=== PATIENT | male | born 1965 | race Caucasian/White ===

== ENCOUNTER 2022-04-04 12:21 | Inpatient (IN) | payer MEDICARE, MEDICAID, SELFPAY ==
[2022-04-04] VITALS (32 sets, daily range): BP systolic 78–126; BP diastolic 51–69; PULSE 100–112; RESP 14–26; TEMP 36.8–37; O2SAT 81–100; BMI 24.9
--- NOTE | ~2022-04-04 | XR_ITS ---
EXAMINATION: XR chest 1V portable DATE: 04/19/2022 05:12 INDICATION: Respiratory failure TECHNIQUE: frontal view of the chest was obtained. COMPARISON: Chest radiograph dated 04/18/2022 FINDINGS: Endotracheal tube tip 6.5 cm above the lennox. Nasogastric tube is no longer visualized. Right upper extremity peripherally inserted central venous catheter (PICC) has repositioned, now extending cephal ad into the caudal right internal jugular vein before folding back upon itself with a kink at the ape x and distal tip near the confluence of the right internal jugular and subclavian veins. Persistent mild opacities at the bilateral lower lung zones. Likely small left pleural effusion.. No pneumothorax. The cardiomediastinal silhouette is normal. IMPRESSION: 1. Unchanged mild opacities at the lung bases consistent with pneumonia and likely small left pleural effusion. 2. Distal tip of the right upper extremity peripherally inserted central venous catheter (PICC) is re positioned now folded back upon itself in the caudal aspect of the right internal jugular vein. Consi dering rapid saline flush to reposition the tip. Reviewed, dictated and finalized at location A. IMPRESSION: 1. Unchanged mild opacities at the lung bases consistent with pneumonia and lik katharine small left pleural effusion. 2. Distal tip of the right upper extremity peripherally inserted central venous catheter (PICC) is repositioned now folded back upon itself in the caudal aspe ct of the right internal jugular vein. Considering rapid saline flush to reposi tion the tip.
--- NOTE | ~2022-04-04 | XR_ITS ---
EXAMINATION: XR chest 1V portable DATE: 04/28/2022 05:56 INDICATION: Pneumonia TECHNIQUE: frontal view of the chest was obtained. COMPARISON: Chest radiograph dated 04/27/2022 FINDINGS: Tracheostomy tube at the thoracic inlet. Patient is rotated towards the left. No significant change i n diffuse bilateral interstitial and scattered patchy airspace opacities throughout both lungs. Small left pleural effusion. No pneumothorax. Heart size is normal. Instrumented posterior and anterior sp inal fusion in the thoracic and thoracolumbar spine respectively. IMPRESSION: 1. No significant change in bilateral interstitial and airspace opacities which could represent pneum onia and/or pulmonary edema. 2. Small left pleural effusion. Reviewed, dictated and finalized at location A. IMPRESSION: 1. No significant change in bilateral interstitial and airspace opacities which could represent pneumonia and/or pulmonary edema. 2. Small left pleural effusion.
--- NOTE | ~2022-04-04 | XR_ITS ---
EXAMINATION: XR chest 1V portable DATE: 04/10/2022 06:01 INDICATION: Respiratory failure. TECHNIQUE: A single frontal view of the chest was obtained on 2 radiographs. COMPARISON: Chest single view 04/10/2022, chest CT 04/04/2022 FINDINGS: There are patchy airspace opacities in all lung zones bilaterally. No pleural effusion or p neumothorax. The heart size is normal. The endotracheal tube tip is 6.9 cm above the lennox. The naso gastric tube tip is in the stomach. There are changes of posterior fusion procedure in thoracic spine . There are changes of anterior fusion procedure in thoracolumbar spine. IMPRESSION: 1. Stable diffuse lung disease, consistent with pneumonia. Reviewed, dictated and finalized at location A.
--- NOTE | ~2022-04-04 | US_ITS ---
EXAMINATION: US venous doppler [facility] DATE: 04/15/2022 13:30 INDICATION: Lower limb edema. TECHNIQUE: Grayscale ultrasound images without and with compression and Doppler ultrasound images of the bilateral lower extremity veins were obtained. COMPARISON: Ultrasound 04/05/2022 FINDINGS: The visualized portions of right common femoral vein, profunda (deep) femoral vein, femoral vein, pop liteal vein, peroneal veins, and posterior tibial veins are patent. The visualized portions of left common femoral vein, profunda femoral vein, femoral vein, popliteal v ein, peroneal veins, and posterior tibial veins are patent. IMPRESSION: 1. No deep venous thrombosis. Reviewed, dictated and finalized at location A.
--- NOTE | ~2022-04-04 | XR_ITS ---
XR abdomen NG/feed tube insert INDICATION: Evaluate NG tube position. TECHNIQUE: Limited KUB perform for evaluating NG tube . COMPARISON: No prior studies for comparison. FINDINGS: NG tube tip in the stomach, side port above the GE junction. Recommend advancement. Visuali zed bowel gas pattern is nonspecific with.There are spinal rods transfixing the thoracic and lumbar s pine with fusion of the upper lumbar spine. IMPRESSION: 1: NG tube tip in the stomach, side port above the GE junction. Recommend advancement. Reviewed, dictated and finalized at location B. IMPRESSION: 1: NG tube tip in the stomach, side port above the GE junction. Recommend adva ncement.
--- NOTE | ~2022-04-04 | XR_ITS ---
XR chest 1V portable 04/30/2022 08:21 Indication: Respiratory failure Procedure: AP portable chest Comparison: Comparison to multiple prior studies sequentially, with oldest reviewed study dated 04/02. Findings: Heart size normal. Diffuse bilateral airspace disease. Small left pleural effusion. Tracheo stomy tube present. There are Dominguez rods involving the thoracic and lumbar spine. No pneumothora x. There is a right-sided PIC line, tip not definitely visualized due to overlying hardware. Impression: 1: Diffuse bilateral airspace disease which may represent edema or pneumonia. 2: Small left pleural effusion. Reviewed, dictated and finalized at location A. Impression: 1: Diffuse bilateral airspace disease which may represent edema or pneumonia. 2: Small left pleural effusion.
--- NOTE | ~2022-04-04 | XR_ITS ---
EXAMINATION: XR chest 1V portable DATE: 04/16/2022 06:06 INDICATION: Acute respiratory failure. TECHNIQUE: frontal view of the chest was obtained. COMPARISON: Chest radiograph and CT dated 04/15/2022 FINDINGS: Endotracheal tube tip approximately 5 cm above the lennox. Nasogastric tube extends into the stomach with distal tip collimated beyond the inferior margin of the [id number]. Right upper extremity per ipherally inserted central venous catheter (PICC) tip at the cephalad superior vena cava. Again seen are subtle opacities at the lung bases with some improvement on the left. No pleural effus ion or pneumothorax. The cardiomediastinal silhouette is normal. IMPRESSION: 1. Opacities in the bilateral lower lung zones consistent with pneumonia with slight improvement on t he left Reviewed, dictated and finalized at location A. IMPRESSION: 1. Opacities in the bilateral lower lung zones consistent with pneumonia with s light improvement on the left
--- NOTE | ~2022-04-04 | XR_ITS ---
EXAMINATION: XR chest 1V portable DATE: 04/19/2022 12:58 INDICATION: Central line placement. TECHNIQUE: A single frontal view of the chest was obtained. COMPARISON: Chest single view at 8:28 AM FINDINGS: There are nodules in the lungs with a lower lung predominance. There are airspace opacities at left lung base. No pleural effusion or pneumothorax. The heart size is normal. The endotracheal t ube tip is 5.9 cm above the lennox. There are changes of posterior fusion procedure in thoracic spine . There are changes of anterior fusion procedure in thoracolumbar spine. A right upper extremity jada pherally inserted central venous catheter (PICC) is seen with tip in the right internal jugular vein. IMPRESSION: 1. PICC tip in right internal jugular vein. 2. Stable diffuse lung disease with a lower lung predominance, consistent with pneumonia. Reviewed, dictated and finalized at location B.
--- NOTE | ~2022-04-04 | XR_ITS ---
EXAMINATION: XR chest 1V portable DATE: 04/17/2022 05:45 INDICATION: Pneumonia. Respiratory failure. TECHNIQUE: frontal view of the chest was obtained. COMPARISON: Chest radiograph dated 04/16/[address] dated 04/15/2022 FINDINGS: The lennox and tip of the endotracheal tube are both obscured by instrumentation for a thoracic poste rior spinal fusion. The tip is approximately 5-6.5 cm above the lennox. Nasogastric tube tip in the s tomach. Right upper extremity peripherally inserted central venous catheter (PICC) tip at the mid mera perior vena cava. Persistent fine reticulonodular pattern in the bilateral lower lung zones. No pleural effusion or pne umothorax. The cardiomediastinal silhouette is normal. IMPRESSION: 1. Fine reticulonodular pattern at the lung bases consistent with pneumonia. Reviewed, dictated and finalized at location A.
--- NOTE | ~2022-04-04 | XR_ITS ---
XR abdomen NG/feed tube rechec INDICATION: Evaluate NG tube position. TECHNIQUE: Limited KUB perform for evaluating NG tube . COMPARISON: 04/05/2022 FINDINGS: NG tube tip in the stomach, side-port near the GE junction. Visualized bowel gas pattern i s unremarkable. IMPRESSION: 1: NG tube tip in the stomach, side port near the GE junction. Reviewed, dictated and finalized at location B.
--- NOTE | ~2022-04-04 | XR_ITS ---
EXAMINATION: XR chest 1V portable DATE: 04/11/2022 05:32 INDICATION: Intubated. TECHNIQUE: A single frontal view of the chest was obtained. COMPARISON: Chest single view 04/10/2022 FINDINGS: There are airspace opacities in all lung zones bilaterally. No pleural effusion or pneumoth orax. The heart size is normal. The endotracheal tube tip is 6.0 cm above the lennox. The nasogastric tube tip is beyond the inferior margin of the radiograph, but at least to the stomach. A right upper extremity peripherally inserted central venous catheter (PICC) is seen with tip in the superior vena cava. There are changes of posterior fusion procedure in thoracic spine. There are changes of anteri or fusion procedure in thoracolumbar spine. IMPRESSION: 1. Stable diffuse lung disease, consistent with pneumonia. Reviewed, dictated and finalized at location A.
--- NOTE | ~2022-04-04 | XR_ITS ---
EXAMINATION: XR chest 1V portable DATE: 04/12/2022 05:33 INDICATION: Acute respiratory failure. TECHNIQUE: A single frontal view of the chest was obtained on 2 radiographs. COMPARISON: Chest single view 04/11/2022 FINDINGS: There are airspace opacities in all lung zones bilaterally. No pleural effusion or pneumoth orax. The heart size is normal. The endotracheal tube tip is 4.9 cm above the lennox. A right upper e xtremity peripherally inserted central venous catheter (PICC) is seen with tip in the superior vena c nicole. The nasogastric tube tip is beyond the inferior margin of the radiograph, but at least to the st omach. There are changes of posterior fusion procedure in thoracic spine. There are changes of anteri or fusion procedure in thoracolumbar spine. IMPRESSION: 1. Stable diffuse lung disease, consistent with pneumonia. Reviewed, dictated and finalized at location A.
--- NOTE | ~2022-04-04 | CT_ITS ---
EXAMINATION: CT brain wo con DATE: 04/10/2022 11:11 INDICATION: Encephalopathy TECHNIQUE: Computed tomography (CT) of the head was performed without intravenous contrast. Sagittal and coronal reconstructions were performed. The mA was adjusted according to patient size. Iterative reconstruction technique was employed. The dose-length product was 756.67 mGy-cm. COMPARISON: None FINDINGS: Incompletely visualized endotracheal tube and orogastric tube extending through the oral cavity. No a cute intracranial hemorrhage, acute infarction or abnormal extra axial fluid collection. Ventricles a re normal and symmetric. No mass/mass effect. There are small bilateral mastoid effusions. The orbits and paranasal sinuses are normal. IMPRESSION: 1. No acute intracranial process. Reviewed, dictated and finalized at location B.
--- NOTE | ~2022-04-04 | XR_ITS ---
EXAMINATION: XR chest 1V portable DATE: 04/15/2022 06:35 INDICATION: Acute respiratory failure. TECHNIQUE: A single frontal view of the chest was obtained. COMPARISON: Chest single view 04/14/2022 FINDINGS: There are small nodules in right mid and lower lung zones and left lower lung zone. No pleu ral effusion or pneumothorax. The heart size is normal. The endotracheal tube tip is 6.3 cm above the lennox. The nasogastric tube tip is beyond the inferior margin of the radiograph, but at least to th e stomach. A right upper extremity peripherally inserted central venous catheter (PICC) is seen with tip in the superior vena cava. There are changes of posterior fusion procedure in thoracic spine and anterior fusion procedure in thoracolumbar spine. IMPRESSION: 1. Stable small nodules in right mid and lower lung zones and left lower lung zone, consistent with p neumonia. Reviewed, dictated and finalized at location A. IMPRESSION: 1. Stable small nodules in right mid and lower lung zones and left lower lung z one, consistent with pneumonia.
--- NOTE | ~2022-04-04 | XR_ITS ---
EXAMINATION: XR chest ET placement, XR chest ET placement, XR abdomen NG/feed tube insert DATE: 04/06/2022 06:03 INDICATION: Endotracheal tube positioning and subsequent repositioning. Orogastric tube placement. TECHNIQUE: 1. Frontal view of the chest was obtained. 2. Repeat frontal view of the chest was obtained after endotracheal tube repositioning. 3. AP view of the abdomen was obtained. COMPARISON: Chest radiograph dated 04/05/2022 FINDINGS: Chest: Endotracheal tube tip 5.5 cm above the lennox on the initial radiograph. Subsequently the endotrachea l tube is advanced with distal tip 4.9 cm above the lennox on the later image. Right upper extremity peripherally inserted central venous catheter (PICC) tip at the caudal superior vena cava. Patchy airspace opacities throughout both lungs. This is superimposed over a gradient of basilar pred ominant hazy opacities with obscuration of the costophrenic angles consistent with small bilateral pl eural effusions. No pneumothorax. The cardiomediastinal silhouette is normal. Instrumented thoracic p osterior spinal fusion with bilateral vertical bree and pedicle screw fixation extending from T4 throu gh T12. Abdomen: Orogastric tube with distal tip in proximal side port in the body of the stomach. No dilated loops of gas-filled bowel to suggest obstruction. Cholecystectomy clips in right upper quadrant. Additional . Versus catheter projects across the right abdomen with distal tip projecting near the right side of the lumbar spine. There is no overlapping anterior spinal fusion with left-sided vertical rods and ve rtebral body screws extending from T11 to L4 with L1 and L2 corpectomies with interbody bone strut gr aft and with additional interbody bone graft cage at L3-L4. IMPRESSION: 1. Endotracheal tube tip 4.9 cm above the lennox and orogastric tube in the stomach. 2. Small bilateral pleural effusions unchanged diffuse patchy bilateral lung disease which could repr esent pulmonary edema or pneumonia. Reviewed, dictated and finalized at location A. IMPRESSION: 1. Endotracheal tube tip 4.9 cm above the lennox and orogastric tube in the sto mach. 2. Small bilateral pleural effusions unchanged diffuse patchy bilateral lung di sease which could represent pulmonary edema or pneumonia. IMPRESSION: 1. Endotracheal tube tip 4.9 cm above the lennox and orogastric tube in the sto mach. 2. Small bilateral pleural effusions unchanged diffuse patchy bilateral lung di sease which could represent pulmonary edema or pneumonia.
--- NOTE | ~2022-04-04 | XR_ITS ---
XR chest ET placement 04/05/2022 09:48 Indication: Intubation. Respiratory distress. Procedure: AP portable chest Comparison: 04/04/2022 Findings: Endotracheal tube 6.3 cm above the lennox. NG tube in the stomach, side port likely above t he GE junction. Heart size normal. There is patchy bilateral airspace disease, compatible with pneumo omari versus edema. Probable small left pleural effusion. No pneumothorax. No acute osseous abnormality . Impression: 1: Patchy bilateral airspace disease which may represent pneumonia versus edema. Reviewed, dictated and finalized at location B. Impression: 1: Patchy bilateral airspace disease which may represent pneumonia versus edema .
--- NOTE | ~2022-04-04 | XR_ITS ---
EXAMINATION: XR chest 1V portable DATE: 04/24/2022 05:50 INDICATION: Pneumonia. Shortness of breath. TECHNIQUE: frontal view of the chest was obtained. COMPARISON: Chest radiograph dated 04/23/2022 FINDINGS: Tracheostomy tube in expected position at the thoracic inlet. Slight worsening of interstitial and mera btle airspace opacities in the bilateral mid and lower lung zones. No pneumothorax or evident pleural effusion. The cardiomediastinal silhouette is normal. Right upper extremity peripherally inserted ce ntral venous catheter (PICC) tip at the right brachiocephalic vein. Interiano thoracic posterior spina l fusion and partially visualized instrumented thoracolumbar anterior spinal fusion. IMPRESSION: 1. Slight worsening in bilateral interstitial and airspace opacities which could represent pulmonary edema or pneumonia. Reviewed, dictated and finalized at location A. IMPRESSION: 1. Slight worsening in bilateral interstitial and airspace opacities which coul d represent pulmonary edema or pneumonia.
--- NOTE | ~2022-04-04 | CT_ITS ---
EXAMINATION: CT chest abdomen pelvis w con DATE: 04/15/2022 13:18 INDICATION: Fever. TECHNIQUE: Computed tomography (CT) of the chest, abdomen, and pelvis was performed with 100 mL Omnip aque 350 intravenous contrast. Automated exposure control and iterative reconstruction technique were employed. The dose-length product was 1496.92 mGy-cm. COMPARISON: Chest CT 04/04/2022 FINDINGS: CHEST CT: There are widespread tree-in-bud opacities and centrilobular nodules involving all lobes with a poste rior and lower lung predominance. There is mucous plugging in bronchi in the lower lobes. The endotra cheal tube tip is 8.3 cm above the lennox. The nasogastric tube tip is in the stomach. There is depen dent atelectasis in the lower lobes. The heart size is normal. There are coronary artery calcificatio ns. No pericardial effusion. A right upper extremity peripherally inserted central venous catheter (P ICC) is seen with tip in the superior vena cava. ABDOMEN/PELVIS CT: The liver demonstrates hypertrophy of left lateral segment and surface nodularity, consistent with ci rrhosis. There is splenomegaly measuring 18.6 cm. There are changes of cholecystectomy. The pancreas and right adrenal gland are normal. There is a 2.2 cm mass in left adrenal gland measuring soft tissu e attenuation. There is a 5 mm cyst in right kidney. Left kidney is normal. There is a Bartholomew catheter in expected position. There is a diverting colostomy in left abdomen. There is a 7.8 x 2.4 x 7.1 cm cystic mass with wall calcifications in the right abdominal subcutaneous fat. The appendix is normal. There is liquid stool in the colon suggestive of diarrhea. There are no pathologically enlarged lymp h nodes. There is a sacral decubitus ulcer with erosions of bone, consistent with osteomyelitis. Ther e are changes of posterior fusion procedure from T4 to T12 with pedicle screws. At T7-T8, there are e ndplate erosions with greater than 4/5 loss of height of T7 and 3/5 loss of height of T8, consistent with a pseudoarthrosis. There are T7 and T8 laminectomies. There are changes of anterior fusion proce dure from T11 to L4 with strut graft from T12 to L3. There is severe lower lumbar spondylosis. There is a retained subcutaneous catheter in the right flank. IMPRESSION: 1. Diffuse lung disease, consistent with pneumonia. 2. Mucous plugging in the lower lobes. 3. Cirrhosis of the liver with portal venous hypertension. 4. 2.2 cm left adrenal mass. In the absence of known malignancy, this finding is likely an adenoma. 5. 7.9 x 2.4 x 7.1 cm cystic mass with wall calcifications in the subcutaneous fat in right anterior abdominal wall. This finding may be a seroma or chronic hematoma. 6. Sacral decubitus ulcer with sacrococcygeal osteomyelitis. Reviewed, dictated and finalized at location A. IMPRESSION: 1. Diffuse lung disease, consistent with pneumonia. 2. Mucous plugging in the lower lobes. 3. Cirrhosis of the liver with portal venous hypertension. 4. 2.2 cm left adrenal mass. In the absence of known malignancy, this finding i s likely an adenoma. 5. 7.9 x 2.4 x 7.1 cm cystic mass with wall calcifications in the subcutaneous fat in right anterior abdominal wall. This finding may be a seroma or chronic h ematoma. 6. Sacral decubitus ulcer with sacrococcygeal osteomyelitis.
--- NOTE | ~2022-04-04 | CT_ITS ---
EXAMINATION: CT diagnostic chest wo con DATE: 04/04/2022 13:53 INDICATION: lung nodule TECHNIQUE: Computed tomography (CT) of the chest was performed without intravenous contrast. Addition al 3D reconstructions utilizing coronal maximum intensity projection (MIP) were performed. Automated exposure control and iterative reconstruction technique were employed. The dose-length product was 50 2.34 mGy-cm. COMPARISON: Chest radiograph dated 04/04/2022 FINDINGS: There is elevation of the posterior left hemidiaphragm. There are multiple small primarily groundglas s nodular opacities, many with tree-in-bud appearance scattered throughout both lungs most prominent in the right upper and bilateral lower lobes and to lesser extent in the lingula and left upper and r ight middle lobes. Additional more dense consolidation in the dependent aspect of the bilateral lower lobes. No pneumothorax or definitive pleural effusion. Heart size is normal. Atherosclerotic coronar y artery calcification. Thoracic aorta is normal in caliber. T4-T12 posterior spinal fusion with bila teral vertical bree and pedicle screw fixation. There are no screws at T7 and T8 where there is verteb ral body height loss at both levels with irregular sclerotic endplate margins abutting a widened disc space, appearance suggesting sequela of chronic discitis and osteomyelitis. Correlate with clinical/ surgical history. There is anterior spinal fusion beginning at T11 and extending from at least L3 wit h corpectomy and interbody bone graft extending between T12 and L3. Additional vertical bree and verte bral body screw fixation extending along the anterolateral margin from T11 through at least L3. Parti ally visualized leads in the subcutaneous tissues at the right posterior upper lumbar region. Cholecy stectomy clips at the gallbladder fossa. IMPRESSION: 1. Bilateral lung disease with numerous predominantly groundglass nodules and tree-in-bud pattern in the bladder suggesting endobronchial spread of disease either atypical infection or aspiration with d ifferential including less likely pulmonary hemorrhage, hypersensitivity pneumonitis and respiratory bronchiolitis interstitial lung disease. Consider follow-up chest radiograph or CT in a couple months to document resolution. Reviewed, dictated and finalized at location A. IMPRESSION: 1. Bilateral lung disease with numerous predominantly groundglass nodules and t ree-in-bud pattern in the bladder suggesting endobronchial spread of disease ei ther atypical infection or aspiration with differential including less likely p ulmonary hemorrhage, hypersensitivity pneumonitis and respiratory bronchiolitis interstitial lung disease. Consider follow-up chest radiograph or CT in a coup le months to document resolution.
--- NOTE | ~2022-04-04 | XR_ITS ---
EXAMINATION: XR chest 1V portable DATE: 04/20/2022 06:09 INDICATION: Respiratory failure TECHNIQUE: frontal view of the chest was obtained. COMPARISON: Chest radiograph dated 04/19/2022 FINDINGS: Endotracheal tube tip 5.5 cm above the lennox. Right upper extremity peripherally inserted central ve nous catheter (PICC) which again seen extending cephalad into the right internal jugular vein where i t is kinked back upon itself with the tip directed caudally. There is also a now sharper angulation o f the catheter where it transitions between the right subclavian vein and the right internal jugular vein. Persistent mild reticulonodular pattern at the bilateral lung bases. No pleural effusion or pneumotho rax. The cardiomediastinal silhouette is normal. Instrumented posterior spinal fusion throughout much of the thoracic spine. Partially visualized instrumented thoracolumbar anterior spinal fusion. IMPRESSION: 1. Unchanged mild bibasilar lung disease consistent with pneumonia. 2. Persistent right PICC line tip in the right internal jugular vein. Reviewed, dictated and finalized at location A.
--- NOTE | ~2022-04-04 | XR_ITS ---
EXAMINATION: XR chest 1V portable DATE: 04/21/2022 05:34 INDICATION: Respiratory failure TECHNIQUE: frontal view of the chest was obtained. COMPARISON: Chest radiograph dated 04/20/2022 FINDINGS: Endotracheal tube tip 5.6 cm above the lennox. Right upper extremity peripherally inserted central ve nous catheter (PICC) tip at the right brachiocephalic vein. Persistent subtle opacities with some bronchial wall thickening in the right lower lung zone. No pleu ral effusion or pneumothorax. The cardiomediastinal silhouette is normal. Instrumented thoracic poste rior spinal fusion and partially visualized instrumented thoracolumbar anterior spinal fusion. IMPRESSION: 1. No significant change in subtle opacities with bronchial wall thickening at the right lung base co nsistent with pneumonia. Reviewed, dictated and finalized at location A. IMPRESSION: 1. No significant change in subtle opacities with bronchial wall thickening at the right lung base consistent with pneumonia.
--- NOTE | ~2022-04-04 | US_ITS ---
EXAMINATION: US arterial ankle brachial ind DATE: 04/05/2022 12:35 INDICATION: Peripheral arterial disease. TECHNIQUE: Segmental pressures and plethysmographic and Doppler waveforms of the brachial and lower e xtremity arteries were obtained. COMPARISON: None. FINDINGS: Right and left brachial artery pressures of 82 mm Hg and 56 mm Hg, respectively, are concordant (norm al difference <= 30 mmHg). The right ankle-brachial index (JAYLEN) is 1.04 (normal >= 0.9-1.0). The right great toe-brachial index (TBI) is 0.60 (normal >= 0.65). Arterial Doppler waveforms are biphasic at the ankle. The left JAYLEN is 1.20. The left TBI is 0.63. Arterial Doppler waveforms are biphasic at the ankle. IMPRESSION: 1. Decreased TBIs and normal ABIs, consistent with arterial occlusive disease. Note that ABIs may be overestimated if arteries are calcified. Reviewed, dictated and finalized at location A.
--- NOTE | ~2022-04-04 | XR_ITS ---
EXAMINATION: XR chest 1V portable DATE: 04/14/2022 05:57 INDICATION: Acute respiratory failure. TECHNIQUE: A single frontal view of the chest was obtained. COMPARISON: Chest single view 04/13/2022 FINDINGS: There is a diffuse interstitial pattern in the lungs. There are airspace opacities at left lung base. There is a small left pleural effusion. No pneumothorax. The heart size is normal. The end otracheal tube tip is 8.0 cm above the lennox. The nasogastric tube tip is beyond the inferior margin of the radiograph, but at least to the stomach. A right upper extremity peripherally inserted centra l venous catheter (PICC) is seen with tip in the superior vena cava. There are changes of posterior f usion procedure in thoracic spine and anterior fusion procedure in thoracolumbar spine. IMPRESSION: 1. Stable diffuse lung disease, consistent with pneumonia. 2. Stable small left pleural effusion. Reviewed, dictated and finalized at location A.
--- NOTE | ~2022-04-04 | XR_ITS ---
EXAMINATION: XR chest PICC line Exam Date/Time: 04/05/2022 14:20 CDT HISTORY: PICC placement Comparison: Same date at 10:55 AM. RESULT: Lines, tubes, and devices: Endotracheal tube terminating 3.8 cm above the lennox. NG tube, side port at the GE junction. Right upper extremity PICC terminating at the distal SVC. Extensive thoracic fus ion hardware. Lungs and pleura: Diffuse reticular opacity with ill-defined patchy airspace disease bilaterally, sl ightly worsening. Cardiomediastinal silhouette: Stable. Other: No acute osseous or upper abdominal finding. IMPRESSION: New right upper extremity PICC, in good position. Possible shallow position of the NG tube, correlate with tube function. Worsening pulmonary opacities. Reviewed, dictated and finalized at location K.
--- NOTE | ~2022-04-04 | XR_ITS ---
EXAMINATION: XR chest 1V portable DATE: 04/04/2022 13:19 INDICATION: Shortness of breath and weakness TECHNIQUE: frontal view of the chest was obtained. COMPARISON: None FINDINGS: Indistinct interstitial and patchy airspace opacities in the right mid to lower and left lower lung z ones. There are a couple approximately 1.5 cm more nodular opacities in the left and right midlung zo renetta. No pneumothorax or evident pleural effusion. The mediastinal silhouette is normal. Instrumented posterior spinal fusion with bilateral vertical bree and pedicle screw fixation extending from T4 thro ugh T12. Incompletely visualized thoracolumbar anterior spinal fusion with left-sided lateral vertica l bree and vertebral body screws at T11 and T12 and extending beyond the caudal margin of the field-of -view which is at L1-L2. IMPRESSION: 1. Bilateral lung disease, right greater than left which could represent pulmonary edema or pneumonia . This includes a couple more nodular opacities in the bilateral mid lung zones and malignancy or met astatic disease cannot be excluded. Recommend evaluation with CT which could be performed either with or without contrast. Reviewed, dictated and finalized at location A. IMPRESSION: 1. Bilateral lung disease, right greater than left which could represent pulmon harinder edema or pneumonia. This includes a couple more nodular opacities in the bi lateral mid lung zones and malignancy or metastatic disease cannot be excluded. Recommend evaluation with CT which could be performed either with or without c ontrast.
--- NOTE | ~2022-04-04 | XR_ITS ---
XR chest ET placement 04/05/2022 11:00 Indication: Endotracheal tube adjusted Procedure: AP portable chest Comparison: 04/05/2022 Findings: Endotracheal tube tip 4.5 cm above the lennox. Patchy bilateral airspace disease unchanged. Probable layering left pleural effusion. Spinal hardware reidentified without interval change. Impression: 1: Patchy bilateral airspace disease, most likely pneumonia. Edema less favored. Reviewed, dictated and finalized at location B. Impression: 1: Patchy bilateral airspace disease, most likely pneumonia. Edema less favored .
--- NOTE | ~2022-04-04 | US_ITS ---
EXAMINATION: US venous doppler UE DATE: 04/15/2022 13:30 INDICATION: Upper limb swelling. TECHNIQUE: Grayscale ultrasound images without and with compression and Doppler ultrasound images of the bilateral upper extremity veins were obtained. COMPARISON: None. FINDINGS: The visualized portions of the right internal jugular vein, subclavian vein, axillary vein, brachial veins, basilic vein, cephalic vein, radial vein, and ulnar vein are patent. The visualized portions of the left internal jugular vein, subclavian vein, axillary vein, brachial v eins, basilic vein, cephalic vein, radial vein, and ulnar vein are patent. IMPRESSION: 1. No deep venous thrombosis. Reviewed, dictated and finalized at location A.
--- NOTE | ~2022-04-04 | US_ITS ---
EXAMINATION: US venous doppler [facility] DATE: 04/05/2022 12:35 INDICATION: Immobility with lower limb swelling and decreased pedal pulses TECHNIQUE: Grayscale ultrasound images without and with compression and Doppler ultrasound images of the bilateral lower extremity veins were obtained. COMPARISON: None. FINDINGS: The visualized portions of right common femoral vein, profunda (deep) femoral vein, femoral vein, pop liteal vein, posterior tibial veins, peroneal veins and greater saphenous vein outflow are patent. The visualized portions of left common femoral vein, profunda femoral vein, femoral vein, popliteal v ein, posterior tibial veins, peroneal veins and greater saphenous vein outflow are patent. IMPRESSION: 1. No deep venous thrombosis in either lower limb. Reviewed, dictated and finalized at location A.
--- NOTE | ~2022-04-04 | XR_ITS ---
EXAMINATION: XR chest 1V portable DATE: 04/07/2022 06:02 INDICATION: Respiratory failure TECHNIQUE: frontal view of the chest was obtained. COMPARISON: Chest radiograph dated 04/06/2022 FINDINGS: Endotracheal tube tip 4.0 cm above the lennox. Nasogastric tube extends below the left hemidiaphragm with distal tip collimated off the study. Right upper extremity peripherally inserted central venous catheter (PICC) tip at the mid superior vena cava. Diffuse bilateral patchy airspace opacities throughout both lungs. Small left pleural effusion. No pn eumothorax or right-sided pleural effusion. The cardiomediastinal silhouette is normal. Instrumented posterior thoracic and anterior thoracolumbar spinal fusions. IMPRESSION: 1. Small left pleural effusion with resolution of the prior small right pleural effusion. 2. Unchanged patchy bilateral lung disease which could represent pulmonary edema and/or pneumonia. Reviewed, dictated and finalized at location A. IMPRESSION: 1. Small left pleural effusion with resolution of the prior small right pleural effusion. 2. Unchanged patchy bilateral lung disease which could represent pulmonary young a and/or pneumonia.
--- NOTE | ~2022-04-04 | XR_ITS ---
EXAMINATION: XR chest 1V portable DATE: 04/18/2022 05:39 INDICATION: Respiratory failure TECHNIQUE: frontal view of the chest was obtained. COMPARISON: 04/17/2022 FINDINGS: Endotracheal tube tip 6.3 cm above the lennox. Nasogastric tube extends below the left hemidiaphragm with distal tip collimated off the study. Right upper extremity peripherally inserted central venous catheter (PICC) tip at the mid superior vena cava. Persistent fine reticulonodular pattern at the bilateral lower lung zones. No pneumothorax or definit shari pleural effusion. Instrumented posterior spinal fusion throughout much of the thoracic spine. Add itional incompletely visualized instrumented anterior spinal fusion beginning in the lower thoracic s pine and extending caudally beyond the inferior margin of the field of view at the thoracolumbar junc tion. IMPRESSION: 1. Unchanged mild reticulonodular pattern at the bilateral lower lung zones consistent with pneumonia . Reviewed, dictated and finalized at location A. IMPRESSION: 1. Unchanged mild reticulonodular pattern at the bilateral lower lung zones con sistent with pneumonia.
--- NOTE | ~2022-04-04 | XR_ITS ---
EXAMINATION: XR chest 1V portable INDICATION: Pneumonia and shortness of breath TECHNIQUE: Portable AP chest at 1112 hours COMPARISON: 04/22/2022 FINDINGS: Patchy bilateral airspace opacities persist without significant change. No pleural effusion or pneumothorax. A tracheostomy is noted. A right upper extremity catheter ends in the subclavian ve in. Surgical changes of the thoracic and lumbar spine are noted. IMPRESSION: 1. Patchy bilateral airspace opacities without significant change, consistent with pneumonia. 2. Right upper extremity catheter ending in the subclavian vein. Reviewed, dictated and finalized at location F. IMPRESSION: 1. Patchy bilateral airspace opacities without significant change, consistent w ith pneumonia. 2. Right upper extremity catheter ending in the subclavian vein.
--- NOTE | ~2022-04-04 | XR_ITS ---
EXAMINATION: XR chest 1V portable DATE: 04/19/2022 08:39 INDICATION: Central line placement. TECHNIQUE: A single frontal view of the chest was obtained. COMPARISON: Chest single view at 5:01 AM, chest CT 04/15/2022 FINDINGS: There are scattered nodules in the lungs with a lower lung predominance. There are airspace opacities at the lung bases. No pleural effusion or pneumothorax. The heart size is normal. The endo tracheal tube tip is 6.7 cm above the lennox. There are changes of posterior fusion procedure in thor acic spine. There are changes of anterior fusion procedure in thoracolumbar spine. A right upper extr emity peripherally inserted central venous catheter (PICC) is seen with tip in the right internal jug ular vein. IMPRESSION: 1. PICC tip in the right internal jugular vein. 2. Stable diffuse lung disease with a lower lung predominance, consistent with pneumonia. Reviewed, dictated and finalized at location B.
--- NOTE | ~2022-04-04 | XR_ITS ---
EXAMINATION: XR chest 1V portable DATE: 04/26/2022 05:08 INDICATION: Pneumonia TECHNIQUE: frontal view of the chest was obtained. COMPARISON: Chest radiograph dated 04/25/2022 FINDINGS: Tracheostomy tube at the thoracic inlet. Persistent interstitial and large scattered patchy airspace opacities throughout both lungs. Likely small left pleural effusion. No pneumothorax or right-sided p leural effusion. The cardiomediastinal silhouette is normal. Instrumented posterior and anterior spin al fusion in the thoracic and thoracolumbar spine respectively. IMPRESSION: 1. No significant change in bilateral interstitial and airspace opacities which could represent pulmo nary edema or pneumonia. Reviewed, dictated and finalized at location A. IMPRESSION: 1. No significant change in bilateral interstitial and airspace opacities which could represent pulmonary edema or pneumonia.
--- NOTE | ~2022-04-04 | XR_ITS ---
EXAMINATION: XR chest 1V portable INDICATION: Respiratory failure TECHNIQUE: Portable AP chest at 0502 hours COMPARISON: 04/21/2022 FINDINGS: Tracheostomy is noted. There are minimal airspace opacities throughout the lungs without si gnificant change. No pleural effusion or pneumothorax. The cardiomediastinal silhouette is normal. [place] rgical changes are noted in the thoracic and lumbar spine. IMPRESSION: 1. Stable bilateral airspace opacities without significant change, consistent with pneumonia. Reviewed, dictated and finalized at location A. IMPRESSION: 1. Stable bilateral airspace opacities without significant change, consistent w ith pneumonia.
--- NOTE | ~2022-04-04 | XR_ITS ---
XR chest 1V portable 04/08/2022 05:54 Indication: Respiratory failure Procedure: AP portable chest Comparison: Comparison to multiple prior studies sequentially, with oldest reviewed study dated 10/2021. Findings: Endotracheal tube tip 7.8 cm above the lennox. NG tube in the stomach. Persistent unchanged bilateral airspace disease. Small pleural effusions. No pneumothorax. Stable appearance to spinal ro ds. Impression: 1: Stable unchanged diffuse bilateral airspace disease which may represent edema and/or pneumonia. 2: Small pleural effusions. Reviewed, dictated and finalized at location A. Impression: 1: Stable unchanged diffuse bilateral airspace disease which may represent young a and/or pneumonia. 2: Small pleural effusions.
--- NOTE | ~2022-04-04 | XR_ITS ---
EXAMINATION: XR chest 1V portable DATE: 04/25/2022 05:42 INDICATION: Pneumonia TECHNIQUE: frontal view of the chest was obtained. COMPARISON: Chest radiograph dated 04/24/2022 FINDINGS: Tracheostomy tube in expected position at the thoracic inlet.. No significant change attending for di fferences in technique in interstitial and airspace opacities in the bilateral mid and lower lung zon es. The cardiomediastinal silhouette is normal. Instrumented posterior and anterior spinal fusion in the thoracic and thoracolumbar spine respectively. IMPRESSION: 1. No significant change in bilateral interstitial and airspace opacities which could represent pulmo nary edema or pneumonia. Reviewed, dictated and finalized at location A. IMPRESSION: 1. No significant change in bilateral interstitial and airspace opacities which could represent pulmonary edema or pneumonia.
--- NOTE | ~2022-04-04 | XR_ITS ---
EXAMINATION: XR chest 1V portable DATE: 04/13/2022 06:05 INDICATION: Acute respiratory failure. TECHNIQUE: A single frontal view of the chest was obtained. COMPARISON: Chest single view 04/12/2022 FINDINGS: There are airspace opacities in all lung zones bilaterally. No pleural effusion or pneumoth orax. The heart size is normal. The endotracheal tube tip is 6.5 cm above the lennox. The nasogastric tube tip is beyond the inferior margin of the radiograph, but at least to the stomach. A right upper extremity peripherally inserted central venous catheter (PICC) is seen with tip in the superior vena cava. There are changes of posterior fusion procedure in thoracic spine and anterior fusion procedur e in thoracolumbar spine. IMPRESSION: 1. Stable diffuse lung disease, consistent with pneumonia. Reviewed, dictated and finalized at location A.
--- NOTE | ~2022-04-04 | XR_ITS ---
EXAMINATION: XR chest 1V portable DATE: 04/21/2022 18:34 INDICATION: New tracheostomy. TECHNIQUE: A single frontal view of the chest was obtained. COMPARISON: Chest single view at 5:03 AM FINDINGS: There are nodules in the lungs with a lower lung predominance, right worse than left. No pl eural effusion or pneumothorax. The heart size is normal. A tracheostomy tube is noted. There are christine nges of posterior fusion procedure in thoracic spine and anterior fusion procedure in thoracolumbar s pine. IMPRESSION: 1. Stable diffuse lung disease, consistent with pneumonia. Reviewed, dictated and finalized at location A.
--- NOTE | ~2022-04-04 | US_ITS ---
EXAMINATION: US venous doppler UE DATE: 04/23/2022 14:22 INDICATION: Bilateral upper limb swelling TECHNIQUE: Grayscale ultrasound images without and with compression and Doppler ultrasound images of the bilateral upper extremity veins were obtained. COMPARISON: 04/15/2022. FINDINGS: The right internal jugular vein, subclavian vein, axillary vein, brachial veins, basilic vein, cephal ic vein, radial vein, and ulnar vein are patent. A right upper extremity PICC is noted. The left internal jugular vein, subclavian vein, axillary vein, brachial veins, basilic vein, cephali c vein, radial vein, and ulnar vein are patent. IMPRESSION: 1. No evidence of deep venous thrombosis. Reviewed, dictated and finalized at location F.
--- NOTE | ~2022-04-04 | XR_ITS ---
EXAMINATION: XR chest 1V portable DATE: 04/27/2022 05:35 INDICATION: Pneumonia TECHNIQUE: frontal view of the chest was obtained. COMPARISON: Chest radiograph dated FINDINGS: Tracheostomy tube at the thoracic inlet. Persistent interstitial and large scattered patchy airspace opacities throughout both lungs. Likely small left pleural effusion. No pneumothorax or right-sided p leural effusion. The cardiomediastinal silhouette is normal. Instrumented posterior and anterior spin al fusion in the thoracic and thoracolumbar spine respectively. IMPRESSION: 1. No significant change in bilateral interstitial and airspace opacities which could represent pneum onia and/or pulmonary edema. 2. Likely small left pleural effusion. Reviewed, dictated and finalized at location A. IMPRESSION: 1. No significant change in bilateral interstitial and airspace opacities which could represent pneumonia and/or pulmonary edema. 2. Likely small left pleural effusion.
--- NOTE | ~2022-04-04 | XR_ITS ---
EXAMINATION: XR chest 1V portable DATE: 04/20/2022 12:12 INDICATION: PICC line adjustment TECHNIQUE: 2 frontal views of the chest were obtained, each following slight withdrawal of the right PICC line. COMPARISON: Chest radiograph dated 04/20/2022 at 5:17 AM FINDINGS: The right upper extremity peripherally inserted central venous catheter has withdrawn slightly on the initial image but remains within the right internal jugular vein. On the subsequent image the cathet er is repositioned with the distal tip now at the right brachiocephalic vein. Endotracheal tube tip 5 .6 cm above the lennox. Subtle reticulonodular opacities at the left lung base with improvement of th e prior opacities at the left lung base. No pleural effusion or pneumothorax. The cardiomediastinal s ilhouette is normal. Instrumented thoracic posterior spinal fusion and partially visualized instrumen david thoracolumbar anterior spinal fusion. IMPRESSION: 1. Successful repositioning of a right peripherally inserted central venous catheter with distal tip now in the right brachiocephalic vein. 2. Subtle reticulonodular pattern at the right lung base consistent with pneumonia. The previously se en similar opacities at the left lung base have resolved. Reviewed, dictated and finalized at location A. IMPRESSION: 1. Successful repositioning of a right peripherally inserted central venous cat heter with distal tip now in the right brachiocephalic vein. 2. Subtle reticulonodular pattern at the right lung base consistent with pneumo omari. The previously seen similar opacities at the left lung base have resolved.
--- NOTE | ~2022-04-04 | XR_ITS ---
XR chest 1V portable 04/09/2022 06:23 Indication: Respiratory failure Procedure: AP portable chest Comparison: Comparison to multiple prior studies sequentially, with oldest reviewed study dated 11/2021. Findings: Endotracheal tube tip 6.5 cm above the lennox. NG tube in the stomach. There is patchy bila teral airspace disease, compatible with pneumonia. Small pleural effusions. PICC line tip in the SVC. Impression: 1: Unchanged patchy bilateral airspace disease, compatible with pneumonia. 2: Small pleural effusions. Reviewed, dictated and finalized at location A. Impression: 1: Unchanged patchy bilateral airspace disease, compatible with pneumonia. 2: Small pleural effusions.
--- NOTE | 2022-04-04 12:30 | ECG_ITS ---
Measurements Intervals [place] Rate: 104 P: 54 MO: 156 QRS: 19 QRSD: 110 T: 77 QT: 353 QTc: 465 Interpretive Statements SINUS TACHYCARDIA BASELINE ARTIFACT BORDERLINE ECG NO PREVIOUS ECG AVAILABLE FOR COMPARISON Electronically Signed On 04-04-2022 17:16:25 CDT by Harsha Stinson M.D.
[2022-04-04] MEDS: ALBUTEROL SULFATE NEB 2.5 MG/3 ML INH 15 MG INHALATION (12:48)
[2022-04-04] MEDS: IPRATROPIUM BR 0.02% INH SOLN 0.5 MG/2.5 ML VIAL 1.5 MG INHALATION (12:48)
[2022-04-04 13:01] LABS: Alanine Aminotransferase 11 U/L (6-50); Albumin Level 3.3 g/dL (3.5-5.1); Alkaline Phosphatase 187 U/L (38-126); Anion Gap 13 mmol/L (8-16); Aspartate Amino Transferase 22 U/L (17-59); Blood Urea Nitrogen 21 mg/dL (9-20); Calcium 8.1 mg/dL (8.4-10.2); Carbon Dioxide 27 mmol/L (22-30); Chloride 95 mmol/L (98-107); Estimated CRCL calculation 88 ml/min; Estimated Glomerular Filt Rate > 60; Glucose 143 mg/dL (65-110); Potassium 3.6 mmol/L (3.4-5.0); Sodium 135 mmol/L (137-145)
[2022-04-04 13:03] LABS: Basophils Absolute Auto 0.1 K/mm3 (0.0-0.1); Basophils Percent Auto 0.4 % (0.2-1.2); Eosinophils Percent Auto 0.2 % (0-4.4); Hematocrit 26.7 % (42.0-52.0); Hemoglobin 8.7 g/dL (14.0-18.0); Immature Granulocyte Absolute 0.06 K/mm3 (0.00-0.031); Immature Granulocyte Percent A 0.5 % (0-0.5); Lymphocytes Absolute Auto 1.27 K/mm3 (0.9-3.2); Lymphocytes Percent Auto 10.5 % (18.3-44.2); Mean Corpuscular HGB Conc 32.6 g/dl (32-36); Mean Corpuscular Hemoglobin 28.2 pg (26-34); Mean Corpuscular Volume 86.7 fl (80-100); Monocytes Absolute Auto 0.7 K/mm3 (0.1-0.6); Monocytes Percent Auto 5.5 % (2.6-8.5); Neutrophils Percent Auto 82.9 % (45.5-73.1); Platelet Count Result 145 k/mm3 (150-375); Red Blood Count 3.08 M/mm3 (4.6-6.20); Red Cell Distribution Width 16.4 % (11.5-14.5); White Blood Count 12.1 K/mm3 (4.5-10.0)
--- NOTE | 2022-04-04 13:11 | PCRCNOTE ---
ABG ordered for this patient, Patient refusing. Doctor notified
[2022-04-04 13:12] LABS: NT Pro B Type Natriuretic Pept 1540 pg/mL (5-100); Troponin I < 0.012 ng/mL (0.000-0.034)
[2022-04-04 13:12] LABS: Lactic Acid Reflex 1.9 mmol/L (0.7-2.0)
[2022-04-04 13:15] LABS: INR 1.7; Prothrombin Time 19.1 Seconds (11.1-14.7)
--- NOTE | 2022-04-04 13:15 | PC.NURSE ---
Receiving neb treatment. Talking in complete sentences without difficulty.
[2022-04-04 13:16] LABS: Partial Thromboplastin Time 41.5 SECONDS (22.3-36.8)
[2022-04-04 13:32] LABS: SARS-CoV-2 RNA PCR Negative
--- NOTE | 2022-04-04 13:33 | ED.SOB ---
HPI - SOB/Dyspnea General Chief Complaint: Shortness of Breath/Dyspnea Stated Complaint: DIFFICULTY BREATHING Time Seen by Provider: 04/04/22 12:37 History of Present Illness HPI Narrative: Patient is a 57-year-old male who presents ER with shortness of breath. Patient found to be hypoxic at his skilled nursing. He has coarse breath sounds bilaterally. Patient is chronically bedbound due to his paraplegia. He has back brace on. Patient oriented x3 but poor historian. He is reporting recent surgery in [facility]. Patient has a large sacral decubitus ulcer. He has no complaints at this time. He is currently wearing 12 L by Venturi mask. He is hypotensive. Related Data Home Medications Medication Instructions Recorded Confirmed carisoprodol 350 mg tablet 350 mg PO BID 05/11/20 cyclobenzaprine 10 mg tablet 10 mg PO TID 05/11/20 diclofenac sodium 1 % topical gel 2 g topical QID 05/11/20 (Voltaren) dicyclomine 10 mg capsule 10 mg PO QID 05/11/20 hydromorphone 2 mg tablet 2 mg PO Q6H 05/11/20 ibuprofen 600 mg tablet 600 mg PO Q6H PRN 05/11/20 ipratropium 20 mcg-albuterol 100 1 puff inhalation QID 05/11/20 mcg/actuation mist for inhalation (Combivent Respimat) lidocaine 5 % topical patch 1 patch topical DAILY 05/11/20 liraglutide 0.6 mg/0.1 mL (18 mg/3 0.6 mg subcut DAILY 05/11/20 mL) subcutaneous pen injector (Victoza 3-Gregg) lubiprostone 24 mcg capsule 24 mcg PO BID 05/11/20 (Amitiza) mirtazapine 45 mg tablet 45 mg PO DAILY 05/11/20 naloxegol 25 mg tablet (Movantik) 25 mg PO QAM 05/11/20 omeprazole 40 mg capsule,delayed 40 mg PO DAILY 05/11/20 release paroxetine HCl 40 mg tablet 40 mg PO DAILY 05/11/20 pregabalin 100 mg capsule 100 mg PO BID 05/11/20 sildenafil 100 mg tablet (Viagra) 100 mg PO DAILY PRN 05/11/20 sucralfate 1 gram tablet PO 05/11/20 zolpidem 12.5 mg tablet,extended 12.5 mg PO ONCE 05/11/20 release,multiphase (Ambien CR) Allergies Allergy/AdvReac Type Severity Reaction Status Date / Time fluoxetine Allergy Unknown Verified 04/04/22 12:51 Review of Systems Review of Systems: ROS unobtainable: Yes unobtainable due to medical condition PMFSH Past Medical History Medical History (Updated 04/04/22 @ 17:36 by Kevin Ford MD) Back pain COPD (chronic obstructive pulmonary disease) Depression Postlaminectomy syndrome Sacral decubitus ulcer, stage IV Type 2 diabetes mellitus with hyperglycemia Surgical History Surgical History History of back surgery Family History Family History Mother Alzheimer disease Social History Social History Smoking status: Current every day smoker Tobacco type: e-cigarettes/vaping Additional smoking assessment comments: pt stated that he tried quiting and only lasted 1 day. Alcohol intake: never Substance use: never Substance use type: does not use Exam Narrative: GENERAL: Chronically ill-appearing, well-nourished, and in mild distress. HEAD: Normocephalic, atraumatic. EYES: PERRL and EOMI. ENT: Mucous membranes moist. CHEST: Coarse Rales throughout with increased respiratory rate. HEART: Tachycardic and regular. Normal peripheral pulses. ABDOMEN: Soft, nontender, nondistended. EXTREMITIES: Paralysis of bilateral lower extremities. Normal range of motion of the upper extremities with atrophy noted. SKIN: Warm, dry. Large sacral decubitus ulcer is felt to be stage IV given its depth. Small stage ulceration T10 region under the brace. NEURO: Alert and oriented x3. Lower extreme paralysis. PSYCH: Normal mood and affect. Course Course Emergency Course: Patient is becoming more alert with IV fluid. He is asking for pain medication which is difficult at this point. He has been acting confused previously more somnolent and he would hate to incr
[2022-04-04] MEDS: SODIUM CHLORIDE 0.9% IV 1,000 ML 999 ML IV CONT (14:49)
[2022-04-04 15:00] LABS: Device VENTURI MASK; Fractional Inspired Oxygen 40 %; HCO3 VBG 22.3 mEq/l (24.0-30.0); PCO2 VBG 37.4 mmHg (42.0-48.0); pH VBG 7.394 (7.300-7.400)
--- NOTE | 2022-04-04 15:47 | PC.NURSE ---
Pt frequently removes oxygen.
--- NOTE | 2022-04-04 16:15 | PM.IMHP ---
H&P: HPI History of Present Illness Date/Time: 04/04/22 16:15 Chief Complaint: Shortness of breath. 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 Yesterday he had an appointment with one of his doctors at [facility] at which time he had wound VAC removed from from a large decubitus ulcer on the sacrum. He felt okay when he went to bed last night and at about 03:00 awoke with chills, shortness of breath, and a cough productive of copious amounts of thick green sputum. His work of breathing got progressively worse as the morning progressed and emergency services were summoned. On EMS arrival his SpO2 was 84% on 2 liters nasal cannula and he was placed on CPAP, transitioned to Venturi mask on arrival to the ER. He refused ABG; a venous blood gas was done 2 hours following arrival while he was on 12 liters high-flow showed a pH of 7.394, pCO2 37.4, PO2 35.0, bicarb 22.3. Chest CT showed bilateral lung disease and he has been started on broad-spectrum antibiotics for pneumonia; SARS-CoV-2 by PCR was negative. He is being admitted to the ICU in this setting for close monitoring as his oxygen requirements remain high and his blood pressures continue to be at the low end of normal. He has not had a fever to his knowledge. He denies sinus congestion and sore throat. He has no known sick contacts and in fact tells me that he has been in quarantine for the last 10 to 12 days since he moved to a new long term. He has not noticed any problems swallowing and he does not believe that he has had any issues with aspiration. His appetite has been okay and he denies nausea and vomiting. He believes his urine and colostomy output have been normal and otherwise unremarkable. At the time my evaluation his main complaint is of severe pain in the buttocks region at the site of a large decubitus ulcer. Review of Systems Review of Systems: Twelve systems were reviewed. He has lost quite a bit of weight since his spinal cord injury, at 1 point time he was nearly 350 pounds. According to the patient he has had issues with chronic back pain and had spinal stimulators in place. Apparently sometime this spring he had a fall which apparently was the cause of his spinal cord injury. He spent months at a specialty hospital and he tried to go home but was unable to care for himself there and he was in a long term and was recently moved to another long term in [place]. He believes his diabetes is pretty well controlled. He has not had chest pain or pleuritic pains. No syncope or near syncope. He has had formed stools coming out of his colostomy. He has not noticed any blood in the stool. No history of venous thromboembolism. Except as documented, all other systems were reviewed and are negative. [facility] Past Medical History Medical History (Updated 04/04/22 @ 22:19 by Ivana Cisneros PA-C) Anxiety Chronic anemia Chronic back pain Chronic obstructive pulmonary disease Depression Insulin dependent type 2 diabetes mellitus MRSA infection Paraplegia, unspecified Postlaminectomy syndrome Sacral decubitus ulcer, stage IV Surgical History Surgical History (Updated 04/04/22 @ 22:10 by Ivana Cisneros PA-C) History of arthroscopy of shoulder History of back surgery Multiple surgeries including thoracic and lumbar fusions and laminectomies. History of cardiac catheterization History of cholecystectomy History of colostomy Family History Family History Mother Alzheimer disease Social History Social History (Updated 04/04/22 @ 22:11 by Ivana Cisneros PA-C) Social History: Surrogate medical decision maker: Ed Spence, son. Code
--- NOTE | 2022-04-04 17:40 | ADMGEN ---
This patient, Patel Spence, was admitted to Intensive Care Unit-5. Patient/family oriented to hospital policies and general routines including ID bracelet, bed and alarms, visiting hours, pain management, procedures, bathroom and other care routines, personal items, smoking policy, room service/diet, and visiting hours. Information on how to activate the Rapid Response Team has been discussed. Patient/Family are encouraged to report perceived risks to care and to ask questions if they do not understand what they are told or what they should do.
[2022-04-04] MEDS: MORPHINE SULFATE (*CRX) 2 MG/ML INJ IV PUSH (18:21)
[2022-04-04] MEDS: MORPHINE SULFATE (*CRX) 4 MG/ML INJ IV PUSH (21:07)
[2022-04-04] MEDS: SODIUM CHLORIDE 0.9% IV 1,000 ML 100 ML IV CONT (23:30)
[2022-04-04] MEDS: MORPHINE SULFATE (*CRX) 15 MG TABCR PO (23:30)
[2022-04-04] MEDS: MELATONIN 5 MG TABLET 15 MG PO (23:31)
[2022-04-04] MEDS: clonazePAM (*CRX) 0.5 MG TABLET PO (23:31)
[2022-04-04] MEDS: PREGABALIN (*CRX) 75 MG CAPSULE 300 MG PO (23:31)
[2022-04-04] MEDS: PARoxetine 20 MG TABLET 40 MG PO (23:32)
[2022-04-04 23:35] LABS: Iron 11 ug/dL (49-181)
[2022-04-04 23:37] LABS: Magnesium 1.4 mg/dL (1.6-2.3)
[2022-04-04 23:45] LABS: Percent Iron Saturation 6 % (20-50)
[2022-04-04 23:51] LABS: Procalcitonin 2.6 ng/mL
[2022-04-04 23:52] LABS: CRP 28.7 mg/dL (<1.0)
[2022-04-05] VITALS (33 sets, daily range): BP systolic 79–118; BP diastolic 54–82; PULSE 82–110; RESP 17–28; TEMP 36.8–37.2; O2SAT 93–100; BMI 25.1
[2022-04-05 00:14] LABS: Glucose Point of Care 163 mg/dl (65-105)
[2022-04-05 00:16] LABS: Add Urine Microscopic? YES; Appearance Urine Turbid (Clear); Bilirubin Urine 1+ (Negative); Blood Urine 1+ (Negative); Glucose Urine UA Negative (Negative); Ketones Urine Negative (Negative); Leukocyte Esterase Ur Trace LEU/UL (Negative); Nitrate Urine Positive (Negative); Protein Urine 3+ mg/dL (Negative); Specific Grav Ur 1.025 (1.001-1.035); pH Urine 5.5 (5.0-9.0)
[2022-04-05 00:21] LABS: Bacteria Urine Trace /hpf; Color Urine Brown (Yellow); Mucus Urine Rare /lpf; Squamous Epithelial Cell Urine Rare /hpf (Few)
[2022-04-05 00:30] LABS: Folic Acid 5.8 ng/mL (2.76->20)
[2022-04-05] MEDS: MAGNESIUM SULF 2 GM/WATER 50ML 2 GM/50 ML BAG IVPB (01:22)
[2022-04-05] MEDS: IPRATROPIUM BR 0.02% INH SOLN 0.5 MG/2.5 ML VIAL INHALATION ×2 (02:20→20:32)
[2022-04-05] MEDS: ALBUTEROL SULFATE NEB 2.5 MG/3 ML INH INHALATION ×4 (02:20→20:32)
[2022-04-05] MEDS: ACETAMINOPHEN 500 MG TABLET 1000 MG PO (04:31)
[2022-04-05 04:35] LABS: Anion Gap 11 mmol/L (8-16); Blood Urea Nitrogen 22 mg/dL (9-20); Calcium 7.8 mg/dL (8.4-10.2); Carbon Dioxide 23 mmol/L (22-30); Chloride 98 mmol/L (98-107); Estimated CRCL calculation 127 ml/min; Estimated Glomerular Filt Rate > 60; Glucose 131 mg/dL (65-110); Magnesium 1.8 mg/dL (1.6-2.3); Potassium 3.8 mmol/L (3.4-5.0); Sodium 132 mmol/L (137-145)
[2022-04-05 04:37] LABS: INR 1.7; Prothrombin Time 19.5 Seconds (11.1-14.7)
[2022-04-05 04:39] LABS: Partial Thromboplastin Time 42.2 SECONDS (22.3-36.8)
[2022-04-05 04:56] LABS: Basophils Percent Auto 0.4 % (0.2-1.2); Hematocrit 24.3 % (42.0-52.0); Hemoglobin 7.6 g/dL (14.0-18.0); Immature Granulocyte Absolute 0.04 K/mm3 (0.00-0.031); Immature Granulocyte Percent A 0.5 % (0-0.5); Lymphocytes Absolute Auto 0.68 K/mm3 (0.9-3.2); Lymphocytes Percent Auto 8.9 % (18.3-44.2); Mean Corpuscular HGB Conc 31.3 g/dl (32-36); Mean Corpuscular Hemoglobin 26.5 pg (26-34); Mean Corpuscular Volume 84.7 fl (80-100); Mean Platelet Volume 9.5 fl (7.4-10.4); Monocytes Absolute Auto 0.4 K/mm3 (0.1-0.6); Monocytes Percent Auto 5.5 % (2.6-8.5); Neutrophils Absolute Auto 6.5 K/mm3 (1.3-6.7); Neutrophils Percent Auto 84.7 % (45.5-73.1); Platelet Count Result 124 k/mm3 (150-375); Red Blood Count 2.87 M/mm3 (4.6-6.20); Red Cell Distribution Width 15.8 % (11.5-14.5); White Blood Count 7.7 K/mm3 (4.5-10.0)
[2022-04-05] MEDS: PREGABALIN (*CRX) 75 MG CAPSULE 300 MG PO (08:15)
[2022-04-05] MEDS: LIDOCAINE 5% PATCH 1 PATCH TOPICAL (08:15)
[2022-04-05] MEDS: MORPHINE SULFATE (*CRX) 15 MG TABCR PO (08:15)
[2022-04-05] MEDS: SUCRALFATE 1 GM TABLET PO ×4 (08:16→20:05)
[2022-04-05] MEDS: SENNA/DOCUSATE SODIUM TABLET 1 TAB PO ×2 (08:16→16:23)
[2022-04-05] MEDS: guaiFENesin 12 HR 600 MG TABCR PO (08:17)
[2022-04-05] MEDS: PARoxetine 20 MG TABLET 40 MG PO (08:17)
[2022-04-05] MEDS: FERROUS SULFATE 324 MG TABLET PO ×2 (08:17→16:21)
[2022-04-05] MEDS: PANTOPRAZOLE SODIUM IV 40 MG VIAL IV PUSH ×2 (08:17→20:05)
[2022-04-05] MEDS: DOCUSATE SODIUM 100 MG CAPSULE PO (08:17)
[2022-04-05] MEDS: DULoxetine HCL 60 MG CAPSULE.DR PO (08:17)
[2022-04-05] MEDS: ENOXAPARIN 40 MG/0.4 ML SYRINGE SUB-Q (08:17)
[2022-04-05] MEDS: ETOMIDATE 20 MG/10 ML AMPUL IV PUSH (09:13)
[2022-04-05] MEDS: MIDAZOLAM HCL (*CRX) 2 MG/2 ML VIAL 4 MG IV PUSH (09:13)
[2022-04-05] MEDS: SUCCINYLCHOLINE CHLORIDE 20 MG/ML 10 ML VIAL 100 MG IV PUSH (09:14)
[2022-04-05] MEDS: LACTATED RINGERS 1,000 ML 999 ML IV CONT (09:17)
[2022-04-05] MEDS: MIDAZOLAM 100MG/NS 100ML(*CRX) 100 MG/100 ML BAG IV CONT (09:18)
[2022-04-05] MEDS: FENTANYL 2,500MCG/NS250ML(*CRX 2,500 MCG/250 ML BAG IV CONT (09:18)
--- NOTE | 2022-04-05 09:40 | WPDPROCEDUR ---
Procedures Intubation Intubation Date: 04/05/22 Intubation Time: 08:45 Consent: Verbal consent was obtained from patient A pre-procedural Time-Out was completed immediately before starting the procedure and confirmed: Patient Identification, Site, Procedure, Patient Position and the Availability of Requisite Equipment: Yes Sedative: etomidate Mg given: 20 Paralytic: succinylcholine Mg given: 100 Laryngoscope: fiber optic video scope Assist device used: fiber optic device ET tube size: cuffed Tube secured depth (cm): 25 Tube secured location: lips Tube placement confirmation: visualized tube passing through cords, equal breath sounds bilaterally, no breath sounds over epigastrium and confirmation by capnometry Patient tolerated procedure: well Intubation complications: none
--- NOTE | 2022-04-05 09:41 | WPDCNINT ---
Assessment and Plan Assessment and plan (1) Acute respiratory failure with hypoxia: Code(s): J96.01 - Acute respiratory failure with hypoxia Status: Acute Assessment and Plan: Acute Respiratory failure secondary to pneumonia which to most likely aspiration could be community-acquired. Also there could be component of CHF since he had elevated BNP Patient was urgently intubated this morning respiratory distress hypoxia and inability to tolerate NIPPV Ventilator settings reviewed Chest [id number] ET tube by 3 cm ABGs pending Bronchodilators Check echocardiogram COVID PCR was negative (2) Sepsis: Code(s): A41.9 - Sepsis, unspecified organism Status: Acute Assessment and Plan: On presentation patient met criteria for sepsis likely secondary to pneumonia and UTI He was given IV fluid bolus and Conservative IV fluids due to elevated BNP His lactic acid level was normal but His procalcitonin level is elevated suggestive of infection Blood and culture have been sent and are pending Check sputum culture Continue vancomycin, Zosyn and Zithromax Urine Legionella pneumococcal antigen are pending Mycoplasma IgM is pain (3) Aspiration pneumonia: Code(s): J69.0 - Pneumonitis due to inhalation of food and vomit Status: Acute Assessment and Plan: See above (4) Multifocal pneumonia: Code(s): J18.9 - Pneumonia, unspecified organism Status: Acute Assessment and Plan: See above (5) Chronic anemia: Code(s): D64.9 - Anemia, unspecified Status: Acute Assessment and Plan: Monitor and transfuse as if needed (6) Paraplegia, unspecified: Code(s): G82.20 - Paraplegia, unspecified Status: Acute Assessment and Plan: Chronic paraplegia from past injury (7) Insulin dependent type 2 diabetes mellitus: Code(s): E11.9 - Type 2 diabetes mellitus without complications; Z79.4 - manager long term care (current) use of insulin Status: Acute Assessment and Plan: Sliding scale insulin (8) Decubitus ulcer of sacral area: Code(s): L89.159 - Pressure ulcer of sacral region, unspecified stage Status: Acute Assessment and Plan: Patient's wounds were evaluated by wound care nurse and they do not appear infected Continue local wound care (9) UTI (urinary tract infection): Code(s): N39.0 - Urinary tract infection, site not specified Status: Acute Assessment and Plan: Patient has indwelling Bartholomew UA suggests UTI Culture sent Bartholomew exchange Continue Zosyn (10) Complaint associated with gastric tube: Code(s): R68.89 - Other general symptoms and signs; Z93.1 - Gastrostomy status Status: Acute Assessment and Plan: Nurse were unable to place OG or NG tube was not. I placed OG tube with help of glide scope. I was unable to advance after 50 cm. Chest x-ray confirms that OG tube is in stomach but not far enough. Will advance 5 cm possible, use it for option and pills for now. Hold tube feeds. Repeat KUB later today. May need weighted Dobbhoff tube placement Plan DVT prophylaxis -Lovenox Stress ulcer prophylaxis -IV PPI Nutrition -NPO Code Status -patient prior to intubation requested to be Full Code Total Critical Care Time - 45 minutes Due to a high probability of clinically significant, life threatening deterioration, the patient required my highest level of preparedness to intervene emergently and I personally spent this critical care time directly and personally managing the patient. This critical care time included obtaining a history; examining the patient; pulse oximetry; ordering and review of studies; arranging urgent treatment with development of a management plan; evaluation of patient's response to treatment; frequent reassessment; and discussions with other providers. It was exclusive of separately billable procedures and treating other patients and teaching time. Please
--- NOTE | 2022-04-05 10:02 | PCSTNOTE ---
Order received for bedside swallowing evaluation. Patient was intubated this morning and this evaluation will not be done at this time. Thank you for the referral of this patient.
[2022-04-05] MEDS: COLLAGENASE OINT 30 GM TUBE 1 APPLIC TOPICAL (10:33)
[2022-04-05] MEDS: LACTATED RINGERS 1,000 ML 100 ML IV CONT ×2 (10:33→21:27)
[2022-04-05] MEDS: SILVERGEL (ELTA) 45 ML 1 APPLIC TOPICAL (10:33)
[2022-04-05 10:42] LABS: Alveolar/Arterial O2 Gradient 415.5 mmHg; Base Excess ABG -1.1 mEq/l (+/-2.0); Carboxyhemoglobin 0.3 % THb (0-2.0); Fractional Inspired Oxygen 80 %; HCO3 ABG 24.9 mEq/l (22.0-26.0); Methemoglobin ABG 0.5 %THb (0-1.5); Oxygen Content ABG 11.2 %vol (16.0-22.0); Oxygen Saturation ABG 97.4 % (95.0-100.0); Oxyhemoglobin 95.6 % THb (90.0-100.0); PCO2 ABG 48.3 mmHg (35.0-45.0); PO2 ABG 104.2 mmHg (80.0-100.0); Reduced Hemoglobin 3.6 %THb (0-5.0); Total Hemoglobin 8.2 g/dL (12.0-18.0)
[2022-04-05 10:44] LABS: Arterial Blood Gas Vent Mode CMV; Arterial Blood Gas Ventilator rate 20 /MIN; Device VENTILATOR; Site Drawn LEFT BRACHIAL
[2022-04-05 10:45] LABS: Arterial Blood Gas PEEP 8 cmH2O; Arterial Blood Gas Pressure Support 0 cmH2O; Arterial Blood Gas Tidal Volume 450 ml
[2022-04-05] MEDS: LORATADINE 10 MG TABLET PO (12:13)
[2022-04-05] MEDS: MINERAL OIL/WHITE PETROLATUM OINTMENT 1 APPLIC EACH EYE ×2 (12:15→20:05)
[2022-04-05] MEDS: LIDOCAINE HCL 1% PF INJ 5 ML VIAL INFILTRATE (13:55)
[2022-04-05 18:39] LABS: Glucose Point of Care 125 mg/dl (65-105)
--- NOTE | 2022-04-05 19:05 | PM.IMPN ---
Progress Note: A&P Assessment and Plan (1) Acute respiratory failure with hypoxia: Code(s): J96.01 - Acute respiratory failure with hypoxia Status: Acute Assessment and Plan: Acute Respiratory failure secondary to pneumonia which to most likely aspiration could be community-acquired. 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 Bronchodilators Check echocardiogram COVID PCR was negative (2) Sepsis: Code(s): A41.9 - Sepsis, unspecified organism Status: Acute Assessment and Plan: On presentation patient met criteria for sepsis likely secondary to pneumonia and UTI He was given IV fluid bolus and Conservative IV fluids due to elevated BNP His lactic acid level was normal but His procalcitonin level is elevated suggestive of infection Blood and culture have been sent and are pending Check sputum culture Continue vancomycin, Zosyn and Zithromax Urine Legionella pneumococcal antigen are pending Mycoplasma IgM is pain (3) Aspiration pneumonia: Code(s): J69.0 - Pneumonitis due to inhalation of food and vomit Status: Acute Assessment and Plan: See above (4) Multifocal pneumonia: Code(s): J18.9 - Pneumonia, unspecified organism Status: Acute Assessment and Plan: See above (5) Chronic anemia: Code(s): D64.9 - Anemia, unspecified Status: Acute Assessment and Plan: Monitor and transfuse as if needed (6) Paraplegia, unspecified: Code(s): G82.20 - Paraplegia, unspecified Status: Acute Assessment and Plan: Chronic paraplegia from past injury (7) Insulin dependent type 2 diabetes mellitus: Code(s): E11.9 - Type 2 diabetes mellitus without complications; Z79.4 - watermaster (current) use of insulin Status: Acute Assessment and Plan: Sliding scale insulin (8) Decubitus ulcer of sacral area: Code(s): L89.159 - Pressure ulcer of sacral region, unspecified stage Status: Acute Assessment and Plan: Patient's wounds were evaluated by wound care nurse and they do not appear infected Continue local wound care (9) UTI (urinary tract infection): Code(s): N39.0 - Urinary tract infection, site not specified Status: Acute Assessment and Plan: Patient has indwelling Bartholomew UA suggests UTI Culture sent Bartholomew exchange Continue Zosyn (10) Complaint associated with gastric tube: Code(s): R68.89 - Other general symptoms and signs; Z93.1 - Gastrostomy status Status: Acute Plan DVT prophylaxis -Lovenox Stress ulcer prophylaxis -IV PPI Nutrition -NPO, tube feed Code Status -full code Subjective Date/time seen: 04/05/22 19:05 Interval history: This is a pleasant yet unfortunate 57-year-old male with 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 Yesterday he had an appointment with one of his doctors at [facility] at which time he had wound VAC removed from from a large decubitus ulcer on the sacrum. He felt okay when he went to bed last night and at about 03:00 awoke with chills, shortness of breath, and a cough productive of copious amounts of thick green sputum. His work of breathing got progressively worse as the morning progressed and emergency services were summoned. On EMS arrival his SpO2 was 84% on 2 liters nasal cannula and he was placed on CPAP, transitioned to Venturi mask on arrival to the ER. He refused ABG; a venous blood gas was done 2 hours following arrival? while he was on 12 liters high-flow showed a pH of 7.394, pCO2 37.4, PO2 35.0, bicarb 22.3. Chest CT showed bilateral lung disease a
[2022-04-05] MEDS: DOCUSATE SODIUM LIQ 100 MG/10 ML UDC PO (20:05)
[2022-04-05] MEDS: CENTRAL LINE FLUSH 10 ML IV PUSH (20:05)
[2022-04-05 23:44] LABS: Glucose Point of Care 164 mg/dl (65-105)
[2022-04-06] VITALS (59 sets, daily range): BP systolic 72–127; BP diastolic 49–76; PULSE 82–112; RESP 12–33; TEMP 36.9–38.4; O2SAT 94–100
--- NOTE | 2022-04-06 | ECHO_ITS ---
Patient Info Name: Patel Spence Age: 57 years : 1965 Gender: Male Ht: 73 in Wt: 190 lbs BSA: 2.11 m2 HR: 76 bpm BP: 106 / 62 mmHg Heart Rhythm: Sinus Rhythm Technical Quality: Fair Exam Date: 04/06/2022 7:51 AM Exam Location: [facility] Card Pulmonary Patient Status: Inpatient Admit Date: 04/04/2022 Staff Ordering Physician: Itz Craig MD Weigher Alloy: Mandie Douglas RDCS Attending Provider: Kip Hopper MD Exam Type: CA echo doppler color flow Study Info Indications - chf Complete two-dimensional, color flow and Doppler transthoracic echocardiogram is performed. Summary 1. Complete two-dimensional, color flow and Doppler transthoracic echocardiogram is performed. 2. Left ventricular chamber dimension is moderately enlarged. 3. Left ventricular systolic function is normal, estimated at 55-60%. 4. There is no increased left ventricular wall thickness. 5. The left ventricular diastolic function is grade I diastolic dysfunction. 6. Right ventricular systolic function is reduced. TAPSE 1.4. 7. There is trace tricuspid valve regurgitation. 8. No pulmonary hypertension, estimated pulmonary arterial systolic pressure is 29 mmHg. 9. Normal inferior vena cava with no collapse upon inspiration consistent with elevated right atrial pressure, 10 mmHg. Left Ventricle Left ventricular chamber dimension is moderately enlarged. Left ventricular systolic function is normal, estimated at 55-60%. There is no increased left ventricular wall thickness. The left ventricular diastolic function is grade I diastolic dysfunction. Right Ventricle Right ventricular chamber dimension is normal. Right ventricular systolic function is reduced. TAPSE 1.4. Left Atria Left atrial chamber dimension is mildly enlarged. Right Atria Right atrial chamber dimension is mildly enlarged. Aortic Valve The aortic valve is probable trileaflet. There is no aortic valve stenosis. There is no aortic valve regurgitation. Pulmonic Valve The pulmonic valve is not well visualized. There is trace pulmonic regurgitation. Mitral Valve The mitral valve has normal leaflets. There is trace mitral valve regurgitation. Tricuspid Valve The tricuspid valve leaflets are normal. There is trace tricuspid valve regurgitation. No pulmonary hypertension, estimated pulmonary arterial systolic pressure is 29 mmHg. Pericardium/Pleural The pericardium appears normal. There is trivial pericardial effusion. Inferior Vena Cava Normal inferior vena cava with no collapse upon inspiration consistent with elevated right atrial pressure, 10 mmHg. Aorta The aortic root size at the sinus of Valsalva is normal. There is mild aortic atherosclerosis. Left Ventricular Outflow Tract Name Value Normal LVOT 2D LVOT Diameter 2.1 cm LVOT Doppler LVOT Peak Gradient 5 mmHg LVOT Mean Gradient 2 mmHg LVOT VTI 16 cm LVOT VTI/AV VTI Ratio 0.6 LVOT Stroke Volume 58 ml LVOT CO
[2022-04-06] MEDS: IPRATROPIUM BR 0.02% INH SOLN 0.5 MG/2.5 ML VIAL INHALATION (03:05)
[2022-04-06] MEDS: ALBUTEROL SULFATE NEB 2.5 MG/3 ML INH INHALATION ×4 (03:05→20:07)
[2022-04-06] MEDS: ROCURONIUM BROMIDE 50 MG/5 ML VIAL 80 MG IV PUSH (05:25)
[2022-04-06] MEDS: ETOMIDATE 20 MG/10 ML AMPUL 30 MG IV PUSH (05:25)
[2022-04-06] MEDS: RAPID SEQUENCE INTUBATION KIT 1 EACH (05:26)
[2022-04-06] MEDS: CENTRAL LINE FLUSH 10 ML IV PUSH ×3 (05:45→21:23)
--- NOTE | 2022-04-06 05:45 | WPDPROCEDUR ---
Procedures Intubation Intubation Date: 04/06/22 Intubation Time: 04:50 Sedative: etomidate Mg given: 30 Paralytic: rocuronium Mg given: 80 Laryngoscope: fiber optic video scope Assist device used: fiber optic device ET tube size: 7.5 Tube secured depth (cm): 29 Tube secured location: lips Tube placement confirmation: visualized tube passing through cords, equal breath sounds bilaterally, no breath sounds over epigastrium and confirmation by capnometry Patient tolerated procedure: well Intubation complications: none
[2022-04-06 05:46] LABS: Hematocrit 23.3 % (42.0-52.0); Hemoglobin 7.2 g/dL (14.0-18.0); Mean Corpuscular HGB Conc 30.9 g/dl (32-36); Mean Corpuscular Hemoglobin 26.3 pg (26-34); Mean Platelet Volume 9.8 fl (7.4-10.4); Platelet Count Result 119 k/mm3 (150-375); Red Blood Count 2.74 M/mm3 (4.6-6.20); Red Cell Distribution Width 15.7 % (11.5-14.5)
[2022-04-06 05:55] LABS: Alanine Aminotransferase 8 U/L (6-50); Albumin Level 2.7 g/dL (3.5-5.1); Alkaline Phosphatase 137 U/L (38-126); Anion Gap 6 mmol/L (8-16); Aspartate Amino Transferase 21 U/L (17-59); Bilirubin,Total 0.6 mg/dL (0.2-1.3); Blood Urea Nitrogen 23 mg/dL (9-20); Calcium 7.8 mg/dL (8.4-10.2); Carbon Dioxide 26 mmol/L (22-30); Chloride 98 mmol/L (98-107); Estimated CRCL calculation 150 ml/min; Estimated Glomerular Filt Rate > 60; Glucose 143 mg/dL (65-110); Magnesium 1.8 mg/dL (1.6-2.3); Phosphorus 3.4 mg/dL (2.5-4.5); Potassium 3.2 mmol/L (3.4-5.0); Sodium 130 mmol/L (137-145)
[2022-04-06 05:59] LABS: Alveolar/Arterial O2 Gradient 217.8 mmHg; Base Excess ABG -0.8 mEq/l (+/-2.0); Carboxyhemoglobin 0.3 % THb (0-2.0); Fractional Inspired Oxygen 50 %; HCO3 ABG 26.2 mEq/l (22.0-26.0); Methemoglobin ABG 0.4 %THb (0-1.5); Oxygen Content ABG 11.2 %vol (16.0-22.0); Oxyhemoglobin 92.6 % THb (90.0-100.0); PCO2 ABG 56.8 mmHg (35.0-45.0); PO2 ABG 74.8 mmHg (80.0-100.0); Reduced Hemoglobin 6.7 %THb (0-5.0); Total Hemoglobin 8.5 g/dL (12.0-18.0)
[2022-04-06 06:01] LABS: Device VENTILATOR; Modified Allen's Test Pass; Site Drawn LEFT RADIAL; pH ABG 7.282 (7.350-7.450)
[2022-04-06 06:02] LABS: Arterial Blood Gas PEEP 8 cmH2O; Arterial Blood Gas Tidal Volume 450 ml; Arterial Blood Gas Vent Mode CMV; Arterial Blood Gas Ventilator rate 22 /MIN
--- NOTE | 2022-04-06 06:30 | PC.NURSE ---
Staff members at bedside. Pt lying on left side while staff changed bed linens. While pt was on his side, pt coughed. ETT displaced to 15 cm. Pt placed on his back and staff assisted ventilation via BVM. Dr. Santos notified of self extubation. Re-intubated per Dr. Santos. Dr. Santos remained at bedside to verify ETT placement. ETT was advanced per RT at Dr. Santos's direction, by 1cm. ETT at 29cm. Awaiting official radiology report. KUB was taken but not read by Dr. Santos. Tube feeding on hold while awaiting official radiology report. Notified Dr. Craig of critical ABG and of re-intubation. Increased ventilator rate to [address] Craig's order.
[2022-04-06] MEDS: ENOXAPARIN 40 MG/0.4 ML SYRINGE SUB-Q (08:01)
[2022-04-06] MEDS: LORATADINE 10 MG TABLET PO (08:01)
[2022-04-06] MEDS: PANTOPRAZOLE SODIUM IV 40 MG VIAL IV PUSH ×2 (08:01→21:22)
[2022-04-06] MEDS: MINERAL OIL/WHITE PETROLATUM OINTMENT 1 APPLIC EACH EYE ×2 (08:01→21:22)
[2022-04-06] MEDS: SENNA/DOCUSATE SODIUM TABLET 1 TAB PO (08:02)
[2022-04-06] MEDS: DOCUSATE SODIUM LIQ 100 MG/10 ML UDC PO (08:02)
[2022-04-06] MEDS: SUCRALFATE 1 GM TABLET PO ×4 (08:03→21:23)
[2022-04-06] MEDS: FERROUS SULFATE 324 MG TABLET PO ×2 (08:03→16:05)
[2022-04-06] MEDS: KCL 40 MEQ/WATER 100 ML 100 ML 25 ML IVPB (08:04)
[2022-04-06] MEDS: POTASSIUM CHLORIDE 20 MEQ PACKET (FOR LIQUID) 40 MEQ FEED TUBE (08:10)
[2022-04-06 08:15] LABS: NT Pro B Type Natriuretic Pept 1810 pg/mL (5-100)
[2022-04-06] MEDS: CALCIUM CHLOR 1,000MG/100ML NS 1,000 MG/100 ML BAG 100 MG IVPB (08:30)
[2022-04-06] MEDS: METOCLOPRAMIDE HCL 10 MG/10 ML SOLN UDC PO ×3 (08:30→21:22)
[2022-04-06] MEDS: FENTANYL 2,500MCG/NS250ML(*CRX 2,500 MCG/250 ML BAG 10 MCG IV CONT (08:55)
[2022-04-06] MEDS: SILVERGEL (ELTA) 45 ML 1 APPLIC TOPICAL (09:04)
[2022-04-06] MEDS: COLLAGENASE OINT 30 GM TUBE 1 APPLIC TOPICAL (09:04)
--- NOTE | 2022-04-06 09:12 | WPDINTPN ---
Progress Note: A&P Assessment and Plan (1) Acute respiratory failure with hypoxia: Code(s): J96.01 - Acute respiratory failure with hypoxia Status: Acute Assessment and Plan: Acute Respiratory failure secondary to pneumonia which to most likely aspiration could be community-acquired. Also there could be component of CHF since he had elevated BNP 04/05 Patient was urgently intubated this morning respiratory distress hypoxia and inability to tolerate NIPPV 04/06 patient self-extubated and was reintubated Ventilator settings reviewed. Increased rate to 26 in response to ABG Chest x-ray reviewed Continue Bronchodilators Pending echocardiogram COVID PCR was negative (2) Sepsis: Code(s): A41.9 - Sepsis, unspecified organism Status: Acute Assessment and Plan: On presentation patient met criteria for sepsis likely secondary to pneumonia and UTI He has received adequate amount of IV fluids and will hold further IV fluids at this time His lactic acid level was normal but His procalcitonin level is elevated suggestive of infection Blood, sputum and culture have been sent and are pending Continue vancomycin, Zosyn and Zithromax Urine Legionella pneumococcal antigen are pending Mycoplasma IgM is pending (3) Aspiration pneumonia: Code(s): J69.0 - Pneumonitis due to inhalation of food and vomit Status: Acute Assessment and Plan: See above (4) Multifocal pneumonia: Code(s): J18.9 - Pneumonia, unspecified organism Status: Acute Assessment and Plan: See above (5) Chronic anemia: Code(s): D64.9 - Anemia, unspecified Status: Acute Assessment and Plan: Monitor and transfuse as if needed (6) Paraplegia, unspecified: Code(s): G82.20 - Paraplegia, unspecified Status: Acute Assessment and Plan: Chronic paraplegia from past injury (7) Insulin dependent type 2 diabetes mellitus: Code(s): E11.9 - Type 2 diabetes mellitus without complications; Z79.4 - senior living (current) use of insulin Status: Acute Assessment and Plan: Sliding scale insulin (8) Decubitus ulcer of sacral area: Code(s): L89.159 - Pressure ulcer of sacral region, unspecified stage Status: Acute Assessment and Plan: Patient's wounds were evaluated by wound care nurse and they do not appear infected Continue local wound care (9) UTI (urinary tract infection): Code(s): N39.0 - Urinary tract infection, site not specified Status: Acute Assessment and Plan: Patient has indwelling Bartholomew. UA suggests UTI Culture sent Bartholomew exchanged Continue Zosyn (10) Complaint associated with gastric tube: Code(s): R68.89 - Other general symptoms and signs; Z93.1 - Gastrostomy status Status: Acute Assessment and Plan: 04/05 Nurse were unable to place OG or NG tube was not. I placed OG tube with help of glide scope. I was unable to advance after 50 cm. Chest x-ray now confirms that OG tube is in stomach Resume tube feeds (11) Electrolyte abnormality: Code(s): E87.8 - Other disorders of electrolyte and fluid balance, not elsewhere classified Status: Acute Assessment and Plan: Replace low calcium and potassium Plan DVT prophylaxis -Lovenox Stress ulcer prophylaxis -IV PPI Nutrition -tube feeds Code Status -patient prior to intubation requested to be Full Code Total Critical Care Time - 35 minutes Due to a high probability of clinically significant, life threatening deterioration, the patient required my highest level of preparedness to intervene emergently and I personally spent this critical care time directly and personally managing the patient. This critical care time included obtaining a history; examining the patient; pulse oximetry; ordering and review of studies; arranging urgent treatment with development of a management plan; evaluation of patient's response to treatment; f
--- NOTE | 2022-04-06 10:40 | PCFNICU ---
Addendum entered by Rozina Putnam, RD, LDN 04/06/22 10:45: Goal rate at 70ml/hr not 65 ml/hr. Original Note: ICU Rounding Note: Pt current nutrition is Vital AF 1.2 at 20 ml/hr Nutrition recommendation: Goal rate at 65 ml/hr. Last recorded weight is 93.3 kg, up from 86,3 kg on admit. Bowel Motility:colostomy Labs Reviewed: Glu 143, BUN 23, Cr 0.5,Na 130, Hct 23.3, Hgb 7.2 Meds Noted:Colace, Senokot,Lovenox, Protonix,Versed,Fentanyl, Reglan, Zithromax,Zosyn, Ferrous Sulfate Skin: Stage IV PU-sacrum, Stage II PU-right knee, Stage III PU-bilateral heels, unstageable pu-heels. Additional Notes: Patient on mechanical vent and tube feedings of Vital AF 1.2. High residuals reported overnight. Tube feedings have restarted at 20 ml/hr and tolerating. Patient receiving Nimesh BID and Prosource BID for would healing. Agree with diet orders. Following daily in ICU rounds. Will monitor in ICU rounds and reassess every Sunday and Sunday. .
[2022-04-06 11:39] LABS: Glucose Point of Care 144 mg/dl (65-105)
[2022-04-06 12:27] LABS: Vancomycin Trough 12.7 ug/mL (10.0-20.0)
[2022-04-06] MEDS: ACETAMINOPHEN ELIXIR 325 MG/10.15 ML UDC 650 MG PO (14:03)
[2022-04-06] MEDS: NOREPINEPHRINE 8 MG/D5W 250 ML 8 MG/250 ML BAG 9.38 MG IV CONT (14:51)
[2022-04-06 19:02] LABS: Glucose Point of Care 147 mg/dl (65-105)
[2022-04-07] VITALS (37 sets, daily range): BP systolic 94–119; BP diastolic 57–72; PULSE 81–108; RESP 15–32; TEMP 36.9–37.3; O2SAT 94–98
[2022-04-07] MEDS: MIDAZOLAM 100MG/NS 100ML(*CRX) 100 MG/100 ML BAG IV CONT (00:03)
[2022-04-07 00:22] LABS: Glucose Point of Care 169 mg/dl (65-105)
[2022-04-07] MEDS: METOCLOPRAMIDE HCL 10 MG/10 ML SOLN UDC PO ×2 (02:36→08:19)
[2022-04-07] MEDS: ALBUTEROL SULFATE NEB 2.5 MG/3 ML INH INHALATION ×4 (02:49→20:21)
[2022-04-07 04:45] LABS: Alveolar/Arterial O2 Gradient 89.2 mmHg; Base Excess ABG 1.2 mEq/l (+/-2.0); Fractional Inspired Oxygen 30 %; HCO3 ABG 26.5 mEq/l (22.0-26.0); Methemoglobin ABG 0.3 %THb (0-1.5); Oxygen Content ABG 10.9 %vol (16.0-22.0); Oxyhemoglobin 94.1 % THb (90.0-100.0); PCO2 ABG 45.6 mmHg (35.0-45.0); PO2 ABG 71.1 mmHg (80.0-100.0); PO2 FiO2 Ratio Arterial Blood 2.37 %; Reduced Hemoglobin 5.6 %THb (0-5.0); Total Hemoglobin 8.2 g/dL (12.0-18.0); pH ABG 7.382 (7.350-7.450)
[2022-04-07 04:46] LABS: Site Drawn LEFT RADIAL
[2022-04-07 04:47] LABS: Arterial Blood Gas PEEP 8 cmH2O; Arterial Blood Gas Vent Mode CMV; Arterial Blood Gas Ventilator rate 26 /MIN; Device VENTILATOR; Modified Allen's Test Pass
[2022-04-07 04:48] LABS: Arterial Blood Gas Tidal Volume 450 ml
[2022-04-07] MEDS: CENTRAL LINE FLUSH 10 ML IV PUSH ×3 (05:01→21:00)
[2022-04-07 05:50] LABS: Hematocrit 23.5 % (42.0-52.0); Hemoglobin 7.2 g/dL (14.0-18.0); Mean Corpuscular HGB Conc 30.6 g/dl (32-36); Mean Corpuscular Hemoglobin 25.8 pg (26-34); Mean Corpuscular Volume 84.2 fl (80-100); Mean Platelet Volume 9.6 fl (7.4-10.4); Platelet Count Result 135 k/mm3 (150-375); Red Blood Count 2.79 M/mm3 (4.6-6.20); Red Cell Distribution Width 15.8 % (11.5-14.5); White Blood Count 8.8 K/mm3 (4.5-10.0)
[2022-04-07 06:00] LABS: Alanine Aminotransferase 7 U/L (6-50); Albumin Level 2.7 g/dL (3.5-5.1); Alkaline Phosphatase 145 U/L (38-126); Anion Gap 11 mmol/L (8-16); Aspartate Amino Transferase 12 U/L (17-59); Bilirubin,Total 0.6 mg/dL (0.2-1.3); Blood Urea Nitrogen 22 mg/dL (9-20); Carbon Dioxide 25 mmol/L (22-30); Chloride 97 mmol/L (98-107); Estimated CRCL calculation 150 ml/min; Estimated Glomerular Filt Rate > 60; Glucose 162 mg/dL (65-110); Magnesium 1.9 mg/dL (1.6-2.3); Phosphorus 2.7 mg/dL (2.5-4.5); Potassium 3.6 mmol/L (3.4-5.0); Sodium 133 mmol/L (137-145)
[2022-04-07] MEDS: FENTANYL 2,500MCG/NS250ML(*CRX 2,500 MCG/250 ML BAG 12.5 MCG IV CONT (06:47)
[2022-04-07] MEDS: SUCRALFATE 1 GM TABLET PO ×4 (08:18→21:00)
[2022-04-07] MEDS: FERROUS SULFATE 324 MG TABLET PO ×2 (08:18→16:07)
[2022-04-07] MEDS: MINERAL OIL/WHITE PETROLATUM OINTMENT 1 APPLIC EACH EYE ×2 (08:19→21:00)
[2022-04-07] MEDS: ENOXAPARIN 40 MG/0.4 ML SYRINGE SUB-Q (08:19)
[2022-04-07] MEDS: COLLAGENASE OINT 30 GM TUBE 1 APPLIC TOPICAL (08:19)
[2022-04-07] MEDS: SILVERGEL (ELTA) 45 ML 1 APPLIC TOPICAL (08:19)
[2022-04-07] MEDS: LORATADINE 10 MG TABLET PO (08:19)
[2022-04-07] MEDS: PANTOPRAZOLE SODIUM IV 40 MG VIAL IV PUSH ×2 (08:19→21:00)
[2022-04-07] MEDS: FUROSEMIDE INJ 40 MG/4 ML VIAL 20 MG IV PUSH (08:31)
[2022-04-07] MEDS: POTASSIUM CHLORIDE 20 MEQ PACKET (FOR LIQUID) 40 MEQ FEED TUBE (08:31)
--- NOTE | 2022-04-07 09:08 | WPDINTPN ---
Progress Note: A&P Assessment and Plan (1) Acute respiratory failure with hypoxia: Code(s): J96.01 - Acute respiratory failure with hypoxia Status: Acute Assessment and Plan: Acute Respiratory failure secondary to pneumonia which to most likely aspiration could be community-acquired. Also there could be component of CHF since he had elevated BNP 04/05 Patient was urgently intubated this morning respiratory distress hypoxia and inability to tolerate NIPPV 04/06 patient self-extubated and was reintubated Ventilator settings reviewed. He is on 30% FiO2 and 8 of PEEP. Decrease PEEP to 5 Chest x-ray reviewed Continue Bronchodilators Lasix IV x1 today COVID PCR was negative (2) Sepsis: Code(s): A41.9 - Sepsis, unspecified organism Status: Acute Assessment and Plan: On presentation patient met criteria for sepsis likely secondary to pneumonia and UTI He has received adequate amount of IV fluids and will hold further IV fluids at this time His lactic acid level was normal but His procalcitonin level is elevated suggestive of infection Blood, sputum and culture have been sent and are pending Continue Zosyn and Zithromax. Discontinue vancomycin as all cultures are negative for now Urine Legionella pneumococcal antigen are pending Mycoplasma IgM is pending (3) Aspiration pneumonia: Code(s): J69.0 - Pneumonitis due to inhalation of food and vomit Status: Acute Assessment and Plan: See above (4) Multifocal pneumonia: Code(s): J18.9 - Pneumonia, unspecified organism Status: Acute Assessment and Plan: See above (5) Chronic anemia: Code(s): D64.9 - Anemia, unspecified Status: Acute Assessment and Plan: Monitor and transfuse as if needed (6) Paraplegia, unspecified: Code(s): G82.20 - Paraplegia, unspecified Status: Acute Assessment and Plan: Chronic paraplegia from past injury (7) Insulin dependent type 2 diabetes mellitus: Code(s): E11.9 - Type 2 diabetes mellitus without complications; 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 UA suggests UTI Culture sent Bartholomew exchanged Continue Zosyn (10) Complaint associated with gastric tube: Code(s): R68.89 - Other general symptoms and signs; Z93.1 - Gastrostomy status Status: Acute Assessment and Plan: 04/05 Nurse were unable to place OG or NG tube was not. I placed OG tube with help of glide scope. I was unable to advance after 50 cm. Chest x-ray now confirms that OG tube is in stomach Continue tube feeds (11) Electrolyte abnormality: Code(s): E87.8 - Other disorders of electrolyte and fluid balance, not elsewhere classified Status: Acute Assessment and Plan: Replace low potassium Plan DVT prophylaxis -Lovenox Stress ulcer prophylaxis -IV PPI Nutrition -tube feeds advance to 30 mL/hour Code Status -patient prior to intubation requested to be Full Code Total Critical Care Time - 30 minutes Due to a high probability of clinically significant, life threatening deterioration, the patient required my highest level of preparedness to intervene emergently and I personally spent this critical care time directly and personally managing the patient. This critical care time included obtaining a history; examining the patient; pulse oximetry; ordering and review of studies; arranging urgent treatment with development o
[2022-04-07] MEDS: METOCLOPRAMIDE HCL INJ 10 MG/2 ML VIAL IV PUSH ×2 (11:51→16:07)
[2022-04-07 11:53] LABS: Glucose Point of Care 145 mg/dl (65-105)
--- NOTE | 2022-04-07 11:57 | PCNFU ---
Nutrition Follow-Up Complete: Increased Protein needs as related to mechanical ventilation and wounds as evidenced by Pressue Ulcers reported and mechanical ventilation Goal: Meet estimated nutritional needs - Not meeting goal, tube feeding not advanced to goal yet Pt current nutrition is Vital 1.2 @ 30 ml/h. Nutrition recommendation: Vital AF 1.2 @ 70 ml/h (1848 kcals, 114 g protein, 1249 ml fluid.) Last recorded weight is 97.4 kg. Bowel Motility: + 1 BM 04/05/22 Labs Reviewed: Alb 2.7, Na 133, BUN 22, Creat 0.5, Glu 162 Meds Noted: Vanco, Reglan, zithromycin, versed, fentanyl, lovenox, protonix Skin: Sacrum St IV, R knee St II, BL heels St III. Additional Notes: Tube feeding is being advanced per MD. Will monitor in ICU rounds and reassess every Sunday and Sunday.
[2022-04-07] MEDS: DOCUSATE SODIUM LIQ 100 MG/10 ML UDC PO ×2 (12:09→21:00)
--- NOTE | 2022-04-07 13:00 | PM.IMPN ---
Progress Note: A&P Assessment and Plan (1) Acute respiratory failure with hypoxia: Code(s): J96.01 - Acute respiratory failure with hypoxia Status: Acute Assessment and Plan: Acute Respiratory failure secondary to pneumonia which to most likely aspiration could be community-acquired. 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 vent management per cryptologist Bronchodilators COVID PCR was negative (2) Sepsis: Code(s): A41.9 - Sepsis, unspecified organism Status: Acute Assessment and Plan: On presentation patient met criteria for sepsis likely secondary to pneumonia and UTI He was given IV fluid bolus and Conservative IV fluids due to elevated BNP His lactic acid level was normal but His procalcitonin level is elevated suggestive of infection Blood and culture have been sent and are pending Check sputum culture Continue vancomycin, Zosyn and Zithromax Urine Legionella pneumococcal antigen are pending Mycoplasma IgM is pain (3) Aspiration pneumonia: Code(s): J69.0 - Pneumonitis due to inhalation of food and vomit Status: Acute Assessment and Plan: See above (4) Multifocal pneumonia: Code(s): J18.9 - Pneumonia, unspecified organism Status: Acute Assessment and Plan: See above (5) Chronic anemia: Code(s): D64.9 - Anemia, unspecified Status: Acute Assessment and Plan: Monitor and transfuse as if needed (6) Paraplegia, unspecified: Code(s): G82.20 - Paraplegia, unspecified Status: Acute Assessment and Plan: Chronic paraplegia from past injury (7) Insulin dependent type 2 diabetes mellitus: Code(s): E11.9 - Type 2 diabetes mellitus without complications; 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 Status: Acute Assessment and Plan: Sliding scale insulin (8) Decubitus ulcer of sacral area: Code(s): L89.159 - Pressure ulcer of sacral region, unspecified stage Status: Acute Assessment and Plan: Patient's wounds were evaluated by wound care nurse and they do not appear infected Continue local wound care (9) UTI (urinary tract infection): Code(s): N39.0 - Urinary tract infection, site not specified Status: Acute Assessment and Plan: Patient has indwelling Bartholomew UA suggests UTI Culture sent Bartholomew exchange Continue Zosyn (10) Complaint associated with gastric tube: Code(s): R68.89 - Other general symptoms and signs; Z93.1 - Gastrostomy status Status: Acute Plan DVT prophylaxis -Lovenox Stress ulcer prophylaxis -IV PPI Nutrition -NPO, tube feed Code Status -full code Subjective Date/time seen: 04/07/22 13:00 Interval history: This is a pleasant yet unfortunate 57-year-old male with 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 Yesterday he had an appointment with one of his doctors at [facility] at which time he had wound VAC removed from from a large decubitus ulcer on the sacrum. He felt okay when he went to bed last night and at about 03:00 awoke with chills, shortness of breath, and a cough productive of copious amounts of thick green sputum. His work of breathing got progressively worse as the morning progressed and emergency services were summoned. On EMS arrival his SpO2 was 84% on 2 liters nasal cannula and he was placed on CPAP, transitioned to Venturi mask on arrival to the ER. He refused ABG; a venous blood gas was done 2 hours following arrival? while he was on 12 liters high-flow showed a pH of 7.394, pCO2 37.4, PO2 35.0, bicarb 22.3. Chest CT showed bilateral lung disease and he has been star
[2022-04-07 17:40] LABS: Glucose Point of Care 123 mg/dl (65-105)
[2022-04-08] VITALS (49 sets, daily range): BP systolic 83–110; BP diastolic 52–68; PULSE 73–96; RESP 16–30; TEMP 36.4–37.3; O2SAT 93–98
[2022-04-08 00:21] LABS: Glucose Point of Care 135 mg/dl (65-105)
[2022-04-08] MEDS: METOCLOPRAMIDE HCL INJ 10 MG/2 ML VIAL IV PUSH ×4 (00:31→17:36)
[2022-04-08] MEDS: ALBUTEROL SULFATE NEB 2.5 MG/3 ML INH INHALATION ×4 (02:26→19:56)
[2022-04-08] MEDS: FENTANYL 2,500MCG/NS250ML(*CRX 2,500 MCG/250 ML BAG 12.5 MCG IV CONT (02:48)
[2022-04-08] MEDS: CENTRAL LINE FLUSH 10 ML IV PUSH ×3 (05:02→21:22)
[2022-04-08 05:03] LABS: Alveolar/Arterial O2 Gradient 82.1 mmHg; Base Excess ABG 2.4 mEq/l (+/-2.0); Carboxyhemoglobin 0.1 % THb (0-2.0); Fractional Inspired Oxygen 30 %; HCO3 ABG 28.1 mEq/l (22.0-26.0); Methemoglobin ABG 0.3 %THb (0-1.5); Oxygen Content ABG 10.1 %vol (16.0-22.0); Oxygen Saturation ABG 94.2 % (95.0-100.0); Oxyhemoglobin 93.4 % THb (90.0-100.0); PCO2 ABG 49.7 mmHg (35.0-45.0); PO2 ABG 73.4 mmHg (80.0-100.0); PO2 FiO2 Ratio Arterial Blood 2.45 %; Reduced Hemoglobin 6.2 %THb (0-5.0)
[2022-04-08 05:05] LABS: Site Drawn RIGHT RADIAL; Total Hemoglobin 7.6 g/dL (12.0-18.0)
[2022-04-08 05:06] LABS: Arterial Blood Gas Vent Mode CMV; Arterial Blood Gas Ventilator rate 26 /MIN; Device VENTILATOR; Modified Allen's Test Pass
[2022-04-08 05:07] LABS: Arterial Blood Gas PEEP 5 cmH2O; Arterial Blood Gas Tidal Volume 450 ml
[2022-04-08 06:18] LABS: Hematocrit 22.3 % (42.0-52.0); Mean Corpuscular Volume 86.4 fl (80-100); Mean Platelet Volume 9.8 fl (7.4-10.4); Platelet Count Result 131 k/mm3 (150-375); Red Blood Count 2.58 M/mm3 (4.6-6.20); Red Cell Distribution Width 15.9 % (11.5-14.5); White Blood Count 5.5 K/mm3 (4.5-10.0)
[2022-04-08 06:33] LABS: Hemoglobin 6.7 g/dL (14.0-18.0)
[2022-04-08 06:34] LABS: Alanine Aminotransferase 6 U/L (6-50); Albumin Level 2.6 g/dL (3.5-5.1); Alkaline Phosphatase 144 U/L (38-126); Anion Gap 7 mmol/L (8-16); Aspartate Amino Transferase 12 U/L (17-59); Bilirubin,Total 0.5 mg/dL (0.2-1.3); Blood Urea Nitrogen 20 mg/dL (9-20); Calcium 8.1 mg/dL (8.4-10.2); Carbon Dioxide 26 mmol/L (22-30); Chloride 101 mmol/L (98-107); Estimated CRCL calculation 150 ml/min; Estimated Glomerular Filt Rate > 60; Glucose 132 mg/dL (65-110); Magnesium 1.8 mg/dL (1.6-2.3); Phosphorus 2.6 mg/dL (2.5-4.5); Potassium 3.5 mmol/L (3.4-5.0); Sodium 134 mmol/L (137-145)
--- NOTE | 2022-04-08 08:01 | WPDINTPN ---
Progress Note: A&P Assessment and Plan (1) Acute respiratory failure with hypoxia: Code(s): J96.01 - Acute respiratory failure with hypoxia Status: Acute Assessment and Plan: Acute Respiratory failure secondary to pneumonia which to most likely aspiration could be community-acquired. Also there could be component of CHF since he had elevated BNP 04/05 Patient was urgently intubated this morning respiratory distress hypoxia and inability to tolerate NIPPV 04/06 patient self-extubated and was reintubated Ventilator settings reviewed. He is on 30% FiO2 and 5 of PEEP. Chest x-ray reviewed advance ET tube by 3 cm Continue Bronchodilators Although his oxygen requirement decreases chest x-ray still shows diffuse infiltrate. Prior to intubation patient could not tolerate BiPAP or CPAP either hence I feel patient needs more diuresis to maximize the chances of success when it comes weaning. I will continue with diuresis today COVID PCR was negative (2) Sepsis: Code(s): A41.9 - Sepsis, unspecified organism Status: Acute Assessment and Plan: On presentation patient met criteria for sepsis likely secondary to pneumonia and UTI He has received adequate amount of IV fluids and will hold further IV fluids at this time His lactic acid level was normal but His procalcitonin level is elevated suggestive of infection Blood, sputum and culture have been sent and are pending Continue Zosyn and Zithromax. Discontinued vancomycin as all cultures are negative for now Urine Legionella pneumococcal antigen are pending Mycoplasma IgM is pending (3) Aspiration pneumonia: Code(s): J69.0 - Pneumonitis due to inhalation of food and vomit Status: Acute Assessment and Plan: See above (4) Multifocal pneumonia: Code(s): J18.9 - Pneumonia, unspecified organism Status: Acute Assessment and Plan: See above (5) Chronic anemia: Code(s): D64.9 - Anemia, unspecified Status: Acute Assessment and Plan: Hemoglobin has trended down to 6.7 today Transfuse 1 unit of PRBC No obvious signs of bleeding On PPI q.12 hours Continue Lovenox for now for DVT prophylaxis (6) Paraplegia, unspecified: Code(s): G82.20 - Paraplegia, unspecified Status: Acute Assessment and Plan: Chronic paraplegia from past injury (7) Insulin dependent type 2 diabetes mellitus: Code(s): E11.9 - Type 2 diabetes mellitus without complications; 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 UA suggests UTI Culture sent Bartholomew exchanged Continue Zosyn (10) Complaint associated with gastric tube: Code(s): R68.89 - Other general symptoms and signs; Z93.1 - Gastrostomy status Status: Acute Assessment and Plan: 04/05 Nurse were unable to place OG or NG tube was not. I placed OG tube with help of glide scope. I was unable to advance after 50 cm. Chest x-ray now confirms that OG tube is in stomach Continue tube feeds (11) Electrolyte abnormality: Code(s): E87.8 - Other disorders of electrolyte and fluid balance, not elsewhere classified Status: Acute Assessment and Plan: Replace low potassium Plan DVT prophylaxis -Lovenox Stress ulcer prophylaxis -IV PPI Nutrition -tube feeds advance to 30 mL/hour Code Status -patient prior to intubation requested to be Full Code Total Critical Care Time - 30 minutes Due to a high proba
[2022-04-08] MEDS: POTASSIUM CHLORIDE 20 MEQ PACKET (FOR LIQUID) 40 MEQ FEED TUBE (08:45)
[2022-04-08] MEDS: DOCUSATE SODIUM LIQ 100 MG/10 ML UDC PO ×2 (08:46→21:22)
[2022-04-08] MEDS: FERROUS SULFATE 324 MG TABLET PO ×2 (08:46→17:36)
[2022-04-08] MEDS: SUCRALFATE 1 GM TABLET PO ×4 (08:46→21:22)
[2022-04-08] MEDS: COLLAGENASE OINT 30 GM TUBE 1 APPLIC TOPICAL (08:46)
[2022-04-08] MEDS: ENOXAPARIN 40 MG/0.4 ML SYRINGE SUB-Q (08:46)
[2022-04-08] MEDS: PANTOPRAZOLE SODIUM IV 40 MG VIAL IV PUSH ×2 (08:47→21:22)
[2022-04-08] MEDS: LORATADINE 10 MG TABLET PO (08:47)
[2022-04-08] MEDS: MINERAL OIL/WHITE PETROLATUM OINTMENT 1 APPLIC EACH EYE ×2 (08:47→21:22)
[2022-04-08] MEDS: SILVERGEL (ELTA) 45 ML 1 APPLIC TOPICAL (08:47)
[2022-04-08] MEDS: SODIUM CHLORIDE 0.9% IV 250 ML 30 ML IV CONT (10:28)
[2022-04-08] MEDS: MIDAZOLAM 100MG/NS 100ML(*CRX) 100 MG/100 ML BAG IV CONT (10:44)
[2022-04-08] MEDS: FUROSEMIDE INJ 40 MG/4 ML VIAL IV PUSH (13:16)
[2022-04-08 13:27] LABS: Glucose Point of Care 144 mg/dl (65-105)
--- NOTE | 2022-04-08 15:42 | PM.IMPN ---
Progress Note: A&P Assessment and Plan (1) Acute respiratory failure with hypoxia: Code(s): J96.01 - Acute respiratory failure with hypoxia Status: Acute Assessment and Plan: Acute Respiratory failure secondary to pneumonia which to most likely aspiration could be community-acquired. 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 vent management per flying squad worker Bronchodilators COVID PCR was negative (2) Sepsis: Code(s): A41.9 - Sepsis, unspecified organism Status: Acute Assessment and Plan: On presentation patient met criteria for sepsis likely secondary to pneumonia and UTI He was given IV fluid bolus and Conservative IV fluids due to elevated BNP His lactic acid level was normal but His procalcitonin level is elevated suggestive of infection Blood and culture have been sent and are pending Check sputum culture Continue vancomycin, Zosyn and Zithromax Urine Legionella pneumococcal antigen are pending Mycoplasma IgM is pending (3) Aspiration pneumonia: Code(s): J69.0 - Pneumonitis due to inhalation of food and vomit Status: Acute Assessment and Plan: See above (4) Multifocal pneumonia: Code(s): J18.9 - Pneumonia, unspecified organism Status: Acute Assessment and Plan: See above (5) Chronic anemia: Code(s): D64.9 - Anemia, unspecified Status: Acute Assessment and Plan: Monitor and transfuse as if needed (6) Paraplegia, unspecified: Code(s): G82.20 - Paraplegia, unspecified Status: Acute Assessment and Plan: Chronic paraplegia from past injury (7) Insulin dependent type 2 diabetes mellitus: Code(s): E11.9 - Type 2 diabetes mellitus without complications; 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 Status: Acute Assessment and Plan: Sliding scale insulin (8) Decubitus ulcer of sacral area: Code(s): L89.159 - Pressure ulcer of sacral region, unspecified stage Status: Acute Assessment and Plan: Patient's wounds were evaluated by wound care nurse and they do not appear infected Continue local wound care (9) UTI (urinary tract infection): Code(s): N39.0 - Urinary tract infection, site not specified Status: Acute Assessment and Plan: Patient has indwelling Bartholomew UA suggests UTI Culture sent Bartholomew exchange Continue Zosyn (10) Complaint associated with gastric tube: Code(s): R68.89 - Other general symptoms and signs; Z93.1 - Gastrostomy status Status: Acute Plan DVT prophylaxis -Lovenox Stress ulcer prophylaxis -IV PPI Nutrition -NPO, tube feed on hold due to high residual Code Status -full code Subjective Date/time seen: 04/08/22 15:42 Interval history: This is a pleasant yet unfortunate 57-year-old male with 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 Yesterday he had an appointment with one of his doctors at [facility] at which time he had wound VAC removed from from a large decubitus ulcer on the sacrum. He felt okay when he went to bed last night and at about 03:00 awoke with chills, shortness of breath, and a cough productive of copious amounts of thick green sputum. His work of breathing got progressively worse as the morning progressed and emergency services were summoned. On EMS arrival his SpO2 was 84% on 2 liters nasal cannula and he was placed on CPAP, transitioned to Venturi mask on arrival to the ER. He refused ABG; a venous blood gas was done 2 hours following arrival? while he was on 12 liters high-flow showed a pH of 7.394, pCO2 37.4, PO2 35.0, bicarb 22.3. Chest CT showed bilateral l
[2022-04-08 17:51] LABS: Glucose Point of Care 163 mg/dl (65-105)
[2022-04-08 19:09] LABS: Pneumococcal Antigen Urine Not Detected (Not Detected)
[2022-04-08] MEDS: FENTANYL 2,500MCG/NS250ML(*CRX 2,500 MCG/250 ML BAG 10 MCG IV CONT (21:43)
[2022-04-09] VITALS (34 sets, daily range): BP systolic 96–186; BP diastolic 59–95; PULSE 74–104; RESP 23–32; TEMP 36.5–37.4; O2SAT 93–99
[2022-04-09] MEDS: METOCLOPRAMIDE HCL INJ 10 MG/2 ML VIAL IV PUSH ×4 (01:00→18:05)
[2022-04-09 01:28] LABS: Glucose Point of Care 135 mg/dl (65-105)
[2022-04-09] MEDS: ALBUTEROL SULFATE NEB 2.5 MG/3 ML INH INHALATION ×4 (02:43→20:00)
[2022-04-09 04:37] LABS: Hematocrit 25.5 % (42.0-52.0); Hemoglobin 7.7 g/dL (14.0-18.0); Mean Corpuscular HGB Conc 30.2 g/dl (32-36); Mean Corpuscular Hemoglobin 25.9 pg (26-34); Mean Corpuscular Volume 85.9 fl (80-100); Mean Platelet Volume 9.3 fl (7.4-10.4); Platelet Count Result 139 k/mm3 (150-375); Red Blood Count 2.97 M/mm3 (4.6-6.20); Red Cell Distribution Width 16.3 % (11.5-14.5); White Blood Count 5.1 K/mm3 (4.5-10.0)
[2022-04-09 04:47] LABS: Alanine Aminotransferase 6 U/L (6-50); Albumin Level 2.8 g/dL (3.5-5.1); Alkaline Phosphatase 156 U/L (38-126); Anion Gap 6 mmol/L (8-16); Aspartate Amino Transferase 13 U/L (17-59); Bilirubin,Total 0.5 mg/dL (0.2-1.3); Blood Urea Nitrogen 21 mg/dL (9-20); Calcium 8.2 mg/dL (8.4-10.2); Carbon Dioxide 29 mmol/L (22-30); Chloride 100 mmol/L (98-107); Estimated CRCL calculation 150 ml/min; Estimated Glomerular Filt Rate > 60; Glucose 156 mg/dL (65-110); Magnesium 1.6 mg/dL (1.6-2.3); Phosphorus 2.9 mg/dL (2.5-4.5); Potassium 3.5 mmol/L (3.4-5.0); Sodium 135 mmol/L (137-145)
[2022-04-09 06:27] LABS: Alveolar/Arterial O2 Gradient 69.3 mmHg; Base Excess ABG 5.8 mEq/l (+/-2.0); Carboxyhemoglobin 0.3 % THb (0-2.0); Fractional Inspired Oxygen 30 %; HCO3 ABG 32.3 mEq/l (22.0-26.0); Methemoglobin ABG 0.1 %THb (0-1.5); Oxygen Content ABG 11.5 %vol (16.0-22.0); Oxygen Saturation ABG 94.2 % (95.0-100.0); PCO2 ABG 58.9 mmHg (35.0-45.0); PO2 ABG 75.4 mmHg (80.0-100.0); PO2 FiO2 Ratio Arterial Blood 2.51 %; Reduced Hemoglobin 5.6 %THb (0-5.0); Total Hemoglobin 8.6 g/dL (12.0-18.0); pH ABG 7.357 (7.350-7.450)
[2022-04-09 06:28] LABS: Device VENTILATOR; Modified Allen's Test Pass; Site Drawn LEFT RADIAL
[2022-04-09 06:29] LABS: Arterial Blood Gas Vent Mode CMV; Arterial Blood Gas Ventilator rate 26 /MIN
[2022-04-09 06:30] LABS: Arterial Blood Gas PEEP 5 cmH2O; Arterial Blood Gas Tidal Volume 450 ml
[2022-04-09] MEDS: CENTRAL LINE FLUSH 10 ML IV PUSH ×3 (07:01→22:02)
[2022-04-09] MEDS: MAGNESIUM SULF 2 GM/WATER 50ML 2 GM/50 ML BAG IVPB (08:11)
[2022-04-09] MEDS: ALBUMIN HUMAN 25% 25 GM/100 ML 100 ML IVPB (08:11)
[2022-04-09] MEDS: POTASSIUM CHLORIDE 20 MEQ PACKET (FOR LIQUID) FEED TUBE (08:12)
[2022-04-09] MEDS: DOCUSATE SODIUM LIQ 100 MG/10 ML UDC PO ×2 (08:13→22:02)
[2022-04-09] MEDS: LORATADINE 10 MG TABLET PO (08:13)
[2022-04-09] MEDS: SUCRALFATE 1 GM TABLET PO ×4 (08:13→22:02)
[2022-04-09] MEDS: PANTOPRAZOLE SODIUM IV 40 MG VIAL IV PUSH ×2 (08:13→22:01)
[2022-04-09] MEDS: ENOXAPARIN 40 MG/0.4 ML SYRINGE SUB-Q (08:13)
[2022-04-09] MEDS: FERROUS SULFATE 324 MG TABLET PO ×2 (08:13→17:09)
[2022-04-09] MEDS: SILVERGEL (ELTA) 45 ML 1 APPLIC TOPICAL (08:14)
[2022-04-09] MEDS: COLLAGENASE OINT 30 GM TUBE 1 APPLIC TOPICAL (08:14)
[2022-04-09] MEDS: KCL 40 MEQ/WATER 100 ML 100 ML 25 ML IVPB (08:26)
--- NOTE | 2022-04-09 08:32 | WPDINTPN ---
Progress Note: A&P Assessment and Plan (1) Acute respiratory failure with hypoxia: Code(s): J96.01 - Acute respiratory failure with hypoxia Status: Acute Assessment and Plan: Acute Respiratory failure secondary to pneumonia which to most likely aspiration could be community-acquired. Also there could be component of CHF since he had elevated BNP 04/05 Patient was urgently intubated this morning respiratory distress hypoxia and inability to tolerate NIPPV 04/06 patient self-extubated and was reintubated Ventilator settings reviewed. He is on 30% FiO2 and 5 of PEEP. Chest x-ray reviewed Continue Bronchodilators Although his oxygen requirement decreases chest x-ray still shows diffuse infiltrate. Prior to intubation patient could not tolerate BiPAP or CPAP either hence I feel patient needs more diuresis to maximize the chances of success when it comes weaning. I will continue with diuresis today Will do a sedation holiday and assess for weaning trial today COVID PCR was negative (2) Sepsis: Code(s): A41.9 - Sepsis, unspecified organism Status: Acute Assessment and Plan: On presentation patient met criteria for sepsis likely secondary to pneumonia and UTI He has received adequate amount of IV fluids and will hold further IV fluids at this time His lactic acid level was normal but His procalcitonin level is elevated suggestive of infection Blood, sputum and culture have been sent and are pending Continue Zosyn and Zithromax. Discontinued vancomycin as all cultures are negative for now Urine Legionella is pending pneumococcal antigen is negative Mycoplasma IgM is pending (3) Aspiration pneumonia: Code(s): J69.0 - Pneumonitis due to inhalation of food and vomit Status: Acute Assessment and Plan: See above (4) Multifocal pneumonia: Code(s): J18.9 - Pneumonia, unspecified organism Status: Acute Assessment and Plan: See above (5) Chronic anemia: Code(s): D64.9 - Anemia, unspecified Status: Acute Assessment and Plan: 04/08 Hemoglobin has trended down to 6.7 today. Transfuse 1 unit of PRBC No obvious signs of bleeding On PPI q.12 hours Continue Lovenox for now for DVT prophylaxis (6) Paraplegia, unspecified: Code(s): G82.20 - Paraplegia, unspecified Status: Acute Assessment and Plan: Chronic paraplegia from past injury (7) Insulin dependent type 2 diabetes mellitus: Code(s): E11.9 - Type 2 diabetes mellitus without complications; Z79.4 - jail (current) use of insulin Status: Acute Assessment and Plan: Sliding scale insulin (8) Decubitus ulcer of sacral area: Code(s): L89.159 - Pressure ulcer of sacral region, unspecified stage Status: Acute Assessment and Plan: Patient's wounds were evaluated by wound care nurse and they do not appear infected Continue local wound care (9) UTI (urinary tract infection): Code(s): N39.0 - Urinary tract infection, site not specified Status: Acute Assessment and Plan: Patient has indwelling Bartholomew. UA suggests UTI Culture sent Bartholomew exchanged Continue Zosyn (10) Complaint associated with gastric tube: Code(s): R68.89 - Other general symptoms and signs; Z93.1 - Gastrostomy status Status: Acute Assessment and Plan: 04/05 Nurse were unable to place OG or NG tube was not. I placed OG tube with help of glide scope. I was unable to advance after 50 cm. Chest x-ray now confirms that OG tube is in stomach Continue tube feeds If unable to extubate will try to get post pyloric Dobbhoff under fluoroscopy (11) Electrolyte abnormality: Code(s): E87.8 - Other disorders of electrolyte and fluid balance, not elsewhere classified Status: Acute Assessment and Plan: Replace low potassium and Mag (12) CHF (congestive heart failure): Code(s): I50.9 - Heart failure, unspecified Statu
[2022-04-09] MEDS: MINERAL OIL/WHITE PETROLATUM OINTMENT 1 APPLIC EACH EYE ×2 (09:36→22:02)
[2022-04-09] MEDS: FUROSEMIDE INJ 40 MG/4 ML VIAL IV PUSH (09:36)
[2022-04-09 14:33] LABS: Glucose Point of Care 158 mg/dl (65-105)
[2022-04-09 18:22] LABS: Glucose Point of Care 164 mg/dl (65-105)
[2022-04-09] MEDS: IPRATROPIUM BR 0.02% INH SOLN 0.5 MG/2.5 ML VIAL INHALATION (20:00)
[2022-04-10] VITALS (36 sets, daily range): BP systolic 103–148; BP diastolic 63–88; PULSE 76–102; RESP 18–32; TEMP 36.4–37.3; O2SAT 95–99
[2022-04-10] MEDS: METOCLOPRAMIDE HCL INJ 10 MG/2 ML VIAL IV PUSH ×5 (00:21→23:48)
[2022-04-10] MEDS: FENTANYL 2,500MCG/NS250ML(*CRX 2,500 MCG/250 ML BAG 15 MCG IV CONT ×2 (01:39→17:53)
[2022-04-10 01:55] LABS: Glucose Point of Care 141 mg/dl (65-105)
[2022-04-10] MEDS: ALBUTEROL SULFATE NEB 2.5 MG/3 ML INH INHALATION ×4 (02:12→20:16)
[2022-04-10] MEDS: IPRATROPIUM BR 0.02% INH SOLN 0.5 MG/2.5 ML VIAL INHALATION ×2 (02:12→20:16)
[2022-04-10] MEDS: MIDAZOLAM 100MG/NS 100ML(*CRX) 100 MG/100 ML BAG IV CONT (04:41)
[2022-04-10 05:49] LABS: Alveolar/Arterial O2 Gradient 48.1 mmHg; Base Excess ABG 7.4 mEq/l (+/-2.0); Fractional Inspired Oxygen 30 %; HCO3 ABG 32.2 mEq/l (22.0-26.0); Oxygen Content ABG 12.5 %vol (16.0-22.0); Oxygen Saturation ABG 98.2 % (95.0-100.0); Oxyhemoglobin 97.2 % THb (90.0-100.0); PCO2 ABG 47.1 mmHg (35.0-45.0); PO2 ABG 110.5 mmHg (80.0-100.0); PO2 FiO2 Ratio Arterial Blood 3.68 %; pH ABG 7.453 (7.350-7.450)
[2022-04-10 05:51] LABS: Arterial Blood Gas PEEP 5 cmH2O; Arterial Blood Gas Vent Mode CMV; Arterial Blood Gas Ventilator rate 26 /MIN; Device VENTILATOR; Modified Allen's Test Unable to perform; Site Drawn RIGHT RADIAL
[2022-04-10 05:52] LABS: Arterial Blood Gas Tidal Volume 450 ml
[2022-04-10 05:57] LABS: Hematocrit 27.7 % (42.0-52.0); Hemoglobin 8.3 g/dL (14.0-18.0); Mean Corpuscular Hemoglobin 25.9 pg (26-34); Mean Corpuscular Volume 86.3 fl (80-100); Mean Platelet Volume 9.6 fl (7.4-10.4); Platelet Count Result 176 k/mm3 (150-375); Red Blood Count 3.21 M/mm3 (4.6-6.20)
[2022-04-10 05:58] LABS: Alanine Aminotransferase 6 U/L (6-50); Albumin Level 3.3 g/dL (3.5-5.1); Alkaline Phosphatase 167 U/L (38-126); Anion Gap 9 mmol/L (8-16); Aspartate Amino Transferase 14 U/L (17-59); Bilirubin,Total 0.5 mg/dL (0.2-1.3); Blood Urea Nitrogen 20 mg/dL (9-20); Calcium 8.6 mg/dL (8.4-10.2); Carbon Dioxide 32 mmol/L (22-30); Chloride 98 mmol/L (98-107); Estimated CRCL calculation 182 ml/min; Estimated Glomerular Filt Rate > 60; Glucose 143 mg/dL (65-110); Magnesium 1.7 mg/dL (1.6-2.3); Potassium 3.5 mmol/L (3.4-5.0); Sodium 139 mmol/L (137-145)
[2022-04-10] MEDS: CENTRAL LINE FLUSH 10 ML IV PUSH ×3 (05:59→21:15)
[2022-04-10] MEDS: LORATADINE 10 MG TABLET PO (09:03)
[2022-04-10] MEDS: FERROUS SULFATE 324 MG TABLET PO ×2 (09:03→16:54)
[2022-04-10] MEDS: PANTOPRAZOLE SODIUM IV 40 MG VIAL IV PUSH ×2 (09:03→21:14)
[2022-04-10] MEDS: DOCUSATE SODIUM LIQ 100 MG/10 ML UDC PO ×2 (09:03→21:14)
[2022-04-10] MEDS: SUCRALFATE 1 GM TABLET PO ×4 (09:03→21:15)
[2022-04-10] MEDS: ENOXAPARIN 40 MG/0.4 ML SYRINGE SUB-Q (09:03)
[2022-04-10] MEDS: SILVERGEL (ELTA) 45 ML 1 APPLIC TOPICAL (09:04)
[2022-04-10] MEDS: MINERAL OIL/WHITE PETROLATUM OINTMENT 1 APPLIC EACH EYE ×2 (09:04→21:14)
[2022-04-10] MEDS: COLLAGENASE OINT 30 GM TUBE 1 APPLIC TOPICAL (09:04)
--- NOTE | 2022-04-10 09:25 | WPDINTPN ---
Progress Note: A&P Assessment and Plan (1) Acute respiratory failure with hypoxia: Code(s): J96.01 - Acute respiratory failure with hypoxia Status: Acute Assessment and Plan: Acute Respiratory failure secondary to pneumonia which to most likely aspiration could be community-acquired. Also there could be component of CHF since he had elevated BNP 04/05 Patient was urgently intubated this morning respiratory distress hypoxia and inability to tolerate NIPPV 04/06 patient self-extubated and was reintubated Ventilator settings reviewed. He is on 30% FiO2 and 5 of PEEP. Chest x-ray reviewed Continue Bronchodilators Although his oxygen requirement decreases chest x-ray still shows diffuse infiltrate. Prior to intubation patient could not tolerate BiPAP or CPAP either hence I feel patient needs more diuresis to maximize the chances of success when it comes weaning. -patient diuresing well, will continue gentle diuresis -Will do a sedation holiday and assess for weaning trial today COVID PCR was negative (2) Sepsis: Code(s): A41.9 - Sepsis, unspecified organism Status: Acute Assessment and Plan: On presentation patient met criteria for sepsis likely secondary to pneumonia and UTI He has received adequate amount of IV fluids and will hold further IV fluids at this time His lactic acid level was normal but His procalcitonin level is elevated suggestive of infection Blood, sputum and culture are all negative so far Continue Zosyn and Zithromax. Discontinued vancomycin as all cultures are negative for now Urine Legionella is pending pneumococcal antigen is negative Mycoplasma IgM is pending (3) Aspiration pneumonia: Code(s): J69.0 - Pneumonitis due to inhalation of food and vomit Status: Acute Assessment and Plan: See above (4) Multifocal pneumonia: Code(s): J18.9 - Pneumonia, unspecified organism Status: Acute Assessment and Plan: See above (5) Chronic anemia: Code(s): D64.9 - Anemia, unspecified Status: Acute Assessment and Plan: 04/08 Hemoglobin has trended down to 6.7 today. Transfuse 1 unit of PRBC No obvious signs of bleeding On PPI q.12 hours -hemoglobin stable Continue Lovenox for now for DVT prophylaxis (6) Paraplegia, unspecified: Code(s): G82.20 - Paraplegia, unspecified Status: Acute Assessment and Plan: Chronic paraplegia from past injury (7) Insulin dependent type 2 diabetes mellitus: Code(s): E11.9 - Type 2 diabetes mellitus without complications; Z79.4 - residential (current) use of insulin Status: Acute Assessment and Plan: Continue sliding scale insulin Accu-Cheks (8) Decubitus ulcer of sacral area: Code(s): L89.159 - Pressure ulcer of sacral region, unspecified stage Status: Acute Assessment and Plan: Patient's wounds were evaluated by wound care nurse and they do not appear infected Continue local wound care (9) UTI (urinary tract infection): Code(s): N39.0 - Urinary tract infection, site not specified Status: Acute Assessment and Plan: Patient has indwelling Bartholomew. UA suggests UTI Culture: no growth Bartholomew exchanged Continue Zosyn (10) Complaint associated with gastric tube: Code(s): R68.89 - Other general symptoms and signs; Z93.1 - Gastrostomy status Status: Acute Assessment and Plan: 04/05 Nurse were unable to place OG or NG tube was not. Dr. Craig placed an OG tube with help of glide scope. He was unable to advance after 50 cm. Chest x-ray now confirms that OG tube is in stomach Continue tube feeds If unable to extubate will try to get post pyloric Dobbhoff under fluoroscopy (11) Electrolyte abnormality: Code(s): E87.8 - Other disorders of electrolyte and fluid balance, not elsewhere classified Status: Acute Assessment and Plan: Replace low potassium and Mag (12) CHF (congestive heart fa
--- NOTE | 2022-04-10 11:19 | PCFNICU ---
ICU Rounding Note: Pt current nutrition is Vital AF 1.2 at 30 ml/hr. Nutrition recommendation: goal rate at 70 ml/hr Last recorded weight is 90.5 kg, up from 86.3 kg on admit Bowel Motility:ostomy Labs Reviewed:Glu 143, Cr 0.4,Alb 3.3, Hgb 8.3,Hct 27.7 Meds Noted:Vancomycin,Zosyn, Reglan, Versed, Fentanyl, Lovenox, Protonix, Zithromax. Skin: Stage IV PU-sacrum, Stage II PU-right knee, Stage III PU-bilateral heels, unstageable pu-heels. Additional Notes: Patient remains on mechanical vent and tube feedings of Vital AF 1.2 at 30 ml/hr. Plans are to advance tube feedings as tolerated today. Protein Modulars for wound healing-Nimesh BID and Prosource BID. Agree with diet orders. Following daily in ICU rounds. Will monitor in ICU rounds and reassess every Sunday and Sunday. .
[2022-04-10] MEDS: FUROSEMIDE INJ 40 MG/4 ML VIAL 20 MG IV PUSH (11:26)
[2022-04-10] MEDS: POTASSIUM CHLORIDE 20 MEQ PACKET (FOR LIQUID) 40 MEQ FEED TUBE (11:26)
[2022-04-10 12:07] LABS: Glucose Point of Care 171 mg/dl (65-105)
[2022-04-10] MEDS: MAGNESIUM SULFATE 3GM/D5W100ML 3 GM/100 ML BAG IVPB (12:13)
--- NOTE | 2022-04-10 13:30 | PM.IMPN ---
Progress Note: A&P Assessment and Plan (1) Acute respiratory failure with hypoxia: Code(s): J96.01 - Acute respiratory failure with hypoxia Status: Acute Assessment and Plan: Acute Respiratory failure secondary to pneumonia which to most likely aspiration could be community-acquired. 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 vent management per taper operator Bronchodilators COVID PCR was negative (2) Sepsis: Code(s): A41.9 - Sepsis, unspecified organism Status: Acute Assessment and Plan: On presentation patient met criteria for sepsis likely secondary to pneumonia and UTI He was given IV fluid bolus and Conservative IV fluids due to elevated BNP His lactic acid level was normal but His procalcitonin level is elevated suggestive of infection Blood and culture have been sent and are pending Check sputum culture Continue vancomycin, Zosyn and Zithromax Urine Legionella pneumococcal antigen are pending Mycoplasma IgM is pending (3) Aspiration pneumonia: Code(s): J69.0 - Pneumonitis due to inhalation of food and vomit Status: Acute Assessment and Plan: See above (4) Multifocal pneumonia: Code(s): J18.9 - Pneumonia, unspecified organism Status: Acute Assessment and Plan: See above (5) Chronic anemia: Code(s): D64.9 - Anemia, unspecified Status: Acute Assessment and Plan: Monitor and transfuse as if needed (6) Paraplegia, unspecified: Code(s): G82.20 - Paraplegia, unspecified Status: Acute Assessment and Plan: Chronic paraplegia from past injury (7) Insulin dependent type 2 diabetes mellitus: Code(s): E11.9 - Type 2 diabetes mellitus without complications; Z79.4 - 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) use of insulin Status: Acute Assessment and Plan: Sliding scale insulin (8) Decubitus ulcer of sacral area: Code(s): L89.159 - Pressure ulcer of sacral region, unspecified stage Status: Acute Assessment and Plan: Patient's wounds were evaluated by wound care nurse and they do not appear infected Continue local wound care (9) UTI (urinary tract infection): Code(s): N39.0 - Urinary tract infection, site not specified Status: Acute Assessment and Plan: Patient has indwelling Bartholomew UA suggests UTI Culture sent Bartholomew exchange Continue Zosyn (10) Complaint associated with gastric tube: Code(s): R68.89 - Other general symptoms and signs; Z93.1 - Gastrostomy status Status: Acute Plan DVT prophylaxis -Lovenox Stress ulcer prophylaxis -IV PPI Nutrition -NPO, tube feed on hold due to high residual Code Status -full code Subjective Date/time seen: 04/10/22 13:30 Interval history: This is a pleasant yet unfortunate 57-year-old male with 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 Yesterday he had an appointment with one of his doctors at [facility] at which time he had wound VAC removed from from a large decubitus ulcer on the sacrum. He felt okay when he went to bed last night and at about 03:00 awoke with chills, shortness of breath, and a cough productive of copious amounts of thick green sputum. His work of breathing got progressively worse as the morning progressed and emergency services were summoned. On EMS arrival his SpO2 was 84% on 2 liters nasal cannula and he was placed on CPAP, transitioned to Venturi mask on arrival to the ER. He refused ABG; a venous blood gas was done 2 hours following arrival? while he was on 12 liters high-flow showed a pH of 7.394, pCO2 37.4, PO2 35.0, bicarb 22.3. Chest CT showed bilateral l
[2022-04-10 14:14] LABS: Mycoplasma IgM Antibody Titer 58 U/mL (<770)
[2022-04-10 16:57] LABS: Glucose Point of Care 193 mg/dl (65-105)
[2022-04-11] VITALS (42 sets, daily range): BP systolic 109–158; BP diastolic 70–91; PULSE 80–116; RESP 20–28; TEMP 36.4–37.1; O2SAT 93–100
[2022-04-11 00:08] LABS: Glucose Point of Care 190 mg/dl (65-105)
[2022-04-11] MEDS: IPRATROPIUM BR 0.02% INH SOLN 0.5 MG/2.5 ML VIAL INHALATION (02:20)
[2022-04-11] MEDS: ALBUTEROL SULFATE NEB 2.5 MG/3 ML INH INHALATION ×4 (02:20→19:47)
[2022-04-11] MEDS: MIDAZOLAM 100MG/NS 100ML(*CRX) 100 MG/100 ML BAG IV CONT (04:45)
[2022-04-11 05:01] LABS: Basophils Percent Auto 0.4 % (0.2-1.2); Eosinophils Absolute Auto 0.1 K/mm3 (0-0.3); Eosinophils Percent Auto 2.2 % (0-4.4); Hematocrit 24.6 % (42.0-52.0); Hemoglobin 7.5 g/dL (14.0-18.0); Immature Granulocyte Absolute 0.05 K/mm3 (0.00-0.031); Immature Granulocyte Percent A 1.1 % (0-0.5); Lymphocytes Absolute Auto 0.74 K/mm3 (0.9-3.2); Lymphocytes Percent Auto 16.4 % (18.3-44.2); Mean Corpuscular HGB Conc 30.5 g/dl (32-36); Mean Corpuscular Hemoglobin 25.3 pg (26-34); Mean Corpuscular Volume 83.1 fl (80-100); Mean Platelet Volume 8.7 fl (7.4-10.4); Monocytes Absolute Auto 0.3 K/mm3 (0.1-0.6); Monocytes Percent Auto 6.7 % (2.6-8.5); Neutrophils Absolute Auto 3.3 K/mm3 (1.3-6.7); Neutrophils Percent Auto 73.2 % (45.5-73.1); Platelet Count Result 165 k/mm3 (150-375); Red Blood Count 2.96 M/mm3 (4.6-6.20); Red Cell Distribution Width 15.9 % (11.5-14.5); White Blood Count 4.5 K/mm3 (4.5-10.0)
[2022-04-11] MEDS: METOCLOPRAMIDE HCL INJ 10 MG/2 ML VIAL IV PUSH ×4 (05:18→23:31)
[2022-04-11 05:19] LABS: Anion Gap 6 mmol/L (8-16); Blood Urea Nitrogen 21 mg/dL (9-20); Calcium 7.9 mg/dL (8.4-10.2); Carbon Dioxide 32 mmol/L (22-30); Chloride 100 mmol/L (98-107); Estimated CRCL calculation 182 ml/min; Estimated Glomerular Filt Rate > 60; Glucose 187 mg/dL (65-110); Magnesium 1.8 mg/dL (1.6-2.3); Phosphorus 2.8 mg/dL (2.5-4.5); Potassium 3.4 mmol/L (3.4-5.0); Sodium 138 mmol/L (137-145)
[2022-04-11] MEDS: CENTRAL LINE FLUSH 10 ML IV PUSH ×3 (05:19→20:51)
[2022-04-11 05:42] LABS: Glucose Point of Care 212 mg/dl (65-105)
[2022-04-11] MEDS: INSULIN ASPART (*BKC) 100 UNITS/ML SUB-Q ×2 (06:16→18:02)
[2022-04-11 06:17] LABS: Alveolar/Arterial O2 Gradient 89.5 mmHg; Base Excess ABG 9.5 mEq/l (+/-2.0); Carboxyhemoglobin 0.3 % THb (0-2.0); Fractional Inspired Oxygen 30 %; HCO3 ABG 33.9 mEq/l (22.0-26.0); Methemoglobin ABG 0.2 %THb (0-1.5); Oxygen Content ABG 12.2 %vol (16.0-22.0); Oxyhemoglobin 93.4 % THb (90.0-100.0); PCO2 ABG 46.3 mmHg (35.0-45.0); PO2 FiO2 Ratio Arterial Blood 2.33 %; Reduced Hemoglobin 6.1 %THb (0-5.0); Total Hemoglobin 9.2 g/dL (12.0-18.0); pH ABG 7.483 (7.350-7.450)
[2022-04-11 06:19] LABS: Site Drawn RIGHT RADIAL
[2022-04-11 06:20] LABS: Device VENTILATOR; Modified Allen's Test Unable to perform
[2022-04-11 06:21] LABS: Arterial Blood Gas PEEP 5 cmH2O; Arterial Blood Gas Vent Mode CMV; Arterial Blood Gas Ventilator rate 24 /MIN
[2022-04-11 06:22] LABS: Arterial Blood Gas Tidal Volume 450 ml
[2022-04-11] MEDS: SILVERGEL (ELTA) 45 ML 1 APPLIC TOPICAL (08:31)
[2022-04-11] MEDS: MINERAL OIL/WHITE PETROLATUM OINTMENT 1 APPLIC EACH EYE ×2 (08:31→20:51)
[2022-04-11] MEDS: COLLAGENASE OINT 30 GM TUBE 1 APPLIC TOPICAL (08:31)
[2022-04-11] MEDS: POTASSIUM CHLORIDE 20 MEQ PACKET (FOR LIQUID) 40 MEQ FEED TUBE (09:02)
[2022-04-11] MEDS: MAGNESIUM SULF 2 GM/WATER 50ML 2 GM/50 ML BAG IVPB (09:02)
[2022-04-11] MEDS: DOCUSATE SODIUM LIQ 100 MG/10 ML UDC FEED TUBE ×2 (09:03→20:51)
[2022-04-11] MEDS: SUCRALFATE SUSP 100 MG/ML 10 ML UDC 1000 MG FEED TUBE ×3 (09:03→20:50)
[2022-04-11] MEDS: FERROUS SULFATE LIQUID 325 MG/7.4 ML ELIXIR FEED TUBE ×2 (09:03→18:07)
[2022-04-11] MEDS: LORATADINE 10 MG TABLET FEED TUBE (09:03)
[2022-04-11] MEDS: PANTOPRAZOLE SODIUM IV 40 MG VIAL IV PUSH ×2 (09:03→20:51)
[2022-04-11] MEDS: ENOXAPARIN 40 MG/0.4 ML SYRINGE SUB-Q (09:03)
[2022-04-11] MEDS: FENTANYL 2,500MCG/NS250ML(*CRX 2,500 MCG/250 ML BAG 12.5 MCG IV CONT (10:34)
--- NOTE | 2022-04-11 11:38 | PCNFU ---
Nutrition Follow-Up Complete: Increased Protein needs as related to wounds as evidenced by Pressure Ulcers reported Goal: Meet estimated nutritional needs patient is meeting current goal. We will continue current goal. Pt current nutrition is Vital AF 1.2 at 70 ml/hr. Last recorded weight is 89.8 kg, up from 86.3 kg on admit. Bowel Motility:ostomy Labs Reviewed:Glu 187, BUN 21, Cr 0.4,Hct 24.6,Hgb 7.5 Meds Noted:Vancomycin,Zosyn, Reglan, Versed, Fentanyl, Lovenox, Protonix, Zithromax, Novolog. Skin:Stage IV PU-sacrum, Stage II PU-right knee, Stage III PU-bilateral heels, unstageable pu-heels. Additional Notes: Patient remains on mechanical vent and tube feedings of Vital AF 1.2 at 70 ml/hr. Providing 1848 kcals/115 gms protein/1249 ml water. Protein Modular of Nimesh BID providing an additional 90 kcals and 2.5 gms protein, Prosource BID providing an additional 11 gms protein. Free water flush 30 ml q 4 hours. Agree with diet orders. Will monitor in ICU rounds and reassess every Sunday and Sunday.
--- NOTE | 2022-04-11 11:45 | WPDINTPN ---
Progress Note: A&P Assessment and Plan (1) Acute respiratory failure with hypoxia: Code(s): J96.01 - Acute respiratory failure with hypoxia Status: Acute Assessment and Plan: Acute Respiratory failure secondary to pneumonia which to most likely aspiration could be community-acquired. Also there could be component of CHF since he had elevated BNP 04/05 Patient was urgently intubated this morning respiratory distress hypoxia and inability to tolerate NIPPV 04/06 patient self-extubated and was reintubated ABGs reviewed, ventilator adjusted, he is on 30% FiO2 and 5 of PEEP. Chest x-ray reviewed Continue Bronchodilators Although his oxygen requirement decreases chest x-ray still shows diffuse infiltrate. Prior to intubation patient could not tolerate BiPAP or CPAP either hence I feel patient needs more diuresis to maximize the chances of success when it comes weaning. -patient diuresing well, will continue gentle diuresis -wean sedation COVID PCR was negative (2) Sepsis: Code(s): A41.9 - Sepsis, unspecified organism Status: Acute Assessment and Plan: On presentation patient met criteria for sepsis likely secondary to pneumonia and UTI He has received adequate amount of IV fluids and will hold further IV fluids at this time His lactic acid level was normal but His procalcitonin level is elevated suggestive of infection Blood, sputum and culture are all negative so far Continue Zosyn and Zithromax. Discontinued vancomycin as all cultures are negative for now Urine Legionella is pending pneumococcal antigen is negative Mycoplasma IgM is negative (3) Aspiration pneumonia: Code(s): J69.0 - Pneumonitis due to inhalation of food and vomit Status: Acute Assessment and Plan: See above (4) Multifocal pneumonia: Code(s): J18.9 - Pneumonia, unspecified organism Status: Acute Assessment and Plan: See above (5) Chronic anemia: Code(s): D64.9 - Anemia, unspecified Status: Acute Assessment and Plan: 04/08 Hemoglobin has trended down to 6.7 today. Transfuse 1 unit of PRBC No obvious signs of bleeding On PPI q.12 hours -hemoglobin stable Continue Lovenox for now for DVT prophylaxis (6) Paraplegia, unspecified: Code(s): G82.20 - Paraplegia, unspecified Status: Acute Assessment and Plan: Chronic paraplegia from past injury (7) Insulin dependent type 2 diabetes mellitus: Code(s): E11.9 - Type 2 diabetes mellitus without complications; Z79.4 - lobsterman (current) use of insulin Status: Acute Assessment and Plan: Continue sliding scale insulin Accu-Cheks (8) Decubitus ulcer of sacral area: Code(s): L89.159 - Pressure ulcer of sacral region, unspecified stage Status: Acute Assessment and Plan: Patient's wounds were evaluated by wound care nurse and they do not appear infected Continue local wound care (9) UTI (urinary tract infection): Code(s): N39.0 - Urinary tract infection, site not specified Status: Acute Assessment and Plan: Patient has indwelling Bartholomew. UA suggests UTI Culture: no growth Bartholomew exchanged Continue Zosyn (10) Complaint associated with gastric tube: Code(s): R68.89 - Other general symptoms and signs; Z93.1 - Gastrostomy status Status: Acute Assessment and Plan: 04/05 Nurse were unable to place OG or NG tube was not. Dr. Craig placed an OG tube with help of glide scope. He was unable to advance after 50 cm. Chest x-ray now confirms that OG tube is in stomach Continue tube feeds If unable to extubate will try to get post pyloric Dobbhoff under fluoroscopy (11) Electrolyte abnormality: Code(s): E87.8 - Other disorders of electrolyte and fluid balance, not elsewhere classified Status: Acute Assessment and Plan: Replace low potassium and Mag (12) CHF (congestive heart failure): Code(s): I50.9 - Heart fa
--- NOTE | 2022-04-11 14:54 | PM.IMPN ---
Progress Note: A&P Assessment and Plan (1) Acute respiratory failure with hypoxia: Code(s): J96.01 - Acute respiratory failure with hypoxia Status: Acute Assessment and Plan: Acute Respiratory failure secondary to pneumonia which to most likely aspiration could be community-acquired. 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 vent management per rivet driver Bronchodilators and diuresis per rivet driver COVID PCR was negative (2) Sepsis: Code(s): A41.9 - Sepsis, unspecified organism Status: Acute Assessment and Plan: On presentation patient met criteria for sepsis likely secondary to pneumonia and UTI He was given IV fluid bolus and Conservative IV fluids due to elevated BNP His lactic acid level was normal but His procalcitonin level is elevated suggestive of infection Blood and culture have been sent and are pending Check sputum culture Continue vancomycin, Zosyn and Zithromax. Vancomycin has been discontinued Urine Legionella pending, pneumococcal antigen are negative Mycoplasma IgM is negative (3) Aspiration pneumonia: Code(s): J69.0 - Pneumonitis due to inhalation of food and vomit Status: Acute Assessment and Plan: See above (4) Multifocal pneumonia: Code(s): J18.9 - Pneumonia, unspecified organism Status: Acute Assessment and Plan: See above (5) Chronic anemia: Code(s): D64.9 - Anemia, unspecified Status: Acute Assessment and Plan: Monitor and transfuse as if needed (6) Paraplegia, unspecified: Code(s): G82.20 - Paraplegia, unspecified Status: Acute Assessment and Plan: Chronic paraplegia from past injury (7) Insulin dependent type 2 diabetes mellitus: Code(s): E11.9 - Type 2 diabetes mellitus without complications; Z79.4 - senior living (current) use of insulin Status: Acute Assessment and Plan: Sliding scale insulin (8) Decubitus ulcer of sacral area: Code(s): L89.159 - Pressure ulcer of sacral region, unspecified stage Status: Acute Assessment and Plan: Patient's wounds were evaluated by wound care nurse and they do not appear infected Continue local wound care (9) UTI (urinary tract infection): Code(s): N39.0 - Urinary tract infection, site not specified Status: Acute Assessment and Plan: Patient has indwelling Bartholomew UA suggests UTI Culture sent Bartholomew exchange Continue Zosyn (10) Complaint associated with gastric tube: Code(s): R68.89 - Other general symptoms and signs; Z93.1 - Gastrostomy status Status: Acute Plan DVT prophylaxis -Lovenox Stress ulcer prophylaxis -IV PPI Nutrition -NPO, tube feed on hold due to high residual Code Status -full code Subjective Date/time seen: 04/11/22 14:54 Interval history: This is a pleasant yet unfortunate 57-year-old male with 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 Yesterday he had an appointment with one of his doctors at [facility] at which time he had wound VAC removed from from a large decubitus ulcer on the sacrum. He felt okay when he went to bed last night and at about 03:00 awoke with chills, shortness of breath, and a cough productive of copious amounts of thick green sputum. His work of breathing got progressively worse as the morning progressed and emergency services were summoned. On EMS arrival his SpO2 was 84% on 2 liters nasal cannula and he was placed on CPAP, transitioned to Venturi mask on arrival to the ER. He refused ABG; a venous blood gas was done 2 hours following arrival? while he was on 12 liters high-flow showe
[2022-04-11 15:18] LABS: Glucose Point of Care 204 mg/dl (65-105)
[2022-04-11 18:00] LABS: Glucose Point of Care 230 mg/dl (65-105)
[2022-04-11 19:20] LABS: Legionella pneumophila Ag Ur Not Detected (Not Detected)
[2022-04-11 23:34] LABS: Glucose Point of Care 147 mg/dl (65-105)
[2022-04-12] VITALS (48 sets, daily range): BP systolic 132–165; BP diastolic 82–95; PULSE 89–118; RESP 18–35; TEMP 36.7–37.7; O2SAT 92–97
[2022-04-12] MEDS: ALBUTEROL SULFATE NEB 2.5 MG/3 ML INH INHALATION ×4 (02:17→19:26)
[2022-04-12] MEDS: MIDAZOLAM 100MG/NS 100ML(*CRX) 100 MG/100 ML BAG IV CONT (02:18)
[2022-04-12] MEDS: FENTANYL 2,500MCG/NS250ML(*CRX 2,500 MCG/250 ML BAG 7.5 MCG IV CONT (02:19)
[2022-04-12 04:57] LABS: Alveolar/Arterial O2 Gradient 116.4 mmHg; Carboxyhemoglobin 0.3 % THb (0-2.0); Fractional Inspired Oxygen 35 %; HCO3 ABG 32.6 mEq/l (22.0-26.0); Methemoglobin ABG 0.2 %THb (0-1.5); Oxygen Content ABG 13.7 %vol (16.0-22.0); Oxygen Saturation ABG 96.3 % (95.0-100.0); PO2 ABG 79.7 mmHg (80.0-100.0); PO2 FiO2 Ratio Arterial Blood 2.28 %; Reduced Hemoglobin 4.5 %THb (0-5.0); Total Hemoglobin 10.2 g/dL (12.0-18.0); pH ABG 7.468 (7.350-7.450)
[2022-04-12 04:59] LABS: Arterial Blood Gas PEEP 5 cmH2O; Arterial Blood Gas Tidal Volume 450 ml; Arterial Blood Gas Vent Mode CMV; Arterial Blood Gas Ventilator rate 20 /MIN; Device VENTILATOR; Modified Allen's Test Pass; Site Drawn LEFT RADIAL
[2022-04-12] MEDS: CENTRAL LINE FLUSH 10 ML IV PUSH ×3 (05:16→21:13)
[2022-04-12] MEDS: METOCLOPRAMIDE HCL INJ 10 MG/2 ML VIAL IV PUSH ×4 (05:17→23:41)
[2022-04-12 05:30] LABS: Basophils Percent Auto 0.4 % (0.2-1.2); Eosinophils Absolute Auto 0.1 K/mm3 (0-0.3); Eosinophils Percent Auto 1.6 % (0-4.4); Hematocrit 27.7 % (42.0-52.0); Hemoglobin 8.2 g/dL (14.0-18.0); Immature Granulocyte Absolute 0.07 K/mm3 (0.00-0.031); Immature Granulocyte Percent A 1.3 % (0-0.5); Lymphocytes Absolute Auto 0.84 K/mm3 (0.9-3.2); Lymphocytes Percent Auto 15.2 % (18.3-44.2); Mean Corpuscular HGB Conc 29.6 g/dl (32-36); Mean Corpuscular Hemoglobin 25.5 pg (26-34); Mean Corpuscular Volume 86.3 fl (80-100); Mean Platelet Volume 9.1 fl (7.4-10.4); Monocytes Absolute Auto 0.3 K/mm3 (0.1-0.6); Monocytes Percent Auto 5.1 % (2.6-8.5); Neutrophils Absolute Auto 4.2 K/mm3 (1.3-6.7); Neutrophils Percent Auto 76.4 % (45.5-73.1); Platelet Count Result 197 k/mm3 (150-375); Red Blood Count 3.21 M/mm3 (4.6-6.20); White Blood Count 5.5 K/mm3 (4.5-10.0)
[2022-04-12 05:43] LABS: Alanine Aminotransferase 6 U/L (6-50); Albumin Level 3.1 g/dL (3.5-5.1); Alkaline Phosphatase 144 U/L (38-126); Anion Gap 9 mmol/L (8-16); Aspartate Amino Transferase 15 U/L (17-59); Bilirubin,Total 0.4 mg/dL (0.2-1.3); Blood Urea Nitrogen 16 mg/dL (9-20); Calcium 8.1 mg/dL (8.4-10.2); Carbon Dioxide 33 mmol/L (22-30); Chloride 98 mmol/L (98-107); Estimated CRCL calculation 182 ml/min; Estimated Glomerular Filt Rate > 60; Glucose 222 mg/dL (65-110); Magnesium 1.9 mg/dL (1.6-2.3); Phosphorus 2.9 mg/dL (2.5-4.5); Potassium 3.7 mmol/L (3.4-5.0); Sodium 140 mmol/L (137-145)
[2022-04-12] MEDS: INSULIN ASPART (*BKC) 100 UNITS/ML SUB-Q ×4 (05:50→23:42)
--- NOTE | 2022-04-12 08:13 | PM.IMPN ---
Progress Note: A&P Assessment and Plan (1) Acute respiratory failure with hypoxia: Code(s): J96.01 - Acute respiratory failure with hypoxia Status: Acute Assessment and Plan: Intubated and sedated, planning to wean sedation today and attempt extubation once euvolemic from diuresis (2) Sepsis: Code(s): A41.9 - Sepsis, unspecified organism Status: Acute Assessment and Plan: Likely secondary to pneumonia, continue antibiotics, improving (3) Aspiration pneumonia: Code(s): J69.0 - Pneumonitis due to inhalation of food and vomit Status: Acute Assessment and Plan: Continue Zosyn and azithromycin, vancomycin discontinued secondary to cultures Legionella still pending (4) Chronic anemia: Code(s): D64.9 - Anemia, unspecified Status: Acute Assessment and Plan: Continue PPI, received transfusion yesterday, continue to monitor hemoglobin, hemoglobin 8.2 today (5) Paraplegia, unspecified: Code(s): G82.20 - Paraplegia, unspecified Status: Acute (6) Insulin dependent type 2 diabetes mellitus: Code(s): E11.9 - Type 2 diabetes mellitus without complications; Z79.4 - alf (current) use of insulin Status: Acute Assessment and Plan: Sliding scale plus Accu-Cheks (7) Decubitus ulcer of sacral area: Code(s): L89.159 - Pressure ulcer of sacral region, unspecified stage Status: Acute (8) UTI (urinary tract infection): Code(s): N39.0 - Urinary tract infection, site not specified Status: Acute Assessment and Plan: Continue Zosyn, Bartholomew exchanged, follow-up culture results (9) Indwelling Bartholomew catheter present: Code(s): Z97.8 - Presence of other specified devices Status: Acute (10) Acute on chronic diastolic heart failure: Code(s): I50.33 - Acute on chronic diastolic (congestive) heart failure Status: Acute Assessment and Plan: Continue diuresis, still appears volume overloaded Plan DVT prophylaxis with Lovenox GI prophylaxis with PPI Code status full code Subjective Date/time seen: 04/12/22 08:13 Interval history: Intubated, sedated. No overnight events noted. No fevers. Review of Systems Review of Systems: ROS unobtainable: Yes unobtainable due to endotracheal tube Exam Narrative: General: Intubated, sedated. HEENT: Atraumatic, normocephalic, mucous membranes moist CV: Regular rate and rhythm, S1, S2 Lungs: Coarse breath sounds throughout, no wheeze Abdomen: Soft, nondistended, colostomy in place Extremities: Chronic venous stasis dermatitis noted bilaterally Skin: No rashes noted, no lesions or wounds seen, decubital ulcers reported per nursing staff Psych: Unable to assess Objective Data Vital Signs Vital Signs: Vital Signs - 24 hr 04/11/22 08:30 04/11/22 08:40 04/11/22 08:40 Temperature Pulse Rate 90 96 96 Respiratory Rate 24 H 20 Blood Pressure Pulse Oximetry 98 Oxygen Delivery Mechanical Ventilation Fraction of Inspired Oxygen 30 04/11/22 08:55 04/11/22 10:34 04/11/22 10:34 Temperature Pulse Rate 93 111 H 111 H Respiratory Rate 20 24 H 24 H Blood Pressure Pulse Oximetry Oxygen Delivery Fraction of Inspired Oxygen 04/11/22 10:00 04/11/22 10:00 04/11/22 12:00 Temperature Pulse Rate 110 H 95 Respiratory Rate 24 H Blood Pressure 158/89 H Pulse Oximetry 95 99 Oxygen Delivery Mechanical Ventilation Fraction of Inspired Oxygen 30 04/11/22 12:00 04/11/22 12:00 04/11/22 12:00 Temperature 98.1 F Pulse Rate 109 H 109 H Respiratory Rate 24 H Blood Pressure 155/91 H Pulse Oximetry 100 Oxygen Delivery Fraction of Inspired Oxygen 30 04/11/22 11:35 04/11/22 12:38 04/11/22 11:30 Temperature Pulse Rate 116 H 115 H 112 H Respiratory Rate 24 H 24 H Blood Pressure Pulse Oximetry 97 Oxygen Delivery Mechanical Ventilation Fraction of Inspired
[2022-04-12] MEDS: POTASSIUM CHLORIDE 20 MEQ PACKET (FOR LIQUID) 40 MEQ FEED TUBE (08:32)
[2022-04-12] MEDS: FERROUS SULFATE LIQUID 325 MG/7.4 ML ELIXIR FEED TUBE ×2 (08:33→17:11)
[2022-04-12] MEDS: FUROSEMIDE INJ 40 MG/4 ML VIAL IV PUSH (08:33)
[2022-04-12] MEDS: MAGNESIUM SULF 2 GM/WATER 50ML 2 GM/50 ML BAG IVPB (08:33)
[2022-04-12] MEDS: ENOXAPARIN 40 MG/0.4 ML SYRINGE SUB-Q (08:33)
[2022-04-12] MEDS: COLLAGENASE OINT 30 GM TUBE 1 APPLIC TOPICAL (08:33)
[2022-04-12] MEDS: DOCUSATE SODIUM LIQ 100 MG/10 ML UDC FEED TUBE ×2 (08:33→21:14)
[2022-04-12] MEDS: SUCRALFATE SUSP 100 MG/ML 10 ML UDC 1000 MG FEED TUBE ×4 (08:33→21:14)
[2022-04-12] MEDS: PANTOPRAZOLE SODIUM IV 40 MG VIAL IV PUSH ×2 (08:33→21:14)
[2022-04-12] MEDS: SILVERGEL (ELTA) 45 ML 1 APPLIC TOPICAL (08:34)
[2022-04-12] MEDS: LORATADINE 10 MG TABLET FEED TUBE (08:34)
[2022-04-12] MEDS: MINERAL OIL/WHITE PETROLATUM OINTMENT 1 APPLIC EACH EYE ×2 (08:34→21:14)
--- NOTE | 2022-04-12 09:54 | WPDINTPN ---
Progress Note: A&P Assessment and Plan (1) Acute respiratory failure with hypoxia: Code(s): J96.01 - Acute respiratory failure with hypoxia Status: Acute Assessment and Plan: Acute Respiratory failure secondary to pneumonia which to most likely aspiration could be community-acquired. Also there could be component of CHF since he had elevated BNP 04/05 Patient was urgently intubated this morning respiratory distress hypoxia and inability to tolerate NIPPV 04/06 patient self-extubated and was reintubated ABGs reviewed, ventilator adjusted, he is on 30% FiO2 and 5 of PEEP. Chest x-ray reviewed Continue Bronchodilators Although his oxygen requirement decreases chest x-ray still shows diffuse infiltrate. Prior to intubation patient could not tolerate BiPAP or CPAP either hence I feel patient needs more diuresis to maximize the chances of success when it comes weaning. -patient diuresing well, will continue gentle diuresis -wean sedation, will start patient on Precedex infusion -patient is encephalopathic, which is also hindering in placing patient on any kind of breathing trials COVID PCR was negative (2) Sepsis: Code(s): A41.9 - Sepsis, unspecified organism Status: Acute Assessment and Plan: On presentation patient met criteria for sepsis likely secondary to pneumonia and UTI He has received adequate amount of IV fluids and will hold further IV fluids at this time His lactic acid level was normal but His procalcitonin level is elevated suggestive of infection Blood, sputum and culture are all negative so far Continue Zosyn for total of 10 days, Discontinued Zithromax (04/12). Discontinued vancomycin as all cultures are negative for now Urine Legionella is Negative pneumococcal antigen is negative Mycoplasma IgM is negative (3) Aspiration pneumonia: Code(s): J69.0 - Pneumonitis due to inhalation of food and vomit Status: Acute Assessment and Plan: See above (4) Multifocal pneumonia: Code(s): J18.9 - Pneumonia, unspecified organism Status: Acute Assessment and Plan: See above (5) Chronic anemia: Code(s): D64.9 - Anemia, unspecified Status: Acute Assessment and Plan: 04/08 Hemoglobin has trended down to 6.7 today. Transfuse 1 unit of PRBC No obvious signs of bleeding On PPI q.12 hours -hemoglobin stable Continue Lovenox for now for DVT prophylaxis (6) Paraplegia, unspecified: Code(s): G82.20 - Paraplegia, unspecified Status: Acute Assessment and Plan: Chronic paraplegia from past injury (7) Insulin dependent type 2 diabetes mellitus: Code(s): E11.9 - Type 2 diabetes mellitus without complications; Z79.4 - intermediate (current) use of insulin Status: Acute Assessment and Plan: Continue sliding scale insulin Accu-Cheks (8) Decubitus ulcer of sacral area: Code(s): L89.159 - Pressure ulcer of sacral region, unspecified stage Status: Acute Assessment and Plan: Patient's wounds were evaluated by wound care nurse and they do not appear infected Continue local wound care (9) UTI (urinary tract infection): Code(s): N39.0 - Urinary tract infection, site not specified Status: Acute Assessment and Plan: Patient has indwelling Bartholomew. UA suggests UTI Culture: no growth Bartholomew exchanged Continue Zosyn (10) Complaint associated with gastric tube: Code(s): R68.89 - Other general symptoms and signs; Z93.1 - Gastrostomy status Status: Acute Assessment and Plan: 04/05 Nurse were unable to place OG or NG tube was not. Dr. Craig placed an OG tube with help of glide scope. He was unable to advance after 50 cm. Chest x-ray now confirms that OG tube is in stomach Continue tube feeds If unable to extubate will try to get post pyloric Dobbhoff under fluoroscopy (11) Electrolyte abnormality: Code(s): E87.8 - Other disorders of electrolyte and fluid
[2022-04-12] MEDS: METOPROLOL TARTRATE 12.5 MG TABLET PO ×2 (11:15→21:14)
--- NOTE | 2022-04-12 11:16 | PCFNICU ---
ICU Rounding Note: Pt current nutrition is Vital AF 1.2 at 70 ml/hr. Last recorded weight is 89.1 kg, up from 86.3 kg on admit. Bowel Motility: ostomy Labs Reviewed:Glu 222, Cr 0.4,ALb 3.1,Hgb 8.2,Hct 27.7 Meds Noted:Vancomycin,Zosyn, Reglan, Versed, Fentanyl, Lovenox, Protonix, Zithromax, Novolog. Skin:Stage IV PU-sacrum, Stage II PU-right knee, Stage III PU-bilateral heels, unstageable pu-heels. Additional Notes: Patient remains on mechanical vent and tube feedings of Vital AF 1.2 at 70 ml/hr. Tolerating tube feedings. Protein Modulars for wound healing of Nimesh BID and Prosource BID. Free water flush 30 ml q 4 hours. Agree with diet orders. Following daily in ICU rounds. Will monitor in ICU rounds and reassess every Sunday and Sunday.
[2022-04-12 11:35] LABS: Glucose Point of Care 227 mg/dl (65-105)
[2022-04-12 17:36] LABS: Glucose Point of Care 237 mg/dl (65-105)
[2022-04-12] MEDS: hydrALAZINE HCL 20 MG/ML VIAL 10 MG IV PUSH (21:13)
[2022-04-12 23:57] LABS: Glucose Point of Care 260 mg/dl (65-105)
[2022-04-13] VITALS (44 sets, daily range): BP systolic 112–170; BP diastolic 76–96; PULSE 90–112; RESP 18–30; TEMP 36.4–38.1; O2SAT 91–98
[2022-04-13] MEDS: FENTANYL 2,500MCG/NS250ML(*CRX 2,500 MCG/250 ML BAG 17.5 MCG IV CONT (02:36)
[2022-04-13] MEDS: MIDAZOLAM 100MG/NS 100ML(*CRX) 100 MG/100 ML BAG IV CONT ×2 (02:38→22:00)
[2022-04-13 04:34] LABS: Basophils Percent Auto 0.4 % (0.2-1.2); Eosinophils Absolute Auto 0.1 K/mm3 (0-0.3); Eosinophils Percent Auto 0.6 % (0-4.4); Hematocrit 29.3 % (42.0-52.0); Hemoglobin 8.8 g/dL (14.0-18.0); Immature Granulocyte Absolute 0.08 K/mm3 (0.00-0.031); Immature Granulocyte Percent A 0.8 % (0-0.5); Lymphocytes Absolute Auto 1.11 K/mm3 (0.9-3.2); Lymphocytes Percent Auto 11.7 % (18.3-44.2); Mean Corpuscular Hemoglobin 25.6 pg (26-34); Mean Corpuscular Volume 85.2 fl (80-100); Monocytes Absolute Auto 0.5 K/mm3 (0.1-0.6); Monocytes Percent Auto 5.1 % (2.6-8.5); Neutrophils Absolute Auto 7.7 K/mm3 (1.3-6.7); Neutrophils Percent Auto 81.4 % (45.5-73.1); Platelet Count Result 211 k/mm3 (150-375); Red Blood Count 3.44 M/mm3 (4.6-6.20); Red Cell Distribution Width 16.4 % (11.5-14.5); White Blood Count 9.5 K/mm3 (4.5-10.0)
[2022-04-13 04:55] LABS: Alanine Aminotransferase 7 U/L (6-50); Albumin Level 3.3 g/dL (3.5-5.1); Alkaline Phosphatase 147 U/L (38-126); Anion Gap 10 mmol/L (8-16); Aspartate Amino Transferase 17 U/L (17-59); Bilirubin,Total 0.4 mg/dL (0.2-1.3); Blood Urea Nitrogen 27 mg/dL (9-20); Calcium 8.2 mg/dL (8.4-10.2); Carbon Dioxide 33 mmol/L (22-30); Chloride 99 mmol/L (98-107); Estimated CRCL calculation 182 ml/min; Estimated Glomerular Filt Rate > 60; Glucose 239 mg/dL (65-110); Magnesium 2.1 mg/dL (1.6-2.3); Phosphorus 3.4 mg/dL (2.5-4.5); Potassium 4.1 mmol/L (3.4-5.0); Sodium 142 mmol/L (137-145)
[2022-04-13] MEDS: INSULIN ASPART (*BKC) 100 UNITS/ML SUB-Q ×3 (05:25→17:32)
[2022-04-13] MEDS: METOCLOPRAMIDE HCL INJ 10 MG/2 ML VIAL IV PUSH ×3 (05:27→17:19)
[2022-04-13] MEDS: CENTRAL LINE FLUSH 10 ML IV PUSH ×3 (05:28→22:26)
[2022-04-13 06:04] LABS: Alveolar/Arterial O2 Gradient 135.5 mmHg; Base Excess ABG 8.7 mEq/l (+/-2.0); Carboxyhemoglobin 0.3 % THb (0-2.0); Fractional Inspired Oxygen 35 %; HCO3 ABG 33.1 mEq/l (22.0-26.0); Methemoglobin ABG 0.2 %THb (0-1.5); Oxygen Content ABG 13.2 %vol (16.0-22.0); Oxygen Saturation ABG 93.2 % (95.0-100.0); PCO2 ABG 44.8 mmHg (35.0-45.0); PO2 FiO2 Ratio Arterial Blood 1.77 %; Reduced Hemoglobin 8.5 %THb (0-5.0); Total Hemoglobin 10.3 g/dL (12.0-18.0); pH ABG 7.486 (7.350-7.450)
[2022-04-13 06:07] LABS: Device VENTILATOR; Modified Allen's Test Pass; Site Drawn LEFT RADIAL
[2022-04-13 06:08] LABS: Arterial Blood Gas PEEP 5 cmH2O; Arterial Blood Gas Tidal Volume 450 ml; Arterial Blood Gas Vent Mode CMV; Arterial Blood Gas Ventilator rate 18 /MIN
[2022-04-13] MEDS: ALBUTEROL SULFATE NEB 2.5 MG/3 ML INH INHALATION ×3 (08:03→19:33)
[2022-04-13] MEDS: LORATADINE 10 MG TABLET FEED TUBE (08:10)
[2022-04-13] MEDS: DOCUSATE SODIUM LIQ 100 MG/10 ML UDC FEED TUBE ×2 (08:11→20:31)
[2022-04-13] MEDS: FERROUS SULFATE LIQUID 325 MG/7.4 ML ELIXIR FEED TUBE ×2 (08:11→17:19)
[2022-04-13] MEDS: SUCRALFATE SUSP 100 MG/ML 10 ML UDC 1000 MG FEED TUBE ×4 (08:11→20:34)
[2022-04-13] MEDS: ENOXAPARIN 40 MG/0.4 ML SYRINGE SUB-Q (08:11)
[2022-04-13] MEDS: METOPROLOL TARTRATE 12.5 MG TABLET PO ×2 (08:11→20:32)
[2022-04-13] MEDS: PANTOPRAZOLE SODIUM IV 40 MG VIAL IV PUSH ×2 (08:11→20:32)
[2022-04-13] MEDS: MINERAL OIL/WHITE PETROLATUM OINTMENT 1 APPLIC EACH EYE ×2 (08:12→20:30)
[2022-04-13] MEDS: COLLAGENASE OINT 30 GM TUBE 1 APPLIC TOPICAL (08:12)
[2022-04-13] MEDS: SILVERGEL (ELTA) 45 ML 1 APPLIC TOPICAL (08:12)
[2022-04-13] MEDS: INSULIN GLARGINE (*BKC) 100 UNITS/ML SUB-Q (08:13)
[2022-04-13] MEDS: dexmedeTOMIDine 400 MCG/100 ML 400 MCG/100 ML BAG IV CONT (08:27)
--- NOTE | 2022-04-13 09:28 | PM.IMPN ---
Progress Note: A&P Assessment and Plan (1) Acute respiratory failure with hypoxia: Code(s): J96.01 - Acute respiratory failure with hypoxia Status: Acute Assessment and Plan: Intubated and sedated (2) Sepsis: Code(s): A41.9 - Sepsis, unspecified organism Status: Acute Assessment and Plan: Likely secondary to pneumonia, continue antibiotics, improving (3) Aspiration pneumonia: Code(s): J69.0 - Pneumonitis due to inhalation of food and vomit Status: Acute Assessment and Plan: Continue Zosyn for total of 7 days, azithromycin and vancomycin discontinued, Legionella, mycoplasma, pneumococcal came back negative (4) Chronic anemia: Code(s): D64.9 - Anemia, unspecified Status: Acute Assessment and Plan: Continue PPI, hemoglobin stable at 8.8 today (5) Paraplegia, unspecified: Code(s): G82.20 - Paraplegia, unspecified Status: Acute (6) Insulin dependent type 2 diabetes mellitus: Code(s): E11.9 - Type 2 diabetes mellitus without complications; Z79.4 - truck terminal manager (current) use of insulin Status: Acute Assessment and Plan: Sliding scale plus Accu-Cheks (7) Decubitus ulcer of sacral area: Code(s): L89.159 - Pressure ulcer of sacral region, unspecified stage Status: Acute (8) UTI (urinary tract infection): Code(s): N39.0 - Urinary tract infection, site not specified Status: Acute Assessment and Plan: Urine culture negative for bacterial growth (9) Indwelling Bartholomew catheter present: Code(s): Z97.8 - Presence of other specified devices Status: Acute (10) Acute on chronic diastolic heart failure: Code(s): I50.33 - Acute on chronic diastolic (congestive) heart failure Status: Acute Assessment and Plan: Appears euvolemic, IV diuresis discontinue, monitor Plan DVT prophylaxis with Lovenox GI prophylaxis with PPI Code status full code Subjective Date/time seen: 04/13/22 09:28 Interval history: Intubated, sedated. No overnight events noted. No fevers. Review of Systems Review of Systems: ROS unobtainable: Yes unobtainable due to endotracheal tube Exam Narrative: General: Intubated, sedated. HEENT: Atraumatic, normocephalic, mucous membranes moist CV: Regular rate and rhythm, S1, S2 Lungs: Coarse breath sounds throughout, no wheeze Abdomen: Soft, nondistended, colostomy in place Extremities: Chronic venous stasis dermatitis noted bilaterally Skin: No rashes noted, no lesions or wounds seen, decubital ulcers reported per nursing staff Psych: Unable to assess Objective Data Vital Signs Vital Signs: Vital Signs - 24 hr 04/12/22 09:37 04/12/22 09:40 04/12/22 10:18 Temperature Pulse Rate 103 H 104 H 107 H Respiratory Rate 19 22 H Blood Pressure Pulse Oximetry 92 Oxygen Delivery Mechanical Ventilation Fraction of Inspired Oxygen 30 04/12/22 10:19 04/12/22 11:14 04/12/22 11:15 Temperature Pulse Rate 107 H 117 H 118 H Respiratory Rate 22 H 25 H 26 H Blood Pressure Pulse Oximetry Oxygen Delivery Fraction of Inspired Oxygen 04/12/22 11:15 04/12/22 11:40 04/12/22 12:00 Temperature 99.1 F Pulse Rate 117 H 107 H 97 Respiratory Rate 28 H Blood Pressure 150/87 H Pulse Oximetry 93 95 Oxygen Delivery Mechanical Ventilation Fraction of Inspired Oxygen 30 04/12/22 10:00 04/12/22 12:00 04/12/22 12:00 Temperature Pulse Rate 108 H 96 Respiratory Rate Blood Pressure Pulse Oximetry Oxygen Delivery Fraction of Inspired Oxygen 30 04/12/22 12:00 04/12/22 14:00 04/12/22 14:00 Temperature Pulse Rate 96 96 Respiratory Rate 24 H Blood Pressure 148/88 H Pulse Oximetry 93 97 Oxygen Delivery Mechanical Ventilation Fraction of Inspired Oxygen 30 04/12/22 10:00 04/12/22 15:16 04/12/22 15:23 Temperature Pulse Rate 108 H 99 98 Respiratory Rate 26 H
--- NOTE | 2022-04-13 11:33 | PCFNICU ---
ICU Rounding Note: Pt current nutrition is Vital AF 1.2 at 70 ml/hr, this is goal rate. Last recorded weight is 88.9 kg, up from 86.3 kg on admit. Bowel Motility: ostomy, + output Labs Reviewed: Hgb:8.8, HCT:29.3, Alb:3.3, BUN:27, Cr:0.4, Glu:239 Meds Noted: Vancomycin,Zosyn, Reglan, Versed, Fentanyl, Lovenox, Protonix, Zithromax, Novolog. Skin: Stage IV PU-sacrum, Stage II PU-right knee, Stage III PU-bilateral heels, unstageable pu-heels. Additional Notes: Patient remains on mechanical vent and tube feedings of Vital AF 1.2 at 70 ml/hr. Tolerating tube feedings. Protein Modulars for wound healing of Nimesh BID and Prosource BID. Free water flush 30 ml q 4 hours. Agree with diet orders. Following daily in ICU rounds. Will monitor in ICU rounds and reassess every Sunday and Sunday.
--- NOTE | 2022-04-13 12:01 | P.PNINT_ITS ---
Progress Note: A&P Assessment and Plan (1) Acute respiratory failure with hypoxia: Code(s): J96.01 - Acute respiratory failure with hypoxia Status: Acute Assessment and Plan: Acute Respiratory failure secondary to pneumonia which to most likely aspiration could be community-acquired. Also there could be component of CHF since he had elevated BNP 04/05 Patient was urgently intubated this morning respiratory distress hypoxia and inability to tolerate NIPPV 04/06 patient self-extubated and was reintubated ABGs reviewed, ventilator adjusted, he is on 30% FiO2 and 5 of PEEP. Chest x-ray reviewed Continue Bronchodilators Although his oxygen requirement decreases chest x-ray still shows diffuse infiltrate. Prior to intubation patient could not tolerate BiPAP or CPAP either hence I feel patient needs more diuresis to maximize the chances of success when it comes weaning. -patient diuresing well, will continue gentle diuresis -wean sedation, will start patient on Precedex infusion -patient is encephalopathic, which is also hindering in placing patient on any kind of breathing trials COVID PCR was negative (2) Sepsis: Code(s): A41.9 - Sepsis, unspecified organism Status: Acute Assessment and Plan: On presentation patient met criteria for sepsis likely secondary to pneumonia and UTI He has received adequate amount of IV fluids and will hold further IV fluids at this time His lactic acid level was normal but His procalcitonin level is elevated suggestive of infection Blood, sputum and culture are all negative so far Continue Zosyn for total of 10 days, Discontinued Zithromax (04/12). Discontinued vancomycin as all cultures are negative for now Urine Legionella is Negative pneumococcal antigen is negative Mycoplasma IgM is negative (3) Aspiration pneumonia: Code(s): J69.0 - Pneumonitis due to inhalation of food and vomit Status: Acute Assessment and Plan: See above (4) Multifocal pneumonia: Code(s): J18.9 - Pneumonia, unspecified organism Status: Acute Assessment and Plan: See above (5) Chronic anemia: Code(s): D64.9 - Anemia, unspecified Status: Acute Assessment and Plan: 04/08 Hemoglobin has trended down to 6.7 today. Transfuse 1 unit of PRBC No obvious signs of bleeding On PPI q.12 hours -hemoglobin stable Continue Lovenox for now for DVT prophylaxis (6) Paraplegia, unspecified: Code(s): G82.20 - Paraplegia, unspecified Status: Acute Assessment and Plan: Chronic paraplegia from past injury (7) Insulin dependent type 2 diabetes mellitus: Code(s): E11.9 - Type 2 diabetes mellitus without complications; Z79.4 - FPC (current) use of insulin Status: Acute Assessment and Plan: Continue sliding scale insulin Accu-Cheks (8) Decubitus ulcer of sacral area: Code(s): L89.159 - Pressure ulcer of sacral region, unspecified stage Status: Acute Assessment and Plan: Patient's wounds were evaluated by wound care nurse and they do not appear infected Continue local wound care (9) UTI (urinary tract infection): Code(s): N39.0 - Urinary tract infection, site not specified Status: Acute Assessment and Plan: Patient has indwelling Bartholomew. UA suggests UTI Culture: no growth Bartholomew exchanged Continue Zosyn (10) Complaint associated with gastric tube: Code(s): R68.89 - Other general symptoms and signs; Z93.1 - Gastrostomy status Status: Acute Assessment and Plan:
[2022-04-13 12:24] LABS: Glucose Point of Care 241 mg/dl (65-105)
[2022-04-13 17:39] LABS: Glucose Point of Care 256 mg/dl (65-105)
[2022-04-13] MEDS: dexmedeTOMIDine 400 MCG/100 ML 400 MCG/100 ML BAG 13.34 MCG IV CONT (20:00)
[2022-04-13] MEDS: FENTANYL 2,500MCG/NS250ML(*CRX 2,500 MCG/250 ML BAG 10 MCG IV CONT (22:00)
[2022-04-14] VITALS (42 sets, daily range): BP systolic 104–156; BP diastolic 67–88; PULSE 80–112; RESP 23–36; TEMP 37.9–39.3; O2SAT 91–96
[2022-04-14 00:21] LABS: Glucose Point of Care 252 mg/dl (65-105)
[2022-04-14] MEDS: INSULIN ASPART (*BKC) 100 UNITS/ML SUB-Q ×5 (00:23→23:03)
[2022-04-14] MEDS: ACETAMINOPHEN ELIXIR 325 MG/10.15 ML UDC 650 MG FEED TUBE ×4 (00:23→21:17)
[2022-04-14] MEDS: METOCLOPRAMIDE HCL INJ 10 MG/2 ML VIAL IV PUSH ×4 (00:30→23:04)
--- NOTE | 2022-04-14 00:30 | PC.NURSE ---
Dr. Mitchell notified of fever. Solorio culture ordered.
[2022-04-14 01:47] LABS: Add Urine Microscopic? YES; Appearance Urine Cloudy (Clear); Bacteria Urine Trace /hpf; Bilirubin Urine Negative (Negative); Blood Urine Negative (Negative); Budding Yeast Urine Present /hpf; Calcium Oxalate Crystals Urine Present /hpf; Color Urine Yellow (Yellow); Glucose Urine UA Negative (Negative); Ketones Urine Negative (Negative); Leukocyte Esterase Ur 3+ LEU/UL (Negative); Mucus Urine Rare /lpf; Nitrate Urine Negative (Negative); Protein Urine 3+ mg/dL (Negative); RBC Urine 21-50 /hpf (0-2); Specific Grav Ur 1.019 (1.001-1.035); Squamous Epithelial Cell Urine Rare /hpf (Few); Urobilinogen Urine Negative mg/dL (<2.0); WBC Clumps Urine Present /HPF; WBC Urine >75 /hpf
[2022-04-14] MEDS: ALBUTEROL SULFATE NEB 2.5 MG/3 ML INH INHALATION ×4 (02:19→20:47)
[2022-04-14] MEDS: dexmedeTOMIDine 400 MCG/100 ML 400 MCG/100 ML BAG 15.56 MCG IV CONT ×2 (03:14→15:50)
[2022-04-14 04:26] LABS: Basophils Percent Auto 0.2 % (0.2-1.2); Eosinophils Percent Auto 0.3 % (0-4.4); Hematocrit 28.2 % (42.0-52.0); Hemoglobin 8.7 g/dL (14.0-18.0); Immature Granulocyte Absolute 0.07 K/mm3 (0.00-0.031); Immature Granulocyte Percent A 0.6 % (0-0.5); Lymphocytes Absolute Auto 1.22 K/mm3 (0.9-3.2); Lymphocytes Percent Auto 11.2 % (18.3-44.2); Mean Corpuscular HGB Conc 30.9 g/dl (32-36); Mean Corpuscular Volume 84.4 fl (80-100); Mean Platelet Volume 9.4 fl (7.4-10.4); Monocytes Absolute Auto 0.5 K/mm3 (0.1-0.6); Monocytes Percent Auto 4.4 % (2.6-8.5); Neutrophils Absolute Auto 9.1 K/mm3 (1.3-6.7); Neutrophils Percent Auto 83.3 % (45.5-73.1); Platelet Count Result 217 k/mm3 (150-375); Red Blood Count 3.34 M/mm3 (4.6-6.20); Red Cell Distribution Width 16.5 % (11.5-14.5); White Blood Count 10.9 K/mm3 (4.5-10.0)
[2022-04-14 04:39] LABS: Alanine Aminotransferase 8 U/L (6-50); Albumin Level 3.4 g/dL (3.5-5.1); Alkaline Phosphatase 137 U/L (38-126); Anion Gap 9 mmol/L (8-16); Aspartate Amino Transferase 19 U/L (17-59); Bilirubin,Total 0.4 mg/dL (0.2-1.3); Blood Urea Nitrogen 35 mg/dL (9-20); Calcium 8.3 mg/dL (8.4-10.2); Carbon Dioxide 30 mmol/L (22-30); Chloride 102 mmol/L (98-107); Estimated CRCL calculation 150 ml/min; Estimated Glomerular Filt Rate > 60; Glucose 278 mg/dL (65-110); Magnesium 2.1 mg/dL (1.6-2.3); Phosphorus 4.9 mg/dL (2.5-4.5); Potassium 4.1 mmol/L (3.4-5.0); Sodium 141 mmol/L (137-145)
[2022-04-14 05:01] LABS: Alveolar/Arterial O2 Gradient 111.3 mmHg; Base Excess ABG 2.7 mEq/l (+/-2.0); Carboxyhemoglobin 0.7 % THb (0-2.0); Fractional Inspired Oxygen 30 %; HCO3 ABG 26.1 mEq/l (22.0-26.0); Methemoglobin ABG 0.3 %THb (0-1.5); Oxygen Content ABG 17.3 %vol (16.0-22.0); Oxygen Saturation ABG 92.7 % (95.0-100.0); Oxyhemoglobin 89.9 % THb (90.0-100.0); PCO2 ABG 36.2 mmHg (35.0-45.0); PO2 ABG 60.1 mmHg (80.0-100.0); Reduced Hemoglobin 9.1 %THb (0-5.0); Total Hemoglobin 13.7 g/dL (12.0-18.0); pH ABG 7.475 (7.350-7.450)
[2022-04-14 05:02] LABS: Device VENTILATOR; Modified Allen's Test Pass; Site Drawn LEFT RADIAL
[2022-04-14 05:03] LABS: Arterial Blood Gas PEEP 5 cmH2O; Arterial Blood Gas Tidal Volume 450 ml; Arterial Blood Gas Vent Mode CMV; Arterial Blood Gas Ventilator rate 18 /MIN
[2022-04-14] MEDS: CENTRAL LINE FLUSH 10 ML IV PUSH ×3 (06:22→20:58)
[2022-04-14] MEDS: COLLAGENASE OINT 30 GM TUBE 1 APPLIC TOPICAL (08:44)
[2022-04-14] MEDS: BUMETANIDE INJ 1 MG/4 ML VIAL IV PUSH (08:44)
[2022-04-14] MEDS: SUCRALFATE SUSP 100 MG/ML 10 ML UDC 1000 MG FEED TUBE ×4 (08:44→20:58)
[2022-04-14] MEDS: LORATADINE 10 MG TABLET FEED TUBE (08:45)
[2022-04-14] MEDS: METOPROLOL TARTRATE 25 MG TABLET PO ×2 (08:45→20:57)
[2022-04-14] MEDS: ENOXAPARIN 40 MG/0.4 ML SYRINGE SUB-Q (08:45)
[2022-04-14] MEDS: FERROUS SULFATE LIQUID 325 MG/7.4 ML ELIXIR FEED TUBE ×2 (08:45→17:46)
[2022-04-14] MEDS: DOCUSATE SODIUM LIQ 100 MG/10 ML UDC FEED TUBE ×2 (08:45→20:58)
[2022-04-14] MEDS: SILVERGEL (ELTA) 45 ML 1 APPLIC TOPICAL (08:46)
[2022-04-14] MEDS: PANTOPRAZOLE SODIUM IV 40 MG VIAL IV PUSH ×2 (08:46→20:58)
[2022-04-14] MEDS: MINERAL OIL/WHITE PETROLATUM OINTMENT 1 APPLIC EACH EYE ×2 (08:46→20:57)
[2022-04-14] MEDS: INSULIN GLARGINE (*BKC) 100 UNITS/ML 10 UNITS SUB-Q (09:01)
--- NOTE | 2022-04-14 09:35 | PM.IMPN ---
Progress Note: A&P Assessment and Plan (1) Acute respiratory failure with hypoxia: Code(s): J96.01 - Acute respiratory failure with hypoxia Status: Acute Assessment and Plan: Intubated and sedated (2) Sepsis: Code(s): A41.9 - Sepsis, unspecified organism Status: Acute Assessment and Plan: Likely secondary to pneumonia, continue antibiotics, improving (3) Aspiration pneumonia: Code(s): J69.0 - Pneumonitis due to inhalation of food and vomit Status: Acute Assessment and Plan: Continue Zosyn for total of 7 days, azithromycin and vancomycin discontinued, Legionella, mycoplasma, pneumococcal came back negative (4) Chronic anemia: Code(s): D64.9 - Anemia, unspecified Status: Acute Assessment and Plan: Continue PPI, hemoglobin stable at 8.8 today (5) Paraplegia, unspecified: Code(s): G82.20 - Paraplegia, unspecified Status: Acute (6) Insulin dependent type 2 diabetes mellitus: Code(s): E11.9 - Type 2 diabetes mellitus without complications; Z79.4 - ad terminal makeup 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 insulin Status: Acute Assessment and Plan: Sliding scale plus Accu-Cheks (7) Decubitus ulcer of sacral area: Code(s): L89.159 - Pressure ulcer of sacral region, unspecified stage Status: Acute (8) UTI (urinary tract infection): Code(s): N39.0 - Urinary tract infection, site not specified Status: Acute Assessment and Plan: Urine culture negative for bacterial growth (9) Indwelling Bartholomew catheter present: Code(s): Z97.8 - Presence of other specified devices Status: Acute (10) Acute on chronic diastolic heart failure: Code(s): I50.33 - Acute on chronic diastolic (congestive) heart failure Status: Acute Assessment and Plan: Appears euvolemic, IV diuresis discontinue, monitor Plan DVT prophylaxis with Lovenox GI prophylaxis with PPI Code status full code Subjective Date/time seen: 04/14/22 09:35 Interval history: Intubated, sedated. No overnight events noted. No fevers. Review of Systems Review of Systems: ROS unobtainable: Yes unobtainable due to endotracheal tube Exam Narrative: General: Intubated, sedated. HEENT: Atraumatic, normocephalic, mucous membranes moist CV: Regular rate and rhythm, S1, S2 Lungs: Coarse breath sounds throughout, no wheeze Abdomen: Soft, nondistended, colostomy in place Extremities: Chronic venous stasis dermatitis noted bilaterally Skin: No rashes noted, no lesions or wounds seen, decubital ulcers reported per nursing staff Psych: Unable to assess Objective Data Vital Signs Vital Signs: Vital Signs - 24 hr 04/13/22 10:00 04/13/22 10:30 04/13/22 10:30 Temperature 98.4 F Pulse Rate 90 100 99 Respiratory Rate 20 22 H 22 H Blood Pressure 128/78 Pulse Oximetry 95 Oxygen Delivery Fraction of Inspired Oxygen 04/13/22 10:00 04/13/22 11:37 04/13/22 12:20 Temperature Pulse Rate 97 100 100 Respiratory Rate 30 H Blood Pressure Pulse Oximetry 93 Oxygen Delivery Mechanical Ventilation Fraction of Inspired Oxygen 30 04/13/22 12:00 04/13/22 12:00 04/13/22 12:00 Temperature 98.9 F Pulse Rate 98 101 H Respiratory Rate 22 H Blood Pressure 154/84 H Pulse Oximetry 98 Oxygen Delivery Fraction of Inspired Oxygen 30 04/13/22 12:00 04/13/22 12:00 04/13/22 12:00 Temperature Pulse Rate 101 H 101 H Respiratory Rate 24 H 24 H Blood Pressure Pulse Oximetry 94 Oxygen Delivery Mechanical Ventilation Fraction of Inspired Oxygen 30 04/13/22 13:12 04/13/22 14:00 04/13/22 14:05 Temperature Pulse Rate 101 H 103 H 101 H Respiratory Rate 24 H 24 H Blood Pressure Pulse Oximetry Oxygen Delivery Fraction of Inspired Oxygen 04/13/22 14:10 04/13/22 14:17 04/13/22 14:19 Temperature Pulse Rate 101 H 104 H 102 H Respiratory Rate 22 H 27 H Blood Pr
--- NOTE | 2022-04-14 11:23 | WPDINTPN ---
Progress Note: A&P Assessment and Plan (1) Acute respiratory failure with hypoxia: Code(s): J96.01 - Acute respiratory failure with hypoxia Status: Acute Assessment and Plan: Acute Respiratory failure secondary to pneumonia which to most likely aspiration could be community-acquired. Also there could be component of CHF since he had elevated BNP 04/05 Patient was urgently intubated this morning respiratory distress hypoxia and inability to tolerate NIPPV 04/06 patient self-extubated and was reintubated ABGs reviewed, ventilator adjusted, he is on 30% FiO2 and 5 of PEEP. Chest x-ray reviewed Continue Bronchodilators Although his oxygen requirement decreases chest x-ray still shows diffuse infiltrate. Prior to intubation patient could not tolerate BiPAP or CPAP either hence I feel patient needs more diuresis to maximize the chances of success when it comes weaning. -patient diuresing well, will continue gentle diuresis -wean sedation, will start patient on Precedex infusion -patient is encephalopathic, which is also hindering in placing patient on any kind of breathing trials COVID PCR was negative (2) Sepsis: Code(s): A41.9 - Sepsis, unspecified organism Status: Acute Assessment and Plan: On presentation patient met criteria for sepsis likely secondary to pneumonia and UTI He has received adequate amount of IV fluids and will hold further IV fluids at this time His lactic acid level was normal but His procalcitonin level is elevated suggestive of infection Blood, sputum and culture are all negative so far Continue Zosyn for total of 10 days, Discontinued Zithromax (04/12). Discontinued vancomycin as all cultures are negative for now Urine Legionella is Negative pneumococcal antigen is negative Mycoplasma IgM is negative 04/14: Patient was febrile overnight with a T-max of 102.3?, blood cultures have been obtained, UA was positive for leukocyte esterase, trace bacteria, positive for budding yeast. Patient is on his last day of Zosyn -could be related to pneumonia, central line infection, -patient continues to spike, will obtain a LP (3) Aspiration pneumonia: Code(s): J69.0 - Pneumonitis due to inhalation of food and vomit Status: Acute Assessment and Plan: See above (4) Multifocal pneumonia: Code(s): J18.9 - Pneumonia, unspecified organism Status: Acute Assessment and Plan: See above (5) Chronic anemia: Code(s): D64.9 - Anemia, unspecified Status: Acute Assessment and Plan: 04/08 Hemoglobin has trended down to 6.7 today. Transfuse 1 unit of PRBC No obvious signs of bleeding On PPI q.12 hours -hemoglobin stable Continue Lovenox for now for DVT prophylaxis (6) Paraplegia, unspecified: Code(s): G82.20 - Paraplegia, unspecified Status: Acute Assessment and Plan: Chronic paraplegia from past injury (7) Insulin dependent type 2 diabetes mellitus: Code(s): E11.9 - Type 2 diabetes mellitus without complications; Z79.4 - intermission coordinator (current) use of insulin Status: Acute Assessment and Plan: Continue sliding scale insulin Accu-Cheks -increase Lantus (8) Decubitus ulcer of sacral area: Code(s): L89.159 - Pressure ulcer of sacral region, unspecified stage Status: Acute Assessment and Plan: Patient's wounds were evaluated by wound care nurse and they do not appear infected Continue local wound care (9) UTI (urinary tract infection): Code(s): N39.0 - Urinary tract infection, site not specified Status: Acute Assessment and Plan: Patient has indwelling Bartholomew. UA suggests UTI Culture: no growth Bartholomew exchanged Continue Zosyn (10) Complaint associated with gastric tube: Code(s): R68.89 - Other general symptoms and signs; Z93.1 - Gastrostomy status Status: Acute Assessment and Plan: 04/05 Nurse were unable to place OG or NG tube was not. Dr. Sanchez
[2022-04-14 11:45] LABS: Glucose Point of Care 296 mg/dl (65-105)
--- NOTE | 2022-04-14 11:47 | PCNFU ---
Nutrition Follow-Up Complete: Increased Protein needs as related to wounds as evidenced by Pressue Ulcers reported Goal: Meet estimated nutritional needs Pt current nutrition is Vital 1.2 @ 70 ml.h. 1848 kcals, 115 grams protein, 1249 ml free water. Flushes 30 ml q 4 h. Prostat and Nimesh BID. Nutrition recommendation:Continue current tube feeding order and supplements. Last recorded weight is 85.6 kg. Bowel Motility: +BM yesterday 05/14/22. Colostomy output soft and brown Labs Reviewed: Hgb 8.7, Hct 28.2, Alb 3.4, BUN 35, Creat 0.5, Glu 278 Meds Noted:Fentanyl, versed, Lovenox, protonix, reglan Skin: Stage III BL heels, Sacrum St IV, Knee St II Additional Notes: Tolerating tube feedings. No changes to tube feedings. Will monitor in ICU rounds and reasses every Sunday and Sunday.
[2022-04-14 17:53] LABS: Glucose Point of Care 301 mg/dl (65-105)
[2022-04-14] MEDS: FENTANYL 2,500MCG/NS250ML(*CRX 2,500 MCG/250 ML BAG 7.5 MCG IV CONT (21:48)
[2022-04-14] MEDS: dexmedeTOMIDine 400 MCG/100 ML 400 MCG/100 ML BAG 20 MCG IV CONT (21:50)
[2022-04-14 23:19] LABS: Glucose Point of Care 318 mg/dl (65-105)
[2022-04-15] VITALS (70 sets, daily range): BP systolic 114–148; BP diastolic 69–85; PULSE 71–108; RESP 25–96; TEMP 37.5–38.9; O2SAT 92–98
[2022-04-15] MEDS: ACETAMINOPHEN ELIXIR 325 MG/10.15 ML UDC 650 MG FEED TUBE ×3 (01:12→10:23)
[2022-04-15] MEDS: dexmedeTOMIDine 400 MCG/100 ML 400 MCG/100 ML BAG 22.23 MCG IV CONT (02:29)
[2022-04-15] MEDS: ALBUTEROL SULFATE NEB 2.5 MG/3 ML INH INHALATION ×4 (02:58→20:00)
[2022-04-15 05:13] LABS: Basophils Percent Auto 0.3 % (0.2-1.2); Eosinophils Absolute Auto 0.1 K/mm3 (0-0.3); Eosinophils Percent Auto 0.4 % (0-4.4); Hematocrit 29.2 % (42.0-52.0); Hemoglobin 8.5 g/dL (14.0-18.0); Immature Granulocyte Absolute 0.06 K/mm3 (0.00-0.031); Immature Granulocyte Percent A 0.5 % (0-0.5); Lymphocytes Absolute Auto 1.25 K/mm3 (0.9-3.2); Lymphocytes Percent Auto 10.7 % (18.3-44.2); Mean Corpuscular HGB Conc 29.1 g/dl (32-36); Mean Corpuscular Hemoglobin 25.3 pg (26-34); Mean Corpuscular Volume 86.9 fl (80-100); Mean Platelet Volume 9.7 fl (7.4-10.4); Monocytes Absolute Auto 0.5 K/mm3 (0.1-0.6); Monocytes Percent Auto 4.5 % (2.6-8.5); Neutrophils Absolute Auto 9.7 K/mm3 (1.3-6.7); Neutrophils Percent Auto 83.6 % (45.5-73.1); Platelet Count Result 195 k/mm3 (150-375); Red Blood Count 3.36 M/mm3 (4.6-6.20); Red Cell Distribution Width 16.8 % (11.5-14.5); White Blood Count 11.6 K/mm3 (4.5-10.0)
[2022-04-15 05:33] LABS: Alanine Aminotransferase 8 U/L (6-50); Albumin Level 3.5 g/dL (3.5-5.1); Alkaline Phosphatase 114 U/L (38-126); Anion Gap 14 mmol/L (8-16); Aspartate Amino Transferase 17 U/L (17-59); Bilirubin,Total 0.3 mg/dL (0.2-1.3); Blood Urea Nitrogen 46 mg/dL (9-20); Calcium 8.3 mg/dL (8.4-10.2); Carbon Dioxide 26 mmol/L (22-30); Chloride 104 mmol/L (98-107); Estimated CRCL calculation 150 ml/min; Estimated Glomerular Filt Rate > 60; Glucose 370 mg/dL (65-110); Magnesium 2.3 mg/dL (1.6-2.3); Phosphorus 4.3 mg/dL (2.5-4.5); Potassium 3.5 mmol/L (3.4-5.0); Sodium 144 mmol/L (137-145)
[2022-04-15 05:34] LABS: Alveolar/Arterial O2 Gradient 88.5 mmHg; Base Excess ABG 2.3 mEq/l (+/-2.0); Carboxyhemoglobin 0.3 % THb (0-2.0); Fractional Inspired Oxygen 30 %; Methemoglobin ABG 0.2 %THb (0-1.5); Oxygen Content ABG 13.1 %vol (16.0-22.0); Oxygen Saturation ABG 94.5 % (95.0-100.0); Oxyhemoglobin 91.5 % THb (90.0-100.0); PCO2 ABG 36.5 mmHg (35.0-45.0); PO2 ABG 67.1 mmHg (80.0-100.0); PO2 FiO2 Ratio Arterial Blood 2.24 %; Total Hemoglobin 10.1 g/dL (12.0-18.0)
[2022-04-15 05:35] LABS: Device VENTILATOR; Modified Allen's Test Pass; Site Drawn RIGHT RADIAL
[2022-04-15 05:36] LABS: Arterial Blood Gas PEEP 5 cmH2O; Arterial Blood Gas Tidal Volume 450 ml; Arterial Blood Gas Vent Mode CMV; Arterial Blood Gas Ventilator rate 18 /MIN
[2022-04-15] MEDS: METOCLOPRAMIDE HCL INJ 10 MG/2 ML VIAL IV PUSH ×3 (05:51→16:36)
[2022-04-15] MEDS: CENTRAL LINE FLUSH 10 ML IV PUSH ×3 (06:04→21:36)
[2022-04-15] MEDS: INSULIN ASPART (*BKC) 100 UNITS/ML SUB-Q ×3 (06:04→18:46)
[2022-04-15] MEDS: dexmedeTOMIDine 400 MCG/100 ML 400 MCG/100 ML BAG 26.67 MCG IV CONT ×4 (06:33→21:15)
[2022-04-15 07:43] LABS: Platelet Estimate Adequate (Adequate)
[2022-04-15 07:44] LABS: Anisocytosis 1+ (NORMAL); Hypochromasia 1+ (NORMAL); Poikilocytosis 1+ (NORMAL); Schistocytes None Seen (NORMAL)
--- NOTE | 2022-04-15 08:59 | PM.IMPN ---
Progress Note: A&P Assessment and Plan (1) Acute respiratory failure with hypoxia: Code(s): J96.01 - Acute respiratory failure with hypoxia Status: Acute Assessment and Plan: Intubated and sedated (2) Sepsis: Code(s): A41.9 - Sepsis, unspecified organism Status: Acute Assessment and Plan: Likely secondary to pneumonia, continue antibiotics, micafungin added as patient remains febrile (3) Aspiration pneumonia: Code(s): J69.0 - Pneumonitis due to inhalation of food and vomit Status: Acute Assessment and Plan: now on vancomycin, imipenem and micafungin (4) Chronic anemia: Code(s): D64.9 - Anemia, unspecified Status: Acute Assessment and Plan: Continue PPI, hemoglobin stable (5) Paraplegia, unspecified: Code(s): G82.20 - Paraplegia, unspecified Status: Acute (6) Insulin dependent type 2 diabetes mellitus: Code(s): E11.9 - Type 2 diabetes mellitus without complications; Z79.4 - skilled nursing (current) use of insulin Status: Acute Assessment and Plan: Sliding scale plus Accu-Cheks (7) Decubitus ulcer of sacral area: Code(s): L89.159 - Pressure ulcer of sacral region, unspecified stage Status: Acute (8) UTI (urinary tract infection): Code(s): N39.0 - Urinary tract infection, site not specified Status: Acute Assessment and Plan: Urine culture negative for bacterial growth (9) Indwelling Bartholomew catheter present: Code(s): Z97.8 - Presence of other specified devices Status: Acute (10) Acute on chronic diastolic heart failure: Code(s): I50.33 - Acute on chronic diastolic (congestive) heart failure Status: Acute Assessment and Plan: Appears euvolemic, monitor Plan DVT prophylaxis with Lovenox GI prophylaxis with PPI Code status full code Subjective Date/time seen: 04/15/22 08:59 Interval history: Intubated and sedated. No overnight events noted. Febrile overnight. Review of Systems Review of Systems: ROS unobtainable: Yes unobtainable due to endotracheal tube Exam Narrative: General: Intubated, sedated. HEENT: Atraumatic, normocephalic, mucous membranes moist CV: Regular rate and rhythm, S1, S2 Lungs: Coarse breath sounds throughout, no wheeze Abdomen: Soft, nondistended, colostomy in place Extremities: Chronic venous stasis dermatitis noted bilaterally Skin: No rashes noted, no lesions or wounds seen, decubital ulcers reported per nursing staff Psych: Unable to assess Objective Data Vital Signs Vital Signs: Vital Signs - 24 hr 04/14/22 10:00 04/14/22 10:00 04/14/22 09:46 Temperature 101.2 F H 101.2 F H Pulse Rate 82 82 Respiratory Rate 24 H Blood Pressure 104/67 Pulse Oximetry 93 Oxygen Delivery Fraction of Inspired Oxygen 04/14/22 11:26 04/14/22 13:15 04/14/22 12:00 Temperature 102.1 F H Pulse Rate 87 101 H Respiratory Rate Blood Pressure Pulse Oximetry 95 Oxygen Delivery Mechanical Ventilation Fraction of Inspired Oxygen 30 04/14/22 12:00 04/14/22 12:00 04/14/22 12:00 Temperature 102.1 F H Pulse Rate 101 H 101 H Respiratory Rate 36 H 36 H Blood Pressure 136/80 Pulse Oximetry 94 94 Oxygen Delivery Mechanical Ventilation Fraction of Inspired Oxygen 30 30 04/14/22 10:00 04/14/22 10:00 04/14/22 10:00 Temperature Pulse Rate 94 94 94 Respiratory Rate 24 H 24 H 24 H Blood Pressure Pulse Oximetry Oxygen Delivery Fraction of Inspired Oxygen 04/14/22 12:00 04/14/22 12:00 04/14/22 12:00 Temperature Pulse Rate 101 H 101 H 101 H Respiratory Rate 36 H 36 H 36 H Blood Pressure Pulse Oximetry Oxygen Delivery Fraction of Inspired Oxygen 04/14/22 14:03 04/14/22 14:09 04/14/22 14:15 Temperature Pulse Rate 107 H 105 H 106 H Respiratory Rate 30 H 33 H Blood Pressure Pulse Oximetry 93 Oxygen Delivery Mechanical Ve
[2022-04-15] MEDS: LORATADINE 10 MG TABLET FEED TUBE (09:17)
[2022-04-15] MEDS: INSULIN GLARGINE (*BKC) 100 UNITS/ML 20 UNITS SUB-Q (09:17)
[2022-04-15] MEDS: MINERAL OIL/WHITE PETROLATUM OINTMENT 1 APPLIC EACH EYE ×2 (09:17→21:29)
[2022-04-15] MEDS: METOPROLOL TARTRATE 25 MG TABLET PO ×2 (09:17→21:30)
[2022-04-15] MEDS: SUCRALFATE SUSP 100 MG/ML 10 ML UDC 1000 MG FEED TUBE ×4 (09:18→21:25)
[2022-04-15] MEDS: FERROUS SULFATE LIQUID 325 MG/7.4 ML ELIXIR FEED TUBE ×2 (09:18→16:36)
[2022-04-15] MEDS: ENOXAPARIN 40 MG/0.4 ML SYRINGE SUB-Q (09:18)
[2022-04-15] MEDS: SILVERGEL (ELTA) 45 ML 1 APPLIC TOPICAL (09:19)
[2022-04-15] MEDS: COLLAGENASE OINT 30 GM TUBE 1 APPLIC TOPICAL (09:19)
[2022-04-15] MEDS: DOCUSATE SODIUM LIQ 100 MG/10 ML UDC FEED TUBE ×2 (09:19→21:25)
[2022-04-15] MEDS: PANTOPRAZOLE SODIUM IV 40 MG VIAL IV PUSH ×2 (09:19→21:29)
[2022-04-15] MEDS: PROPOFOL IV EMULSION 100 ML 2.56 MG IV CONT (09:35)
--- NOTE | 2022-04-15 13:34 | WPDINTPN ---
Progress Note: A&P Assessment and Plan (1) Fever: Code(s): R50.9 - Fever, unspecified Status: Acute Assessment and Plan: 04/14: Patient was febrile overnight with a T-max of 102.3?, blood cultures have been obtained, UA was positive for leukocyte esterase, trace bacteria, positive for budding yeast. Patient status post 10 days of Zosyn, 8 days of azithromycin -could be related to pneumonia, central line infection, -patient continues spiking fevers -04/15/2022: CT scan of the chest abdomen and pelvis Diffuse lung disease will mucus plugging in the lower lobes, cirrhosis of the liver with portal venous hypertension. 2 x 2 left adrenal mass, 7.9 x 2.4 x 7.1 cystic mass in the subcutaneous fat in the right anterior abdominal wall. Sacral decubitus ulcer with sacrococcygeal osteomyelitis -started patient on imipenem, vancomycin and micafungin (04/15) -venous Dopplers have been ordered and pending -urine was negative, 04/14 blood cultures: Preliminary report-08/03 bottles 04/14 decubitus ulcer culture: No organism seen, culture program Tylenol for fever, cooling blanket as needed (2) Acute respiratory failure with hypoxia: Code(s): J96.01 - Acute respiratory failure with hypoxia Status: Acute Assessment and Plan: Acute Respiratory failure secondary to pneumonia which to most likely aspiration could be community-acquired. Also there could be component of CHF since he had elevated BNP 04/05 Patient was urgently intubated this morning respiratory distress hypoxia and inability to tolerate NIPPV 04/06 patient self-extubated and was reintubated ABGs reviewed, ventilator adjusted, he is on 30% FiO2 and 5 of PEEP. Chest x-ray reviewed Continue Bronchodilators Although his oxygen requirement decreases chest x-ray still shows diffuse infiltrate. Prior to intubation patient could not tolerate BiPAP or CPAP either hence I feel patient needs more diuresis to maximize the chances of success when it comes weaning. -patient diuresing well, will continue gentle diuresis -patient is currently on Precedex in low-dose propofol as he was getting tachycardic tachypneic. Off Versed and fentanyl infusion -patient is encephalopathic, which is also hindering in placing patient on any kind of breathing trials COVID PCR was negative (3) Sepsis: Code(s): A41.9 - Sepsis, unspecified organism Status: Acute Assessment and Plan: On presentation patient met criteria for sepsis likely secondary to pneumonia and UTI He has received adequate amount of IV fluids and will hold further IV fluids at this time His lactic acid level was normal but His procalcitonin level is elevated suggestive of infection Blood, sputum and culture are all negative so far Continue Zosyn for total of 10 days, Discontinued Zithromax (04/12). Discontinued vancomycin as all cultures are negative for now Urine Legionella is Negative pneumococcal antigen is negative Mycoplasma IgM is negative (4) Aspiration pneumonia: Code(s): J69.0 - Pneumonitis due to inhalation of food and vomit Status: Acute Assessment and Plan: See above (5) Multifocal pneumonia: Code(s): J18.9 - Pneumonia, unspecified organism Status: Acute Assessment and Plan: See above (6) Chronic anemia: Code(s): D64.9 - Anemia, unspecified Status: Acute Assessment and Plan: 04/08 Hemoglobin has trended down to 6.7 today. Transfuse 1 unit of PRBC No obvious signs of bleeding On PPI q.12 hours -hemoglobin stable Continue Lovenox for now for DVT prophylaxis (7) Paraplegia, unspecified: Code(s): G82.20 - Paraplegia, unspecified Status: Acute Assessment and Plan: Chronic paraplegia from past injury (8) Insulin dependent type 2 diabetes mellitus: Code(s): E11.9 - Type 2 diabetes mellitus without complications; Z79.4 - [facility] (current) use of insulin Status: Acute Assessment and Pl
[2022-04-15] MEDS: dexmedeTOMIDine 400 MCG/100 ML 400 MCG/100 ML BAG 24.45 MCG IV CONT (13:55)
[2022-04-15] MEDS: MICAFUNGIN SODIUM 100 MG in SODIUM CHLORIDE 0.9% IV 100 ML IVPB (14:00)
[2022-04-15 15:36] LABS: Glucose Point of Care 327 mg/dl (65-105)
[2022-04-15] MEDS: POTASSIUM CHLORIDE 20 MEQ PACKET (FOR LIQUID) 40 MEQ FEED TUBE (16:34)
[2022-04-15 18:30] LABS: Glucose Point of Care 347 mg/dl (65-105)
[2022-04-15] MEDS: PROPOFOL IV EMULSION 100 ML 12.78 MG IV CONT (21:14)
[2022-04-16] VITALS (45 sets, daily range): BP systolic 111–136; BP diastolic 66–77; PULSE 65–85; RESP 26–36; TEMP 36.8–38.2; O2SAT 92–99
[2022-04-16] MEDS: dexmedeTOMIDine 400 MCG/100 ML 400 MCG/100 ML BAG 26.67 MCG IV CONT ×3 (01:14→08:49)
[2022-04-16] MEDS: INSULIN ASPART (*BKC) 100 UNITS/ML SUB-Q ×4 (01:14→17:57)
[2022-04-16] MEDS: METOCLOPRAMIDE HCL INJ 10 MG/2 ML VIAL IV PUSH ×5 (01:14→23:35)
[2022-04-16 01:26] LABS: Glucose Point of Care 291 mg/dl (65-105)
[2022-04-16] MEDS: ALBUTEROL SULFATE NEB 2.5 MG/3 ML INH INHALATION ×4 (02:15→20:40)
[2022-04-16] MEDS: PROPOFOL IV EMULSION 100 ML 12.78 MG IV CONT (04:15)
[2022-04-16 05:11] LABS: Alveolar/Arterial O2 Gradient 111.5 mmHg; Base Excess ABG -2.2 mEq/l (+/-2.0); Carboxyhemoglobin 0.3 % THb (0-2.0); Fractional Inspired Oxygen 30 %; HCO3 ABG 21.4 mEq/l (22.0-26.0); Methemoglobin ABG 0.3 %THb (0-1.5); Oxygen Content ABG 9.5 %vol (16.0-22.0); Oxygen Saturation ABG 94.2 % (95.0-100.0); Oxyhemoglobin 91.2 % THb (90.0-100.0); Reduced Hemoglobin 8.2 %THb (0-5.0); pH ABG 7.456 (7.350-7.450)
[2022-04-16 05:14] LABS: Arterial Blood Gas Ventilator rate 18 /MIN; Device VENTILATOR; Modified Allen's Test Pass; Site Drawn LEFT RADIAL; Total Hemoglobin 7.3 g/dL (12.0-18.0)
[2022-04-16 05:15] LABS: Arterial Blood Gas PEEP 5 cmH2O; Arterial Blood Gas Tidal Volume 450 ml; Arterial Blood Gas Vent Mode CMV
[2022-04-16] MEDS: CENTRAL LINE FLUSH 10 ML IV PUSH ×3 (06:04→19:39)
[2022-04-16 06:18] LABS: Glucose Point of Care 318 mg/dl (65-105)
[2022-04-16 06:22] LABS: Basophils Absolute Auto 0.1 K/mm3 (0.0-0.1); Basophils Percent Auto 0.5 % (0.2-1.2); Eosinophils Absolute Auto 0.1 K/mm3 (0-0.3); Eosinophils Percent Auto 0.8 % (0-4.4); Hematocrit 27.2 % (42.0-52.0); Hemoglobin 8.1 g/dL (14.0-18.0); Immature Granulocyte Absolute 0.05 K/mm3 (0.00-0.031); Immature Granulocyte Percent A 0.5 % (0-0.5); Lymphocytes Absolute Auto 1.42 K/mm3 (0.9-3.2); Lymphocytes Percent Auto 13.3 % (18.3-44.2); Mean Corpuscular HGB Conc 29.8 g/dl (32-36); Mean Corpuscular Hemoglobin 25.3 pg (26-34); Mean Platelet Volume 10.2 fl (7.4-10.4); Monocytes Absolute Auto 0.5 K/mm3 (0.1-0.6); Monocytes Percent Auto 4.3 % (2.6-8.5); Neutrophils Absolute Auto 8.6 K/mm3 (1.3-6.7); Neutrophils Percent Auto 80.6 % (45.5-73.1); Platelet Count Result 194 k/mm3 (150-375); Red Cell Distribution Width 16.5 % (11.5-14.5); White Blood Count 10.7 K/mm3 (4.5-10.0)
[2022-04-16 06:38] LABS: Alanine Aminotransferase 10 U/L (6-50); Albumin Level 3.3 g/dL (3.5-5.1); Alkaline Phosphatase 105 U/L (38-126); Anion Gap 11 mmol/L (8-16); Aspartate Amino Transferase 18 U/L (17-59); Bilirubin,Total 0.2 mg/dL (0.2-1.3); Blood Urea Nitrogen 49 mg/dL (9-20); Calcium 8.2 mg/dL (8.4-10.2); Carbon Dioxide 23 mmol/L (22-30); Chloride 106 mmol/L (98-107); Estimated CRCL calculation 150 ml/min; Estimated Glomerular Filt Rate > 60; Glucose 358 mg/dL (65-110); Magnesium 2.3 mg/dL (1.6-2.3); Phosphorus 3.8 mg/dL (2.5-4.5); Potassium 3.6 mmol/L (3.4-5.0); Sodium 140 mmol/L (137-145)
[2022-04-16 07:00] LABS: Platelet Estimate Adequate (Adequate); Poikilocytosis 1+ (NORMAL)
[2022-04-16 07:01] LABS: Anisocytosis 1+ (NORMAL); Schistocytes None Seen (NORMAL)
[2022-04-16] MEDS: POTASSIUM CHLORIDE 20 MEQ PACKET (FOR LIQUID) 40 MEQ FEED TUBE (08:42)
[2022-04-16] MEDS: PANTOPRAZOLE SODIUM IV 40 MG VIAL IV PUSH ×2 (08:43→19:44)
[2022-04-16] MEDS: FERROUS SULFATE LIQUID 325 MG/7.4 ML ELIXIR FEED TUBE ×2 (08:43→17:56)
[2022-04-16] MEDS: SUCRALFATE SUSP 100 MG/ML 10 ML UDC 1000 MG FEED TUBE ×4 (08:43→19:45)
[2022-04-16] MEDS: COLLAGENASE OINT 30 GM TUBE 1 APPLIC TOPICAL (08:43)
[2022-04-16] MEDS: SILVERGEL (ELTA) 45 ML 1 APPLIC TOPICAL (08:43)
[2022-04-16] MEDS: ENOXAPARIN 40 MG/0.4 ML SYRINGE SUB-Q (08:44)
[2022-04-16] MEDS: DOCUSATE SODIUM LIQ 100 MG/10 ML UDC FEED TUBE ×2 (08:44→19:45)
[2022-04-16] MEDS: MINERAL OIL/WHITE PETROLATUM OINTMENT 1 APPLIC EACH EYE ×2 (08:44→19:46)
[2022-04-16] MEDS: INSULIN GLARGINE (*BKC) 100 UNITS/ML 35 UNITS SUB-Q (08:44)
[2022-04-16] MEDS: METOPROLOL TARTRATE 25 MG TABLET PO ×2 (08:45→19:45)
[2022-04-16] MEDS: LORATADINE 10 MG TABLET FEED TUBE (08:46)
--- NOTE | 2022-04-16 09:27 | PM.IMPN ---
Progress Note: A&P Assessment and Plan (1) Acute respiratory failure with hypoxia: Code(s): J96.01 - Acute respiratory failure with hypoxia Status: Acute Assessment and Plan: Intubated and sedated (2) Sepsis: Code(s): A41.9 - Sepsis, unspecified organism Status: Acute Assessment and Plan: Likely secondary to pneumonia, continue antibiotics, micafungin added as patient remains febrile (3) Aspiration pneumonia: Code(s): J69.0 - Pneumonitis due to inhalation of food and vomit Status: Acute Assessment and Plan: Cont vancomycin, imipenem and micafungin, started on 04/15 (4) Chronic anemia: Code(s): D64.9 - Anemia, unspecified Status: Acute Assessment and Plan: Continue PPI, hemoglobin stable (5) Paraplegia, unspecified: Code(s): G82.20 - Paraplegia, unspecified Status: Acute (6) Insulin dependent type 2 diabetes mellitus: Code(s): E11.9 - Type 2 diabetes mellitus without complications; Z79.4 - [facility] (current) use of insulin Status: Acute Assessment and Plan: Sliding scale plus Accu-Cheks (7) Decubitus ulcer of sacral area: Code(s): L89.159 - Pressure ulcer of sacral region, unspecified stage Status: Acute (8) UTI (urinary tract infection): Code(s): N39.0 - Urinary tract infection, site not specified Status: Acute Assessment and Plan: Urine culture negative for bacterial growth (9) Indwelling Bartholomew catheter present: Code(s): Z97.8 - Presence of other specified devices Status: Acute (10) Acute on chronic diastolic heart failure: Code(s): I50.33 - Acute on chronic diastolic (congestive) heart failure Status: Acute Assessment and Plan: Appears euvolemic, monitor Plan DVT prophylaxis with Lovenox GI prophylaxis with PPI Code status full code Subjective Date/time seen: 04/16/22 09:27 Interval history: No overnight events noted. Intubated, sedated. Still spiking fevers, but lower than yesterday. Tmax 100.8 overnight, was up to 102 yesterday, so somewhat improving. Review of Systems Review of Systems: ROS unobtainable: Yes unobtainable due to endotracheal tube Exam Narrative: General: Intubated, sedated. HEENT: Atraumatic, normocephalic, mucous membranes moist CV: Regular rate and rhythm, S1, S2 Lungs: Unlabored breathing noted Abdomen: Soft, nondistended, colostomy in place Extremities: Chronic venous stasis dermatitis noted bilaterally Skin: No rashes noted, no lesions or wounds seen, decubital ulcers reported per nursing staff Psych: Unable to assess Objective Data Vital Signs Vital Signs: Vital Signs - 24 hr 04/15/22 09:35 04/15/22 10:23 04/15/22 10:18 Temperature 102.0 F H Pulse Rate 102 H 102 H Respiratory Rate 31 H 31 H Blood Pressure Pulse Oximetry Oxygen Delivery Fraction of Inspired Oxygen 04/15/22 10:24 04/15/22 10:25 04/15/22 10:00 Temperature Pulse Rate 102 H 102 H 82 Respiratory Rate 31 H 31 H Blood Pressure Pulse Oximetry Oxygen Delivery Fraction of Inspired Oxygen 04/15/22 09:31 04/15/22 09:45 04/15/22 10:00 Temperature 101.9 F H 101.9 F H 101.9 F H Pulse Rate 107 H 101 H 96 Respiratory Rate 33 H 35 H 36 H Blood Pressure 148/82 H Pulse Oximetry 93 93 96 Oxygen Delivery Fraction of Inspired Oxygen 04/15/22 10:02 04/15/22 10:16 04/15/22 10:31 Temperature 101.9 F H 102.0 F H 102.0 F H Pulse Rate 95 88 87 Respiratory Rate 39 H 37 H 35 H Blood Pressure Pulse Oximetry 96 96 95 Oxygen Delivery Fraction of Inspired Oxygen 04/15/22 10:45 04/15/22 11:00 04/15/22 11:02 Temperature 102.1 F H 102.1 F H 102.1 F H Pulse Rate 85 84 85 Respiratory Rate 36 H 32 H 35 H Blood Pressure 132/77 Pulse Oximetry 94 95 95 Oxygen Delivery Fraction of Inspired Oxygen 04/15/22 11:16 04/15/22 11:53 04/15/22 13:55 Temperature 10
[2022-04-16] MEDS: PROPOFOL IV EMULSION 100 ML 17.89 MG IV CONT ×2 (10:26→14:16)
[2022-04-16] MEDS: MICAFUNGIN SODIUM 100 MG in SODIUM CHLORIDE 0.9% IV 100 ML IVPB (12:52)
[2022-04-16 13:11] LABS: Glucose Point of Care 262 mg/dl (65-105)
--- NOTE | 2022-04-16 13:28 | WPDINTPN ---
Progress Note: A&P Assessment and Plan (1) Fever: Code(s): R50.9 - Fever, unspecified Status: Acute Assessment and Plan: 04/14: Patient was febrile overnight with a T-max of 102.3?, blood cultures have been obtained, UA was positive for leukocyte esterase, trace bacteria, positive for budding yeast. Patient status post 10 days of Zosyn, 8 days of azithromycin -could be related to pneumonia, central line infection, -patient continues spiking fevers -04/15/2022: CT scan of the chest abdomen and pelvis Diffuse lung disease will mucus plugging in the lower lobes, cirrhosis of the liver with portal venous hypertension. 2 x 2 left adrenal mass, 7.9 x 2.4 x 7.1 cystic mass in the subcutaneous fat in the right anterior abdominal wall. Sacral decubitus ulcer with sacrococcygeal osteomyelitis -started patient on imipenem, vancomycin and micafungin (04/15) -04/15/2022: Bilateral upper extremity venous Dopplers were negative for DVT -04/15/2022: Bilateral lower extremity venous Dopplers were negative for DVT -04/14/2022 : Urine culture growing yeast 04/14 blood cultures: Preliminary report, no growth / bottles 04/14 decubitus ulcer culture: No organism seen, culture in progress 04/14/2022 sputum culture growing Gram-negative bacilli Fever curve trending down, (2) Acute respiratory failure with hypoxia: Code(s): J96.01 - Acute respiratory failure with hypoxia Status: Acute Assessment and Plan: Acute Respiratory failure secondary to pneumonia which to most likely aspiration could be community-acquired. Also there could be component of CHF since he had elevated BNP 04/05 Patient was urgently intubated this morning respiratory distress hypoxia and inability to tolerate NIPPV 04/06 patient self-extubated and was reintubated ABGs reviewed, ventilator adjusted, he is on 30% FiO2 and 5 of PEEP. Chest x-ray reviewed Continue Bronchodilators -patient has been self diuresing, will continue to monitor -patient was placed on Precedex infusion only, did open his eyes, follows commands with his right hand. But was getting tachypneic, tachycardic. So I started him on propofol infusion. Will wean Precedex to off. -04/14 sputum cultures growing Gram-negative bacilli, COVID PCR was negative 10/15: CT chest continues to show bilateral diffuse infiltrates (3) Sepsis: Code(s): A41.9 - Sepsis, unspecified organism Status: Acute Assessment and Plan: On presentation patient met criteria for sepsis likely secondary to pneumonia and UTI He has received adequate amount of IV fluids and will hold further IV fluids at this time His lactic acid level was normal but His procalcitonin level is elevated suggestive of infection Blood, sputum and culture are all negative so far Continue Zosyn for total of 10 days, Discontinued Zithromax (04/12). Discontinued vancomycin as all cultures are negative for now Urine Legionella is Negative pneumococcal antigen is negative Mycoplasma IgM is negative (4) Aspiration pneumonia: Code(s): J69.0 - Pneumonitis due to inhalation of food and vomit Status: Acute Assessment and Plan: See above (5) Multifocal pneumonia: Code(s): J18.9 - Pneumonia, unspecified organism Status: Acute Assessment and Plan: See above (6) Chronic anemia: Code(s): D64.9 - Anemia, unspecified Status: Acute Assessment and Plan: 04/08 Hemoglobin has trended down to 6.7 today. Transfuse 1 unit of PRBC No obvious signs of bleeding On PPI q.12 hours -hemoglobin stable Continue Lovenox for now for DVT prophylaxis (7) Paraplegia, unspecified: Code(s): G82.20 - Paraplegia, unspecified Status: Acute Assessment and Plan: Chronic paraplegia from past injury (8) Insulin dependent type 2 diabetes mellitus: Code(s): E11.9 - Type 2 diabetes mellitus without complications; Z79.4 - [facility] use [facility]
[2022-04-16 17:57] LABS: Glucose Point of Care 220 mg/dl (65-105)
[2022-04-16] MEDS: PROPOFOL IV EMULSION 100 ML 20.45 MG IV CONT ×2 (19:38→23:32)
[2022-04-16 23:42] LABS: Glucose Point of Care 183 mg/dl (65-105)
[2022-04-17] VITALS (42 sets, daily range): BP systolic 118–151; BP diastolic 69–99; PULSE 68–98; RESP 23–35; TEMP 36.6–37.4; O2SAT 95–100
[2022-04-17 01:36] LABS: Vancomycin Trough 15.8 ug/mL (10.0-20.0)
[2022-04-17] MEDS: ALBUTEROL SULFATE NEB 2.5 MG/3 ML INH INHALATION ×4 (02:28→20:13)
--- NOTE | 2022-04-17 02:55 | PCRCNOTE ---
RT changed pt ET santos out for a new one. pt has 7.5 tube 27@lip, breath sound diminished bilaterally, COLLAR BASTER JUMPBASTING done with cuff. Sp02 99%, 518-VT, 25-RR. RN informed.
[2022-04-17] MEDS: PROPOFOL IV EMULSION 100 ML 20.45 MG IV CONT (03:47)
[2022-04-17 04:48] LABS: Basophils Percent Auto 0.5 % (0.2-1.2); Eosinophils Absolute Auto 0.1 K/mm3 (0-0.3); Eosinophils Percent Auto 1.3 % (0-4.4); Hematocrit 27.6 % (42.0-52.0); Hemoglobin 8.4 g/dL (14.0-18.0); Immature Granulocyte Absolute 0.03 K/mm3 (0.00-0.031); Immature Granulocyte Percent A 0.4 % (0-0.5); Lymphocytes Absolute Auto 1.27 K/mm3 (0.9-3.2); Lymphocytes Percent Auto 15.2 % (18.3-44.2); Mean Corpuscular HGB Conc 30.4 g/dl (32-36); Mean Corpuscular Hemoglobin 25.5 pg (26-34); Mean Corpuscular Volume 83.9 fl (80-100); Mean Platelet Volume 10.6 fl (7.4-10.4); Monocytes Absolute Auto 0.4 K/mm3 (0.1-0.6); Monocytes Percent Auto 4.7 % (2.6-8.5); Neutrophils Absolute Auto 6.5 K/mm3 (1.3-6.7); Neutrophils Percent Auto 77.9 % (45.5-73.1); Platelet Count Result 225 k/mm3 (150-375); Red Blood Count 3.29 M/mm3 (4.6-6.20); Red Cell Distribution Width 16.3 % (11.5-14.5); White Blood Count 8.4 K/mm3 (4.5-10.0)
[2022-04-17 04:57] LABS: Triglycerides 233 mg/dL (<150)
[2022-04-17 05:01] LABS: Alanine Aminotransferase 11 U/L (6-50); Albumin Level 3.3 g/dL (3.5-5.1); Alkaline Phosphatase 110 U/L (38-126); Anion Gap 8 mmol/L (8-16); Aspartate Amino Transferase 24 U/L (17-59); Bilirubin,Total 0.3 mg/dL (0.2-1.3); Blood Urea Nitrogen 36 mg/dL (9-20); Calcium 8.4 mg/dL (8.4-10.2); Carbon Dioxide 24 mmol/L (22-30); Chloride 106 mmol/L (98-107); Estimated CRCL calculation 233 ml/min; Estimated Glomerular Filt Rate > 60; Glucose 266 mg/dL (65-110); Magnesium 2.1 mg/dL (1.6-2.3); Phosphorus 3.5 mg/dL (2.5-4.5); Potassium 3.7 mmol/L (3.4-5.0); Sodium 138 mmol/L (137-145)
[2022-04-17] MEDS: CENTRAL LINE FLUSH 10 ML IV PUSH ×3 (05:21→19:49)
[2022-04-17] MEDS: METOCLOPRAMIDE HCL INJ 10 MG/2 ML VIAL IV PUSH ×3 (05:21→18:01)
[2022-04-17] MEDS: INSULIN ASPART (*BKC) 100 UNITS/ML SUB-Q (05:25)
[2022-04-17 05:41] LABS: Alveolar/Arterial O2 Gradient 106.2 mmHg; Base Excess ABG 1.1 mEq/l (+/-2.0); Carboxyhemoglobin 0.3 % THb (0-2.0); Fractional Inspired Oxygen 30 %; HCO3 ABG 25.1 mEq/l (22.0-26.0); Methemoglobin ABG 0.3 %THb (0-1.5); Oxygen Content ABG 3.8 %vol (16.0-22.0); Oxygen Saturation ABG 94.4 % (95.0-100.0); Oxyhemoglobin 92.4 % THb (90.0-100.0); PCO2 ABG 35.2 mmHg (35.0-45.0); PO2 ABG 66.3 mmHg (80.0-100.0); PO2 FiO2 Ratio Arterial Blood 2.21 %; pH ABG 7.471 (7.350-7.450)
[2022-04-17 05:43] LABS: Total Hemoglobin 2.8 g/dL (12.0-18.0)
[2022-04-17 05:44] LABS: Device VENTILATOR; Modified Allen's Test Pass; Site Drawn RIGHT RADIAL
[2022-04-17 05:45] LABS: Arterial Blood Gas PEEP 5 cmH2O; Arterial Blood Gas Tidal Volume 450 ml; Arterial Blood Gas Vent Mode CMV; Arterial Blood Gas Ventilator rate 18 /MIN
[2022-04-17] MEDS: FERROUS SULFATE LIQUID 325 MG/7.4 ML ELIXIR FEED TUBE ×2 (08:09→18:01)
[2022-04-17] MEDS: COLLAGENASE OINT 30 GM TUBE 1 APPLIC TOPICAL (08:09)
[2022-04-17] MEDS: PANTOPRAZOLE SODIUM IV 40 MG VIAL IV PUSH ×2 (08:09→19:44)
[2022-04-17] MEDS: MINERAL OIL/WHITE PETROLATUM OINTMENT 1 APPLIC EACH EYE ×2 (08:09→19:44)
[2022-04-17] MEDS: ENOXAPARIN 40 MG/0.4 ML SYRINGE SUB-Q (08:09)
[2022-04-17] MEDS: SILVERGEL (ELTA) 45 ML 1 APPLIC TOPICAL (08:09)
[2022-04-17] MEDS: DOCUSATE SODIUM LIQ 100 MG/10 ML UDC FEED TUBE ×2 (08:10→19:44)
[2022-04-17] MEDS: SUCRALFATE SUSP 100 MG/ML 10 ML UDC 1000 MG FEED TUBE ×4 (08:10→19:48)
[2022-04-17] MEDS: METOPROLOL TARTRATE 25 MG TABLET PO ×2 (08:10→19:44)
[2022-04-17] MEDS: LORATADINE 10 MG TABLET FEED TUBE (08:10)
[2022-04-17] MEDS: PROPOFOL IV EMULSION 100 ML 23 MG IV CONT (08:14)
[2022-04-17 08:15] LABS: Glucose Point of Care 183 mg/dl (65-105)
[2022-04-17] MEDS: INSULIN GLARGINE (*BKC) 100 UNITS/ML 35 UNITS SUB-Q (08:20)
[2022-04-17] MEDS: POTASSIUM CHLORIDE 20 MEQ PACKET (FOR LIQUID) FEED TUBE (08:36)
--- NOTE | 2022-04-17 09:15 | WPDINTPN ---
Progress Note: A&P Assessment and Plan (1) Fever: Code(s): R50.9 - Fever, unspecified Status: Acute Assessment and Plan: 04/14: Patient was febrile overnight with a T-max of 102.3?, blood cultures have been next, UA was positive for leukocyte esterase, trace bacteria, positive for budding yeast. Patient status post 10 days of Zosyn, 8 days of azithromycin -sputum grew out Gram-negative rods - wound cultures positive for Staph aureus -chest CT showed diffuse lung disease consistent with pneumonia mucus plugging in the lower lobes Likely secondary to pneumonia. -04/15/2022: CT scan of the chest abdomen and pelvis Diffuse lung disease will mucus plugging in the lower lobes, cirrhosis of the liver with portal venous hypertension. 2 x 2 left adrenal mass, 7.9 x 2.4 x 7.1 cystic mass in the subcutaneous fat in the right anterior abdominal wall. Sacral decubitus ulcer with sacrococcygeal osteomyelitis -patient was started on imipenem, vancomycin and micafungin (04/15) -04/15/2022: Bilateral upper extremity venous Dopplers were negative for DVT -04/15/2022: Bilateral lower extremity venous Dopplers were negative for DVT -04/14/2022 : Urine culture growing yeast 04/14 blood cultures: Preliminary report, no growth / bottles 04/14 decubitus ulcer culture: Staph aureus 04/14/2022 sputum culture growing Gram-negative bacilli (2) Acute respiratory failure with hypoxia: Code(s): J96.01 - Acute respiratory failure with hypoxia Status: Acute Assessment and Plan: Acute Respiratory failure secondary to pneumonia which to most likely aspiration could be community-acquired. Also there could be component of CHF since he had elevated BNP 04/05 Patient was urgently intubated this morning respiratory distress hypoxia and inability to tolerate NIPPV 04/06 patient self-extubated and was reintubated ABGs reviewed, decrease tidal volume to 400, he is on 30% FiO2 and 5 of PEEP. Chest x-ray reviewed Continue Bronchodilators -patient has been self diuresing, will continue to monitor -04/14 sputum cultures growing Gram-negative bacilli, COVID PCR was negative 04/15: CT chest continues to show bilateral diffuse infiltrates, mucus plugging of bilateral lower lobes -will perform sedation holiday Patient is at day 13 of his intubation and if unable to be extubated will need tracheostomy. I will discuss with patient's family (3) Sepsis: Code(s): A41.9 - Sepsis, unspecified organism Status: Acute Assessment and Plan: On presentation patient met criteria for sepsis likely secondary to pneumonia and UTI He has received adequate amount of IV fluids and will hold further IV fluids at this time His lactic acid level was normal but His procalcitonin level is elevated suggestive of infection Initial Blood, sputum and culture are all negative so far Continue Zosyn for total of 10 days, Discontinued Zithromax (04/12). Discontinued vancomycin as all cultures are negative for now Urine Legionella is Negative pneumococcal antigen is negative Mycoplasma IgM is negative See above (4) Aspiration pneumonia: Code(s): J69.0 - Pneumonitis due to inhalation of food and vomit Status: Acute Assessment and Plan: See above (5) Multifocal pneumonia: Code(s): J18.9 - Pneumonia, unspecified organism Status: Acute Assessment and Plan: See above (6) Chronic anemia: Code(s): D64.9 - Anemia, unspecified Status: Acute Assessment and Plan: 04/08 Hemoglobin has trended down to 6.7 today. Transfuse 1 unit of PRBC No obvious signs of bleeding On PPI q.12 hours -hemoglobin stable Continue Lovenox for now for DVT prophylaxis (7) Paraplegia, unspecified: Code(s): G82.20 - Paraplegia, unspecified Status: Acute Assessment and Plan: Chronic paraplegia from past injury (8) Insulin dependent type 2 diabetes mellitus: Code(s): E11.9 - Type 2 d
--- NOTE | 2022-04-17 10:53 | PCFNICU ---
ICU Rounding Note: Pt current nutrition is Vital 1.2 @ 70 ML/H with 30 ml flushes q 4 hours. Nimesh via feeding tube BID. Nutrition recommendation: Continue current tube feeding, flushes and supplements with no changes. Last recorded weight is 87.2 kg. Bowel Motility: Good ostomy output Labs Reviewed: hgb 8.4, Hct 27.6, Alb 3.3, BUN 36, Crea 0.3, Gluc 183, TRIG 233 Meds Noted: Vacno, Reglan, Lovenox, protonix. No sedation. Propofol discontinued Skin: Stage IV sacrum; Unstageable BL heels. R knee St II Additional Notes: Ongoing discussions with family Following daily in ICU rounds. Will monitor in ICU rounds and reassess every Sunday and Sunday. .
[2022-04-17] MEDS: MICAFUNGIN SODIUM 100 MG in SODIUM CHLORIDE 0.9% IV 100 ML IVPB (11:58)
[2022-04-17 12:13] LABS: Glucose Point of Care 196 mg/dl (65-105)
--- NOTE | 2022-04-17 15:50 | WPDGICN ---
Assessment and Plan Assessment and plan (1) Acute respiratory failure with hypoxia: Code(s): J96.01 - Acute respiratory failure with hypoxia Status: Acute Assessment and Plan: I have been asked see the patient because of respiratory failure ventilator dependence and possible need for PEG tube placement. Tracheostomy is anticipated. There may be several difficulties with placing PEG tube predominantly associated with previous abdominal surgery. Patient has multiple scars primarily in the low abdomen. Left lower quadrant colostomy and evidence for previous pain pump. CT scan reporting does show a cystic lesion in the right lower quadrant presumably were previous pain pump was located. This may hinder placement of PEG tube placement. Will plan to proceed with attempted PEG tube placement on tomorrow on Sunday. Should patient develop a fever this will need to be deferred however has been 2 days since fever and hopefully this can be accomplished. If endoscopic PEG placement not successful then surgical placement may need to be considered. (2) Multifocal pneumonia: Code(s): J18.9 - Pneumonia, unspecified organism Status: Acute (3) Paraplegia, unspecified: Code(s): G82.20 - Paraplegia, unspecified Status: Acute (4) Respiratory failure: Code(s): J96.90 - Respiratory failure, unspecified, unspecified whether with hypoxia or hypercapnia Status: Acute (5) Insulin dependent type 2 diabetes mellitus: Code(s): E11.9 - Type 2 diabetes mellitus without complications; Z79.4 - [facility] (current) use of insulin Status: Acute GI Consult Note Consult date/time: 04/17/22 15:50 Reason for consult: Peg tube consideration HPI: Patel Spence is a 57 year old male I am asked to see at the request of manager shipping for possible PEG tube. Patient has a history of paraplegia. He has a history of back injury. Has history of chronic pain admitted the hospital on 04/05/2022 with respiratory difficulties required intubation and now appears to be ventilator dependent. PEG tube is requested in anticipation tracheostomy. Patient unable to give additional history. He has felt to have had aspiration pneumonia. Workup includes a CT scan which shows cirrhosis of the liver in his 7.9x7.1 cystic mass in the right anterior abdomen. Patient has a history of colostomy placement in the left lower quadrant for uncertain reasons. He has a scar in the right lower quadrant from previous pain pump which has been dislodged and removed. As several additional scars in the suprapubic area in the left upper quadrant of uncertain nature. patient has a sacral decubitus ulcer with resultant osteomyelitis. Review of Systems Review of Systems: ROS unobtainable: Yes unobtainable due to endotracheal tube PMFSH Past Medical History Medical History (Updated 04/15/22 @ 13:51 by Lamont Hill MD) Anxiety Chronic anemia Chronic back pain Chronic obstructive pulmonary disease Depression Insulin dependent type 2 diabetes mellitus MRSA infection Paraplegia, unspecified Postlaminectomy syndrome Sacral decubitus ulcer, stage IV Surgical History Surgical History (Updated 04/17/22 @ 15:54 by Cesar Chen MD) History of arthroscopy of shoulder History of back surgery Multiple surgeries including thoracic and lumbar fusions and laminectomies. History of cardiac catheterization History of cholecystectomy History of colostomy Family History Family History Mother Alzheimer disease Social History Social History Social History: Surrogate medical decision maker: Ed Spence, son. Code status: Full code. Smoking packs per day: 1 Smoking cigarettes per day: 20.0 Years smoked: 30 Smoking pack-years: 30.00 Smoking status: Former smoker Tobacco type: cigarettes Alcohol intake: for
[2022-04-17 17:00] LABS: Basophils Percent Auto 0.5 % (0.2-1.2); Eosinophils Absolute Auto 0.1 K/mm3 (0-0.3); Hematocrit 26.3 % (42.0-52.0); Immature Granulocyte Absolute 0.03 K/mm3 (0.00-0.031); Immature Granulocyte Percent A 0.4 % (0-0.5); Lymphocytes Absolute Auto 1.24 K/mm3 (0.9-3.2); Lymphocytes Percent Auto 14.8 % (18.3-44.2); Mean Corpuscular HGB Conc 30.4 g/dl (32-36); Mean Corpuscular Hemoglobin 25.1 pg (26-34); Mean Corpuscular Volume 82.4 fl (80-100); Mean Platelet Volume 10.2 fl (7.4-10.4); Monocytes Absolute Auto 0.3 K/mm3 (0.1-0.6); Monocytes Percent Auto 3.6 % (2.6-8.5); Neutrophils Absolute Auto 6.7 K/mm3 (1.3-6.7); Neutrophils Percent Auto 79.7 % (45.5-73.1); Platelet Count Result 218 k/mm3 (150-375); Red Blood Count 3.19 M/mm3 (4.6-6.20); Red Cell Distribution Width 16.3 % (11.5-14.5); White Blood Count 8.4 K/mm3 (4.5-10.0)
[2022-04-17 17:10] LABS: INR 1.3; Prothrombin Time 15.8 Seconds (11.1-14.7)
[2022-04-17 17:11] LABS: Partial Thromboplastin Time 28.3 SECONDS (22.3-36.8)
[2022-04-17 17:16] LABS: Anion Gap 11 mmol/L (8-16); Blood Urea Nitrogen 29 mg/dL (9-20); Calcium 8.2 mg/dL (8.4-10.2); Carbon Dioxide 23 mmol/L (22-30); Chloride 105 mmol/L (98-107); Estimated CRCL calculation 233 ml/min; Estimated Glomerular Filt Rate > 60; Glucose 223 mg/dL (65-110); Potassium 3.6 mmol/L (3.4-5.0); Sodium 139 mmol/L (137-145)
[2022-04-17 18:13] LABS: Glucose Point of Care 185 mg/dl (65-105)
[2022-04-17] MEDS: PROPOFOL IV EMULSION 100 ML 12.78 MG IV CONT (19:11)
[2022-04-17 19:51] LABS: Glucose Point of Care 191 mg/dl (65-105)
[2022-04-18] VITALS (35 sets, daily range): BP systolic 102–135; BP diastolic 63–84; PULSE 67–86; RESP 21–31; TEMP 36.8–37.1; O2SAT 96–100
[2022-04-18] MEDS: PROPOFOL IV EMULSION 100 ML 20.45 MG IV CONT ×4 (00:17→14:50)
[2022-04-18] MEDS: METOCLOPRAMIDE HCL INJ 10 MG/2 ML VIAL IV PUSH ×3 (00:19→17:31)
[2022-04-18 00:51] LABS: Glucose Point of Care 179 mg/dl (65-105)
[2022-04-18 04:12] LABS: Hematocrit 27.7 % (42.0-52.0); Hemoglobin 8.3 g/dL (14.0-18.0); Mean Corpuscular Hemoglobin 25.5 pg (26-34); Mean Corpuscular Volume 85.2 fl (80-100); Mean Platelet Volume 10.6 fl (7.4-10.4); Platelet Count Result 219 k/mm3 (150-375); Red Blood Count 3.25 M/mm3 (4.6-6.20); Red Cell Distribution Width 16.2 % (11.5-14.5); White Blood Count 6.8 K/mm3 (4.5-10.0)
[2022-04-18 04:23] LABS: Alanine Aminotransferase 10 U/L (6-50); Albumin Level 3.2 g/dL (3.5-5.1); Alkaline Phosphatase 99 U/L (38-126); Anion Gap 11 mmol/L (8-16); Aspartate Amino Transferase 21 U/L (17-59); Bilirubin,Total 0.2 mg/dL (0.2-1.3); Blood Urea Nitrogen 24 mg/dL (9-20); Calcium 8.4 mg/dL (8.4-10.2); Carbon Dioxide 22 mmol/L (22-30); Chloride 106 mmol/L (98-107); Estimated CRCL calculation 233 ml/min; Estimated Glomerular Filt Rate > 60; Glucose 181 mg/dL (65-110); Phosphorus 3.6 mg/dL (2.5-4.5); Potassium 3.7 mmol/L (3.4-5.0); Sodium 139 mmol/L (137-145)
[2022-04-18] MEDS: CENTRAL LINE FLUSH 10 ML IV PUSH ×3 (04:28→20:26)
[2022-04-18 05:05] LABS: Alveolar/Arterial O2 Gradient 98.6 mmHg; Base Excess ABG -0.9 mEq/l (+/-2.0); Carboxyhemoglobin 0.3 % THb (0-2.0); Fractional Inspired Oxygen 30 %; HCO3 ABG 22.6 mEq/l (22.0-26.0); Methemoglobin ABG 0.1 %THb (0-1.5); Oxygen Content ABG 12.4 %vol (16.0-22.0); Oxyhemoglobin 94.7 % THb (90.0-100.0); PCO2 ABG 33.1 mmHg (35.0-45.0); PO2 ABG 76.4 mmHg (80.0-100.0); PO2 FiO2 Ratio Arterial Blood 2.55 %; Reduced Hemoglobin 4.9 %THb (0-5.0); Total Hemoglobin 9.2 g/dL (12.0-18.0); pH ABG 7.453 (7.350-7.450)
[2022-04-18 05:10] LABS: Arterial Blood Gas Vent Mode CMV; Arterial Blood Gas Ventilator rate 18 /MIN; Device VENTILATOR; Modified Allen's Test Pass; Site Drawn RIGHT RADIAL
[2022-04-18 05:11] LABS: Arterial Blood Gas PEEP 5 cmH2O; Arterial Blood Gas Tidal Volume 400 ml
[2022-04-18 07:40] LABS: Glucose Point of Care 133 mg/dl (65-105)
[2022-04-18] MEDS: ALBUTEROL SULFATE NEB 2.5 MG/3 ML INH INHALATION ×3 (08:06→20:05)
[2022-04-18] MEDS: MINERAL OIL/WHITE PETROLATUM OINTMENT 1 APPLIC EACH EYE ×2 (08:21→20:26)
[2022-04-18] MEDS: PANTOPRAZOLE SODIUM IV 40 MG VIAL IV PUSH ×2 (08:21→20:26)
[2022-04-18] MEDS: METOPROLOL TARTRATE 25 MG TABLET PO ×2 (08:21→20:32)
[2022-04-18] MEDS: POTASSIUM CHLORIDE 20 MEQ PACKET (FOR LIQUID) FEED TUBE (08:30)
--- NOTE | 2022-04-18 08:48 | WPDINTPN ---
Progress Note: A&P Assessment and Plan (1) Fever: Code(s): R50.9 - Fever, unspecified Status: Acute Assessment and Plan: 04/14: Patient was febrile overnight with a T-max of 102.3?, blood cultures have been next, UA was positive for leukocyte esterase, trace bacteria, positive for budding yeast. Patient status post 10 days of Zosyn, 8 days of azithromycin -sputum grew out Gram-negative rods - wound cultures positive for Staph aureus -chest CT showed diffuse lung disease consistent with pneumonia mucus plugging in the lower lobes Likely secondary to pneumonia. -04/15/2022: CT scan of the chest abdomen and pelvis Diffuse lung disease will mucus plugging in the lower lobes, cirrhosis of the liver with portal venous hypertension. 2 x 2 left adrenal mass, 7.9 x 2.4 x 7.1 cystic mass in the subcutaneous fat in the right anterior abdominal wall. Sacral decubitus ulcer with sacrococcygeal osteomyelitis -04/15/2022: Bilateral upper extremity venous Dopplers were negative for DVT -04/15/2022: Bilateral lower extremity venous Dopplers were negative for DVT -04/14/2022 : Urine culture growing yeast 04/14 blood cultures: Preliminary report, no growth 2/2 bottles 04/14 decubitus ulcer culture: MRSA which is sensitive to vancomycin 04/14/2022 sputum culture growing Alcaligenes xylosoxidans which is sensitive to imipenem -patient was started on imipenem, vancomycin and micafungin (04/15). I will discontinue micafungin if cultures remained negative for fungus after 5 days (2) Acute respiratory failure with hypoxia: Code(s): J96.01 - Acute respiratory failure with hypoxia Status: Acute Assessment and Plan: Acute Respiratory failure secondary to pneumonia which to most likely aspiration could be community-acquired. Also there could be component of CHF since he had elevated BNP 04/05 Patient was urgently intubated this morning respiratory distress hypoxia and inability to tolerate NIPPV 04/06 patient self-extubated and was reintubated ABGs reviewed he is on 30% FiO2 and 5 of PEEP. Patient continues to be tachypneic. Tidal volume increased to 500 which led to an respiratory rate in 20s. Monitor closely Chest x-ray reviewed Continue Bronchodilators -patient has been self diuresing, will continue to monitor -04/14 sputum cultures growing Gram-negative bacilli, COVID PCR was negative 04/15: CT chest continues to show bilateral diffuse infiltrates, mucus plugging of bilateral lower lobes -will perform sedation holiday Patient is at day 14 of his intubation and not been able. He is agreeable for trach and PEG. Patient's son also agreeable Patient is scheduled for PEG tube today 04/18 sales enablement consultant and Trach is scheduled for 04/21 (3) Sepsis: Code(s): A41.9 - Sepsis, unspecified organism Status: Acute Assessment and Plan: On presentation patient met criteria for sepsis likely secondary to pneumonia and UTI He has received adequate amount of IV fluids and will hold further IV fluids at this time His lactic acid level was normal but His procalcitonin level is elevated suggestive of infection Initial Blood, sputum and culture are all negative so far Continue Zosyn for total of 10 days, Discontinued Zithromax (04/12). Discontinued vancomycin as all cultures are negative for now Urine Legionella is Negative pneumococcal antigen is negative Mycoplasma IgM is negative See above (4) Aspiration pneumonia: Code(s): J69.0 - Pneumonitis due to inhalation of food and vomit Status: Acute Assessment and Plan: See above (5) Multifocal pneumonia: Code(s): J18.9 - Pneumonia, unspecified organism Status: Acute Assessment and Plan: See above (6) Chronic anemia: Code(s): D64.9 - Anemia, unspecified Status: Acute Assessment and Plan: 04/08 Hemoglobin has trended down to 6.7 today. Transfuse 1 unit of PRBC No obvious signs of bleeding On PPI q.1
[2022-04-18] MEDS: SILVERGEL (ELTA) 45 ML 1 APPLIC TOPICAL (08:57)
[2022-04-18] MEDS: COLLAGENASE OINT 30 GM TUBE 1 APPLIC TOPICAL (08:57)
--- NOTE | 2022-04-18 11:12 | PCNFU ---
Nutrition Follow-Up Complete: Increased Protein needs as related to wounds as evidenced by Pressure Ulcers reported Goal: Meet estimated nutritional needs Patient is progressing towards goal. We will continue current goal. Pt current nutrition is NPO. Nutrition recommendation: Vital AF 1.2 at 60 ml/hr Last recorded weight is 89.2 kg, up from 86.3 kg on admit. Bowel Motility:ostomy Labs Reviewed:Glu 181, BUN 24, Cr 0.3, Alb 3.2, Hgb 8.3,Hct 27.7 Meds Noted:Propofol Infusion at 20.45 ml/hr =540 kcals, Vancomycin, Protonix, Lopressor, Imipenem. Skin: Stage IV PU-sacrum, Stage II PU-right knee, Stage III PU-bilateral heels, unstageable pu-heels. Additional Notes: Patient remains on mechanical vent. NPO for PEG today with plans for Trach 04/21. When tube feedings restart recommend Vital AF 1.2 at 60 ml/hr. Tube feedings providing 2124 kcals/99 gms protein/1071 ml water. Protein Modular of Nimesh BID for wound healing. Agree with diet orders. Will monitor in ICU rounds and reassess every Sunday and Sunday.
[2022-04-18 12:16] LABS: Glucose Point of Care 104 mg/dl (65-105)
--- NOTE | 2022-04-18 12:47 | SUR.OPER ---
See ICU flowsheet for vital signs.
[2022-04-18] MEDS: MICAFUNGIN SODIUM 100 MG in SODIUM CHLORIDE 0.9% IV 100 ML IVPB (12:48)
[2022-04-18] MEDS: DOCUSATE SODIUM LIQ 100 MG/10 ML UDC FEED TUBE ×2 (13:49→20:26)
[2022-04-18] MEDS: LORATADINE 10 MG TABLET FEED TUBE (13:56)
[2022-04-18] MEDS: ALTEPLASE 2 MG VIAL (CATHFLO) IV PUSH ×2 (15:57→17:59)
--- NOTE | 2022-04-18 16:44 | WPDCN ---
Assessment and Plan Assessment and plan (1) Acute respiratory failure with hypoxia: Code(s): J96.01 - Acute respiratory failure with hypoxia Status: Acute Assessment and Plan: Plan OR this Sunday for tracheostomy. Per nursing risks benefits discussed with patient's family. Please hold VT prophylaxis morning of, NPO midnight before (2) Respiratory failure: Code(s): J96.90 - Respiratory failure, unspecified, unspecified whether with hypoxia or hypercapnia Status: Acute HPI Data of Consult Date/Time: 04/18/22 16:44 Requesting Physician: Kip Hopper MD Primary Care Provider: Ifeanyi PepeMD Consult Narrative Reason for consult: Tracheostomy placement Narrative: Patel Spence is a 57 year old male with recurrent history of respiratory failure/insufficiency. Peep 5 FiO2 30% PMFSH Past Medical History Medical History (Updated 04/18/22 @ 16:45 by Charles Feldman MD) Anxiety Chronic anemia Chronic back pain Chronic obstructive pulmonary disease Depression Insulin dependent type 2 diabetes mellitus MRSA infection Paraplegia, unspecified Postlaminectomy syndrome Sacral decubitus ulcer, stage IV Surgical History Surgical History (Updated 04/17/22 @ 15:54 by Cesar Chen MD) History of arthroscopy of shoulder History of back surgery Multiple surgeries including thoracic and lumbar fusions and laminectomies. History of cardiac catheterization History of cholecystectomy History of colostomy Family History Family History Mother Alzheimer disease Social History Social History Social History: Surrogate medical decision maker: Ed Spence, son. Code status: Full code. Smoking packs per day: 1 Smoking cigarettes per day: 20.0 Years smoked: 30 Smoking pack-years: 30.00 Smoking status: Former smoker Tobacco type: cigarettes Alcohol intake: former Substance use: never Substance use type: does not use Additional living arrangements comments: Resident at a senior living in [place]. 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 Spiritual care concerns: No Meds Home Medications and Allergies Home Medications Medication Instructions Recorded Confirmed Type hydromorphone 2 mg tablet 4 mg PO Q4H PRN Pain, Severe 05/11/20 04/04/22 History ipratropium 20 mcg-albuterol 100 1 puff inhalation Q4H PRN Wheezing 05/11/20 04/04/22 History mcg/actuation mist for inhalation (Combivent Respimat) lidocaine 5 % topical patch 1 patch topical DAILY 05/11/20 04/04/22 History paroxetine HCl 40 mg tablet 40 mg PO Q12H 05/11/20 04/04/22 History sucralfate 1 gram tablet 1 g PO QID 05/11/20 04/04/22 History acetaminophen 500 mg tablet 1,000 mg PO Q6H PRN Pain 04/04/22 04/04/22 History aluminum-mag hydroxide-simethicone 10 ml PO Q4H PRN Indigestion 04/04/22 04/04/22 History 400 mg-400 mg-40 mg/5 mL oral susp (Mylanta Maximum Strength) clonazepam 0.5 mg tablet 0.5 mg PO HS 04/04/22 04/04/22 History diphenhydramine HCl 25 mg tablet 50 mg PO HS PRN Allergy Symptoms 04/04/22 04/04/22 History (Allergy (diphenhydramine)) docusate sodium 100 mg capsule 100 mg PO BID 04/04/22 04/04/22 History duloxetine 60 mg capsule,delayed 60 mg PO BID 04/04/22 04/04/22 History release ferrous sulfate 324 mg (65 mg 324 mg PO BID 04/04/22 04/04/22 History iron) tablet,delayed release guaifenesin 600 mg tablet, 600 mg PO Q12H PRN Congestion 04/04/22 04/04/22 History extended release 12 hr insulin lispro 100 unit/mL See Rx Instructions .Route .COMPLEX 04/04/22 04/04/22 History subcutaneous pen insulin lispro 100 unit/mL See Rx Instructions .Route .COMPLEX 04/04/22 04/04/22 History subcutaneous pen magnesium hydroxide 400 mg/5 mL 400 mg PO DAILY PRN Constipation 04/04/22 04/04/22 History oral suspension melatonin 5 m
[2022-04-18 16:50] LABS: Glucose Point of Care 115 mg/dl (65-105)
[2022-04-18] MEDS: SUCRALFATE SUSP 100 MG/ML 10 ML UDC 1000 MG FEED TUBE ×2 (17:30→20:26)
[2022-04-18] MEDS: FERROUS SULFATE LIQUID 325 MG/7.4 ML ELIXIR FEED TUBE (17:30)
[2022-04-18] MEDS: PROPOFOL IV EMULSION 100 ML 17.89 MG IV CONT (20:21)
[2022-04-18 20:52] LABS: Glucose Point of Care 123 mg/dl (65-105)
[2022-04-18] MEDS: INSULIN GLARGINE (*BKC) 100 UNITS/ML 35 UNITS SUB-Q (20:53)
[2022-04-19] VITALS (34 sets, daily range): BP systolic 102–154; BP diastolic 62–80; PULSE 67–94; RESP 20–35; TEMP 36.6–37.4; O2SAT 93–99
[2022-04-19] MEDS: METOCLOPRAMIDE HCL INJ 10 MG/2 ML VIAL IV PUSH ×5 (00:14→23:24)
[2022-04-19 00:20] LABS: Glucose Point of Care 120 mg/dl (65-105)
[2022-04-19] MEDS: PROPOFOL IV EMULSION 100 ML 17.89 MG IV CONT ×3 (00:41→15:08)
[2022-04-19] MEDS: ALBUTEROL SULFATE NEB 2.5 MG/3 ML INH INHALATION ×4 (02:30→20:20)
[2022-04-19 04:31] LABS: Hematocrit 25.9 % (42.0-52.0); Hemoglobin 8.1 g/dL (14.0-18.0); Mean Corpuscular HGB Conc 31.3 g/dl (32-36); Mean Corpuscular Volume 83.3 fl (80-100); Mean Platelet Volume 9.9 fl (7.4-10.4); Platelet Count Result 239 k/mm3 (150-375); Red Blood Count 3.11 M/mm3 (4.6-6.20); Red Cell Distribution Width 16.2 % (11.5-14.5); White Blood Count 8.6 K/mm3 (4.5-10.0)
[2022-04-19 04:48] LABS: Alanine Aminotransferase 9 U/L (6-50); Albumin Level 3.1 g/dL (3.5-5.1); Alkaline Phosphatase 107 U/L (38-126); Anion Gap 8 mmol/L (8-16); Aspartate Amino Transferase 32 U/L (17-59); Bilirubin,Total 0.2 mg/dL (0.2-1.3); Blood Urea Nitrogen 17 mg/dL (9-20); Calcium 8.3 mg/dL (8.4-10.2); Carbon Dioxide 20 mmol/L (22-30); Chloride 107 mmol/L (98-107); Estimated CRCL calculation 182 ml/min; Estimated Glomerular Filt Rate > 60; Glucose 153 mg/dL (65-110); Magnesium 1.9 mg/dL (1.6-2.3); Phosphorus 4.2 mg/dL (2.5-4.5); Potassium 3.4 mmol/L (3.4-5.0); Sodium 135 mmol/L (137-145)
[2022-04-19 05:08] LABS: Alveolar/Arterial O2 Gradient 110.6 mmHg; Base Excess ABG -3.8 mEq/l (+/-2.0); Carboxyhemoglobin 0.3 % THb (0-2.0); Fractional Inspired Oxygen 30 %; HCO3 ABG 19.5 mEq/l (22.0-26.0); Methemoglobin ABG 0.5 %THb (0-1.5); Oxygen Content ABG 10.2 %vol (16.0-22.0); Oxygen Saturation ABG 95.1 % (95.0-100.0); Oxyhemoglobin 92.2 % THb (90.0-100.0); PCO2 ABG 28.4 mmHg (35.0-45.0); PO2 ABG 69.9 mmHg (80.0-100.0); PO2 FiO2 Ratio Arterial Blood 2.33 %; pH ABG 7.455 (7.350-7.450)
[2022-04-19 05:10] LABS: Device VENTILATOR; Modified Allen's Test Pass; Site Drawn RIGHT RADIAL; Total Hemoglobin 7.8 g/dL (12.0-18.0)
[2022-04-19 05:11] LABS: Arterial Blood Gas PEEP 5 cmH2O; Arterial Blood Gas Tidal Volume 500 ml; Arterial Blood Gas Vent Mode CMV; Arterial Blood Gas Ventilator rate 18 /MIN
[2022-04-19] MEDS: CENTRAL LINE FLUSH 10 ML IV PUSH ×3 (05:30→19:54)
[2022-04-19 07:57] LABS: Glucose Point of Care 131 mg/dl (65-105)
--- NOTE | 2022-04-19 08:07 | WPDGIPROGNO ---
Progress Note: A&P Assessment and Plan (1) PEG (percutaneous endoscopic gastrostomy) status: Code(s): Z93.1 - Gastrostomy status Status: Acute Assessment and Plan: Peg tube placed yesterday. Appears to be functioning well. Plan to increase tube feeding rate to60cc/hour. Further adjustments per primary care service. Continued local care to PEG tube site strongly advised. Cleanse every 8 hours with Betadine. Peg tube placement on the same side of the abdomen as colostomy tube . keeping this clean will be very important to avoid infection. (2) Respiratory failure: Code(s): J96.90 - Respiratory failure, unspecified, unspecified whether with hypoxia or hypercapnia Status: Acute (3) History of colostomy: Status: Acute Subjective Date/time seen: 04/19/22 08:07 Patient remains on the ventilator. Doing well after PEG placement yesterday. Tube feedings tolerated a low rate. Nursing staff reports no difficulties. Review of Systems Review of Systems: ROS unobtainable: Yes unobtainable due to medical condition Exam Narrative: Physical exam reveals patient remains on the ventilator non communicative. Lungs reveal few rhonchi bilaterally. Heart without murmur. Abdomen bowel sounds present soft nontender PEG tube in the left upper abdomen appears to be healing well. Patient does have colostomy tube in the left lower quadrant. Objective Data Vital Signs Vital Signs: Vital Signs - 24 hr 04/18/22 08:10 04/18/22 08:11 04/18/22 08:23 Temperature Pulse Rate 80 80 80 Respiratory Rate 27 H 23 H Blood Pressure Pulse Oximetry 99 Oxygen Delivery Mechanical Ventilation Fraction of Inspired Oxygen 30 04/18/22 08:21 04/18/22 08:33 04/18/22 08:24 Temperature Pulse Rate 80 86 Respiratory Rate 23 H Blood Pressure Pulse Oximetry Oxygen Delivery Mechanical Ventilation Fraction of Inspired Oxygen 04/18/22 10:00 04/18/22 10:00 04/18/22 08:30 Temperature 98.4 F Pulse Rate 68 68 Respiratory Rate 27 H 25 H Blood Pressure 102/63 Pulse Oximetry 100 Oxygen Delivery Fraction of Inspired Oxygen 30 04/18/22 10:00 04/18/22 11:15 04/18/22 12:00 Temperature 98.3 F Pulse Rate 67 67 70 Respiratory Rate 21 H Blood Pressure 106/70 Pulse Oximetry 100 99 Oxygen Delivery Mechanical Ventilation Fraction of Inspired Oxygen 30 04/18/22 12:00 04/18/22 14:00 04/18/22 12:00 Temperature Pulse Rate 70 71 Respiratory Rate 22 H 24 H Blood Pressure Pulse Oximetry 98 Oxygen Delivery Mechanical Ventilation Fraction of Inspired Oxygen 30 04/18/22 14:05 04/18/22 14:05 04/18/22 12:00 Temperature Pulse Rate 68 68 70 Respiratory Rate 25 H Blood Pressure Pulse Oximetry 97 Oxygen Delivery Mechanical Ventilation Fraction of Inspired Oxygen 30 04/18/22 12:00 04/18/22 14:00 04/18/22 14:50 Temperature Pulse Rate 72 73 Respiratory Rate 26 H Blood Pressure Pulse Oximetry Oxygen Delivery Fraction of Inspired Oxygen 30 04/18/22 16:00 04/18/22 16:00 04/18/22 14:01 Temperature 98.4 F Pulse Rate 67 Respiratory Rate 27 H Blood Pressure 112/68 Pulse Oximetry 98 97 Oxygen Delivery Mechanical Ventilation Fraction of Inspired Oxygen 30 30 04/18/22 16:00 04/18/22 16:35 04/18/22 16:00 Temperature Pulse Rate 72 76 73 Respiratory Rate 26 H Blood Pressure Pulse Oximetry 97 Oxygen Delivery Mechanical Ventilation Fraction of Inspired Oxygen 30 04/18/22 17:41 04/18/22 16:00 04/18/22 18:00 Temperature 98.5 F Pulse Rate 73 72 76 Respiratory Rate 26 H 26 H Blood Pressure 116/75 Pulse Oximetry 97 Oxygen Delivery Fraction of Inspired Oxygen 04/18/22 18:00 04/18/22 20:02 04/18/22 20:05 Temperature 98.7 F Pulse Rate 81 79 78 Respiratory Rate 24 H 26 H Blood Pressure 128/78 Pulse Oximetry 96 99 Oxygen Delivery Mechanical Ventilat
[2022-04-19] MEDS: LORATADINE 10 MG TABLET FEED TUBE (08:15)
[2022-04-19] MEDS: METOPROLOL TARTRATE 25 MG TABLET PO ×2 (08:15→20:00)
[2022-04-19] MEDS: MINERAL OIL/WHITE PETROLATUM OINTMENT 1 APPLIC EACH EYE ×2 (08:17→19:58)
[2022-04-19] MEDS: FERROUS SULFATE LIQUID 325 MG/7.4 ML ELIXIR FEED TUBE ×2 (08:17→16:28)
[2022-04-19] MEDS: SUCRALFATE SUSP 100 MG/ML 10 ML UDC 1000 MG FEED TUBE ×4 (08:18→19:59)
[2022-04-19] MEDS: PANTOPRAZOLE SODIUM IV 40 MG VIAL IV PUSH ×2 (08:18→20:00)
[2022-04-19] MEDS: DOCUSATE SODIUM LIQ 100 MG/10 ML UDC FEED TUBE ×2 (08:18→19:59)
--- NOTE | 2022-04-19 08:30 | PC.NURSE ---
Pt's sedation placed on hold per Dr. Craig's order for sedation vacation.
--- NOTE | 2022-04-19 09:19 | WPDINTPN ---
Progress Note: A&P Assessment and Plan (1) Fever: Code(s): R50.9 - Fever, unspecified Status: Acute Assessment and Plan: 04/14: Patient was febrile overnight with a T-max of 102.3?, blood cultures have been next, UA was positive for leukocyte esterase, trace bacteria, positive for budding yeast. Patient status post 10 days of Zosyn, 8 days of azithromycin -sputum grew out Gram-negative rods - wound cultures positive for Staph aureus -chest CT showed diffuse lung disease consistent with pneumonia mucus plugging in the lower lobes Likely secondary to pneumonia. -04/15/2022: CT scan of the chest abdomen and pelvis Diffuse lung disease will mucus plugging in the lower lobes, cirrhosis of the liver with portal venous hypertension. 2 x 2 left adrenal mass, 7.9 x 2.4 x 7.1 cystic mass in the subcutaneous fat in the right anterior abdominal wall. Sacral decubitus ulcer with sacrococcygeal osteomyelitis -04/15/2022: Bilateral upper extremity venous Dopplers were negative for DVT -04/15/2022: Bilateral lower extremity venous Dopplers were negative for DVT -04/14/2022 : Urine culture growing yeast 04/14 blood cultures: Preliminary report, no growth 2/2 bottles 04/14 decubitus ulcer culture: MRSA which is sensitive to vancomycin 04/14/2022 sputum culture growing Alcaligenes xylosoxidans which is sensitive to imipenem -patient was started on imipenem, vancomycin and micafungin (04/15). I will discontinue micafungin if cultures remained negative for fungus after 5 days (2) Acute respiratory failure with hypoxia: Code(s): J96.01 - Acute respiratory failure with hypoxia Status: Acute Assessment and Plan: Acute Respiratory failure secondary to pneumonia which to most likely aspiration could be community-acquired. Also there could be component of CHF since he had elevated BNP 04/05 Patient was urgently intubated this morning respiratory distress hypoxia and inability to tolerate NIPPV 04/06 patient self-extubated and was reintubated ABGs reviewed he is on 30% FiO2 and 5 of PEEP. Patient continues to be tachypneic on loading sedation continue tidal volume of 500 cc Monitor closely Chest x-ray reviewed Continue Bronchodilators -patient has been self diuresing adequately will continue to monitor -04/14 sputum cultures growing Gram-negative bacilli, COVID PCR was negative 04/15: CT chest continues to show bilateral diffuse infiltrates, mucus plugging of bilateral lower lobes -will perform sedation holiday Patient is at day 15 of his intubation and not been able wean He was agreeable for trach and PEG. Patient's son also agreeable qm consultant and Trach is scheduled for 04/21 (3) Sepsis: Code(s): A41.9 - Sepsis, unspecified organism Status: Acute Assessment and Plan: On presentation patient met criteria for sepsis likely secondary to pneumonia and UTI He has received adequate amount of IV fluids and will hold further IV fluids at this time His lactic acid level was normal but His procalcitonin level is elevated suggestive of infection Initial Blood, sputum and culture are all negative so far Continue Zosyn for total of 10 days, Discontinued Zithromax (04/12). Discontinued vancomycin as all cultures are negative for now Urine Legionella is Negative pneumococcal antigen is negative Mycoplasma IgM is negative See above (4) Aspiration pneumonia: Code(s): J69.0 - Pneumonitis due to inhalation of food and vomit Status: Acute Assessment and Plan: See above (5) Multifocal pneumonia: Code(s): J18.9 - Pneumonia, unspecified organism Status: Acute Assessment and Plan: See above (6) Chronic anemia: Code(s): D64.9 - Anemia, unspecified Status: Acute Assessment and Plan: 04/08 Hemoglobin has trended down to 6.7 today. Transfuse 1 unit of PRBC No obvious signs of bleeding On PPI q.12 hours -hemoglobin stable Continue Lovenox for now
[2022-04-19] MEDS: FLUCONAZOLE 200 MG/NACL 100 ML 200 MG/100 ML BAG 100 MG IVPB (10:39)
--- NOTE | 2022-04-19 10:40 | PC.NURSE ---
Sedation resumed at current rate of 35mcg/kg/min per Dr. Craig's order
[2022-04-19] MEDS: ENOXAPARIN 40 MG/0.4 ML SYRINGE SUB-Q (10:45)
--- NOTE | 2022-04-19 11:20 | PCFNICU ---
ICU Rounding Note: Pt current nutrition is Vital AF 1.2 at 60 ml/hr. Nutrition recommendation: Goal rate will be 75 ml/hr once Propofol has been discontinued. Last recorded weight is 90.3 kg, up from 86.3 kg on admit. Bowel Motility:ostomy Labs Reviewed:Na 135, Cr 0.4,Glu 153, Hgb 8.1, Hct 25.9 Meds Noted:Propofol Infusion on hold, Vancomycin, Protonix, Lopressor, Imipenem, Colace, Reglan. Skin:Stage IV PU-sacrum, Stage II PU-right knee, Stage III PU-bilateral heels, unstageable pu-heels. Additional Notes:Patient remains on mechanical vent and tube feedings of Vital AF 1.2 at 60 ml/hr. Current with PEG. Tube feeding is providing 1584 kcals/99 gms protein/1071 ml water. Free water flush 30 ml q 4 hours. Recommend increasing tube feedings to 75 ml/hr once propofol has been discontinued, which will provide 1980 kcals/124 gm protein/1338 ml water. Agree with diet orders. Following daily in ICU rounds. Will monitor in ICU rounds and reassess every Sunday and Sunday.
[2022-04-19 12:04] LABS: Glucose Point of Care 166 mg/dl (65-105)
--- NOTE | 2022-04-19 13:10 | PC.NURSE ---
Notified Dr. Craig of chest xray report stating PICC tip in right IJ. Dr. Craig stated Ok to continue to use PICC line. Pt isn't receiving any pressors, just continue to use the line. I will recheck xray in AM to see if PICC line has moved at all. I will reassess at that time.
[2022-04-19 14:07] LABS: Vancomycin Trough 18.4 ug/mL (10.0-20.0)
[2022-04-19] MEDS: COLLAGENASE OINT 30 GM TUBE 1 APPLIC TOPICAL (15:30)
[2022-04-19] MEDS: SILVERGEL (ELTA) 45 ML 1 APPLIC TOPICAL (15:30)
--- NOTE | 2022-04-19 15:42 | PM.IMPN ---
Progress Note: A&P Assessment and Plan (1) Fever: Code(s): R50.9 - Fever, unspecified Status: Acute Assessment and Plan: Patient febrile 04/13: Blood culture sent UA positive sputum grew Gram-negative rods. Wound culture with positive for Staph aureus. CT chest with diffuse lung disease consistent with pneumonia new cuts Devon in lower lobes. Cirrhosis of liver with portal hypertension. 2 x 2 left adrenal mass, 7.9 x 2.4 x 7.1 cystic mass in the subcutaneous fat in the in right anterior abdominal wall. Sacral decubitus ulcer with sacral coccygeal osteomyelitis. -04/15/2022: Bilateral upper extremity venous Dopplers were negative for DVT -04/15/2022: Bilateral lower extremity venous Dopplers were negative for DVT -04/14/2022 : Urine culture growing yeast 04/14 blood cultures: Preliminary report, no growth 08/03 bottles 04/14 decubitus ulcer culture: MRSA which is sensitive to vancomycin 04/14/2022 sputum culture growing Alcaligenes xylosoxidans which is sensitive to imipenem -patient was started on imipenem, vancomycin and micafungin (04/15). Micafungin discontinued 04/19 (2) Acute respiratory failure with hypoxia: Code(s): J96.01 - Acute respiratory failure with hypoxia Status: Acute Assessment and Plan: Acute Respiratory failure secondary to pneumonia which to most likely aspiration could be community-acquired. Also there could be component of CHF since he had elevated BNP 04/05 Patient was urgently intubated this morning respiratory distress hypoxia and inability to tolerate NIPPV 04/06 patient self-extubated and was reintubated Continue Bronchodilators -patient has been self diuresing adequately will continue to monitor -04/14 sputum cultures growing Gram-negative bacilli, COVID PCR was negative 04/15: CT chest continues to show bilateral diffuse infiltrates, mucus plugging of bilateral lower lobes Patient is at day 15 of his intubation and not been able wean He was agreeable for trach and PEG. Patient's son also agreeable presales consultant and Trach is scheduled for 04/21 (3) Sepsis: Code(s): A41.9 - Sepsis, unspecified organism Status: Acute Assessment and Plan: On presentation patient met criteria for sepsis likely secondary to pneumonia and UTI He has received adequate amount of IV fluids and will hold further IV fluids at this time His lactic acid level was normal but His procalcitonin level is elevated suggestive of infection Initial Blood, sputum and culture are all negative so far Continue Zosyn for total of 10 days, Discontinued Zithromax (04/12). Discontinued vancomycin as all cultures are negative for now Urine Legionella is Negative pneumococcal antigen is negative Mycoplasma IgM is negative See above (4) Aspiration pneumonia: Code(s): J69.0 - Pneumonitis due to inhalation of food and vomit Status: Acute Assessment and Plan: See above (5) Multifocal pneumonia: Code(s): J18.9 - Pneumonia, unspecified organism Status: Acute Assessment and Plan: See above (6) Chronic anemia: Code(s): D64.9 - Anemia, unspecified Status: Acute Assessment and Plan: 04/08 Hemoglobin has trended down to 6.7 . Transfuse 1 unit of PRBC No obvious signs of bleeding On PPI q.12 hours -hemoglobin stable Continue Lovenox for now for DVT prophylaxis (7) Paraplegia, unspecified: Code(s): G82.20 - Paraplegia, unspecified Status: Acute Assessment and Plan: Chronic paraplegia from past injury (8) Insulin dependent type 2 diabetes mellitus: Code(s): E11.9 - Type 2 diabetes mellitus without complications; Z79.4 - USP (current) use of insulin Status: Acute Assessment and Plan: Continue sliding scale insulin Lantus Continue Lantus (9) Decubitus ulcer of sacral area: Code(s): L89.159 - Pressure ulcer of sacral region, unspecified stage Status: Acute Assessment a
[2022-04-19 16:31] LABS: Glucose Point of Care 176 mg/dl (65-105)
[2022-04-19] MEDS: PROPOFOL IV EMULSION 100 ML 20.45 MG IV CONT (19:52)
[2022-04-19] MEDS: IPRATROPIUM BR 0.02% INH SOLN 0.5 MG/2.5 ML VIAL INHALATION (20:20)
[2022-04-19 20:32] LABS: Glucose Point of Care 162 mg/dl (65-105)
[2022-04-19] MEDS: INSULIN GLARGINE (*BKC) 100 UNITS/ML 35 UNITS SUB-Q (21:05)
[2022-04-19 23:37] LABS: Glucose Point of Care 77 mg/dl (65-105)
[2022-04-20] VITALS (34 sets, daily range): BP systolic 106–125; BP diastolic 65–79; PULSE 66–96; RESP 24–38; TEMP 36.6–37.3; O2SAT 90–96
[2022-04-20] MEDS: PROPOFOL IV EMULSION 100 ML 20.45 MG IV CONT ×2 (00:06→05:02)
[2022-04-20] MEDS: ALBUTEROL SULFATE NEB 2.5 MG/3 ML INH INHALATION ×4 (02:10→20:31)
[2022-04-20] MEDS: IPRATROPIUM BR 0.02% INH SOLN 0.5 MG/2.5 ML VIAL INHALATION ×2 (02:10→20:31)
[2022-04-20 04:08] LABS: Glucose Point of Care 180 mg/dl (65-105)
[2022-04-20] MEDS: METOCLOPRAMIDE HCL INJ 10 MG/2 ML VIAL IV PUSH ×4 (05:04→23:52)
[2022-04-20] MEDS: CENTRAL LINE FLUSH 10 ML IV PUSH ×3 (05:04→20:04)
[2022-04-20 05:24] LABS: Hematocrit 26.2 % (42.0-52.0); Hemoglobin 7.9 g/dL (14.0-18.0); Mean Corpuscular HGB Conc 30.2 g/dl (32-36); Mean Corpuscular Hemoglobin 25.8 pg (26-34); Mean Corpuscular Volume 85.6 fl (80-100); Mean Platelet Volume 10.6 fl (7.4-10.4); Platelet Count Result 245 k/mm3 (150-375); Red Blood Count 3.06 M/mm3 (4.6-6.20); Red Cell Distribution Width 16.5 % (11.5-14.5); White Blood Count 7.5 K/mm3 (4.5-10.0)
[2022-04-20 05:36] LABS: Alanine Aminotransferase 9 U/L (6-50); Albumin Level 3.1 g/dL (3.5-5.1); Alkaline Phosphatase 108 U/L (38-126); Anion Gap 10 mmol/L (8-16); Aspartate Amino Transferase 18 U/L (17-59); Bilirubin,Total 0.1 mg/dL (0.2-1.3); Blood Urea Nitrogen 21 mg/dL (9-20); Calcium 8.2 mg/dL (8.4-10.2); Carbon Dioxide 18 mmol/L (22-30); Chloride 110 mmol/L (98-107); Estimated CRCL calculation 182 ml/min; Estimated Glomerular Filt Rate > 60; Glucose 158 mg/dL (65-110); Magnesium 1.9 mg/dL (1.6-2.3); Phosphorus 4.4 mg/dL (2.5-4.5); Potassium 3.2 mmol/L (3.4-5.0); Sodium 138 mmol/L (137-145)
[2022-04-20 06:03] LABS: Alveolar/Arterial O2 Gradient 113.2 mmHg; Base Excess ABG -3.1 mEq/l (+/-2.0); Carboxyhemoglobin 0.3 % THb (0-2.0); Fractional Inspired Oxygen 30 %; HCO3 ABG 20.5 mEq/l (22.0-26.0); Methemoglobin ABG 0.2 %THb (0-1.5); Oxygen Content ABG 11.8 %vol (16.0-22.0); Oxygen Saturation ABG 93.6 % (95.0-100.0); PCO2 ABG 30.9 mmHg (35.0-45.0); PO2 ABG 64.4 mmHg (80.0-100.0); PO2 FiO2 Ratio Arterial Blood 2.15 %; Reduced Hemoglobin 8.5 %THb (0-5.0); Total Hemoglobin 9.2 g/dL (12.0-18.0); pH ABG 7.439 (7.350-7.450)
[2022-04-20 06:05] LABS: Arterial Blood Gas Ventilator rate 18 /MIN; Device VENTILATOR; Modified Allen's Test Unable to perform; Site Drawn RIGHT RADIAL
[2022-04-20 06:06] LABS: Arterial Blood Gas PEEP 5 cmH2O; Arterial Blood Gas Tidal Volume 500 ml; Arterial Blood Gas Vent Mode CMV
[2022-04-20] MEDS: MAGNESIUM SULF 2 GM/WATER 50ML 2 GM/50 ML BAG IVPB (06:10)
[2022-04-20] MEDS: PROPOFOL IV EMULSION 100 ML 17.89 MG IV CONT (09:44)
[2022-04-20] MEDS: FLUCONAZOLE 200 MG/NACL 100 ML 200 MG/100 ML BAG 100 MG IVPB (09:49)
[2022-04-20] MEDS: POTASSIUM CHLORIDE 20 MEQ PACKET (FOR LIQUID) 40 MEQ FEED TUBE (09:49)
[2022-04-20] MEDS: COLLAGENASE OINT 30 GM TUBE 1 APPLIC TOPICAL (09:53)
[2022-04-20] MEDS: ENOXAPARIN 40 MG/0.4 ML SYRINGE SUB-Q (09:54)
[2022-04-20] MEDS: DOCUSATE SODIUM LIQ 100 MG/10 ML UDC FEED TUBE ×2 (09:54→20:07)
[2022-04-20] MEDS: FERROUS SULFATE LIQUID 325 MG/7.4 ML ELIXIR FEED TUBE ×2 (09:55→17:02)
[2022-04-20] MEDS: LORATADINE 10 MG TABLET FEED TUBE (09:55)
[2022-04-20] MEDS: METOPROLOL TARTRATE 25 MG TABLET PO ×2 (09:55→20:07)
[2022-04-20] MEDS: SILVERGEL (ELTA) 45 ML 1 APPLIC TOPICAL (09:56)
[2022-04-20] MEDS: MINERAL OIL/WHITE PETROLATUM OINTMENT 1 APPLIC EACH EYE ×2 (09:56→20:07)
[2022-04-20] MEDS: PANTOPRAZOLE SODIUM IV 40 MG VIAL IV PUSH ×2 (09:56→20:04)
[2022-04-20 10:09] LABS: Glucose Point of Care 145 mg/dl (65-105)
[2022-04-20] MEDS: SUCRALFATE SUSP 100 MG/ML 10 ML UDC 1000 MG FEED TUBE ×4 (10:09→20:07)
--- NOTE | 2022-04-20 11:21 | PCFNICU ---
ICU Rounding Note: Pt current nutrition is Vital AF 1.2 at 60 ml/hr. Last recorded weight is 91.1 kg, up from 86.3 kg on admit. Bowel Motility: ostomy Labs Reviewed:Glu 158, Cr 0.4, K 3.2, Alb 3.1, Hct 26.2,Hgb 7.9 Meds Noted:Propofol Infusion at 17.89 ml/mh=475 kcals, Vancomycin, Protonix, Lopressor, Imipenem, Colace, Reglan. Skin: Stage IV PU-sacrum, Stage II PU-right knee, Stage III PU-bilateral heels, unstageable pu-heels. Additional Notes: Patient current with PEG of Vital AF 1.2 at 60 ml/hr and tolerating per nursing. Patient remains on mechanical vent, plans for Trach tomorrow 04/21. Tube feedings with Propofol Infusion providing 2056 kcals/99 gms protein/1071 ml water. Free water flush 30 ml q 4 hours. Protein Modular of Nimesh BID for wound healing. Recommend TG lab 2/ to 233 on 04/17. 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 Agree with diet orders. Following daily in ICU rounds. Will monitor in ICU rounds and reassess every Sunday and Sunday.
--- NOTE | 2022-04-20 11:47 | WPDINTPN ---
Progress Note: A&P Assessment and Plan (1) Fever: Code(s): R50.9 - Fever, unspecified Status: Acute Assessment and Plan: 04/14: Patient was febrile overnight with a T-max of 102.3?, blood cultures have been next, UA was positive for leukocyte esterase, trace bacteria, positive for budding yeast. Patient status post 10 days of Zosyn, 8 days of azithromycin -sputum grew out Gram-negative rods - wound cultures positive for Staph aureus -chest CT showed diffuse lung disease consistent with pneumonia mucus plugging in the lower lobes Likely secondary to pneumonia. -04/15/2022: CT scan of the chest abdomen and pelvis Diffuse lung disease will mucus plugging in the lower lobes, cirrhosis of the liver with portal venous hypertension. 2 x 2 left adrenal mass, 7.9 x 2.4 x 7.1 cystic mass in the subcutaneous fat in the right anterior abdominal wall. Sacral decubitus ulcer with sacrococcygeal osteomyelitis -04/15/2022: Bilateral upper extremity venous Dopplers were negative for DVT -04/15/2022: Bilateral lower extremity venous Dopplers were negative for DVT -04/14/2022 : Urine culture growing yeast 04/14 blood cultures: Preliminary report, no growth 2/2 bottles 04/14 decubitus ulcer culture: MRSA which is sensitive to vancomycin 04/14/2022 sputum culture growing Alcaligenes xylosoxidans which is sensitive to imipenem -patient was started on imipenem, vancomycin and micafungin (04/15). Micafungin was discontinued and patient started on Diflucan (04/19) for Lenka glabrata in the urine (2) Acute respiratory failure with hypoxia: Code(s): J96.01 - Acute respiratory failure with hypoxia Status: Acute Assessment and Plan: Acute Respiratory failure secondary to pneumonia which to most likely aspiration could be community-acquired. Also there could be component of CHF since he had elevated BNP 04/05 Patient was urgently intubated this morning respiratory distress hypoxia and inability to tolerate NIPPV 04/06 patient self-extubated and was reintubated ABGs reviewed he is on 30% FiO2 and 5 of PEEP. Patient continues to be tachypneic despite being on sedation sedation continue tidal volume of 500 ml, Monitor closely Chest x-ray and ABGs reviewed Continue Bronchodilators -patient has been self diuresing adequately will continue to monitor COVID PCR was negative 04/15: CT chest continues to show bilateral diffuse infiltrates, mucus plugging of bilateral lower lobes -will perform sedation holiday Patient is at day 16 of his intubation and not been able wean. The son is agreeable for trach and PEG. -04/18: PEG tube inserted -tracheostomy planned for 04/21/2022 (3) Sepsis: Code(s): A41.9 - Sepsis, unspecified organism Status: Acute Assessment and Plan: On presentation patient met criteria for sepsis likely secondary to pneumonia and UTI He has received adequate amount of IV fluids and will hold further IV fluids at this time His lactic acid level was normal but His procalcitonin level is elevated suggestive of infection Initial Blood, sputum and culture are all negative so far Continue Zosyn for total of 10 days, Discontinued Zithromax (04/12). Discontinued vancomycin as all cultures are negative for now Urine Legionella is Negative pneumococcal antigen is negative Mycoplasma IgM is negative See above (4) Aspiration pneumonia: Code(s): J69.0 - Pneumonitis due to inhalation of food and vomit Status: Acute Assessment and Plan: See above (5) Multifocal pneumonia: Code(s): J18.9 - Pneumonia, unspecified organism Status: Acute Assessment and Plan: See above (6) Chronic anemia: Code(s): D64.9 - Anemia, unspecified Status: Acute Assessment and Plan: 04/08 Hemoglobin has trended down to 6.7 today. Transfuse 1 unit of PRBC No obvious signs of bleeding On PPI q.12 hours -hemoglobin stable Continue Lovenox for now for DVT proph
[2022-04-20 12:46] LABS: Glucose Point of Care 127 mg/dl (65-105)
--- NOTE | 2022-04-20 16:18 | P.PNIM_ITS ---
Progress Note: A&P Assessment and Plan (1) Fever: Code(s): R50.9 - Fever, unspecified Status: Acute Assessment and Plan: Patient febrile 04/13: Blood culture sent UA positive sputum grew Gram-negative rods. Wound culture with positive for Staph aureus. CT chest with diffuse lung disease consistent with pneumonia new cuts Devon in lower lobes. Cirrhosis of liver with portal hypertension. 2 x 2 left adrenal mass, 7.9 x 2.4 x 7.1 cystic mass in the subcutaneous fat in the in right anterior abdominal wall. Sacral decubitus ulcer with sacral coccygeal osteomyelitis. -04/15/2022: Bilateral upper extremity venous Dopplers were negative for DVT -04/15/2022: Bilateral lower extremity venous Dopplers were negative for DVT -04/14/2022 : Urine culture growing yeast 04/14 blood cultures: Preliminary report, no growth 08/03 bottles 04/14 decubitus ulcer culture: MRSA which is sensitive to vancomycin 04/14/2022 sputum culture growing Alcaligenes xylosoxidans which is sensitive to imipenem -patient was started on imipenem, vancomycin and micafungin (04/15). Micafungin discontinued 04/19 And started on Diflucan on 04/19 for Lenka glabrata in urine. (2) Acute respiratory failure with hypoxia: Code(s): J96.01 - Acute respiratory failure with hypoxia Status: Acute Assessment and Plan: Acute Respiratory failure secondary to pneumonia which to most likely aspiration could be community-acquired. Also there could be component of CHF since he had elevated BNP 04/05 Patient was urgently intubated this morning respiratory distress hypoxia and inability to tolerate NIPPV 04/06 patient self-extubated and was reintubated Continue Bronchodilators -patient has been self diuresing adequately will continue to monitor -04/14 sputum cultures growing Gram-negative bacilli, COVID PCR was negative 04/15: CT chest continues to show bilateral diffuse infiltrates, mucus plugging of bilateral lower lobes Patient is at day 15 of his intubation and not been able wean He was agreeable for trach and PEG. Patient's son also agreeable platform consultant and Trach is scheduled for 04/21 PEG inserted 04/18/2022 (3) Sepsis: Code(s): A41.9 - Sepsis, unspecified organism Status: Acute Assessment and Plan: On presentation patient met criteria for sepsis likely secondary to pneumonia and UTI He has received adequate amount of IV fluids and will hold further IV fluids at this time His lactic acid level was normal but His procalcitonin level is elevated suggestive of infection Initial Blood, sputum and culture are all negative so far Continue Zosyn for total of 10 days, Discontinued Zithromax (04/12). Discontinued vancomycin as all cultures are negative for now Urine Legionella is Negative pneumococcal antigen is negative Mycoplasma IgM is negative See above (4) Aspiration pneumonia: Code(s): J69.0 - Pneumonitis due to inhalation of food and vomit Status: Acute Assessment and Plan: See above (5) Multifocal pneumonia: Code(s): J18.9 - Pneumonia, unspecified organism Status: Acute Assessment and Plan: See above (6) Chronic anemia: Code(s): D64.9 - Anemia, unspecified Status: Acute Assessment and Plan: 04/08 Hemoglobin has trended down to 6.7 . Transfuse 1 unit of PRBC No obvious signs of bleeding On PPI q.12 hours -hemoglobin stable Continue Lovenox for now for DVT prophylaxis (7) Paraplegia, unspecified: Code(s): G82.20 - Paraplegia, unspecified Status: Acute Assessment and Plan: Chroni
[2022-04-20] MEDS: PROPOFOL IV EMULSION 100 ML 40 MG IV CONT (17:04)
--- NOTE | 2022-04-20 17:14 | PM.IMHP ---
H&P: HPI History of Present Illness Date/Time: 04/20/22 17:14 Chief Complaint: Respiratory failure Narrative: planned surgical procedure Review of Systems Review of Systems: All systems reviewed & are unremarkable except as noted in HPI and below [facility] Past Medical History Medical History (Updated 04/18/22 @ 16:45 by Charles Feldman MD) Anxiety Chronic anemia Chronic back pain Chronic obstructive pulmonary disease Depression Insulin dependent type 2 diabetes mellitus MRSA infection Paraplegia, unspecified Postlaminectomy syndrome Sacral decubitus ulcer, stage IV Surgical History Surgical History (Updated 04/19/22 @ 08:08 by Cesar Chen MD) History of arthroscopy of shoulder History of back surgery Multiple surgeries including thoracic and lumbar fusions and laminectomies. History of cardiac catheterization History of cholecystectomy History of colostomy Family History Family History Mother Alzheimer disease Social History Social History Social History: Surrogate medical decision maker: Ed Spence, brenda. Code status: Full code. Smoking packs per day: 1 Smoking cigarettes per day: 20.0 Years smoked: 30 Smoking pack-years: 30.00 Smoking status: Former smoker Tobacco type: cigarettes Alcohol intake: former Substance use: never Substance use type: does not use Additional living arrangements comments: Resident at a senior living in [place]. 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 Spiritual care concerns: No Meds Home Medications and Allergies Home Medications Medication Instructions Recorded Confirmed Type hydromorphone 2 mg tablet 4 mg PO Q4H PRN Pain, Severe 05/11/20 04/04/22 History ipratropium 20 mcg-albuterol 100 1 puff inhalation Q4H PRN Wheezing 05/11/20 04/04/22 History mcg/actuation mist for inhalation (Combivent Respimat) lidocaine 5 % topical patch 1 patch topical DAILY 05/11/20 04/04/22 History paroxetine HCl 40 mg tablet 40 mg PO Q12H 05/11/20 04/04/22 History sucralfate 1 gram tablet 1 g PO QID 05/11/20 04/04/22 History acetaminophen 500 mg tablet 1,000 mg PO Q6H PRN Pain 04/04/22 04/04/22 History aluminum-mag hydroxide-simethicone 10 ml PO Q4H PRN Indigestion 04/04/22 04/04/22 History 400 mg-400 mg-40 mg/5 mL oral susp (Mylanta Maximum Strength) clonazepam 0.5 mg tablet 0.5 mg PO HS 04/04/22 04/04/22 History diphenhydramine HCl 25 mg tablet 50 mg PO HS PRN Allergy Symptoms 04/04/22 04/04/22 History (Allergy (diphenhydramine)) docusate sodium 100 mg capsule 100 mg PO BID 04/04/22 04/04/22 History duloxetine 60 mg capsule,delayed 60 mg PO BID 04/04/22 04/04/22 History release ferrous sulfate 324 mg (65 mg 324 mg PO BID 04/04/22 04/04/22 History iron) tablet,delayed release guaifenesin 600 mg tablet, 600 mg PO Q12H PRN Congestion 04/04/22 04/04/22 History extended release 12 hr insulin lispro 100 unit/mL See Rx Instructions .Route .COMPLEX 04/04/22 04/04/22 History subcutaneous pen insulin lispro 100 unit/mL See Rx Instructions .Route .COMPLEX 04/04/22 04/04/22 History subcutaneous pen magnesium hydroxide 400 mg/5 mL 400 mg PO DAILY PRN Constipation 04/04/22 04/04/22 History oral suspension melatonin 5 mg tablet 15 mg PO HS PRN Insomnia 04/04/22 04/04/22 History morphine 15 mg immediate release 7.5 mg PO Q6H PRN Pain (Scale 04/04/22 04/04/22 History tablet Score 7-10) morphine 15 mg tablet,extended 15 mg PO Q12H 04/04/22 04/04/22 History release (MS Contin) pantoprazole 40 mg tablet,delayed 40 mg PO Q12H 04/04/22 04/04/22 History release pregabalin 300 mg capsule 300 mg PO Q12H 04/04/22 04/04/22 History sennosides 8.6 mg-docusate sodium 1 tab-cap PO BID 04/04/22 04/04/22 History 50 mg capsule (Senna Plus) Allergies Allergy/AdvReac Type Severity Reaction Status D
[2022-04-20 18:34] LABS: Glucose Point of Care 124 mg/dl (65-105)
[2022-04-20] MEDS: INSULIN GLARGINE (*BKC) 100 UNITS/ML 35 UNITS SUB-Q (20:08)
[2022-04-20 20:31] LABS: Glucose Point of Care 155 mg/dl (65-105)
[2022-04-20] MEDS: PROPOFOL IV EMULSION 100 ML 45 MG IV CONT (22:18)
[2022-04-21] VITALS (66 sets, daily range): BP systolic 102–133; BP diastolic 62–75; PULSE 59–88; RESP 21–38; TEMP 36.1–37.1; O2SAT 92–100
[2022-04-21 00:13] LABS: Glucose Point of Care 156 mg/dl (65-105)
[2022-04-21] MEDS: PROPOFOL IV EMULSION 100 ML 45 MG IV CONT ×3 (01:56→10:45)
[2022-04-21] MEDS: IPRATROPIUM BR 0.02% INH SOLN 0.5 MG/2.5 ML VIAL INHALATION (02:00)
[2022-04-21] MEDS: ALBUTEROL SULFATE NEB 2.5 MG/3 ML INH INHALATION ×3 (02:00→14:24)
[2022-04-21 03:38] LABS: Glucose Point of Care 154 mg/dl (65-105)
[2022-04-21 05:29] LABS: Basophils Absolute Auto 0.1 K/mm3 (0.0-0.1); Basophils Percent Auto 0.7 % (0.2-1.2); Eosinophils Absolute Auto 0.1 K/mm3 (0-0.3); Hemoglobin 7.6 g/dL (14.0-18.0); Immature Granulocyte Absolute 0.03 K/mm3 (0.00-0.031); Immature Granulocyte Percent A 0.4 % (0-0.5); Lymphocytes Absolute Auto 1.15 K/mm3 (0.9-3.2); Lymphocytes Percent Auto 13.9 % (18.3-44.2); Mean Corpuscular HGB Conc 30.4 g/dl (32-36); Mean Corpuscular Hemoglobin 25.3 pg (26-34); Mean Corpuscular Volume 83.3 fl (80-100); Mean Platelet Volume 10.3 fl (7.4-10.4); Monocytes Absolute Auto 0.4 K/mm3 (0.1-0.6); Monocytes Percent Auto 4.3 % (2.6-8.5); Neutrophils Absolute Auto 6.6 K/mm3 (1.3-6.7); Neutrophils Percent Auto 79.7 % (45.5-73.1); Platelet Count Result 230 k/mm3 (150-375); Red Cell Distribution Width 16.4 % (11.5-14.5); White Blood Count 8.3 K/mm3 (4.5-10.0)
[2022-04-21 05:41] LABS: Alanine Aminotransferase 9 U/L (6-50); Albumin Level 3.1 g/dL (3.5-5.1); Alkaline Phosphatase 107 U/L (38-126); Anion Gap 11 mmol/L (8-16); Aspartate Amino Transferase 17 U/L (17-59); Bilirubin,Total 0.1 mg/dL (0.2-1.3); Blood Urea Nitrogen 20 mg/dL (9-20); Calcium 8.3 mg/dL (8.4-10.2); Carbon Dioxide 21 mmol/L (22-30); Chloride 111 mmol/L (98-107); Estimated CRCL calculation 182 ml/min; Estimated Glomerular Filt Rate > 60; Glucose 120 mg/dL (65-110); Magnesium 2.1 mg/dL (1.6-2.3); Potassium 3.5 mmol/L (3.4-5.0); Sodium 143 mmol/L (137-145)
[2022-04-21 06:05] LABS: Alveolar/Arterial O2 Gradient 100.6 mmHg; Base Excess ABG -3.7 mEq/l (+/-2.0); Carboxyhemoglobin 0.3 % THb (0-2.0); HCO3 ABG 19.8 mEq/l (22.0-26.0); Methemoglobin ABG 0.3 %THb (0-1.5); Oxygen Content ABG 14.4 %vol (16.0-22.0); Oxygen Saturation ABG 95.9 % (95.0-100.0); Oxyhemoglobin 94.1 % THb (90.0-100.0); PCO2 ABG 30.7 mmHg (35.0-45.0); PO2 ABG 77.2 mmHg (80.0-100.0); Total Hemoglobin 10.8 g/dL (12.0-18.0); pH ABG 7.428 (7.350-7.450)
[2022-04-21 06:06] LABS: Arterial Blood Gas Vent Mode CMV; Arterial Blood Gas Ventilator rate 18 /MIN; Device VENTILATOR; Fractional Inspired Oxygen 30 %; Modified Allen's Test Pass; PO2 FiO2 Ratio Arterial Blood 2.57 %; Reduced Hemoglobin 5.3 %THb (0-5.0); Site Drawn RIGHT RADIAL
[2022-04-21 06:07] LABS: Arterial Blood Gas PEEP 5 cmH2O; Arterial Blood Gas Tidal Volume 500 ml
[2022-04-21] MEDS: METOCLOPRAMIDE HCL INJ 10 MG/2 ML VIAL IV PUSH ×3 (06:08→23:56)
[2022-04-21] MEDS: CENTRAL LINE FLUSH 10 ML IV PUSH ×3 (06:08→20:11)
[2022-04-21 06:26] LABS: INR 1.3; Prothrombin Time 15.7 Seconds (11.1-14.7)
[2022-04-21 06:27] LABS: Partial Thromboplastin Time 32.8 SECONDS (22.3-36.8)
--- NOTE | 2022-04-21 07:13 | WPDHPUPDATE1 ---
History and Physical Update Update Date/Time: 04/21/22 07:13 History and Physical has been reviewed, including an updated exam of the patient. There are NO changes in the patient's condition. Risks, benefits, and alternatives have been discussed and questions answered. Patient agrees to proceed with procedure.
[2022-04-21 08:04] LABS: Glucose Point of Care 101 mg/dl (65-105)
[2022-04-21 08:29] LABS: Triglycerides 132 mg/dL (<150)
[2022-04-21] MEDS: DOCUSATE SODIUM LIQ 100 MG/10 ML UDC FEED TUBE ×2 (09:04→20:10)
[2022-04-21] MEDS: FERROUS SULFATE LIQUID 325 MG/7.4 ML ELIXIR FEED TUBE ×2 (09:04→16:07)
[2022-04-21] MEDS: SUCRALFATE SUSP 100 MG/ML 10 ML UDC 1000 MG FEED TUBE ×3 (09:05→20:10)
[2022-04-21] MEDS: COLLAGENASE OINT 30 GM TUBE 1 APPLIC TOPICAL (09:05)
[2022-04-21] MEDS: LORATADINE 10 MG TABLET FEED TUBE (09:06)
[2022-04-21] MEDS: PANTOPRAZOLE SODIUM IV 40 MG VIAL IV PUSH ×2 (09:06→20:09)
[2022-04-21] MEDS: SILVERGEL (ELTA) 45 ML 1 APPLIC TOPICAL (09:06)
[2022-04-21] MEDS: MINERAL OIL/WHITE PETROLATUM OINTMENT 1 APPLIC EACH EYE ×2 (09:06→20:09)
[2022-04-21] MEDS: METOPROLOL TARTRATE 25 MG TABLET PO ×2 (09:06→20:09)
[2022-04-21] MEDS: FLUCONAZOLE 200 MG/NACL 100 ML 200 MG/100 ML BAG 100 MG IVPB (09:07)
--- NOTE | 2022-04-21 10:55 | PCNFU ---
Nutrition Follow-Up Complete: Increased Protein needs as related to wounds as evidenced by Pressure Ulcers reported Goal: Meet estimated nutritional needs Patient is progressing towards goal. We will continue current goal. Pt current nutrition is NPO. Nutrition recommendation: Vital AF 1.2 at 60 ml/hr, when propofol has been discontinued recommend advancing to 75 ml/hr. Last recorded weight is 90.3 kg, up from 86.3 kg on admit. Bowel Motility: ostomy Labs Reviewed:Glu 120, Alb 3.1, Hct 25.0, Hgb 7.6 Meds Noted:Propofol Infusion at 17.89 ml/ka=195 kcals, Vancomycin, Protonix, Lopressor, Imipenem, Colace, Reglan. Skin:Stage IV PU-sacrum, Stage II PU-right knee, Stage III PU-bilateral heels, unstageable pu-heels. Additional Notes: Patient NPO for Trach today. Plans to restart tube feedings of Vital AF 1.2 at 60 ml/hr. Propofol Infusion remains the same at this time. If Propofol is discontinued recommend advancing rate to 75 ml/hr which will provide 1980 kcals/124 gms protein/1338 ml water. Free water flush 30 ml q 4 hours. Protein Modular of Nimesh BID for wound healing providing an additional 90 kcals and 2.5 gms protein. Agree with diet orders. Will monitor in ICU rounds and reassess every Sunday and Sunday.
[2022-04-21 12:42] LABS: Glucose Point of Care 84 mg/dl (65-105)
--- NOTE | 2022-04-21 12:47 | WPDANESEPPF ---
Anes - Initial Pre Proc Eval Procedure: Operation Date: 04/18/22 11:30 Proposed Procedures p Percutaneous Endoscopic Gastrostomy - Cesar Chen MD Operation Date: 04/21/22 13:45 Proposed Procedures p Tracheostomy - Charles Feldman MD Date/Time: 04/21/22 12:47 Surgeon: Kip Hopper MD Pre Op Diagnosis: pneumonia Patient Data Age: 57 Gender: M Height: 1.85 m Weight: 90.3 kg Last Vital Signs Temp 36.4 C L 04/21/22 10:15 Pulse 64 04/21/22 11:41 Resp 28 H 04/21/22 10:15 BP 116/73 04/21/22 10:00 Pulse Ox 98 04/21/22 11:41 O2 Del Method Mechanical Ventilation 04/21/22 11:41 O2 Flow Rate 7 04/05/22 08:00 FiO2 30 04/21/22 12:00 Allergies Allergy/AdvReac Type Severity Reaction Status Date / Time fluoxetine Allergy Unknown Verified 04/04/22 12:51 Home Medications Medication Instructions Recorded Confirmed Type hydromorphone 2 mg tablet 4 mg PO Q4H PRN Pain, Severe 05/11/20 04/04/22 History ipratropium 20 mcg-albuterol 100 1 puff inhalation Q4H PRN Wheezing 05/11/20 04/04/22 History mcg/actuation mist for inhalation (Combivent Respimat) lidocaine 5 % topical patch 1 patch topical DAILY 05/11/20 04/04/22 History paroxetine HCl 40 mg tablet 40 mg PO Q12H 05/11/20 04/04/22 History sucralfate 1 gram tablet 1 g PO QID 05/11/20 04/04/22 History acetaminophen 500 mg tablet 1,000 mg PO Q6H PRN Pain 04/04/22 04/04/22 History aluminum-mag hydroxide-simethicone 10 ml PO Q4H PRN Indigestion 04/04/22 04/04/22 History 400 mg-400 mg-40 mg/5 mL oral susp (Mylanta Maximum Strength) clonazepam 0.5 mg tablet 0.5 mg PO HS 04/04/22 04/04/22 History diphenhydramine HCl 25 mg tablet 50 mg PO HS PRN Allergy Symptoms 04/04/22 04/04/22 History (Allergy (diphenhydramine)) docusate sodium 100 mg capsule 100 mg PO BID 04/04/22 04/04/22 History duloxetine 60 mg capsule,delayed 60 mg PO BID 04/04/22 04/04/22 History release ferrous sulfate 324 mg (65 mg 324 mg PO BID 04/04/22 04/04/22 History iron) tablet,delayed release guaifenesin 600 mg tablet, 600 mg PO Q12H PRN Congestion 04/04/22 04/04/22 History extended release 12 hr insulin lispro 100 unit/mL See Rx Instructions .Route .COMPLEX 04/04/22 04/04/22 History subcutaneous pen insulin lispro 100 unit/mL See Rx Instructions .Route .COMPLEX 04/04/22 04/04/22 History subcutaneous pen magnesium hydroxide 400 mg/5 mL 400 mg PO DAILY PRN Constipation 04/04/22 04/04/22 History oral suspension melatonin 5 mg tablet 15 mg PO HS PRN Insomnia 04/04/22 04/04/22 History morphine 15 mg immediate release 7.5 mg PO Q6H PRN Pain (Scale 04/04/22 04/04/22 History tablet Score 7-10) morphine 15 mg tablet,extended 15 mg PO Q12H 04/04/22 04/04/22 History release (MS Contin) pantoprazole 40 mg tablet,delayed 40 mg PO Q12H 04/04/22 04/04/22 History release pregabalin 300 mg capsule 300 mg PO Q12H 04/04/22 04/04/22 History sennosides 8.6 mg-docusate sodium 1 tab-cap PO BID 04/04/22 04/04/22 History 50 mg capsule (Senna Plus) Laboratory Tests 04/20/22 04/20/22 04/20/22 12:37 17:00 20:01 WBC RBC Hgb Hct MCV MCH MCHC RDW Plt Count MPV Immature Gran % (Auto) Neut % (Auto) Lymph % (Auto) Howell % (Auto) Eos % (Auto) Baso % (Auto) Lymph # (Auto) Howell # (Auto) Eos # (Auto) Baso # (Auto) Abs Immat Gran (auto) Absolute Neuts (auto) Absolute Nucleated RBC Nucleated RBC % PT INR APTT Puncture Site ABG pH ABG pCO2 ABG pO2 ABG PO2/FiO2 Ratio ABG HCO3 ABG O2 Saturation ABG O2 Content ABG Base Excess
[2022-04-21] MEDS: PROPOFOL IV EMULSION 100 ML 50 MG IV CONT ×3 (13:03→18:16)
[2022-04-21] MEDS: ceFAZolin SODIUM 1 GM VIAL 2 GM IV PUSH (13:27)
--- NOTE | 2022-04-21 14:10 | P.OP_ITS ---
Procedure Note - Detailed Date of Procedure 04/21/22 Pre-op Diagnosis pneumonia,Respiratory failure Post-op Diagnosis Same Procedure Performed tracheotomy Surgeon Charles Feldman MD Anesthesia General Indications . See above Findings small trachea chose to place a 6 versus Eight Shiley. Description of Procedure patient identified consent verified in ICU. Patient brought operating room. Time-out performed. General anesthesia deep in patient prepped draped positioned 2nd time-out performed surgical incision drawn with a marking pen on the skin about 1 cm half a cm below the cricoid cartilage at 1 cm. Injected with 0.5 cc 2% lidocaine 1 100,000 parts epinephrine. Bovie electrocautery at a setting of 10 1st on cut through the skin then coag was utilized to cut down to the trachea initially in the horizontal fashion then vertically using [place] navRapidMind to track the soft tissue strap muscles until the thyroid isthmus was encountered. The thyroid isthmus was then cauterized and cut through in a vertical fashion using Bovie electrocautery at a setting of 10. At this point the airway was completely skeletonized. A cricoid hook was placed deep to the cricoid cartilage pulling the laryngeal framework anteriorly. Anesthesia was informed and position there tube about 1 cm deeper. Tracheotomy was created using 15 blade and widened using scissors. Trach hvac/r service technician was placed at this point the trachea is noted to be somewhat smaller than the average adult male. This is new was made to use a 6 Shiley versus 8. Anesthesia then removed the tube until the tip was no longer visible the tracheotomy. Trach was placed successfully anesthesia connected their circuit end-tidal CO2 was confirmed. Cricoid was then removed as well as the [employer]. Four stitches were placed 3-0 silks in the corner of the trach holding it firmly against the skin. Velcro trach ties were applied as well as a sponge. Patient tolerated the procedure well. Care the patient given back to Anesthesiology. I performed all dictated portions blood loss 5 cc. No complications. Patient taken back to ICU. Estimated Blood Loss 5 Urine Output 250 Drains No Packing No Pathology None sent Complications No immediate complications Condition Stable Disposition PACU
--- NOTE | 2022-04-21 15:16 | PM.IMPN ---
Progress Note: A&P Assessment and Plan (1) Fever: Code(s): R50.9 - Fever, unspecified Status: Acute Assessment and Plan: Patient febrile 04/13: Blood culture sent UA positive sputum grew Gram-negative rods. Wound culture with positive for Staph aureus. CT chest with diffuse lung disease consistent with pneumonia new cuts Devon in lower lobes. Cirrhosis of liver with portal hypertension. 2 x 2 left adrenal mass, 7.9 x 2.4 x 7.1 cystic mass in the subcutaneous fat in the in right anterior abdominal wall. Sacral decubitus ulcer with sacral coccygeal osteomyelitis. -04/15/2022: Bilateral upper extremity venous Dopplers were negative for DVT -04/15/2022: Bilateral lower extremity venous Dopplers were negative for DVT -04/14/2022 : Urine culture growing yeast 04/14 blood cultures: Preliminary report, no growth 08/03 bottles 04/14 decubitus ulcer culture: MRSA which is sensitive to vancomycin 04/14/2022 sputum culture growing Alcaligenes xylosoxidans which is sensitive to imipenem -patient was started on imipenem, vancomycin and micafungin (04/15). Micafungin discontinued 04/19 And started on Diflucan on 04/19 for Lenka glabrata in urine. (2) Acute respiratory failure with hypoxia: Code(s): J96.01 - Acute respiratory failure with hypoxia Status: Acute Assessment and Plan: Acute Respiratory failure secondary to pneumonia which to most likely aspiration could be community-acquired. Also there could be component of CHF since he had elevated BNP 04/05 Patient was urgently intubated this morning respiratory distress hypoxia and inability to tolerate NIPPV 04/06 patient self-extubated and was reintubated Continue Bronchodilators -patient has been self diuresing adequately will continue to monitor -04/14 sputum cultures growing Gram-negative bacilli, COVID PCR was negative 04/15: CT chest continues to show bilateral diffuse infiltrates, mucus plugging of bilateral lower lobes Patient is at day 15 of his intubation and not been able wean He was agreeable for trach and PEG. Patient's son also agreeable oracle database consultant and Trach is scheduled for 04/21 PEG inserted 04/18/2022 (3) Sepsis: Code(s): A41.9 - Sepsis, unspecified organism Status: Acute Assessment and Plan: On presentation patient met criteria for sepsis likely secondary to pneumonia and UTI He has received adequate amount of IV fluids and will hold further IV fluids at this time His lactic acid level was normal but His procalcitonin level is elevated suggestive of infection Initial Blood, sputum and culture are all negative so far Continue Zosyn for total of 10 days, Discontinued Zithromax (04/12). Discontinued vancomycin as all cultures are negative for now Urine Legionella is Negative pneumococcal antigen is negative Mycoplasma IgM is negative See above (4) Aspiration pneumonia: Code(s): J69.0 - Pneumonitis due to inhalation of food and vomit Status: Acute Assessment and Plan: See above (5) Multifocal pneumonia: Code(s): J18.9 - Pneumonia, unspecified organism Status: Acute Assessment and Plan: See above (6) Chronic anemia: Code(s): D64.9 - Anemia, unspecified Status: Acute Assessment and Plan: 04/08 Hemoglobin has trended down to 6.7 . Transfuse 1 unit of PRBC No obvious signs of bleeding On PPI q.12 hours -hemoglobin stable Continue Lovenox for now for DVT prophylaxis (7) Paraplegia, unspecified: Code(s): G82.20 - Paraplegia, unspecified Status: Acute Assessment and Plan: Chronic paraplegia from past injury (8) Insulin dependent type 2 diabetes mellitus: Code(s): E11.9 - Type 2 diabetes mellitus without complications; Z79.4 - half-way (current) use of insulin Status: Acute Assessment and Plan: Continue sliding scale insulin Lantus Continue Lantus (9) Decubitus ulcer of sacral area: Code(s): L89.159 - P
[2022-04-21 16:14] LABS: Glucose Point of Care 110 mg/dl (65-105)
--- NOTE | 2022-04-21 16:54 | WPDINTPN ---
Progress Note: A&P Assessment and Plan (1) Fever: Code(s): R50.9 - Fever, unspecified Status: Acute Assessment and Plan: 04/14: Patient was febrile overnight with a T-max of 102.3?, blood cultures have been next, UA was positive for leukocyte esterase, trace bacteria, positive for budding yeast. Patient status post 10 days of Zosyn, 8 days of azithromycin -sputum grew out Gram-negative rods - wound cultures positive for Staph aureus -chest CT showed diffuse lung disease consistent with pneumonia mucus plugging in the lower lobes Likely secondary to pneumonia. -04/15/2022: CT scan of the chest abdomen and pelvis Diffuse lung disease will mucus plugging in the lower lobes, cirrhosis of the liver with portal venous hypertension. 2 x 2 left adrenal mass, 7.9 x 2.4 x 7.1 cystic mass in the subcutaneous fat in the right anterior abdominal wall. Sacral decubitus ulcer with sacrococcygeal osteomyelitis -04/15/2022: Bilateral upper extremity venous Dopplers were negative for DVT -04/15/2022: Bilateral lower extremity venous Dopplers were negative for DVT -04/14/2022 : Urine culture growing yeast 04/14 blood cultures: Preliminary report, no growth 2/2 bottles 04/14 decubitus ulcer culture: MRSA which is sensitive to vancomycin 04/14/2022 sputum culture growing Alcaligenes xylosoxidans which is sensitive to imipenem -patient was started on imipenem, vancomycin and micafungin (04/15). Micafungin was discontinued and patient started on Diflucan (04/19) for Lenka glabrata in the urine on 04/1704/21/22 : he is not febrile; now he is hypothermic 36.1 all day, and this is a new low temperature for him. Continue to follow. (2) Acute respiratory failure with hypoxia: Code(s): J96.01 - Acute respiratory failure with hypoxia Status: Acute Assessment and Plan: Acute Respiratory failure secondary to pneumonia which to most likely aspiration, could be community-acquired. Also there could be component of CHF since he had elevated BNP 04/05 Patient was urgently intubated this morning respiratory distress hypoxia and inability to tolerate NIPPV 04/06 patient self-extubated and was reintubated ABGs reviewed he is on 30% FiO2 and 5 of PEEP. Patient continues to be tachypneic despite being on sedation sedation continue tidal volume of 500 ml, Monitor closely Chest x-ray and ABGs reviewed Continue Bronchodilators -patient has been self diuresing adequately will continue to monitor COVID PCR was negative 04/15: CT chest continues to show bilateral diffuse infiltrates, mucus plugging of bilateral lower lobes -will perform sedation hol Patient is at day 16 of his intubation and not been able wean. The son is agreeable for trach and PEG. -04/18: PEG tube inserted -04/21 : tracheostomy performed, CXR shows good placement. He is a candidate for LTAC for weaning. His resp rate remains high for unclear reasons. I added Fentanyl for acute pain control, just had a trach today, has decubitus ulcer. He had an acceptable TSH on admission, no evidence of thyroid dysfunction. He is oxygenating on 30% and is AC mode. (3) Sepsis: Code(s): A41.9 - Sepsis, unspecified organism Status: Acute Assessment and Plan: On presentation patient met criteria for sepsis likely secondary to pneumonia and UTI He was resuscitated with fluids. His lactic acid level was normal but His procalcitonin level is elevated suggestive of infection Initial Blood, sputum and culture were negative, now growing MRSA in decubitus ulcer on Vanco since 04/15, Lenka glabrata in the urine on Diflucan since 04/19 and Alcaligenes xylosoxidans in the sputum on imipenem since 04/15. Completed Zosyn for total of 10 days, completed Zithromax (04/12). Urine Legionella, pneumococcal antigen, Mycoplasma IgM all Negative _
[2022-04-21] MEDS: fentaNYL CITRATE INJ (*CRX) 100 MCG/2 ML VIAL 50 MCG IV PUSH ×2 (17:27→23:56)
[2022-04-21] MEDS: INSULIN GLARGINE (*BKC) 100 UNITS/ML 35 UNITS SUB-Q (20:10)
[2022-04-21 20:44] LABS: Glucose Point of Care 138 mg/dl (65-105)
[2022-04-21] MEDS: PROPOFOL IV EMULSION 100 ML 35 MG IV CONT (22:10)
[2022-04-21 23:49] LABS: Glucose Point of Care 127 mg/dl (65-105)
[2022-04-22] VITALS (76 sets, daily range): BP systolic 93–143; BP diastolic 59–81; PULSE 68–93; RESP 17–38; TEMP 36.1–37.4; O2SAT 91–99
[2022-04-22] MEDS: PROPOFOL IV EMULSION 100 ML 17.89 MG IV CONT ×5 (02:20→23:06)
[2022-04-22] MEDS: ALBUTEROL SULFATE NEB 2.5 MG/3 ML INH INHALATION ×4 (03:30→20:51)
[2022-04-22] MEDS: fentaNYL CITRATE INJ (*CRX) 100 MCG/2 ML VIAL 50 MCG IV PUSH ×5 (04:21→19:52)
[2022-04-22 04:33] LABS: Glucose Point of Care 185 mg/dl (65-105)
[2022-04-22] MEDS: CENTRAL LINE FLUSH 10 ML IV PUSH ×3 (05:13→20:04)
[2022-04-22] MEDS: METOCLOPRAMIDE HCL INJ 10 MG/2 ML VIAL IV PUSH ×4 (05:13→23:04)
[2022-04-22 05:31] LABS: Hematocrit 26.6 % (42.0-52.0); Hemoglobin 7.9 g/dL (14.0-18.0); Mean Corpuscular HGB Conc 29.7 g/dl (32-36); Mean Corpuscular Hemoglobin 25.4 pg (26-34); Mean Corpuscular Volume 85.5 fl (80-100); Mean Platelet Volume 9.6 fl (7.4-10.4); Platelet Count Result 235 k/mm3 (150-375); Red Blood Count 3.11 M/mm3 (4.6-6.20); Red Cell Distribution Width 16.4 % (11.5-14.5); White Blood Count 7.2 K/mm3 (4.5-10.0)
[2022-04-22 05:41] LABS: Alanine Aminotransferase 9 U/L (6-50); Albumin Level 3.1 g/dL (3.5-5.1); Alkaline Phosphatase 127 U/L (38-126); Anion Gap 10 mmol/L (8-16); Aspartate Amino Transferase 21 U/L (17-59); Bilirubin,Total 0.2 mg/dL (0.2-1.3); Blood Urea Nitrogen 16 mg/dL (9-20); Calcium 8.3 mg/dL (8.4-10.2); Carbon Dioxide 20 mmol/L (22-30); Chloride 113 mmol/L (98-107); Estimated CRCL calculation 233 ml/min; Estimated Glomerular Filt Rate > 60; Glucose 162 mg/dL (65-110); Magnesium 1.9 mg/dL (1.6-2.3); Phosphorus 4.6 mg/dL (2.5-4.5); Potassium 3.2 mmol/L (3.4-5.0); Sodium 143 mmol/L (137-145)
[2022-04-22 06:04] LABS: Base Excess ABG -3.9 mEq/l (+/-2.0); Carboxyhemoglobin 0.2 % THb (0-2.0); Fractional Inspired Oxygen 30 %; HCO3 ABG 20.4 mEq/l (22.0-26.0); Methemoglobin ABG 0.3 %THb (0-1.5); Oxygen Content ABG 16.9 %vol (16.0-22.0); Oxygen Saturation ABG 95.5 % (95.0-100.0); Oxyhemoglobin 94.2 % THb (90.0-100.0); PCO2 ABG 34.5 mmHg (35.0-45.0); PO2 ABG 77.4 mmHg (80.0-100.0); PO2 FiO2 Ratio Arterial Blood 2.58 %; Reduced Hemoglobin 5.3 %THb (0-5.0); Total Hemoglobin 12.7 g/dL (12.0-18.0); pH ABG 7.389 (7.350-7.450)
[2022-04-22 06:05] LABS: Device VENTILATOR; Modified Allen's Test Pass; Site Drawn LEFT RADIAL
[2022-04-22 06:06] LABS: Arterial Blood Gas Ventilator rate 18 /MIN
[2022-04-22 06:07] LABS: Arterial Blood Gas PEEP 5 cmH2O; Arterial Blood Gas Tidal Volume 500 ml; Arterial Blood Gas Vent Mode CMV
[2022-04-22] MEDS: ACETAMINOPHEN ELIXIR 325 MG/10.15 ML UDC 650 MG FEED TUBE (08:21)
[2022-04-22] MEDS: METOPROLOL TARTRATE 25 MG TABLET PO ×2 (08:30→20:05)
[2022-04-22] MEDS: MINERAL OIL/WHITE PETROLATUM OINTMENT 1 APPLIC EACH EYE ×2 (08:30→20:05)
[2022-04-22] MEDS: PANTOPRAZOLE SODIUM IV 40 MG VIAL IV PUSH ×2 (08:30→20:05)
[2022-04-22] MEDS: SUCRALFATE SUSP 100 MG/ML 10 ML UDC 1000 MG FEED TUBE ×4 (08:31→20:04)
[2022-04-22] MEDS: FERROUS SULFATE LIQUID 325 MG/7.4 ML ELIXIR FEED TUBE ×2 (08:31→17:06)
[2022-04-22] MEDS: LORATADINE 10 MG TABLET FEED TUBE (08:31)
[2022-04-22] MEDS: DOCUSATE SODIUM LIQ 100 MG/10 ML UDC FEED TUBE ×2 (08:31→20:04)
[2022-04-22] MEDS: POTASSIUM CHLORIDE 20 MEQ PACKET (FOR LIQUID) 40 MEQ FEED TUBE (08:32)
[2022-04-22 08:48] LABS: Glucose Point of Care 135 mg/dl (65-105)
[2022-04-22] MEDS: FLUCONAZOLE 200 MG/NACL 100 ML 200 MG/100 ML BAG 100 MG IVPB (09:02)
[2022-04-22] MEDS: COLLAGENASE OINT 30 GM TUBE 1 APPLIC TOPICAL (12:03)
[2022-04-22] MEDS: SILVERGEL (ELTA) 45 ML 1 APPLIC TOPICAL (12:03)
[2022-04-22 13:26] LABS: Glucose Point of Care 119 mg/dl (65-105)
--- NOTE | 2022-04-22 13:37 | PM.IMPN ---
Progress Note: A&P Assessment and Plan (1) Fever: Code(s): R50.9 - Fever, unspecified Status: Acute Assessment and Plan: Patient febrile 04/13: Blood culture sent UA positive sputum grew Gram-negative rods. Wound culture with positive for Staph aureus. CT chest with diffuse lung disease consistent with pneumonia new cuts [place] in lower lobes. Cirrhosis of liver with portal hypertension. 2 x 2 left adrenal mass, 7.9 x 2.4 x 7.1 cystic mass in the subcutaneous fat in the in right anterior abdominal wall. Sacral decubitus ulcer with sacral coccygeal osteomyelitis. -04/15/2022: Bilateral upper extremity venous Dopplers were negative for DVT -04/15/2022: Bilateral lower extremity venous Dopplers were negative for DVT -04/14/2022 : Urine culture growing yeast 04/14 blood cultures: Preliminary report, no growth 08/03 bottles 04/14 decubitus ulcer culture: MRSA which is sensitive to vancomycin 04/14/2022 sputum culture growing Alcaligenes xylosoxidans which is sensitive to imipenem -patient was started on imipenem, vancomycin and micafungin (04/15). Micafungin discontinued 04/19 And started on Diflucan on 04/19 for Lenka glabrata in urine. (2) Acute respiratory failure with hypoxia: Code(s): J96.01 - Acute respiratory failure with hypoxia Status: Acute Assessment and Plan: Acute Respiratory failure secondary to pneumonia which to most likely aspiration could be community-acquired. Also there could be component of CHF since he had elevated BNP 04/05 Patient was urgently intubated this morning respiratory distress hypoxia and inability to tolerate NIPPV 04/06 patient self-extubated and was reintubated Continue Bronchodilators -patient has been self diuresing adequately will continue to monitor -04/14 sputum cultures growing Gram-negative bacilli, COVID PCR was negative 04/15: CT chest continues to show bilateral diffuse infiltrates, mucus plugging of bilateral lower lobes status post tracheostomy 04/21/2022 PEG inserted 04/18/2022 (3) Sepsis: Code(s): A41.9 - Sepsis, unspecified organism Status: Acute Assessment and Plan: On presentation patient met criteria for sepsis likely secondary to pneumonia and UTI He has received adequate amount of IV fluids and will hold further IV fluids at this time His lactic acid level was normal but His procalcitonin level is elevated suggestive of infection Initial Blood, sputum and culture are all negative so far Continue Zosyn for total of 10 days, Discontinued Zithromax (04/12). Discontinued vancomycin as all cultures are negative for now Urine Legionella is Negative pneumococcal antigen is negative Mycoplasma IgM is negative See above (4) Aspiration pneumonia: Code(s): J69.0 - Pneumonitis due to inhalation of food and vomit Status: Acute Assessment and Plan: See above (5) Multifocal pneumonia: Code(s): J18.9 - Pneumonia, unspecified organism Status: Acute Assessment and Plan: See above (6) Chronic anemia: Code(s): D64.9 - Anemia, unspecified Status: Acute Assessment and Plan: 04/08 Hemoglobin has trended down to 6.7 . Transfuse 1 unit of PRBC No obvious signs of bleeding On PPI q.12 hours -hemoglobin stable Continue Lovenox for now for DVT prophylaxis (7) Paraplegia, unspecified: Code(s): G82.20 - Paraplegia, unspecified Status: Acute Assessment and Plan: Chronic paraplegia from past injury (8) Insulin dependent type 2 diabetes mellitus: Code(s): E11.9 - Type 2 diabetes mellitus without complications; Z79.4 - halfway (current) use of insulin Status: Acute Assessment and Plan: Continue sliding scale insulin Lantus Continue Lantus (9) Decubitus ulcer of sacral area: Code(s): L89.159 - Pressure ulcer of sacral region, unspecified stage Status: Acute Assessment and Plan: Wound care following patient is pressure
--- NOTE | 2022-04-22 13:47 | WPDANESPN ---
Anes - Prog Note Post-Op Date/Time: 04/22/22 13:47 Cardiovascular status: normal Respiratory status: normal Airway patency: baseline Mental status: baseline Post-Op hydration status: normal Vital Signs: Last Vital Signs Temp 37.2 C 04/22/22 13:15 Pulse 81 04/22/22 13:15 Resp 33 H 04/22/22 13:15 BP 109/73 04/22/22 13:00 Pulse Ox 97 04/22/22 13:15 O2 Del Method Mechanical Ventilation 04/22/22 12:00 O2 Flow Rate 7 04/05/22 08:00 FiO2 30 04/22/22 12:00 Pain Score (VAS): 0 I/O: Intake & Output 04/21/22 04/22/22 04/22/22 23:59 07:59 15:59 Intake Total 1075 1568 300 Output Total 1500 1375 Balance -425 193 300 Laboratory Tests 04/22/22 05:25 04/22/22 05:25 04/21/22 04/21/22 04/21/22 16:12 20:06 23:41 WBC RBC Hgb Hct MCV MCH MCHC RDW Plt Count MPV Puncture Site ABG pH ABG pCO2 ABG pO2 ABG PO2/FiO2 Ratio ABG HCO3 ABG O2 Saturation ABG O2 Content ABG Base Excess A-a Gradient Oxyhemoglobin Carboxyhemoglobin Methemoglobin Reduced Hemoglobin Total Hemoglobin O2 Delivery Device O2 Liters/Min Minute Volume Vent Rate Vent Mode FiO2 Tidal Volume PEEP Peak Inspir Pressure Pressure Support Sodium Potassium Chloride Carbon Dioxide Anion Gap BUN Creatinine Estim Creat Clear Calc Estimated GFR Glucose POC Capillary Glucose 110 H 138 H 127 H Calcium Phosphorus Magnesium Total Bilirubin AST ALT Alkaline Phosphatase Total Protein Albumin 04/22/22 04/22/22 04/22/22 04:17 05:25 05:25 WBC 7.2 RBC 3.11 L Hgb 7.9 L Hct 26.6 L MCV 85.5 MCH 25.4 L MCHC 29.7 L RDW 16.4 H Plt Count 235 MPV 9.6 Puncture Site ABG pH ABG pCO2 ABG pO2 ABG PO2/FiO2 Ratio ABG HCO3 ABG O2 Saturation ABG O2 Content ABG Base Excess A-a Gradient Oxyhemoglobin Carboxyhemoglobin Methemoglobin Reduced Hemoglobin Total Hemoglobin O2 Delivery Device O2 Liters/Min Minute Volume Vent Rate Vent Mode FiO2 Tidal Volume PEEP Peak Inspir Pressure Pressure Support Sodium 143 Potassium 3.2 L Chloride 113 H Carbon Dioxide 20 L Anion Gap 10 BUN 16 Creatinine 0.30 L Estim Creat Clear Calc 233 Estimated GFR > 60 Glucose 162 H POC Capillary Glucose 185 H Calcium 8.3 L Phosphorus 4.6 H Magnesium 1.9 Total Bilirubin 0.2 AST 21 ALT 9 Alkaline Phosphatase 127 H Total Protein 7.0 Albumin 3.1 L 04/22/22 04/22/22 04/22/22 05:49 08:45 12:00 WBC RBC Hgb Hct MCV MCH MCHC RDW Plt Count MPV Puncture Site Left radial ABG pH 7.389 ABG pCO2 34.5 L ABG pO2 77.4 L ABG PO2/FiO2 Ratio 2.58 ABG HCO3 20.4 L ABG O2 Saturation 95.5 ABG O2 Content 16.9 ABG Base Excess -3.9 A-a Gradient 96.0 Oxyhemoglobin 94.2 Carboxyhemoglobin 0.2 Methemoglobin 0.3 Reduced Hemoglobin 5.3 H Total Hemoglobin 12.7 O2 Delivery Device Ventilator O2 Liters/Min Not Reportable Minute Volume Not Reportable Vent Rate 18 Vent Mode Cmv FiO2 30 Tidal Volume 500 PEEP 5 Peak Inspir Pressure Not Reportable Pressure Support Not Reportable Sodium Potassium Chloride Carbon Dioxide Anion Gap BUN Creatinine Estim Creat Clear Calc Estimated GFR Glucose POC Capillary Glucose 135 H 119 H Calcium Phosphorus Magnesium Total Bilirubin AST ALT Alkaline Phosphatase Total Protein Albumin Post-procedural complaints: none Patient Feedback: Patient satisfied with anesthetic care.
--- NOTE | 2022-04-22 16:53 | WPDINTPN ---
Progress Note: A&P Assessment and Plan (1) Fever: Code(s): R50.9 - Fever, unspecified Status: Acute Assessment and Plan: 04/14: Patient was febrile overnight with a T-max of 102.3?, blood cultures have been next, UA was positive for leukocyte esterase, trace bacteria, positive for budding yeast. Patient status post 10 days of Zosyn, 8 days of azithromycin -sputum grew out Gram-negative rods - wound cultures positive for Staph aureus -chest CT showed diffuse lung disease consistent with pneumonia mucus plugging in the lower lobes Likely secondary to pneumonia. -04/15/2022: CT scan of the chest abdomen and pelvis Diffuse lung disease will mucus plugging in the lower lobes, cirrhosis of the liver with portal venous hypertension. 2 x 2 left adrenal mass, 7.9 x 2.4 x 7.1 cystic mass in the subcutaneous fat in the right anterior abdominal wall. Sacral decubitus ulcer with sacrococcygeal osteomyelitis -04/15/2022: Bilateral upper extremity venous Dopplers were negative for DVT -04/15/2022: Bilateral lower extremity venous Dopplers were negative for DVT -04/14/2022 : Urine culture growing yeast 04/14 blood cultures: Preliminary report, no growth 2/2 bottles 04/14 decubitus ulcer culture: MRSA which is sensitive to vancomycin 04/14/2022 sputum culture growing Alcaligenes xylosoxidans which is sensitive to imipenem -patient was started on imipenem, vancomycin and micafungin (04/15). Micafungin was discontinued and patient started on Diflucan (04/19) for Lenka glabrata in the urine on 04/1704/21/22 : he is not febrile; now he is hypothermic 36.1 all day, and this is a new low temperature for him. Continue to follow. 04/22/22 : Not hypothermic, now has normal body temperature. (2) Acute respiratory failure with hypoxia: Code(s): J96.01 - Acute respiratory failure with hypoxia Status: Acute Assessment and Plan: Acute Respiratory failure secondary to pneumonia which to most likely aspiration, could be community-acquired. Also there could be component of CHF since he had elevated BNP 04/05 Patient was urgently intubated this morning respiratory distress hypoxia and inability to tolerate NIPPV 04/06 patient self-extubated and was reintubated ABGs reviewed he is on 30% FiO2 and 5 of PEEP. Patient continues to be tachypneic despite being on sedation sedation continue tidal volume of 500 ml, Monitor closely Chest x-ray and ABGs reviewed Continue Bronchodilators -patient has been self diuresing adequately will continue to monitor COVID PCR was negative 04/15: CT chest continues to show bilateral diffuse infiltrates, mucus plugging of bilateral lower lobes -will perform sedation holiday Patient is at day 16 of his intubation and not been able wean. The son is agreeable for trach and PEG. -04/18: PEG tube inserted -04/21 : tracheostomy performed, CXR shows good placement. He is a candidate for LTAC for weaning. His resp rate remains high for unclear reasons. I added Fentanyl for acute pain control, just had a trach today, has decubitus ulcer. He had an acceptable TSH on admission, no evidence of thyroid dysfunction. He is oxygenating on 30% and is AC mode. -04/22 : Still oxygenating on AC mode and 30%, enteral pain meds added to control his baseline pain; he has chronic pain, uses hydromorphone/Dilaudid at home, started through peg and IV fentanyl. This was started through the PEG. This may help decrease his respiratory rate. (3) Sepsis: Code(s): A41.9 - Sepsis, unspecified organism Status: Acute Assessment and Plan: On presentation patient met criteria for sepsis likely secondary to pneumonia and UTI He was resuscitated with fluids. His lactic acid level was normal but His procalcitonin level is elevated suggestive of infection Initial Blood, sputum and cu
[2022-04-22 17:10] LABS: Glucose Point of Care 206 mg/dl (65-105)
[2022-04-22] MEDS: HYDROmorphone HCL (*CRX) 2 MG TABLET PO ×2 (17:13→22:01)
[2022-04-22] MEDS: INSULIN ASPART (*BKC) 100 UNITS/ML SUB-Q (17:13)
[2022-04-22] MEDS: INSULIN GLARGINE (*BKC) 100 UNITS/ML 35 UNITS SUB-Q (20:05)
[2022-04-22 20:23] LABS: Glucose Point of Care 154 mg/dl (65-105)
[2022-04-23] VITALS (34 sets, daily range): BP systolic 95–131; BP diastolic 49–74; PULSE 64–94; RESP 18–35; TEMP 37.4–38.1; O2SAT 92–100
[2022-04-23] MEDS: fentaNYL CITRATE INJ (*CRX) 100 MCG/2 ML VIAL 50 MCG IV PUSH ×2 (01:22→15:33)
[2022-04-23] MEDS: ACETAMINOPHEN ELIXIR 325 MG/10.15 ML UDC 650 MG FEED TUBE ×3 (01:37→14:41)
[2022-04-23 01:43] LABS: Glucose Point of Care 124 mg/dl (65-105)
[2022-04-23] MEDS: ALBUTEROL SULFATE NEB 2.5 MG/3 ML INH INHALATION ×4 (02:25→20:44)
[2022-04-23] MEDS: HYDROmorphone HCL (*CRX) 2 MG TABLET PO ×4 (05:02→22:34)
[2022-04-23] MEDS: METOCLOPRAMIDE HCL INJ 10 MG/2 ML VIAL IV PUSH ×3 (05:04→17:45)
[2022-04-23] MEDS: CENTRAL LINE FLUSH 10 ML IV PUSH ×3 (05:04→19:59)
[2022-04-23] MEDS: PROPOFOL IV EMULSION 100 ML 20.45 MG IV CONT ×3 (05:04→15:06)
[2022-04-23 05:25] LABS: Glucose Point of Care 165 mg/dl (65-105)
[2022-04-23 05:25] LABS: Estimated CRCL calculation 233 ml/min; Estimated Glomerular Filt Rate > 60
[2022-04-23 05:30] LABS: Alveolar/Arterial O2 Gradient 181.1 mmHg; Base Excess ABG -3.9 mEq/l (+/-2.0); Carboxyhemoglobin 0.3 % THb (0-2.0); Fractional Inspired Oxygen 40 %; HCO3 ABG 19.9 mEq/l (22.0-26.0); Methemoglobin ABG 0.2 %THb (0-1.5); Oxygen Content ABG 11.4 %vol (16.0-22.0); Oxygen Saturation ABG 94.2 % (95.0-100.0); Oxyhemoglobin 92.9 % THb (90.0-100.0); PCO2 ABG 31.2 mmHg (35.0-45.0); PO2 ABG 68.2 mmHg (80.0-100.0); Reduced Hemoglobin 6.6 %THb (0-5.0); Total Hemoglobin 8.7 g/dL (12.0-18.0); pH ABG 7.422 (7.350-7.450)
[2022-04-23 05:31] LABS: Arterial Blood Gas PEEP 5 cmH2O; Arterial Blood Gas Vent Mode CMV; Arterial Blood Gas Ventilator rate 18 /MIN; Device VENTILATOR; Modified Allen's Test Pass; Site Drawn RIGHT RADIAL
[2022-04-23 05:32] LABS: Arterial Blood Gas Tidal Volume 500 ml
[2022-04-23] MEDS: IPRATROPIUM BR 0.02% INH SOLN 0.5 MG/2.5 ML VIAL INHALATION (08:00)
[2022-04-23] MEDS: SUCRALFATE SUSP 100 MG/ML 10 ML UDC 1000 MG FEED TUBE ×4 (08:45→19:59)
[2022-04-23] MEDS: FERROUS SULFATE LIQUID 325 MG/7.4 ML ELIXIR FEED TUBE ×2 (08:46→17:45)
[2022-04-23] MEDS: PANTOPRAZOLE SODIUM IV 40 MG VIAL IV PUSH ×2 (08:46→19:58)
[2022-04-23] MEDS: METOPROLOL TARTRATE 25 MG TABLET PO ×2 (08:46→19:58)
[2022-04-23] MEDS: LORATADINE 10 MG TABLET FEED TUBE (08:46)
[2022-04-23] MEDS: DOCUSATE SODIUM LIQ 100 MG/10 ML UDC FEED TUBE (08:46)
[2022-04-23] MEDS: MINERAL OIL/WHITE PETROLATUM OINTMENT 1 APPLIC EACH EYE ×2 (08:46→19:58)
[2022-04-23] MEDS: FLUCONAZOLE 200 MG/NACL 100 ML 200 MG/100 ML BAG 100 MG IVPB (08:47)
[2022-04-23] MEDS: COLLAGENASE OINT 30 GM TUBE 1 APPLIC TOPICAL (08:48)
[2022-04-23] MEDS: SILVERGEL (ELTA) 45 ML 1 APPLIC TOPICAL (08:49)
[2022-04-23 09:21] LABS: Glucose Point of Care 117 mg/dl (65-105)
--- NOTE | 2022-04-23 10:29 | PM.IMPN ---
Progress Note: A&P Assessment and Plan (1) Fever: Code(s): R50.9 - Fever, unspecified Status: Acute Assessment and Plan: Patient febrile 04/13: Blood culture sent UA positive sputum grew Gram-negative rods. Wound culture with positive for Staph aureus. CT chest with diffuse lung disease consistent with pneumonia new cuts [place] in lower lobes. Cirrhosis of liver with portal hypertension. 2 x 2 left adrenal mass, 7.9 x 2.4 x 7.1 cystic mass in the subcutaneous fat in the in right anterior abdominal wall. Sacral decubitus ulcer with sacral coccygeal osteomyelitis. -04/15/2022: Bilateral upper extremity venous Dopplers were negative for DVT -04/15/2022: Bilateral lower extremity venous Dopplers were negative for DVT -04/14/2022 : Urine culture growing yeast 04/14 blood cultures: Preliminary report, no growth 08/03 bottles 04/14 decubitus ulcer culture: MRSA which is sensitive to vancomycin 04/14/2022 sputum culture growing Alcaligenes xylosoxidans which is sensitive to imipenem -patient was started on imipenem, vancomycin and micafungin (04/15). Micafungin discontinued 04/19 And started on Diflucan on 04/19 for Lenka glabrata in urine. 04/23: Fever overnight. Will panculture. He remains on vancomycin imipenem an and Diflucan. Will check venous duplex to rule out DVT. Resume his Lovenox that has been held for tracheostomy. (2) Acute respiratory failure with hypoxia: Code(s): J96.01 - Acute respiratory failure with hypoxia Status: Acute Assessment and Plan: Acute Respiratory failure secondary to pneumonia which to most likely aspiration could be community-acquired. Also there could be component of CHF since he had elevated BNP 04/05 Patient was urgently intubated this morning respiratory distress hypoxia and inability to tolerate NIPPV 04/06 patient self-extubated and was reintubated Continue Bronchodilators -patient has been self diuresing adequately will continue to monitor -04/14 sputum cultures growing Gram-negative bacilli, COVID PCR was negative 04/15: CT chest continues to show bilateral diffuse infiltrates, mucus plugging of bilateral lower lobes status post tracheostomy 04/21/2022 PEG inserted 04/18/2022 On propofol for sedation (3) Sepsis: Code(s): A41.9 - Sepsis, unspecified organism Status: Acute Assessment and Plan: On presentation patient met criteria for sepsis likely secondary to pneumonia and UTI He has received adequate amount of IV fluids and will hold further IV fluids at this time His lactic acid level was normal but His procalcitonin level is elevated suggestive of infection Initial Blood, sputum and culture are all negative so far Continue Zosyn for total of 10 days, Discontinued Zithromax (04/12). Discontinued vancomycin as all cultures are negative for now Urine Legionella is Negative pneumococcal antigen is negative Mycoplasma IgM is negative See above (4) Aspiration pneumonia: Code(s): J69.0 - Pneumonitis due to inhalation of food and vomit Status: Acute Assessment and Plan: See above (5) Multifocal pneumonia: Code(s): J18.9 - Pneumonia, unspecified organism Status: Acute Assessment and Plan: See above (6) Chronic anemia: Code(s): D64.9 - Anemia, unspecified Status: Acute Assessment and Plan: 04/08 Hemoglobin has trended down to 6.7 . Transfuse 1 unit of PRBC No obvious signs of bleeding On PPI q.12 hours -hemoglobin stable Continue Lovenox for now for DVT prophylaxis (7) Paraplegia, unspecified: Code(s): G82.20 - Paraplegia, unspecified Status: Acute Assessment and Plan: Chronic paraplegia from past injury (8) Insulin dependent type 2 diabetes mellitus: Code(s): E11.9 - Type 2 diabetes mellitus without complications; Z79.4 - sr community manager (current) use of insulin Status: Acute Assessment and Plan: Continue sliding scale insulin Lantus C
[2022-04-23 10:59] LABS: Basophils Percent Auto 0.5 % (0.2-1.2); Eosinophils Absolute Auto 0.1 K/mm3 (0-0.3); Eosinophils Percent Auto 0.8 % (0-4.4); Hematocrit 23.4 % (42.0-52.0); Immature Granulocyte Absolute 0.03 K/mm3 (0.00-0.031); Immature Granulocyte Percent A 0.4 % (0-0.5); Lymphocytes Absolute Auto 1.01 K/mm3 (0.9-3.2); Lymphocytes Percent Auto 13.9 % (18.3-44.2); Mean Corpuscular HGB Conc 29.9 g/dl (32-36); Mean Corpuscular Hemoglobin 25.2 pg (26-34); Mean Corpuscular Volume 84.2 fl (80-100); Monocytes Absolute Auto 0.5 K/mm3 (0.1-0.6); Monocytes Percent Auto 6.2 % (2.6-8.5); Neutrophils Absolute Auto 5.7 K/mm3 (1.3-6.7); Neutrophils Percent Auto 78.2 % (45.5-73.1); Platelet Count Result 214 k/mm3 (150-375); Red Blood Count 2.78 M/mm3 (4.6-6.20); Red Cell Distribution Width 16.6 % (11.5-14.5); White Blood Count 7.3 K/mm3 (4.5-10.0)
[2022-04-23 11:09] LABS: Alanine Aminotransferase 9 U/L (6-50); Albumin Level 2.9 g/dL (3.5-5.1); Alkaline Phosphatase 132 U/L (38-126); Anion Gap 10 mmol/L (8-16); Aspartate Amino Transferase 17 U/L (17-59); Bilirubin,Total 0.2 mg/dL (0.2-1.3); Blood Urea Nitrogen 22 mg/dL (9-20); Calcium 8.2 mg/dL (8.4-10.2); Carbon Dioxide 18 mmol/L (22-30); Chloride 114 mmol/L (98-107); Estimated CRCL calculation 233 ml/min; Estimated Glomerular Filt Rate > 60; Glucose 135 mg/dL (65-110); Magnesium 1.8 mg/dL (1.6-2.3); Potassium 3.5 mmol/L (3.4-5.0); Sodium 142 mmol/L (137-145)
[2022-04-23 12:39] LABS: Glucose Point of Care 135 mg/dl (65-105)
[2022-04-23 12:58] LABS: Vancomycin Trough 21.3 ug/mL (10.0-20.0)
[2022-04-23 13:31] LABS: Add Urine Microscopic? YES; Amorphous Sediment Urine Few; Appearance Urine Cloudy (Clear); Bilirubin Urine Negative (Negative); Blood Urine Negative (Negative); Color Urine Yellow (Yellow); Glucose Urine UA Negative (Negative); Ketones Urine Trace mg/dL (Negative); Leukocyte Esterase Ur Negative LEU/UL (NEGATIVE); Mucus Urine Rare /lpf; Nitrate Urine Negative (Negative); Protein Urine 2+ mg/dL (Negative); Specific Grav Ur 1.024 (1.001-1.035); Urobilinogen Urine Negative mg/dL (<2.0); WBC Urine 0-3 /hpf (0-3)
--- NOTE | 2022-04-23 15:17 | WPDINTPN ---
Progress Note: A&P Assessment and Plan (1) Fever: Code(s): R50.9 - Fever, unspecified Status: Acute Assessment and Plan: 04/14: Patient was febrile overnight with a T-max of 102.3?, blood cultures have been next, UA was positive for leukocyte esterase, trace bacteria, positive for budding yeast. Patient status post 10 days of Zosyn, 8 days of azithromycin -sputum grew out Gram-negative rods - wound cultures positive for Staph aureus -chest CT showed diffuse lung disease consistent with pneumonia mucus plugging in the lower lobes Likely secondary to pneumonia. -04/15/2022: CT scan of the chest abdomen and pelvis Diffuse lung disease will mucus plugging in the lower lobes, cirrhosis of the liver with portal venous hypertension. 2 x 2 left adrenal mass, 7.9 x 2.4 x 7.1 cystic mass in the subcutaneous fat in the right anterior abdominal wall. Sacral decubitus ulcer with sacrococcygeal osteomyelitis -04/15/2022: Bilateral upper extremity venous Dopplers were negative for DVT -04/15/2022: Bilateral lower extremity venous Dopplers were negative for DVT -04/14/2022 : Urine culture growing yeast 04/14 blood cultures: Preliminary report, no growth 2/2 bottles 04/14 decubitus ulcer culture: MRSA which is sensitive to vancomycin 04/14/2022 sputum culture growing Alcaligenes xylosoxidans which is sensitive to imipenem -patient was started on imipenem, vancomycin and micafungin (04/15). Micafungin was discontinued and patient started on Diflucan (04/19) for Lenka glabrata in the urine on 04/1704/21/22 : he is not febrile; now he is hypothermic 36.1 all day, and this is a new low temperature for him. Continue to follow. 04/22/22 : Not hypothermic, now has normal body temperature. 04/23/22 : fever today; cultures sent. fever better with Tylenol. Negative Dopplers of UE. Alcaligenes xylosoxidans on imipenem, also on vancomycin. (2) Acute respiratory failure with hypoxia: Code(s): J96.01 - Acute respiratory failure with hypoxia Status: Acute Assessment and Plan: Acute Respiratory failure secondary to pneumonia which to most likely aspiration, could be community-acquired. Also there could be component of CHF since he had elevated BNP 04/05 Patient was urgently intubated this morning respiratory distress hypoxia and inability to tolerate NIPPV 04/06 patient self-extubated and was reintubated ABGs reviewed he is on 30% FiO2 and 5 of PEEP. Patient continues to be tachypneic despite being on sedation sedation continue tidal volume of 500 ml, Monitor closely Chest x-ray and ABGs reviewed Continue Bronchodilators -patient has been self diuresing adequately will continue to monitor COVID PCR was negative 04/15: CT chest continues to show bilateral diffuse infiltrates, mucus plugging of bilateral lower lobes -will perform sedation holiday Patient is at day 16 of his intubation and not been able wean. The son is agreeable for trach and PEG. -04/18: PEG tube inserted -04/21 : tracheostomy performed, CXR shows good placement. He is a candidate for LTAC for weaning. His resp rate remains high for unclear reasons. I added Fentanyl for acute pain control, just had a trach today, has decubitus ulcer. He had an acceptable TSH on admission, no evidence of thyroid dysfunction. He is oxygenating on 30% and is AC mode. -04/22 : Still oxygenating on AC mode and 30%, enteral pain meds added to control his baseline pain; he has chronic pain, uses hydromorphone/Dilaudid at home, started through peg and IV fentanyl. This was started through the PEG. This may help decrease his respiratory rate. 04/23 : Same vent settings 30% TV 500 PEEP 5 rate 18 (3) Sepsis: Code(s): A41.9 - Sepsis, unspecified organism Status: Acute Assessment and Plan: On presentation patient met criteria for se
[2022-04-23 18:05] LABS: Glucose Point of Care 120 mg/dl (65-105)
[2022-04-23] MEDS: PROPOFOL IV EMULSION 100 ML 17.89 MG IV CONT (20:54)
[2022-04-23] MEDS: INSULIN GLARGINE (*BKC) 100 UNITS/ML 35 UNITS SUB-Q (22:34)
[2022-04-24] VITALS (42 sets, daily range): BP systolic 100–136; BP diastolic 59–76; PULSE 71–107; RESP 18–35; TEMP 36.9–38.6; O2SAT 90–100
[2022-04-24] MEDS: ACETAMINOPHEN ELIXIR 325 MG/10.15 ML UDC 650 MG FEED TUBE ×4 (01:14→23:29)
[2022-04-24 01:15] LABS: Glucose Point of Care 120 mg/dl (65-105)
[2022-04-24] MEDS: METOCLOPRAMIDE HCL INJ 10 MG/2 ML VIAL IV PUSH (01:15)
[2022-04-24] MEDS: ALBUTEROL SULFATE NEB 2.5 MG/3 ML INH INHALATION ×4 (02:10→19:56)
[2022-04-24] MEDS: PROPOFOL IV EMULSION 100 ML 15.34 MG IV CONT (02:14)
[2022-04-24 05:35] LABS: Base Excess ABG -4.3 mEq/l (+/-2.0); Carboxyhemoglobin 0.3 % THb (0-2.0); Fractional Inspired Oxygen 40 %; HCO3 ABG 20.1 mEq/l (22.0-26.0); Methemoglobin ABG 0.2 %THb (0-1.5); Oxygen Content ABG 13.8 %vol (16.0-22.0); Oxygen Saturation ABG 94.6 % (95.0-100.0); Oxyhemoglobin 93.1 % THb (90.0-100.0); PCO2 ABG 34.4 mmHg (35.0-45.0); PO2 ABG 72.6 mmHg (80.0-100.0); PO2 FiO2 Ratio Arterial Blood 1.81 %; Reduced Hemoglobin 6.4 %THb (0-5.0); Total Hemoglobin 10.5 g/dL (12.0-18.0); pH ABG 7.385 (7.350-7.450)
[2022-04-24 05:36] LABS: Arterial Blood Gas PEEP 5 cmH2O; Arterial Blood Gas Tidal Volume 500 ml; Arterial Blood Gas Vent Mode CMV; Arterial Blood Gas Ventilator rate 18 /MIN; Device VENTILATOR; Modified Allen's Test Unable to perform; Site Drawn RIGHT RADIAL
[2022-04-24] MEDS: HYDROmorphone HCL (*CRX) 2 MG TABLET PO ×4 (06:03→23:29)
[2022-04-24 06:14] LABS: Basophils Percent Auto 0.5 % (0.2-1.2); Eosinophils Absolute Auto 0.1 K/mm3 (0-0.3); Eosinophils Percent Auto 0.8 % (0-4.4); Hematocrit 24.1 % (42.0-52.0); Hemoglobin 7.4 g/dL (14.0-18.0); Immature Granulocyte Absolute 0.03 K/mm3 (0.00-0.031); Immature Granulocyte Percent A 0.5 % (0-0.5); Lymphocytes Absolute Auto 0.92 K/mm3 (0.9-3.2); Lymphocytes Percent Auto 14.9 % (18.3-44.2); Mean Corpuscular HGB Conc 30.7 g/dl (32-36); Mean Corpuscular Hemoglobin 26.1 pg (26-34); Mean Corpuscular Volume 84.9 fl (80-100); Mean Platelet Volume 9.5 fl (7.4-10.4); Monocytes Absolute Auto 0.4 K/mm3 (0.1-0.6); Neutrophils Absolute Auto 4.7 K/mm3 (1.3-6.7); Neutrophils Percent Auto 76.3 % (45.5-73.1); Platelet Count Result 246 k/mm3 (150-375); Red Blood Count 2.84 M/mm3 (4.6-6.20); Red Cell Distribution Width 16.4 % (11.5-14.5); White Blood Count 6.2 K/mm3 (4.5-10.0)
[2022-04-24 06:29] LABS: Alanine Aminotransferase 8 U/L (6-50); Albumin Level 3.1 g/dL (3.5-5.1); Alkaline Phosphatase 144 U/L (38-126); Anion Gap 13 mmol/L (8-16); Aspartate Amino Transferase 17 U/L (17-59); Bilirubin,Total 0.2 mg/dL (0.2-1.3); Blood Urea Nitrogen 19 mg/dL (9-20); Calcium 8.6 mg/dL (8.4-10.2); Carbon Dioxide 19 mmol/L (22-30); Chloride 113 mmol/L (98-107); Estimated CRCL calculation 182 ml/min; Estimated Glomerular Filt Rate > 60; Glucose 86 mg/dL (65-110); Magnesium 1.9 mg/dL (1.6-2.3); Potassium 3.1 mmol/L (3.4-5.0); Sodium 145 mmol/L (137-145)
[2022-04-24] MEDS: CENTRAL LINE FLUSH 10 ML IV PUSH ×3 (06:31→21:32)
[2022-04-24] MEDS: PROPOFOL IV EMULSION 100 ML 7.67 MG IV CONT (08:29)
[2022-04-24] MEDS: FLUCONAZOLE 200 MG/NACL 100 ML 200 MG/100 ML BAG 100 MG IVPB (08:36)
[2022-04-24] MEDS: METOPROLOL TARTRATE 25 MG TABLET PO ×2 (08:37→20:42)
[2022-04-24] MEDS: FERROUS SULFATE LIQUID 325 MG/7.4 ML ELIXIR FEED TUBE ×2 (08:38→16:44)
[2022-04-24] MEDS: PANTOPRAZOLE SODIUM IV 40 MG VIAL IV PUSH ×2 (08:38→20:42)
[2022-04-24] MEDS: LORATADINE 10 MG TABLET FEED TUBE (08:38)
[2022-04-24] MEDS: COLLAGENASE OINT 30 GM TUBE 1 APPLIC TOPICAL (08:39)
[2022-04-24] MEDS: SUCRALFATE SUSP 100 MG/ML 10 ML UDC 1000 MG FEED TUBE ×4 (08:39→20:43)
[2022-04-24] MEDS: DOCUSATE SODIUM LIQ 100 MG/10 ML UDC FEED TUBE ×2 (08:39→20:42)
[2022-04-24] MEDS: SILVERGEL (ELTA) 45 ML 1 APPLIC TOPICAL (08:39)
--- NOTE | 2022-04-24 09:23 | PM.IMPN ---
Progress Note: A&P Assessment and Plan (1) Fever: Code(s): R50.9 - Fever, unspecified Status: Acute Assessment and Plan: Patient febrile 04/13: Blood culture sent UA positive sputum grew Gram-negative rods. Wound culture with positive for Staph aureus. CT chest with diffuse lung disease consistent with pneumonia new cuts Devon in lower lobes. Cirrhosis of liver with portal hypertension. 2 x 2 left adrenal mass, 7.9 x 2.4 x 7.1 cystic mass in the subcutaneous fat in the in right anterior abdominal wall. Sacral decubitus ulcer with sacral coccygeal osteomyelitis. -04/15/2022: Bilateral upper extremity venous Dopplers were negative for DVT -04/15/2022: Bilateral lower extremity venous Dopplers were negative for DVT -04/14/2022 : Urine culture growing yeast 04/14 blood cultures: Preliminary report, no growth / bottles 04/14 decubitus ulcer culture: MRSA which is sensitive to vancomycin 04/14/2022 sputum culture growing Alcaligenes xylosoxidans which is sensitive to imipenem -patient was started on imipenem, vancomycin and micafungin (04/15). Micafungin discontinued 04/19 And started on Diflucan on 04/19 for Lenka glabrata in urine. 04/23: Fever overnight. Will panculture. He remains on vancomycin imipenem an and Diflucan. Will check venous duplex to rule out DVT. Resume his Lovenox that has been held for tracheostomy. : fever is improved. blood culture neg to date. remains on vanc impienema nd diflucan. venous duplex negative. cxr with worsening opacities. will give a dose of lasix. repalce potassium. resume lovenox as h and h stable. (2) Acute respiratory failure with hypoxia: Code(s): J96.01 - Acute respiratory failure with hypoxia Status: Acute Assessment and Plan: Acute Respiratory failure secondary to pneumonia which to most likely aspiration could be community-acquired. Also there could be component of CHF since he had elevated BNP 04/05 Patient was urgently intubated this morning respiratory distress hypoxia and inability to tolerate NIPPV 04/06 patient self-extubated and was reintubated Continue Bronchodilators -patient has been self diuresing adequately will continue to monitor -04/14 sputum cultures growing Gram-negative bacilli, COVID PCR was negative 04/15: CT chest continues to show bilateral diffuse infiltrates, mucus plugging of bilateral lower lobes status post tracheostomy 04/21/2022 PEG inserted 04/18/2022 On propofol for sedation taper off propofol add clonazepam at bedtime prn (3) Sepsis: Code(s): A41.9 - Sepsis, unspecified organism Status: Acute Assessment and Plan: On presentation patient met criteria for sepsis likely secondary to pneumonia and UTI He has received adequate amount of IV fluids and will hold further IV fluids at this time His lactic acid level was normal but His procalcitonin level is elevated suggestive of infection Initial Blood, sputum and culture are all negative so far Continue Zosyn for total of 10 days, Discontinued Zithromax (04/12). Discontinued vancomycin as all cultures are negative for now Urine Legionella is Negative pneumococcal antigen is negative Mycoplasma IgM is negative See above (4) Aspiration pneumonia: Code(s): J69.0 - Pneumonitis due to inhalation of food and vomit Status: Acute Assessment and Plan: See above (5) Multifocal pneumonia: Code(s): J18.9 - Pneumonia, unspecified organism Status: Acute Assessment and Plan: See above (6) Chronic anemia: Code(s): D64.9 - Anemia, unspecified Status: Acute Assessment and Plan: 04/08 Hemoglobin has trended down to 6.7 . Transfuse 1 unit of PRBC No obvious signs of bleeding On PPI q.12 hours -hemoglobin stable Continue Lovenox for now for DVT prophylaxis (7) Paraplegia, unspecified: Code(s): G82.20 - Paraplegia, unspecified Status: Acute Assessment and Plan: Chronic parap
--- NOTE | 2022-04-24 10:23 | PCFNICU ---
ICU Rounding Note: Pt current nutrition is . Nutrition recommendation: Last recorded weight is 88 kg. Bowel Motility: Labs Reviewed: Meds Noted: Skin: Additional Notes: Following daily in ICU rounds. Will monitor in ICU rounds and reasses every Sunday and Sunday. .
[2022-04-24] MEDS: ENOXAPARIN 40 MG/0.4 ML SYRINGE SUB-Q (10:51)
[2022-04-24] MEDS: POTASSIUM CHLORIDE 20 MEQ PACKET (FOR LIQUID) 40 MEQ FEED TUBE ×2 (10:52→17:32)
[2022-04-24] MEDS: FUROSEMIDE INJ 40 MG/4 ML VIAL IV PUSH (10:52)
--- NOTE | 2022-04-24 10:59 | PCFNICU ---
ICU Rounding Note: Rounds with HANK Barragan Pt current nutrition is Vital 1.2 @ 60 ml/h with Nimesh flushes BID. Nutrition recommendation: Continue current tube feeding and supplements with no changes recommended Last recorded weight is 88 kg. Bowel Motility: BMs through colostomy, soft and brown Labs Reviewed: Hgb 7.4, Hct 24.1, K+ 3.1, Creat 0.4 Meds Noted: Propofol @ 5.11 ml/h, pt is being weaned down off propofol in preparation for dispo to LTACH Skin: Pressure injuries Stage IV sacrum, Unstageable BL heels, Knee stage II Additional Notes: Had trach and PEG, tube feeding was restarted. Pt will discharge to [facility] when accepted. Following daily in ICU rounds. Will monitor in ICU rounds and reassess every Sunday and Sunday. .
[2022-04-24 11:11] LABS: Glucose Point of Care 89 mg/dl (65-105)
[2022-04-24] MEDS: fentaNYL CITRATE INJ (*CRX) 100 MCG/2 ML VIAL 50 MCG IV PUSH ×4 (11:17→21:31)
--- NOTE | 2022-04-24 14:33 | WPDINTPN ---
Progress Note: A&P Assessment and Plan (1) Fever: Code(s): R50.9 - Fever, unspecified Status: Acute Assessment and Plan: 04/14: Patient was febrile overnight with a T-max of 102.3?, blood cultures have been next, UA was positive for leukocyte esterase, trace bacteria, positive for budding yeast. Patient status post 10 days of Zosyn, 8 days of azithromycin -sputum grew out Gram-negative rods - wound cultures positive for Staph aureus -chest CT showed diffuse lung disease consistent with pneumonia mucus plugging in the lower lobes Likely secondary to pneumonia. -04/15/2022: CT scan of the chest abdomen and pelvis Diffuse lung disease will mucus plugging in the lower lobes, cirrhosis of the liver with portal venous hypertension. 2 x 2 left adrenal mass, 7.9 x 2.4 x 7.1 cystic mass in the subcutaneous fat in the right anterior abdominal wall. Sacral decubitus ulcer with sacrococcygeal osteomyelitis -04/15/2022: Bilateral upper extremity venous Dopplers were negative for DVT -04/15/2022: Bilateral lower extremity venous Dopplers were negative for DVT -04/14/2022 : Urine culture growing yeast 04/14 blood cultures: Preliminary report, no growth 2/2 bottles 04/14 decubitus ulcer culture: MRSA which is sensitive to vancomycin 04/14/2022 sputum culture growing Alcaligenes xylosoxidans which is sensitive to imipenem -patient was started on imipenem, vancomycin and micafungin (04/15). Micafungin was discontinued and patient started on Diflucan (04/19) for Lenka glabrata in the urine on 04/1704/21/22 : he is not febrile; now he is hypothermic 36.1 all day, and this is a new low temperature for him. Continue to follow. 04/22/22 : Not hypothermic, now has normal body temperature. 04/23/22 : fever today; cultures sent. fever better with Tylenol. Negative Dopplers of UE. Alcaligenes xylosoxidans on imipenem, also on vancomycin. 04/24/22: low grade fever, tylenol helps. (2) Acute respiratory failure with hypoxia: Code(s): J96.01 - Acute respiratory failure with hypoxia Status: Acute Assessment and Plan: Acute Respiratory failure secondary to pneumonia which to most likely aspiration, could be community-acquired. Also there could be component of CHF since he had elevated BNP 04/05 Patient was urgently intubated this morning respiratory distress hypoxia and inability to tolerate NIPPV 04/06 patient self-extubated and was reintubated ABGs reviewed he is on 30% FiO2 and 5 of PEEP. Patient continues to be tachypneic despite being on sedation sedation continue tidal volume of 500 ml, Monitor closely Chest x-ray and ABGs reviewed Continue Bronchodilators -patient has been self diuresing adequately will continue to monitor COVID PCR was negative 04/15: CT chest continues to show bilateral diffuse infiltrates, mucus plugging of bilateral lower lobes -will perform sedation holiday Patient is at day 16 of his intubation and not been able wean. The son is agreeable for trach and PEG. -04/18: PEG tube inserted -04/21 : tracheostomy performed, CXR shows good placement. He is a candidate for LTAC for weaning. His resp rate remains high for unclear reasons. I added Fentanyl for acute pain control, just had a trach today, has decubitus ulcer. He had an acceptable TSH on admission, no evidence of thyroid dysfunction. He is oxygenating on 30% and is AC mode. -04/22 : Still oxygenating on AC mode and 30%, enteral pain meds added to control his baseline pain; he has chronic pain, uses hydromorphone/Dilaudid at home, started through peg and IV fentanyl. This was started through the PEG. This may help decrease his respiratory rate. 04/23 : Same vent settings 30% TV 500 PEEP 5 rate 18 04/24 : Maintaining saturation on same vent settings AC 18 500 30% PEEP 5; ABG 7.38, pCO2 34, PO2 72.6, saturation 94%
[2022-04-24 16:14] LABS: Anion Gap 12 mmol/L (8-16); Blood Urea Nitrogen 21 mg/dL (9-20); Calcium 8.1 mg/dL (8.4-10.2); Carbon Dioxide 21 mmol/L (22-30); Chloride 110 mmol/L (98-107); Estimated CRCL calculation 182 ml/min; Estimated Glomerular Filt Rate > 60; Glucose 164 mg/dL (65-110); Potassium 3.4 mmol/L (3.4-5.0); Sodium 143 mmol/L (137-145)
[2022-04-24 17:05] LABS: Glucose Point of Care 133 mg/dl (65-105)
[2022-04-24 18:29] LABS: Glucose Point of Care 141 mg/dl (65-105)
[2022-04-24] MEDS: PROPOFOL IV EMULSION 100 ML 12.78 MG IV CONT (18:48)
[2022-04-24] MEDS: INSULIN GLARGINE (*BKC) 100 UNITS/ML 35 UNITS SUB-Q (20:40)
[2022-04-24] MEDS: QUEtiapine FUMARATE 12.5 MG TABLET PO (20:41)
[2022-04-24] MEDS: DULoxetine HCL 60 MG CAPSULE.DR PO (20:41)
[2022-04-24] MEDS: MINERAL OIL/WHITE PETROLATUM OINTMENT 1 APPLIC EACH EYE (20:42)
[2022-04-24 21:04] LABS: Glucose Point of Care 149 mg/dl (65-105)
[2022-04-24 23:43] LABS: Glucose Point of Care 139 mg/dl (65-105)
[2022-04-25] VITALS (40 sets, daily range): BP systolic 97–144; BP diastolic 56–82; PULSE 72–98; RESP 14–30; TEMP 37.7–38.7; O2SAT 95–100
[2022-04-25] MEDS: PROPOFOL IV EMULSION 100 ML 12.78 MG IV CONT (02:10)
[2022-04-25] MEDS: ALBUTEROL SULFATE NEB 2.5 MG/3 ML INH INHALATION ×4 (02:15→21:19)
[2022-04-25] MEDS: fentaNYL CITRATE INJ (*CRX) 100 MCG/2 ML VIAL 50 MCG IV PUSH (03:21)
[2022-04-25] MEDS: CENTRAL LINE FLUSH 10 ML IV PUSH ×3 (05:07→20:38)
[2022-04-25] MEDS: HYDROmorphone HCL (*CRX) 2 MG TABLET PO (05:07)
[2022-04-25 05:15] LABS: Hematocrit 25.1 % (42.0-52.0); Hemoglobin 7.5 g/dL (14.0-18.0); Mean Corpuscular HGB Conc 29.9 g/dl (32-36); Mean Corpuscular Hemoglobin 24.9 pg (26-34); Mean Corpuscular Volume 83.4 fl (80-100); Mean Platelet Volume 9.4 fl (7.4-10.4); Platelet Count Result 239 k/mm3 (150-375); Red Blood Count 3.01 M/mm3 (4.6-6.20); Red Cell Distribution Width 16.4 % (11.5-14.5); White Blood Count 8.6 K/mm3 (4.5-10.0)
[2022-04-25 05:26] LABS: Alanine Aminotransferase 9 U/L (6-50); Albumin Level 3.1 g/dL (3.5-5.1); Alkaline Phosphatase 190 U/L (38-126); Anion Gap 11 mmol/L (8-16); Aspartate Amino Transferase 20 U/L (17-59); Bilirubin,Total 0.3 mg/dL (0.2-1.3); Blood Urea Nitrogen 23 mg/dL (9-20); Calcium 8.3 mg/dL (8.4-10.2); Carbon Dioxide 21 mmol/L (22-30); Chloride 111 mmol/L (98-107); Estimated CRCL calculation 182 ml/min; Estimated Glomerular Filt Rate > 60; Glucose 146 mg/dL (65-110); Magnesium 1.9 mg/dL (1.6-2.3); Potassium 3.9 mmol/L (3.4-5.0); Sodium 143 mmol/L (137-145)
[2022-04-25 06:00] LABS: Anisocytosis 1+ (NORMAL); Band Neutrophils Percent 14 % (0-6); Giant Platelets Present; Lymphocytes Absolute Manual 0.86 K/mm3 (1.1-4.5); Microcytosis 1+ (NORMAL); Monocytes Absolute Manual 0.17 K/mm3 (0.1-0.90); Monocytes Percent Manual 2 % (3-9); Neutrophils Absolute Manual 7.56 K/mm3 (1.3-6.7); Neutrophils Percent Manual 74 % (46-73); Platelet Estimate Adequate (Adequate); Total Cells Counted 100
[2022-04-25 06:01] LABS: Macrocytosis 1+ (NORMAL); Schistocytes None Seen (NORMAL)
[2022-04-25] MEDS: ACETAMINOPHEN ELIXIR 325 MG/10.15 ML UDC 650 MG FEED TUBE ×3 (07:57→16:26)
[2022-04-25] MEDS: PARoxetine 20 MG TABLET 40 MG PO (08:00)
[2022-04-25] MEDS: ENOXAPARIN 40 MG/0.4 ML SYRINGE SUB-Q (08:01)
[2022-04-25] MEDS: METOPROLOL TARTRATE 25 MG TABLET PO (08:02)
[2022-04-25] MEDS: SUCRALFATE SUSP 100 MG/ML 10 ML UDC 1000 MG FEED TUBE ×4 (08:02→20:38)
[2022-04-25] MEDS: DULoxetine HCL 60 MG CAPSULE.DR PO ×2 (08:02→20:36)
[2022-04-25] MEDS: QUEtiapine FUMARATE 12.5 MG TABLET PO (08:02)
[2022-04-25] MEDS: DOCUSATE SODIUM LIQ 100 MG/10 ML UDC FEED TUBE ×2 (08:02→20:37)
[2022-04-25] MEDS: LORATADINE 10 MG TABLET FEED TUBE (08:03)
[2022-04-25] MEDS: FERROUS SULFATE LIQUID 325 MG/7.4 ML ELIXIR FEED TUBE ×2 (08:03→16:25)
[2022-04-25] MEDS: PANTOPRAZOLE SODIUM IV 40 MG VIAL IV PUSH (08:03)
[2022-04-25] MEDS: COLLAGENASE OINT 30 GM TUBE 1 APPLIC TOPICAL (08:05)
[2022-04-25] MEDS: SILVERGEL (ELTA) 45 ML 1 APPLIC TOPICAL (08:05)
[2022-04-25] MEDS: FLUCONAZOLE 200 MG/NACL 100 ML 200 MG/100 ML BAG 100 MG IVPB (08:29)
[2022-04-25] MEDS: PROPOFOL IV EMULSION 100 ML 7.67 MG IV CONT (09:05)
--- NOTE | 2022-04-25 09:30 | WPDINTPN ---
Progress Note: A&P Assessment and Plan (1) Fever: Code(s): R50.9 - Fever, unspecified Status: Acute Assessment and Plan: 04/14: Patient was febrile overnight with a T-max of 102.3?, blood cultures have been next, UA was positive for leukocyte esterase, trace bacteria, positive for budding yeast. Patient was status post 10 days of Zosyn, 8 days of azithromycin -04/15/2022: CT scan of the chest abdomen and pelvis Diffuse lung disease will mucus plugging in the lower lobes, cirrhosis of the liver with portal venous hypertension. 2 x 2 left adrenal mass, 7.9 x 2.4 x 7.1 cystic mass in the subcutaneous fat in the right anterior abdominal wall. Sacral decubitus ulcer with sacrococcygeal osteomyelitis -04/15/2022: Bilateral upper extremity venous Dopplers were negative for DVT -04/15/2022: Bilateral lower extremity venous Dopplers were negative for DVT -04/14/2022 : Urine culture grew Lenka glabrata 04/14 blood cultures: Preliminary report, no growth 08/03 bottles 04/14 decubitus ulcer culture: MRSA which is sensitive to vancomycin 04/14/2022 sputum culture growing Alcaligenes xylosoxidans which is sensitive to imipenem -patient was started on imipenem, vancomycin and micafungin (04/15). Micafungin was discontinued and switched to on Diflucan (04/19) for Lenka glabrata in the urine 04/23 fevers recurred. Bilateral upper extremity Dopplers were negative for DVT. His WBC is normal. I will check procalcitonin 04/24 repeat sputum blood and urine cultures were sent. -check lipase -will try to obtain peripheral IV access and remove PICC line if fever persists (2) Acute respiratory failure with hypoxia: Code(s): J96.01 - Acute respiratory failure with hypoxia Status: Acute Assessment and Plan: Acute Respiratory failure secondary to pneumonia which to most likely aspiration, could be community-acquired.? Also there could be component of CHF since he had elevated BNP 04/05 Patient was urgently intubated this morning respiratory distress hypoxia and inability to tolerate NIPPV 04/06 patient self-extubated and was reintubated ABGs reviewed? he is on 30% FiO2 and 5 of PEEP.? Patient continues to be tachypneic despite being on sedation sedation continue tidal volume of 500 ml,? Monitor closely Chest x-ray and ABGs reviewed Continue Bronchodilators -patient has been self diuresing adequately will continue to monitor COVID PCR was negative 04/15:? CT chest continues to show bilateral diffuse infiltrates, mucus plugging of bilateral lower lobes -will perform sedation holiday Patient is at day 16 of his intubation and not been able wean.? The son is agreeable? for trach and PEG.? -04/18: ? PEG tube inserted -04/21 : tracheostomy performed, CXR shows good placement. He is a candidate for LTAC for weaning. His resp rate remains high for unclear reasons. His oxygenating adequately on 30-40% FiO2. Patient was started on Dilaudid per tube for pain control He has also been started on p.r.n. clonazepam, home Paxil and Cymbalta. He continues to require propofol infusion. I will try to wean down propofol I have switched him to pressure support ventilation with high pressure support which appears to be better as his respiratory rate improved and came down into 20s. I will continue pressure support ventilation as tolerated. He was also started on Seroquel which I will increase the dose He had an acceptable TSH on admission, no evidence of thyroid dysfunction.? He is oxygenating on 30% and is AC mode. (3) Sepsis: Code(s): A41.9 - Sepsis, unspecified organism Status: Acute Assessment and Plan: On presentation patient met criteria for sepsis likely secondary to pneumonia and UTI He has received adequate amount of IV fluids and will hold further IV fluids at this time His lactic acid level was normal but His procalcitonin level is elevated suggestive of infection Initial Blood, sputum and culture are all negative s
[2022-04-25 10:48] LABS: Lipase 54 U/L (23-300)
--- NOTE | 2022-04-25 11:20 | PCNFU ---
Nutrition Follow-Up Complete: Increased Protein needs as related to wounds as evidenced by Pressure Ulcers reported Goal; Meet estimated nutritional needs Patient is progressing towards goal. We will continue current goal. Pt current nutrition is Vital AF 1.2 at 60 ml/hr over 22 hours. Last recorded weight is 87.1 kg, up from 86.3 kg on admit. Bowel Motility:ostomy Labs Reviewed:Cr 0.4, BUN 23Hgb 7.5, Hct 25.1, Alb 3.1 Meds Noted:Paxil, Atrovent, Dilaudid, Colace, Cymbalta,Lovenox Skin: Pressure injuries Stage IV sacrum, Unstageable BL heels, Knee stage II Additional Notes: Patient current with trach and peg. Tube feedings of Vital AR 1.2 at 60 ml/hr over 22 hours which is providing 1584 kcals/99 gms protein/1071 ml water. This is currently meeting 72% caloric needs and 66% protein needs. Plans to hold the propofol today. If he tolerates, plans to advance the tube feedings to goal rate of 75 ml/hr which will provide 1980 kcals/124 gms protein/1338 ml water. Free water flush 30 ml q 4 hours. Protein Modular of Nimesh BID for wound healing providing an additional 90 kcals. Plans for LTAC once medically ready for discharge. Agree with diet orders. Will monitor in ICU rounds and reassess every Sunday and Sunday.
[2022-04-25] MEDS: HYDROmorphone HCL (*CRX) 2 MG TABLET FEED TUBE ×2 (11:22→17:09)
[2022-04-25 12:02] LABS: Glucose Point of Care 182 mg/dl (65-105)
[2022-04-25] MEDS: LORazepam INJ (*CRX) 2 MG/ML VIAL IV PUSH (12:38)
--- NOTE | 2022-04-25 15:55 | PM.IMPN ---
Progress Note: A&P Assessment and Plan (1) Fever: Code(s): R50.9 - Fever, unspecified Status: Acute Assessment and Plan: Patient febrile 04/13: Blood culture sent UA positive sputum grew Gram-negative rods. Wound culture with positive for Staph aureus. CT chest with diffuse lung disease consistent with pneumonia new cuts [place] in lower lobes. Cirrhosis of liver with portal hypertension. 2 x 2 left adrenal mass, 7.9 x 2.4 x 7.1 cystic mass in the subcutaneous fat in the in right anterior abdominal wall. Sacral decubitus ulcer with sacral coccygeal osteomyelitis. -04/15/2022: Bilateral upper extremity venous Dopplers were negative for DVT -04/15/2022: Bilateral lower extremity venous Dopplers were negative for DVT -04/14/2022 : Urine culture growing yeast 04/14 blood cultures: Preliminary report, no growth 08/03 bottles 04/14 decubitus ulcer culture: MRSA which is sensitive to vancomycin 04/14/2022 sputum culture growing Alcaligenes xylosoxidans which is sensitive to imipenem -patient was started on imipenem, vancomycin and micafungin (04/15). Micafungin discontinued 04/19 And started on Diflucan on 04/19 for Lenka glabrata in urine. 04/23: Fever overnight. Will panculture. He remains on vancomycin imipenem an and Diflucan. Will check venous duplex to rule out DVT. Resume his Lovenox that has been held for tracheostomy. 04/24: fever is improved. blood culture neg to date. remains on vanc impienema nd diflucan. venous duplex negative. cxr with worsening opacities. will give a dose of lasix. repalce potassium. resume lovenox as h and h stable. 04/25 fever persist. Respiratory culture with Acinetobacter. Awaiting sensitivity. Already on vanc imipenem and Diflucan. Chest x-ray reviewed. UA was negative. Blood cultures growth to date (2) Acute respiratory failure with hypoxia: Code(s): J96.01 - Acute respiratory failure with hypoxia Status: Acute Assessment and Plan: Acute Respiratory failure secondary to pneumonia which to most likely aspiration could be community-acquired. Also there could be component of CHF since he had elevated BNP 04/05 Patient was urgently intubated this morning respiratory distress hypoxia and inability to tolerate NIPPV 04/06 patient self-extubated and was reintubated Continue Bronchodilators -patient has been self diuresing adequately will continue to monitor -04/14 sputum cultures growing Gram-negative bacilli, COVID PCR was negative 04/15: CT chest continues to show bilateral diffuse infiltrates, mucus plugging of bilateral lower lobes status post tracheostomy 04/21/2022 PEG inserted 04/18/2022 On propofol for sedation taper off propofol add clonazepam at bedtime prn also on p.r.n. Ativan (3) Sepsis: Code(s): A41.9 - Sepsis, unspecified organism Status: Acute Assessment and Plan: On presentation patient met criteria for sepsis likely secondary to pneumonia and UTI He has received adequate amount of IV fluids and will hold further IV fluids at this time His lactic acid level was normal but His procalcitonin level is elevated suggestive of infection Initial Blood, sputum and culture are all negative so far Continue Zosyn for total of 10 days, Discontinued Zithromax (04/12). Discontinued vancomycin as all cultures are negative for now Urine Legionella is Negative pneumococcal antigen is negative Mycoplasma IgM is negative See above (4) Aspiration pneumonia: Code(s): J69.0 - Pneumonitis due to inhalation of food and vomit Status: Acute Assessment and Plan: See above (5) Multifocal pneumonia: Code(s): J18.9 - Pneumonia, unspecified organism Status: Acute Assessment and Plan: See above (6) Chronic anemia: Code(s): D64.9 - Anemia, unspecified Status: Acute Assessment and Plan: 04/08 Hemoglobin has trended down to 6.7 . Transfuse 1 unit of PRBC No obvious signs of bleeding On PPI q.1
[2022-04-25 18:18] LABS: Glucose Point of Care 148 mg/dl (65-105)
[2022-04-25] MEDS: INSULIN GLARGINE (*BKC) 100 UNITS/ML 35 UNITS SUB-Q (20:35)
[2022-04-25] MEDS: QUEtiapine FUMARATE 25 MG TABLET PO (20:36)
[2022-04-25] MEDS: MINERAL OIL/WHITE PETROLATUM OINTMENT 1 APPLIC EACH EYE (20:36)
[2022-04-25] MEDS: PREGABALIN (*CRX) 75 MG CAPSULE 300 MG PO (20:37)
[2022-04-25] MEDS: METOPROLOL TARTRATE 25 MG TABLET FEED TUBE (20:37)
[2022-04-25 20:58] LABS: Glucose Point of Care 140 mg/dl (65-105)
[2022-04-26] VITALS (33 sets, daily range): BP systolic 93–127; BP diastolic 55–74; PULSE 65–88; RESP 17–22; TEMP 37.1–38.3; O2SAT 94–99
[2022-04-26 00:06] LABS: Glucose Point of Care 156 mg/dl (65-105)
[2022-04-26] MEDS: HYDROmorphone HCL (*CRX) 2 MG TABLET FEED TUBE ×4 (00:14→17:39)
[2022-04-26] MEDS: ACETAMINOPHEN ELIXIR 325 MG/10.15 ML UDC 650 MG FEED TUBE ×4 (00:14→23:59)
[2022-04-26 02:43] LABS: Vancomycin Trough 12.4 ug/mL (10.0-20.0)
[2022-04-26] MEDS: ALBUTEROL SULFATE NEB 2.5 MG/3 ML INH INHALATION ×4 (02:45→20:28)
[2022-04-26] MEDS: IPRATROPIUM BR 0.02% INH SOLN 0.5 MG/2.5 ML VIAL INHALATION ×2 (02:45→20:28)
[2022-04-26 05:48] LABS: Basophils Percent Auto 0.2 % (0.2-1.2); Eosinophils Percent Auto 0.2 % (0-4.4); Hematocrit 24.3 % (42.0-52.0); Hemoglobin 7.2 g/dL (14.0-18.0); Immature Granulocyte Absolute 0.04 K/mm3 (0.00-0.031); Immature Granulocyte Percent A 0.5 % (0-0.5); Lymphocytes Absolute Auto 0.83 K/mm3 (0.9-3.2); Lymphocytes Percent Auto 10.3 % (18.3-44.2); Mean Corpuscular HGB Conc 29.6 g/dl (32-36); Mean Corpuscular Hemoglobin 25.4 pg (26-34); Mean Corpuscular Volume 85.6 fl (80-100); Mean Platelet Volume 9.4 fl (7.4-10.4); Monocytes Absolute Auto 0.5 K/mm3 (0.1-0.6); Monocytes Percent Auto 5.7 % (2.6-8.5); Neutrophils Absolute Auto 6.7 K/mm3 (1.3-6.7); Neutrophils Percent Auto 83.1 % (45.5-73.1); Platelet Count Result 209 k/mm3 (150-375); Red Blood Count 2.84 M/mm3 (4.6-6.20); Red Cell Distribution Width 16.5 % (11.5-14.5)
[2022-04-26 05:58] LABS: Alveolar/Arterial O2 Gradient 145.8 mmHg; Base Excess ABG -2.7 mEq/l (+/-2.0); Carboxyhemoglobin 0.3 % THb (0-2.0); Fractional Inspired Oxygen 40 %; HCO3 ABG 23.2 mEq/l (22.0-26.0); Methemoglobin ABG 0.4 %THb (0-1.5); Oxygen Content ABG 13.1 %vol (16.0-22.0); Oxyhemoglobin 95.1 % THb (90.0-100.0); PCO2 ABG 45.4 mmHg (35.0-45.0); PO2 ABG 87.2 mmHg (80.0-100.0); PO2 FiO2 Ratio Arterial Blood 2.18 %; Reduced Hemoglobin 4.2 %THb (0-5.0); Total Hemoglobin 9.7 g/dL (12.0-18.0); pH ABG 7.327 (7.350-7.450)
[2022-04-26 05:59] LABS: Arterial Blood Gas PEEP 5 cmH2O; Arterial Blood Gas Tidal Volume 500 ml; Arterial Blood Gas Vent Mode CMV; Arterial Blood Gas Ventilator rate 18 /MIN; Device VENTILATOR; Modified Allen's Test Pass; Site Drawn LEFT RADIAL
[2022-04-26] MEDS: CENTRAL LINE FLUSH 10 ML IV PUSH ×3 (06:19→21:47)
[2022-04-26] MEDS: LANSOPRAZOLE ORAL SUSP 30 MG/10 ML ORAL.SUSP FEED TUBE (06:23)
[2022-04-26 06:52] LABS: Platelet Estimate Adequate (Adequate)
[2022-04-26 06:53] LABS: Anisocytosis 1+ (NORMAL); Hypochromasia 1+ (NORMAL); Ovalocytes 1+ (NORMAL)
[2022-04-26 07:01] LABS: Alanine Aminotransferase 9 U/L (6-50); Albumin Level 2.9 g/dL (3.5-5.1); Alkaline Phosphatase 164 U/L (38-126); Anion Gap 13 mmol/L (8-16); Aspartate Amino Transferase 19 U/L (17-59); Bilirubin,Total 0.2 mg/dL (0.2-1.3); Blood Urea Nitrogen 23 mg/dL (9-20); Calcium 8.3 mg/dL (8.4-10.2); Carbon Dioxide 21 mmol/L (22-30); Chloride 108 mmol/L (98-107); Estimated CRCL calculation 182 ml/min; Estimated Glomerular Filt Rate > 60; Glucose 207 mg/dL (65-110); Potassium 3.4 mmol/L (3.4-5.0); Sodium 142 mmol/L (137-145)
[2022-04-26 07:20] LABS: Schistocytes None Seen (NORMAL)
[2022-04-26] MEDS: POTASSIUM CHLORIDE 20 MEQ PACKET (FOR LIQUID) 40 MEQ FEED TUBE (08:59)
[2022-04-26] MEDS: DOCUSATE SODIUM LIQ 100 MG/10 ML UDC FEED TUBE ×2 (08:59→20:04)
[2022-04-26] MEDS: METOPROLOL TARTRATE 25 MG TABLET FEED TUBE ×2 (09:00→20:05)
[2022-04-26] MEDS: DULoxetine HCL 60 MG CAPSULE.DR PO ×2 (09:01→20:05)
[2022-04-26] MEDS: LORATADINE 10 MG TABLET FEED TUBE (09:01)
[2022-04-26] MEDS: SUCRALFATE SUSP 100 MG/ML 10 ML UDC 1000 MG FEED TUBE ×4 (09:02→20:07)
[2022-04-26] MEDS: FERROUS SULFATE LIQUID 325 MG/7.4 ML ELIXIR FEED TUBE ×2 (09:04→17:39)
[2022-04-26] MEDS: PARoxetine 20 MG TABLET 40 MG PO (09:04)
[2022-04-26] MEDS: ENOXAPARIN 40 MG/0.4 ML SYRINGE SUB-Q (09:05)
[2022-04-26] MEDS: SILVERGEL (ELTA) 45 ML 1 APPLIC TOPICAL (09:06)
[2022-04-26] MEDS: QUEtiapine FUMARATE 25 MG TABLET PO ×2 (09:06→20:05)
[2022-04-26] MEDS: COLLAGENASE OINT 30 GM TUBE 1 APPLIC TOPICAL (09:07)
[2022-04-26] MEDS: PREGABALIN (*CRX) 75 MG CAPSULE 300 MG PO ×2 (09:07→20:09)
[2022-04-26] MEDS: FLUCONAZOLE 200 MG/NACL 100 ML 200 MG/100 ML BAG 100 MG IVPB (09:27)
--- NOTE | 2022-04-26 10:57 | WPDINTPN ---
Progress Note: A&P Assessment and Plan (1) Fever: Code(s): R50.9 - Fever, unspecified Status: Acute Assessment and Plan: 04/14: Patient was febrile overnight with a T-max of 102.3?, blood cultures have been next, UA was positive for leukocyte esterase, trace bacteria, positive for budding yeast. Patient was status post 10 days of Zosyn, 8 days of azithromycin -04/15/2022: CT scan of the chest abdomen and pelvis Diffuse lung disease will mucus plugging in the lower lobes, cirrhosis of the liver with portal venous hypertension. 2 x 2 left adrenal mass, 7.9 x 2.4 x 7.1 cystic mass in the subcutaneous fat in the right anterior abdominal wall. Sacral decubitus ulcer with sacrococcygeal osteomyelitis -04/15/2022: Bilateral upper extremity venous Dopplers were negative for DVT -04/15/2022: Bilateral lower extremity venous Dopplers were negative for DVT -04/14/2022 : Urine culture grew Lenka glabrata 04/14 blood cultures: Preliminary report, no growth / bottles 04/14 decubitus ulcer culture: MRSA which is sensitive to vancomycin 04/14/2022 sputum culture growing Alcaligenes xylosoxidans which is sensitive to imipenem 04/23 fevers recurred. Bilateral upper extremity Dopplers were negative for DVT. His WBC is normal. I will check procalcitonin 04/23 repeat blood cultures negative x2 04/23 repeat sputum culture growing Acinetobacter baumannii sensitive to Unasyn, ceftazidime, gentamicin and tobramycin -continue vancomycin and micafungin (04/15). Micafungin was discontinued and switched to on Diflucan (04/19) for Lenka glabrata in the urine -discontinue imipenem as the Acinetobacter is resistant to imipenem. Started patient on Unasyn (04/26) -will try to obtain peripheral IV access and remove PICC line if fever persists (2) Acute respiratory failure with hypoxia: Code(s): J96.01 - Acute respiratory failure with hypoxia Status: Acute Assessment and Plan: Acute Respiratory failure secondary to pneumonia which to most likely aspiration, could be community-acquired.? Also there could be component of CHF since he had elevated BNP 04/05 Patient was urgently intubated this morning respiratory distress hypoxia and inability to tolerate NIPPV 04/06 patient self-extubated and was reintubated ABGs reviewed? he is on 30% FiO2 and 5 of PEEP.? Patient continues to be tachypneic despite being on sedation sedation continue tidal volume of 500 ml,? Monitor closely Chest x-ray and ABGs reviewed Continue Bronchodilators -patient has been self diuresing adequately will continue to monitor COVID PCR was negative 04/15:? CT chest continues to show bilateral diffuse infiltrates, mucus plugging of bilateral lower lobes -will perform sedation holiday -04/18: ? PEG tube inserted -04/21 : tracheostomy performed, CXR shows good placement. He is a candidate for LTAC for weaning. His resp rate remains high for unclear reasons. His oxygenating adequately on 30-40% FiO2. Patient was started on Dilaudid per tube for pain control He has also been started on p.r.n. clonazepam, home Paxil and Cymbalta. He continues to require propofol infusion. I will try to wean down propofol I have switched him to pressure support ventilation with high pressure support which appears to be better as his respiratory rate improved and came down into 20s. I will continue pressure support ventilation as tolerated. He was also started on Seroquel which I will increase the dose He had an acceptable TSH on admission, no evidence of thyroid dysfunction.? He is oxygenating on 30% and is AC mode. WILL PLACE PT ON ASV mode (3) Sepsis: Code(s): A41.9 - Sepsis, unspecified organism Status: Acute Assessment and Plan: On presentation patient met criteria for sepsis likely secondary to pneumonia and UTI He has received adequate amount of IV fluids and will hold further IV fluids at this time His lactic acid level was normal but His procalcitoni
--- NOTE | 2022-04-26 10:58 | PCFNICU ---
ICU Rounding Note: Pt current nutrition is Vital AF 1.2 at 70 ml/hr. Nutrition recommendation:Goal rate 75 ml/hr Last recorded weight is 86.8 kg, stable. Bowel Motility: ostomy Labs Reviewed:Glu 207, Cr 0.4,BUN 23, Alb 2.9,Hgb 7.2,Hct 24.3 Meds Noted:Paxil, Atrovent, Dilaudid, Colace, Cymbalta,Lovenox Skin:Pressure injuries Stage IV sacrum, Unstageable BL heels, Knee stage II Additional Notes: Patient is current with Trach and PEG. Propofol has been discontinued. Tube feedings are increasing to goal rate of 75 ml/hr today which will provide 1980 kcals/124 gms protein/1338 ml water. Free water flush 30 ml q 4 hours. Protein Modular of Nimesh BID for wound healing providing an additional 90 kcals. Plans for LTAC once medically ready for discharge. Agree with diet orders. Following daily in ICU rounds. Will monitor in ICU rounds and reassess every Sunday and Sunday.
[2022-04-26] MEDS: AMPICILLIN SULB 3 GM/NS 100 ML 3 GM/100 ML VIAL IVPB ×4 (11:30→23:59)
--- NOTE | 2022-04-26 11:42 | PM.IMPN ---
Progress Note: A&P Assessment and Plan (1) Fever: Code(s): R50.9 - Fever, unspecified Status: Acute Assessment and Plan: Patient febrile 04/13: Blood culture sent UA positive sputum grew Gram-negative rods. Wound culture with positive for Staph aureus. CT chest with diffuse lung disease consistent with pneumonia new cuts [place] in lower lobes. Cirrhosis of liver with portal hypertension. 2 x 2 left adrenal mass, 7.9 x 2.4 x 7.1 cystic mass in the subcutaneous fat in the in right anterior abdominal wall. Sacral decubitus ulcer with sacral coccygeal osteomyelitis. -04/15/2022: Bilateral upper extremity venous Dopplers were negative for DVT -04/15/2022: Bilateral lower extremity venous Dopplers were negative for DVT -04/14/2022 : Urine culture growing yeast 04/14 blood cultures: Preliminary report, no growth 08/03 bottles 04/14 decubitus ulcer culture: MRSA which is sensitive to vancomycin 04/14/2022 sputum culture growing Alcaligenes xylosoxidans which is sensitive to imipenem -patient was started on imipenem, vancomycin and micafungin (04/15). Micafungin discontinued 04/19 And started on Diflucan on 04/19 for Lenka glabrata in urine. 04/23: Fever overnight. Will panculture. He remains on vancomycin imipenem an and Diflucan. Will check venous duplex to rule out DVT. Resume his Lovenox that has been held for tracheostomy. 04/24: fever is improved. blood culture neg to date. remains on vanc impienema nd diflucan. venous duplex negative. cxr with worsening opacities. will give a dose of lasix. replace potassium. resume lovenox as h and h stable. 04/25 fever persist. Respiratory culture with Acinetobacter. Awaiting sensitivity. Already on vanc imipenem and Diflucan. Chest x-ray reviewed. UA was negative. Blood cultures no growth to date 04/26 low-grade fever remains, continue current management (2) Acute respiratory failure with hypoxia: Code(s): J96.01 - Acute respiratory failure with hypoxia Status: Acute Assessment and Plan: Acute Respiratory failure secondary to pneumonia which to most likely aspiration could be community-acquired. Also there could be component of CHF since he had elevated BNP 04/05 Patient was urgently intubated this morning respiratory distress hypoxia and inability to tolerate NIPPV 04/06 patient self-extubated and was reintubated Continue Bronchodilators -patient has been self diuresing adequately will continue to monitor -04/14 sputum cultures growing Gram-negative bacilli, COVID PCR was negative 04/15: CT chest continues to show bilateral diffuse infiltrates, mucus plugging of bilateral lower lobes status post tracheostomy 04/21/2022 PEG inserted 04/18/202204/26:off all sedation (3) Sepsis: Code(s): A41.9 - Sepsis, unspecified organism Status: Acute Assessment and Plan: On presentation patient met criteria for sepsis likely secondary to pneumonia and UTI He has received adequate amount of IV fluids and will hold further IV fluids at this time His lactic acid level was normal but His procalcitonin level is elevated suggestive of infection Initial Blood, sputum and culture are all negative so far Continue Zosyn for total of 10 days, Discontinued Zithromax (04/12). Discontinued vancomycin as all cultures are negative for now Urine Legionella is Negative pneumococcal antigen is negative Mycoplasma IgM is negative See above (4) Aspiration pneumonia: Code(s): J69.0 - Pneumonitis due to inhalation of food and vomit Status: Acute Assessment and Plan: See above (5) Multifocal pneumonia: Code(s): J18.9 - Pneumonia, unspecified organism Status: Acute Assessment and Plan: See above (6) Chronic anemia: Code(s): D64.9 - Anemia, unspecified Status: Acute Assessment and Plan: Stable, continue PPI, status post 1 unit packed red blood cells a few days ago, monitor (7) Paraplegia, unspecifie
[2022-04-26 12:25] LABS: Glucose Point of Care 121 mg/dl (65-105)
[2022-04-26 18:10] LABS: Glucose Point of Care 195 mg/dl (65-105)
[2022-04-26 18:10] LABS: Glucose Point of Care 201 mg/dl (65-105)
[2022-04-26] MEDS: INSULIN GLARGINE (*BKC) 100 UNITS/ML 35 UNITS SUB-Q (20:06)
[2022-04-26 20:37] LABS: Glucose Point of Care 193 mg/dl (65-105)
[2022-04-27] VITALS (35 sets, daily range): BP systolic 88–133; BP diastolic 53–74; PULSE 63–81; RESP 14–22; TEMP 36.4–38.3; O2SAT 95–100
[2022-04-27 00:21] LABS: Glucose Point of Care 159 mg/dl (65-105)
[2022-04-27] MEDS: ALBUTEROL SULFATE NEB 2.5 MG/3 ML INH INHALATION ×4 (02:54→20:24)
[2022-04-27] MEDS: IPRATROPIUM BR 0.02% INH SOLN 0.5 MG/2.5 ML VIAL INHALATION ×2 (02:55→20:24)
[2022-04-27] MEDS: AMPICILLIN SULB 3 GM/NS 100 ML 3 GM/100 ML VIAL IVPB ×5 (04:53→20:36)
[2022-04-27 05:08] LABS: Basophils Percent Auto 0.4 % (0.2-1.2); Eosinophils Percent Auto 0.4 % (0-4.4); Hematocrit 23.9 % (42.0-52.0); Immature Granulocyte Absolute 0.04 K/mm3 (0.00-0.031); Immature Granulocyte Percent A 0.5 % (0-0.5); Lymphocytes Absolute Auto 0.97 K/mm3 (0.9-3.2); Lymphocytes Percent Auto 11.6 % (18.3-44.2); Mean Corpuscular HGB Conc 29.7 g/dl (32-36); Mean Corpuscular Hemoglobin 25.2 pg (26-34); Mean Corpuscular Volume 84.8 fl (80-100); Mean Platelet Volume 9.2 fl (7.4-10.4); Monocytes Absolute Auto 0.4 K/mm3 (0.1-0.6); Monocytes Percent Auto 4.7 % (2.6-8.5); Neutrophils Absolute Auto 6.9 K/mm3 (1.3-6.7); Neutrophils Percent Auto 82.4 % (45.5-73.1); Platelet Count Result 175 k/mm3 (150-375); Red Blood Count 2.82 M/mm3 (4.6-6.20); Red Cell Distribution Width 16.6 % (11.5-14.5); White Blood Count 8.4 K/mm3 (4.5-10.0)
[2022-04-27 05:22] LABS: Alanine Aminotransferase 10 U/L (6-50); Albumin Level 2.9 g/dL (3.5-5.1); Alkaline Phosphatase 182 U/L (38-126); Anion Gap 10 mmol/L (8-16); Aspartate Amino Transferase 19 U/L (17-59); Bilirubin,Total 0.3 mg/dL (0.2-1.3); Blood Urea Nitrogen 25 mg/dL (9-20); Carbon Dioxide 22 mmol/L (22-30); Chloride 108 mmol/L (98-107); Estimated CRCL calculation 182 ml/min; Estimated Glomerular Filt Rate > 60; Glucose 221 mg/dL (65-110); Potassium 3.5 mmol/L (3.4-5.0); Sodium 140 mmol/L (137-145)
[2022-04-27] MEDS: CENTRAL LINE FLUSH 10 ML IV PUSH ×3 (05:23→22:09)
[2022-04-27] MEDS: HYDROmorphone HCL (*CRX) 2 MG TABLET FEED TUBE ×4 (05:23→17:07)
[2022-04-27] MEDS: LANSOPRAZOLE ORAL SUSP 30 MG/10 ML ORAL.SUSP FEED TUBE (05:30)
[2022-04-27] MEDS: INSULIN ASPART (*BKC) 100 UNITS/ML SUB-Q (05:32)
[2022-04-27 06:14] LABS: Hemoglobin 7.1 g/dL (14.0-18.0)
--- NOTE | 2022-04-27 08:18 | PM.IMPN ---
Progress Note: A&P Assessment and Plan (1) Fever: Code(s): R50.9 - Fever, unspecified Status: Acute Assessment and Plan: Continued fevers likely multifactorial, possible sources noted below: 1. Sacrococcygeal osteomyelitis, with superficial wound culture 04/14/22 positive for MRSA, sensitive to vanc, gent, bactrim, on vancomycin since 04/04/22, this may need surgical intervention in addition to retirement IV abx 2. UTI with casi glabrata on urine culture from 04/14/22, on micafungin 04/15/22-04/19/22, then switched to diflucan which started on 04/19/22 3. Sputum culture 04/14/22 positive for alcaligenes xylosoxidans (sensitive to carbapenems, zosyn, bactrim) started on imipenem on 04/15/22, d/c on 04/19/22 in favor of unasyn 4. Sputum culture 04/23/22 positive for acinetobacter baumannii, sensitive to unasyn, gent, bactrim, resistant to zosyn + carbapenems, started on unasyn 04/26/22 when culture result posted sensitivities 5. Cystic mass of right anterior abdominal wall seen on CT 04/15: Thought to be seroma/hematoma (most likely) could possibly have developed into an abscess? 6. Viral source: flu swab sent 04/27, pending, consider antiviral treatment? Recheck COVID? 7. Consider pulm consult? Recheck chest CT to evaluate lung etiology, bronch + biopsy? Other pertinent data acquired from this admission noted below- Culture Results: 1. Blood cultures from 04/04, 04/14 and 04/23 all negative 2. MRSA swab from 04/04 negative 3. Urine culture from 04/04 negative 4. Sputum culture from 04/05 showed normal torsten only 5. Mycoplasma, legionella, pneumococcal, COVID all negative 04/04/22 Flu pending, ordered 04/27/22 CT chest 04/04: Bilateral lung disease with numerous predominantly ground glass nodules and tree-in-bud pattern in the bladder suggesting endobronchial spread of disease either atypical infection or aspiration with differential including less likely pulmonary hemorrhage, hypersensitivity pneumonitis and respiratory bronchiolitis interstitial lung disease. CT chest/abd/pelvis 04/15: 1. Diffuse lung disease, consistent with pneumonia. 2. Mucous plugging in the lower lobes. 3. Cirrhosis of the liver with portal venous hypertension. 4. 2.2 cm left adrenal mass. In the absence of known malignancy, this finding is likely an adenoma. 5. 7.9 x 2.4 x 7.1 cm cystic mass with wall calcifications in the subcutaneous fat in right anterior abdominal wall. This finding may be a seroma or chronic hematoma. 6. Sacral decubitus ulcer with sacrococcygeal osteomyelitis. 04/15/2022: Bilateral upper extremity venous Dopplers were negative for DVT 04/15/2022: Bilateral lower extremity venous Dopplers were negative for DVT Antibiotics/Antifungals: Azithromycin 04/04- (total 9 days) Vancomycin 04/04-, (total 4 days), then off for 7 days, then back on 04/15-, day 12 of treatment today (04/27/22) Zosyn 04/04-04/14 (total 11 days) Imipenem 04/15-04/26 (total 12 days) Micafungin 04/15-04/19 (total 5 days) Diflucan 04/19-, day 9 today, 04/27/22, (day 14 of total antifungal treatment) Unasyn 04/26-, day 2 today 04/27/22 (2) Acute respiratory failure with hypoxia: Code(s): J96.01 - Acute respiratory failure with hypoxia Status: Acute Assessment and Plan: 04/05 Patient urgently intubated d/t respiratory distress, hypoxia, and inability to tolerate NIPPV 04/06 Patient self-extubated and was reintubated Trach 04/21/2022 PEG 04/18/2022 (3) Sepsis: Code(s): A41.9 - Sepsis, unspecified organism Status: Acute Assessment and Plan: Appreciate critical care consultation (4) Aspiration pneumonia: Code(s): J69.0 - Pneumonitis due to inhalation of food and vomit Status: Acute Assessment and Plan: See above (5) Multifocal pneumonia: Code(s): J18.9 - Pneumonia, unspecified organism Status: Acute Assessment and Plan: See above (6) Chronic anemia: Code(s):
[2022-04-27] MEDS: ACETAMINOPHEN ELIXIR 325 MG/10.15 ML UDC 650 MG FEED TUBE (08:41)
[2022-04-27] MEDS: FLUCONAZOLE 200 MG/NACL 100 ML 200 MG/100 ML BAG 100 MG IVPB (08:49)
[2022-04-27] MEDS: FERROUS SULFATE LIQUID 325 MG/7.4 ML ELIXIR FEED TUBE ×2 (09:14→17:03)
[2022-04-27] MEDS: DOCUSATE SODIUM LIQ 100 MG/10 ML UDC FEED TUBE ×2 (09:14→20:37)
[2022-04-27] MEDS: METOPROLOL TARTRATE 25 MG TABLET FEED TUBE ×2 (09:14→22:09)
[2022-04-27] MEDS: SUCRALFATE SUSP 100 MG/ML 10 ML UDC 1000 MG FEED TUBE ×4 (09:14→20:38)
[2022-04-27] MEDS: PARoxetine 20 MG TABLET 40 MG PO (09:14)
[2022-04-27] MEDS: DULoxetine HCL 60 MG CAPSULE.DR PO ×2 (09:14→20:38)
[2022-04-27] MEDS: MINERAL OIL/WHITE PETROLATUM OINTMENT 1 APPLIC EACH EYE (09:15)
[2022-04-27] MEDS: LORATADINE 10 MG TABLET FEED TUBE (09:15)
[2022-04-27] MEDS: COLLAGENASE OINT 30 GM TUBE 1 APPLIC TOPICAL (09:15)
[2022-04-27] MEDS: ENOXAPARIN 40 MG/0.4 ML SYRINGE SUB-Q (09:15)
[2022-04-27] MEDS: QUEtiapine FUMARATE 25 MG TABLET PO ×2 (09:15→20:38)
[2022-04-27] MEDS: SILVERGEL (ELTA) 45 ML 1 APPLIC TOPICAL (09:16)
[2022-04-27] MEDS: PREGABALIN (*CRX) 75 MG CAPSULE 300 MG PO ×2 (09:20→20:37)
[2022-04-27] MEDS: SODIUM CHLORIDE 0.9% IV 250 ML 30 ML IV CONT (10:07)
[2022-04-27 11:06] LABS: Influenza Control Positive
--- NOTE | 2022-04-27 11:13 | PCFNICU ---
ICU Rounding Note: Pt current nutrition is Vital AF 1.2 at 75 ml/hr. Last recorded weight is 91 kg Bowel Motility: ostomy Labs Reviewed:Glu 221,BUN 25, Cr 0.4,Hgb 7.1,Hct 23.9,Alb 2.9 Meds Noted: Paxil, Atrovent, Dilaudid, Colace, Cymbalta,Lovenox, Lantus, NovoLog. Skin:Pressure injuries Stage IV sacrum, Unstageable BL heels, Knee stage II Additional Notes: Patient current with Trach and PEG. Patient has been excepted to LTAC. 1 unit of blood given today, Hgb dropped to 7.1 today. Tolerating tube feedings of Vital AF 1.2 at 75 ml/hr. Free water flush 30 ml q 4 hours. Agree with diet orders. Following daily in ICU rounds. Will monitor in ICU rounds and reassess every Sunday and Sunday.
[2022-04-27 12:18] LABS: Glucose Point of Care 164 mg/dl (65-105)
--- NOTE | 2022-04-27 12:38 | WPDINTPN ---
Progress Note: A&P Assessment and Plan (1) Fever: Code(s): R50.9 - Fever, unspecified Status: Acute Assessment and Plan: 04/14: Patient was febrile overnight with a T-max of 102.3?, blood cultures have been next, UA was positive for leukocyte esterase, trace bacteria, positive for budding yeast. Patient was status post 10 days of Zosyn, 8 days of azithromycin -04/15/2022: CT scan of the chest abdomen and pelvis Diffuse lung disease will mucus plugging in the lower lobes, cirrhosis of the liver with portal venous hypertension. 2 x 2 left adrenal mass, 7.9 x 2.4 x 7.1 cystic mass in the subcutaneous fat in the right anterior abdominal wall. Sacral decubitus ulcer with sacrococcygeal osteomyelitis -04/15/2022: Bilateral upper extremity venous Dopplers were negative for DVT -04/15/2022: Bilateral lower extremity venous Dopplers were negative for DVT -04/14/2022 : Urine culture grew Lenka glabrata 04/14 blood cultures: Preliminary report, no growth / bottles 04/14 decubitus ulcer culture: MRSA which is sensitive to vancomycin 04/14/2022 sputum culture growing Alcaligenes xylosoxidans which is sensitive to imipenem and beta-lactam, currently on Unasyn 04/23 fevers recurred. Bilateral upper extremity Dopplers were negative for DVT. His WBC is normal. I will check procalcitonin 04/23 repeat blood cultures negative x2 04/23 repeat sputum culture growing Acinetobacter baumannii sensitive to Unasyn, ceftazidime, gentamicin and tobramycin -patient currently on vancomycin (04/15), Diflucan (04/19) for Lenka glabrata in the urine -discontinue imipenem as the Acinetobacter is resistant to imipenem. Now on Unasyn (04/26) (2) Acute respiratory failure with hypoxia: Code(s): J96.01 - Acute respiratory failure with hypoxia Status: Acute Assessment and Plan: Acute Respiratory failure secondary to pneumonia which to most likely aspiration, could be community-acquired.? Also there could be component of CHF since he had elevated BNP 04/05 Patient was urgently intubated this morning respiratory distress hypoxia and inability to tolerate NIPPV 04/06 patient self-extubated and was reintubated ABGs reviewed? he is on 30% FiO2 and 5 of PEEP.? Patient continues to be tachypneic despite being on sedation sedation continue tidal volume of 500 ml,? Monitor closely Chest x-ray and ABGs reviewed Continue Bronchodilators -patient has been self diuresing adequately will continue to monitor COVID PCR was negative 04/15:? CT chest continues to show bilateral diffuse infiltrates, mucus plugging of bilateral lower lobes -will perform sedation holiday -04/18: ? PEG tube inserted -04/21 : tracheostomy performed, CXR shows good placement. He is a candidate for LTAC for weaning. His resp rate remains high for unclear reasons. His oxygenating adequately on 30-40% FiO2. Patient was started on Dilaudid per tube for pain control He has also been started on p.r.n. clonazepam, home Paxil and Cymbalta. He continues to require propofol infusion. I will try to wean down propofol I have switched him to pressure support ventilation with high pressure support which appears to be better as his respiratory rate improved and came down into 20s. I will continue pressure support ventilation as tolerated. He was also started on Seroquel which I will increase the dose He had an acceptable TSH on admission, no evidence of thyroid dysfunction.? He is oxygenating on 30% and is AC mode. WILL PLACE PT ON ASV mode (3) Sepsis: Code(s): A41.9 - Sepsis, unspecified organism Status: Acute Assessment and Plan: On presentation patient met criteria for sepsis likely secondary to pneumonia and UTI He has received adequate amount of IV fluids and will hold further IV fluids at this time His lactic acid level was normal but His procalcitonin level is elevated suggestive of infection Initial Blood, sputum and culture are all negative so far
[2022-04-27 15:41] LABS: Vancomycin Trough 15.3 ug/mL (10.0-20.0)
[2022-04-27] MEDS: INSULIN GLARGINE (*BKC) 100 UNITS/ML 35 UNITS SUB-Q (20:37)
[2022-04-27 20:48] LABS: Glucose Point of Care 173 mg/dl (65-105)
[2022-04-27 20:48] LABS: Glucose Point of Care 191 mg/dl (65-105)
[2022-04-28] VITALS (30 sets, daily range): BP systolic 92–134; BP diastolic 59–85; PULSE 65–87; RESP 16–22; TEMP 36.1–37.9; O2SAT 95–100
[2022-04-28] MEDS: AMPICILLIN SULB 3 GM/NS 100 ML 3 GM/100 ML VIAL IVPB ×7 (00:26→23:46)
[2022-04-28] MEDS: ACETAMINOPHEN ELIXIR 325 MG/10.15 ML UDC 650 MG FEED TUBE ×2 (00:26→16:05)
[2022-04-28] MEDS: HYDROmorphone HCL (*CRX) 2 MG TABLET FEED TUBE ×5 (00:26→23:46)
[2022-04-28 00:59] LABS: Glucose Point of Care 146 mg/dl (65-105)
[2022-04-28] MEDS: ALBUTEROL SULFATE NEB 2.5 MG/3 ML INH INHALATION ×4 (02:42→20:15)
[2022-04-28 05:05] LABS: Basophils Percent Auto 0.2 % (0.2-1.2); Eosinophils Absolute Auto 0.1 K/mm3 (0-0.3); Eosinophils Percent Auto 1.1 % (0-4.4); Hematocrit 26.3 % (42.0-52.0); Hemoglobin 7.7 g/dL (14.0-18.0); Immature Granulocyte Absolute 0.02 K/mm3 (0.00-0.031); Immature Granulocyte Percent A 0.4 % (0-0.5); Lymphocytes Absolute Auto 1.09 K/mm3 (0.9-3.2); Lymphocytes Percent Auto 19.8 % (18.3-44.2); Mean Corpuscular HGB Conc 29.3 g/dl (32-36); Mean Corpuscular Hemoglobin 24.8 pg (26-34); Mean Corpuscular Volume 84.8 fl (80-100); Mean Platelet Volume 9.5 fl (7.4-10.4); Monocytes Absolute Auto 0.3 K/mm3 (0.1-0.6); Monocytes Percent Auto 5.1 % (2.6-8.5); Neutrophils Absolute Auto 4.1 K/mm3 (1.3-6.7); Neutrophils Percent Auto 73.4 % (45.5-73.1); Platelet Count Result 170 k/mm3 (150-375); Red Cell Distribution Width 16.3 % (11.5-14.5); White Blood Count 5.5 K/mm3 (4.5-10.0)
[2022-04-28 05:13] LABS: Alanine Aminotransferase 11 U/L (6-50); Albumin Level 2.9 g/dL (3.5-5.1); Alkaline Phosphatase 183 U/L (38-126); Anion Gap 9 mmol/L (8-16); Aspartate Amino Transferase 22 U/L (17-59); Bilirubin,Total 0.4 mg/dL (0.2-1.3); Blood Urea Nitrogen 24 mg/dL (9-20); Calcium 8.3 mg/dL (8.4-10.2); Carbon Dioxide 24 mmol/L (22-30); Chloride 108 mmol/L (98-107); Estimated CRCL calculation 233 ml/min; Estimated Glomerular Filt Rate > 60; Glucose 151 mg/dL (65-110); Phosphorus 3.3 mg/dL (2.5-4.5); Potassium 3.5 mmol/L (3.4-5.0); Sodium 141 mmol/L (137-145)
[2022-04-28] MEDS: CENTRAL LINE FLUSH 10 ML IV PUSH ×3 (05:35→20:30)
[2022-04-28] MEDS: LANSOPRAZOLE ORAL SUSP 30 MG/10 ML ORAL.SUSP FEED TUBE (07:27)
[2022-04-28] MEDS: PREGABALIN (*CRX) 75 MG CAPSULE 300 MG PO ×2 (08:26→20:28)
[2022-04-28] MEDS: POTASSIUM CHLORIDE 20 MEQ PACKET (FOR LIQUID) 40 MEQ FEED TUBE (08:26)
[2022-04-28] MEDS: clonazePAM (*CRX) 0.5 MG TABLET FEED TUBE (08:26)
[2022-04-28] MEDS: QUEtiapine FUMARATE 25 MG TABLET PO ×2 (08:27→20:25)
[2022-04-28] MEDS: MINERAL OIL/WHITE PETROLATUM OINTMENT 1 APPLIC EACH EYE ×2 (08:27→20:24)
[2022-04-28] MEDS: DULoxetine HCL 60 MG CAPSULE.DR PO ×2 (08:28→20:23)
[2022-04-28] MEDS: PARoxetine 20 MG TABLET 40 MG PO (08:28)
[2022-04-28] MEDS: FUROSEMIDE INJ 40 MG/4 ML VIAL IV PUSH (08:29)
[2022-04-28] MEDS: DOCUSATE SODIUM LIQ 100 MG/10 ML UDC FEED TUBE ×2 (08:29→20:23)
[2022-04-28] MEDS: ENOXAPARIN 40 MG/0.4 ML SYRINGE SUB-Q (08:29)
[2022-04-28] MEDS: LORATADINE 10 MG TABLET FEED TUBE (08:29)
[2022-04-28] MEDS: SUCRALFATE SUSP 100 MG/ML 10 ML UDC 1000 MG FEED TUBE ×4 (08:29→20:25)
[2022-04-28] MEDS: FERROUS SULFATE LIQUID 325 MG/7.4 ML ELIXIR FEED TUBE ×2 (08:30→16:07)
[2022-04-28] MEDS: METOPROLOL TARTRATE 25 MG TABLET FEED TUBE ×2 (08:31→20:24)
[2022-04-28] MEDS: COLLAGENASE OINT 30 GM TUBE 1 APPLIC TOPICAL (08:32)
[2022-04-28] MEDS: FLUCONAZOLE 200 MG/NACL 100 ML 200 MG/100 ML BAG 100 MG IVPB (08:32)
[2022-04-28] MEDS: SILVERGEL (ELTA) 45 ML 1 APPLIC TOPICAL (08:32)
[2022-04-28] MEDS: fentaNYL CITRATE INJ (*CRX) 100 MCG/2 ML VIAL 50 MCG IV PUSH (08:47)
--- NOTE | 2022-04-28 09:43 | WPDINTPN ---
Progress Note: A&P Assessment and Plan (1) Fever: Code(s): R50.9 - Fever, unspecified Status: Acute Assessment and Plan: 04/14: Patient was febrile overnight with a T-max of 102.3?, blood cultures have been next, UA was positive for leukocyte esterase, trace bacteria, positive for budding yeast. Patient was status post 10 days of Zosyn, 8 days of azithromycin -04/15/2022: CT scan of the chest abdomen and pelvis Diffuse lung disease will mucus plugging in the lower lobes, cirrhosis of the liver with portal venous hypertension. 2 x 2 left adrenal mass, 7.9 x 2.4 x 7.1 cystic mass in the subcutaneous fat in the right anterior abdominal wall. Sacral decubitus ulcer with sacrococcygeal osteomyelitis -04/15/2022: Bilateral upper extremity venous Dopplers were negative for DVT -04/15/2022: Bilateral lower extremity venous Dopplers were negative for DVT -04/14/2022 : Urine culture grew Lenka glabrata 04/14 blood cultures: Preliminary report, no growth / bottles 04/14 decubitus ulcer culture: MRSA which is sensitive to vancomycin 04/14/2022 sputum culture growing Alcaligenes xylosoxidans which is sensitive to imipenem and beta-lactam, currently on Unasyn 04/23 fevers recurred. Bilateral upper extremity Dopplers were negative for DVT. His WBC is normal. I will check procalcitonin 04/23 repeat blood cultures negative x2 04/23 repeat sputum culture growing Acinetobacter baumannii sensitive to Unasyn, ceftazidime, gentamicin and tobramycin -patient currently on vancomycin (04/15), Diflucan (04/19) for Lenka glabrata in the urine -discontinue imipenem as the Acinetobacter is resistant to imipenem. Now on Unasyn (04/26) (2) Acute respiratory failure with hypoxia: Code(s): J96.01 - Acute respiratory failure with hypoxia Status: Acute Assessment and Plan: Acute Respiratory failure secondary to pneumonia which to most likely aspiration, could be community-acquired.? Also there could be component of CHF since he had elevated BNP 04/05 Patient was urgently intubated this morning respiratory distress hypoxia and inability to tolerate NIPPV 04/06 patient self-extubated and was reintubated -04/18: ? PEG tube inserted -04/21 : tracheostomy performed, CXR shows good placement. He is a candidate for LTAC for weaning. Most recent Chest x-ray and ABGs reviewed Continue Bronchodilators Will give dose of Lasix today Continue ASV mode COVID PCR was negative 04/15:? CT chest continues to show bilateral diffuse infiltrates, mucus plugging of bilateral lower lobes -will perform sedation holiday Patient was started on Dilaudid per tube for pain control He has also been started on p.r.n. clonazepam, home Paxil and Cymbalta. Continue p.r.n. Seroquel which I will increase the dose He had an acceptable TSH on admission, no evidence of thyroid dysfunction.? He is oxygenating on 30% and is AC mode. (3) Sepsis: Code(s): A41.9 - Sepsis, unspecified organism Status: Acute Assessment and Plan: On presentation patient met criteria for sepsis likely secondary to pneumonia and UTI He has received adequate amount of IV fluids and will hold further IV fluids at this time His lactic acid level was normal but His procalcitonin level is elevated suggestive of infection Initial Blood, sputum and culture are all negative so far Continue Zosyn for total of 10 days, Discontinued Zithromax (04/12). Discontinued vancomycin as all cultures are negative for now Urine Legionella is Negative pneumococcal antigen is negative Mycoplasma IgM is negative See above (4) Aspiration pneumonia: Code(s): J69.0 - Pneumonitis due to inhalation of food and vomit Status: Acute Assessment and Plan: See above (5) Multifocal pneumonia: Code(s): J18.9 - Pneumonia, unspecified organism Status: Acute Assessment and Plan: See above (6) Chronic anemia: Code(s): D64.9 - Anemia, un
--- NOTE | 2022-04-28 11:15 | PCNFU ---
Nutrition Follow-Up Complete: Increased Protein needs as related to wounds as evidenced by Pressure Ulcers reported Goal: Meet estimated nutritional needs Patient is meeting current nutritional needs. Pt current nutrition is Vital AF 1.2 at 75 ml/hr Last recorded weight is 91 kg, up from 86.3 kg on admit. Bowel Motility: ostomy Labs Reviewed:Hgb 7.7,Hct 26.3,Alb 2.9,Glu 151 Meds Noted:Paxil, Atrovent, Dilaudid, Colace, Cymbalta,Lovenox, Lantus, NovoLog. Skin:Pressure injuries Stage IV sacrum, Unstageable BL heels, Knee stage II Additional Notes: Patient remains current with Trach and PEG. Tube feedings of Vital AF 1.2 at 75 ml/hr and tolerating. Current tube feedings are providing patient with 1980 kcals/124 gms protein/1338 ml water. This is meeting 90% caloric needs and 83% protein needs. Protein Modular of Nimesh given BID for wound healing. Free water flush 30 ml q 4 hours. Plans for LTAC. Agree with diet orders. Will monitor in ICU rounds and reassess every Sunday and Sunday.
[2022-04-28 12:59] LABS: Glucose Point of Care 153 mg/dl (65-105)
[2022-04-28 18:10] LABS: Glucose Point of Care 138 mg/dl (65-105)
[2022-04-28 18:10] LABS: Glucose Point of Care 189 mg/dl (65-105)
[2022-04-28] MEDS: INSULIN GLARGINE (*BKC) 100 UNITS/ML 35 UNITS SUB-Q (20:29)
[2022-04-28 23:44] LABS: Glucose Point of Care 140 mg/dl (65-105)
[2022-04-29] VITALS (31 sets, daily range): BP systolic 112–153; BP diastolic 52–82; PULSE 61–95; RESP 15–25; TEMP 36.7–37.6; O2SAT 93–99
[2022-04-29] MEDS: ALBUTEROL SULFATE NEB 2.5 MG/3 ML INH INHALATION ×4 (02:34→20:21)
[2022-04-29] MEDS: AMPICILLIN SULB 3 GM/NS 100 ML 3 GM/100 ML VIAL IVPB ×5 (03:55→21:42)
[2022-04-29 05:13] LABS: Glucose Point of Care 153 mg/dl (65-105)
[2022-04-29] MEDS: LANSOPRAZOLE ORAL SUSP 30 MG/10 ML ORAL.SUSP FEED TUBE (06:01)
[2022-04-29] MEDS: HYDROmorphone HCL (*CRX) 2 MG TABLET FEED TUBE ×4 (06:01→21:42)
[2022-04-29] MEDS: CENTRAL LINE FLUSH 10 ML IV PUSH ×3 (06:01→21:43)
[2022-04-29] MEDS: fentaNYL CITRATE INJ (*CRX) 100 MCG/2 ML VIAL 50 MCG IV PUSH ×5 (07:17→19:48)
[2022-04-29] MEDS: METOPROLOL TARTRATE 25 MG TABLET FEED TUBE ×2 (08:23→19:55)
[2022-04-29] MEDS: DULoxetine HCL 60 MG CAPSULE.DR PO ×2 (08:23→19:55)
[2022-04-29] MEDS: SILVERGEL (ELTA) 45 ML 1 APPLIC TOPICAL (08:23)
[2022-04-29] MEDS: COLLAGENASE OINT 30 GM TUBE 1 APPLIC TOPICAL (08:23)
[2022-04-29] MEDS: ENOXAPARIN 40 MG/0.4 ML SYRINGE SUB-Q (08:23)
[2022-04-29] MEDS: LORATADINE 10 MG TABLET FEED TUBE (08:23)
[2022-04-29] MEDS: PARoxetine 20 MG TABLET 40 MG PO (08:23)
[2022-04-29] MEDS: DOCUSATE SODIUM LIQ 100 MG/10 ML UDC FEED TUBE ×2 (08:24→19:56)
[2022-04-29] MEDS: SUCRALFATE SUSP 100 MG/ML 10 ML UDC 1000 MG FEED TUBE ×4 (08:24→19:56)
[2022-04-29] MEDS: QUEtiapine FUMARATE 25 MG TABLET PO ×2 (08:24→19:56)
[2022-04-29] MEDS: FERROUS SULFATE LIQUID 325 MG/7.4 ML ELIXIR FEED TUBE ×2 (08:24→18:12)
[2022-04-29] MEDS: PREGABALIN (*CRX) 75 MG CAPSULE 300 MG PO ×2 (08:47→19:58)
--- NOTE | 2022-04-29 09:53 | WPDINTPN ---
Progress Note: A&P Assessment and Plan (1) Fever: Code(s): R50.9 - Fever, unspecified Status: Acute Assessment and Plan: 04/14: Patient was febrile overnight with a T-max of 102.3?, blood cultures have been next, UA was positive for leukocyte esterase, trace bacteria, positive for budding yeast. Patient was status post 10 days of Zosyn, 8 days of azithromycin -04/15/2022: CT scan of the chest abdomen and pelvis Diffuse lung disease will mucus plugging in the lower lobes, cirrhosis of the liver with portal venous hypertension. 2 x 2 left adrenal mass, 7.9 x 2.4 x 7.1 cystic mass in the subcutaneous fat in the right anterior abdominal wall. Sacral decubitus ulcer with sacrococcygeal osteomyelitis -04/15/2022: Bilateral upper extremity venous Dopplers were negative for DVT -04/15/2022: Bilateral lower extremity venous Dopplers were negative for DVT -04/14/2022 : Urine culture grew Lenka glabrata 04/14 blood cultures: Preliminary report, no growth / bottles 04/14 decubitus ulcer culture: MRSA which is sensitive to vancomycin 04/14/2022 sputum culture growing Alcaligenes xylosoxidans which is sensitive to imipenem and beta-lactam, currently on Unasyn 04/23 fevers recurred. Bilateral upper extremity Dopplers were negative for DVT. His WBC is normal. I will check procalcitonin 04/23 repeat blood cultures negative x2 04/23 repeat sputum culture growing Acinetobacter baumannii sensitive to Unasyn, ceftazidime, gentamicin and tobramycin -patient completed 10 day course of vancomycin (04/15) and Diflucan (04/19) for Lenka glabrata in the urine -discontinue imipenem as the Acinetobacter is resistant to imipenem. Now on Unasyn (04/26) which will be continued (2) Acute respiratory failure with hypoxia: Code(s): J96.01 - Acute respiratory failure with hypoxia Status: Acute Assessment and Plan: Acute Respiratory failure secondary to pneumonia which to most likely aspiration, could be community-acquired.? Also there could be component of CHF since he had elevated BNP 04/05 Patient was urgently intubated this morning respiratory distress hypoxia and inability to tolerate NIPPV 04/06 patient self-extubated and was reintubated -04/18: ? PEG tube inserted -04/21 : tracheostomy performed, CXR shows good placement. He is now waiting a placement at LTAC Most recent Chest x-ray and ABGs reviewed Continue Bronchodilators Continue ASV mode COVID PCR was negative 04/15:? CT chest continues to show bilateral diffuse infiltrates, mucus plugging of bilateral lower lobes Patient has been started on Dilaudid per tube for pain control He has also been started on p.r.n. clonazepam, home Paxil and Cymbalta. Continue p.r.n. Seroquel He had an acceptable TSH on admission, no evidence of thyroid dysfunction.? He is oxygenating on 30% and is AC mode. Patient alert awake (3) Sepsis: Code(s): A41.9 - Sepsis, unspecified organism Status: Acute Assessment and Plan: On presentation patient met criteria for sepsis likely secondary to pneumonia and UTI Urine Legionella is Negative pneumococcal antigen is negative Mycoplasma IgM is negative See above (4) Aspiration pneumonia: Code(s): J69.0 - Pneumonitis due to inhalation of food and vomit Status: Acute Assessment and Plan: See above (5) Multifocal pneumonia: Code(s): J18.9 - Pneumonia, unspecified organism Status: Acute Assessment and Plan: See above (6) Chronic anemia: Code(s): D64.9 - Anemia, unspecified Status: Acute Assessment and Plan: 04/08 Hemoglobin has trended down to 6.7 today. Transfuse 1 unit of PRBC No obvious signs of bleeding On PPI q.12 hours -hemoglobin stable Continue Lovenox for now for DVT prophylaxis (7) Paraplegia, unspecified: Code(s): G82.20 - Paraplegia, unspecified Status: Acute Assessment and Plan: Chronic paraplegia from past inju
[2022-04-29] MEDS: IPRATROPIUM BR 0.02% INH SOLN 0.5 MG/2.5 ML VIAL INHALATION (11:19)
[2022-04-29 11:27] LABS: Glucose Point of Care 173 mg/dl (65-105)
[2022-04-29 18:21] LABS: Glucose Point of Care 156 mg/dl (65-105)
[2022-04-29] MEDS: MINERAL OIL/WHITE PETROLATUM OINTMENT 1 APPLIC EACH EYE (19:56)
[2022-04-29] MEDS: clonazePAM (*CRX) 0.5 MG TABLET FEED TUBE (19:59)
[2022-04-29] MEDS: INSULIN GLARGINE (*BKC) 100 UNITS/ML 35 UNITS SUB-Q (20:16)
[2022-04-30] VITALS (26 sets, daily range): BP systolic 110–157; BP diastolic 75–84; PULSE 64–114; RESP 16–23; TEMP 36.4–38.3; O2SAT 91–97
[2022-04-30] MEDS: HYDROmorphone HCL (*CRX) 2 MG TABLET FEED TUBE ×6 (00:58→21:14)
[2022-04-30 01:07] LABS: Glucose Point of Care 156 mg/dl (65-105)
[2022-04-30] MEDS: AMPICILLIN SULB 3 GM/NS 100 ML 3 GM/100 ML VIAL IVPB ×6 (01:41→21:05)
[2022-04-30] MEDS: ALBUTEROL SULFATE NEB 2.5 MG/3 ML INH INHALATION ×4 (02:52→20:26)
[2022-04-30] MEDS: fentaNYL CITRATE INJ (*CRX) 100 MCG/2 ML VIAL 50 MCG IV PUSH ×3 (03:39→16:23)
[2022-04-30] MEDS: CENTRAL LINE FLUSH 10 ML IV PUSH ×3 (05:19→21:09)
[2022-04-30] MEDS: LANSOPRAZOLE ORAL SUSP 30 MG/10 ML ORAL.SUSP FEED TUBE (05:22)
[2022-04-30 05:31] LABS: Glucose Point of Care 167 mg/dl (65-105)
[2022-04-30] MEDS: MINERAL OIL/WHITE PETROLATUM OINTMENT 1 APPLIC EACH EYE ×2 (08:07→21:05)
[2022-04-30] MEDS: LORazepam INJ (*CRX) 2 MG/ML VIAL IV PUSH (08:07)
[2022-04-30] MEDS: SILVERGEL (ELTA) 45 ML 1 APPLIC TOPICAL (08:09)
[2022-04-30] MEDS: COLLAGENASE OINT 30 GM TUBE 1 APPLIC TOPICAL (08:09)
[2022-04-30] MEDS: FERROUS SULFATE LIQUID 325 MG/7.4 ML ELIXIR FEED TUBE ×2 (08:10→16:15)
[2022-04-30] MEDS: SUCRALFATE SUSP 100 MG/ML 10 ML UDC 1000 MG FEED TUBE ×4 (08:10→21:07)
[2022-04-30] MEDS: ENOXAPARIN 40 MG/0.4 ML SYRINGE SUB-Q (08:15)
[2022-04-30] MEDS: DULoxetine HCL 60 MG CAPSULE.DR PO ×2 (08:18→21:07)
[2022-04-30] MEDS: METOPROLOL TARTRATE 25 MG TABLET FEED TUBE ×2 (08:18→21:05)
[2022-04-30] MEDS: PARoxetine 20 MG TABLET 40 MG PO (08:19)
[2022-04-30] MEDS: LORATADINE 10 MG TABLET FEED TUBE (08:19)
[2022-04-30] MEDS: QUEtiapine FUMARATE 25 MG TABLET PO ×2 (08:20→21:09)
[2022-04-30] MEDS: DOCUSATE SODIUM LIQ 100 MG/10 ML UDC FEED TUBE ×2 (08:36→21:07)
[2022-04-30] MEDS: FUROSEMIDE INJ 40 MG/4 ML VIAL IV PUSH (08:40)
[2022-04-30] MEDS: PREGABALIN (*CRX) 75 MG CAPSULE 300 MG PO ×2 (11:04→21:04)
[2022-04-30 11:59] LABS: Glucose Point of Care 171 mg/dl (65-105)
[2022-04-30 17:46] LABS: Glucose Point of Care 162 mg/dl (65-105)
[2022-04-30] MEDS: clonazePAM (*CRX) 0.5 MG TABLET FEED TUBE (21:04)
[2022-04-30] MEDS: INSULIN GLARGINE (*BKC) 100 UNITS/ML 35 UNITS SUB-Q (21:05)
[2022-05-01] VITALS (31 sets, daily range): BP systolic 75–143; BP diastolic 49–103; PULSE 68–101; RESP 16–25; TEMP 37.2–38.1; O2SAT 90–100
[2022-05-01] MEDS: HYDROmorphone HCL (*CRX) 2 MG TABLET FEED TUBE ×6 (00:34→20:41)
[2022-05-01 00:40] LABS: Glucose Point of Care 136 mg/dl (65-105)
[2022-05-01] MEDS: AMPICILLIN SULB 3 GM/NS 100 ML 3 GM/100 ML VIAL IVPB ×6 (02:09→21:11)
[2022-05-01] MEDS: ALBUTEROL SULFATE NEB 2.5 MG/3 ML INH INHALATION ×4 (02:38→20:06)
[2022-05-01] MEDS: LANSOPRAZOLE ORAL SUSP 30 MG/10 ML ORAL.SUSP FEED TUBE (05:24)
[2022-05-01] MEDS: CENTRAL LINE FLUSH 10 ML IV PUSH ×3 (05:24→20:41)
[2022-05-01 05:43] LABS: Hematocrit 27.5 % (42.0-52.0); Hemoglobin 8.2 g/dL (14.0-18.0); Mean Corpuscular HGB Conc 29.8 g/dl (32-36); Mean Corpuscular Hemoglobin 24.9 pg (26-34); Mean Corpuscular Volume 83.6 fl (80-100); Mean Platelet Volume 9.6 fl (7.4-10.4); Platelet Count Result 153 k/mm3 (150-375); Red Blood Count 3.29 M/mm3 (4.6-6.20); Red Cell Distribution Width 16.4 % (11.5-14.5); White Blood Count 10.7 K/mm3 (4.5-10.0)
[2022-05-01 06:01] LABS: Alanine Aminotransferase 10 U/L (6-50); Albumin Level 2.9 g/dL (3.5-5.1); Alkaline Phosphatase 207 U/L (38-126); Anion Gap 8 mmol/L (8-16); Aspartate Amino Transferase 19 U/L (17-59); Bilirubin,Total 0.4 mg/dL (0.2-1.3); Blood Urea Nitrogen 19 mg/dL (9-20); Calcium 8.1 mg/dL (8.4-10.2); Carbon Dioxide 31 mmol/L (22-30); Chloride 103 mmol/L (98-107); Estimated CRCL calculation 233 ml/min; Estimated Glomerular Filt Rate > 60; Glucose 152 mg/dL (65-110); Magnesium 1.8 mg/dL (1.6-2.3); Potassium 3.2 mmol/L (3.4-5.0); Sodium 142 mmol/L (137-145)
--- NOTE | 2022-05-01 09:01 | WPDINTPN ---
Progress Note: A&P Assessment and Plan (1) Fever: Code(s): R50.9 - Fever, unspecified Status: Acute Assessment and Plan: 04/14: Patient was febrile overnight with a T-max of 102.3?, blood cultures have been next, UA was positive for leukocyte esterase, trace bacteria, positive for budding yeast. Patient was status post 10 days of Zosyn, 8 days of azithromycin -04/15/2022: CT scan of the chest abdomen and pelvis Diffuse lung disease will mucus plugging in the lower lobes, cirrhosis of the liver with portal venous hypertension. 2 x 2 left adrenal mass, 7.9 x 2.4 x 7.1 cystic mass in the subcutaneous fat in the right anterior abdominal wall. Sacral decubitus ulcer with sacrococcygeal osteomyelitis -04/15/2022: Bilateral upper extremity venous Dopplers were negative for DVT -04/15/2022: Bilateral lower extremity venous Dopplers were negative for DVT -04/14/2022 : Urine culture grew Lenka glabrata 04/14 blood cultures: Preliminary report, no growth / bottles 04/14 decubitus ulcer culture: MRSA which is sensitive to vancomycin 04/14/2022 sputum culture growing Alcaligenes xylosoxidans which is sensitive to imipenem and beta-lactam, currently on Unasyn 04/23 fevers recurred. Bilateral upper extremity Dopplers were negative for DVT. His WBC is normal. I will check procalcitonin 04/23 repeat blood cultures negative x2 04/23 repeat sputum culture growing Acinetobacter baumannii sensitive to Unasyn, ceftazidime, gentamicin and tobramycin -patient completed 10 day course of vancomycin (04/15) and Diflucan (04/19) for Lenka glabrata in the urine -discontinued imipenem as the Acinetobacter is resistant to imipenem. Now on Unasyn (04/26) which will be continued (2) Acute respiratory failure with hypoxia: Code(s): J96.01 - Acute respiratory failure with hypoxia Status: Acute Assessment and Plan: Acute Respiratory failure secondary to pneumonia which to most likely aspiration, could be community-acquired.? Also there could be component of CHF since he had elevated BNP 04/05 Patient was urgently intubated this morning respiratory distress hypoxia and inability to tolerate NIPPV 04/06 patient self-extubated and was reintubated -04/18: ? PEG tube inserted -04/21 : tracheostomy performed, CXR shows good placement. He is now waiting a placement at LTAC Most recent Chest x-ray and ABGs reviewed Continue Bronchodilators Continue ASV mode COVID PCR was negative 04/15:? CT chest continues to show bilateral diffuse infiltrates, mucus plugging of bilateral lower lobes Patient has been started on Dilaudid per tube for pain control He has also been started on p.r.n. clonazepam, home Paxil and Cymbalta. Continue p.r.n. Seroquel He had an acceptable TSH on admission, no evidence of thyroid dysfunction.? He is oxygenating on 30% and is AC mode. Patient alert awake and anxious P.r.n. Ativan Chest x-ray reviewed and shows possible pulmonary edema Lasix 40 mg IV x1 again today (3) Sepsis: Code(s): A41.9 - Sepsis, unspecified organism Status: Acute Assessment and Plan: On presentation patient met criteria for sepsis likely secondary to pneumonia and UTI Urine Legionella is Negative pneumococcal antigen is negative Mycoplasma IgM is negative See above (4) Aspiration pneumonia: Code(s): J69.0 - Pneumonitis due to inhalation of food and vomit Status: Acute Assessment and Plan: See above (5) Multifocal pneumonia: Code(s): J18.9 - Pneumonia, unspecified organism Status: Acute Assessment and Plan: See above (6) Chronic anemia: Code(s): D64.9 - Anemia, unspecified Status: Acute Assessment and Plan: 04/08 Hemoglobin has trended down to 6.7 today. Transfuse 1 unit of PRBC No obvious signs of bleeding On PPI q.12 hours -hemoglobin stable Continue Lovenox for now for DVT prophylaxis (7) Paraplegia, unspecified: Code(s): G
[2022-05-01] MEDS: KCL 40 MEQ/WATER 100 ML 100 ML 25 ML IVPB (09:33)
[2022-05-01] MEDS: POTASSIUM CHLORIDE 20 MEQ PACKET (FOR LIQUID) 40 MEQ FEED TUBE ×2 (09:33→14:00)
[2022-05-01] MEDS: PREGABALIN (*CRX) 75 MG CAPSULE 300 MG PO ×2 (09:34→20:41)
[2022-05-01] MEDS: ENOXAPARIN 40 MG/0.4 ML SYRINGE SUB-Q (09:35)
[2022-05-01] MEDS: fentaNYL CITRATE INJ (*CRX) 100 MCG/2 ML VIAL 50 MCG IV PUSH ×2 (09:35→18:41)
[2022-05-01] MEDS: LORATADINE 10 MG TABLET FEED TUBE (09:36)
[2022-05-01] MEDS: SUCRALFATE SUSP 100 MG/ML 10 ML UDC 1000 MG FEED TUBE ×4 (09:36→20:41)
[2022-05-01] MEDS: DOCUSATE SODIUM LIQ 100 MG/10 ML UDC FEED TUBE ×2 (09:36→20:41)
[2022-05-01] MEDS: FERROUS SULFATE LIQUID 325 MG/7.4 ML ELIXIR FEED TUBE ×2 (09:36→16:41)
[2022-05-01] MEDS: METOPROLOL TARTRATE 25 MG TABLET FEED TUBE ×2 (09:39→20:40)
[2022-05-01] MEDS: MINERAL OIL/WHITE PETROLATUM OINTMENT 1 APPLIC EACH EYE (09:40)
[2022-05-01] MEDS: PARoxetine 20 MG TABLET 40 MG PO (09:40)
[2022-05-01] MEDS: DULoxetine HCL 60 MG CAPSULE.DR PO ×2 (09:40→20:41)
[2022-05-01] MEDS: COLLAGENASE OINT 30 GM TUBE 1 APPLIC TOPICAL (09:41)
[2022-05-01] MEDS: SILVERGEL (ELTA) 45 ML 1 APPLIC TOPICAL (09:41)
[2022-05-01 11:41] LABS: Glucose Point of Care 154 mg/dl (65-105)
--- NOTE | 2022-05-01 11:46 | PCFNICU ---
ICU Rounding Note: Pt current nutrition Vital 1.2 @ 75 ml/h. Nutrition recommendation: Continue current Last recorded weight is 90.4 kg. Bowel Motility: Per ostomy + Labs Reviewed: Hgb 8.2, Hct 27.5, Alb 2.9, K 3.2, Creat 0.3, Glu 154 Meds Noted: Reglan, Lasix, Lantus, lovenox, protonix, vancomycin Skin: Pressure ulcers Sacrum - St 4, knee - St 2, heels unstageable Additional Notes: Patient remains current with Trach and PEG. Tube feedings of Vital AF 1.2 at 75 ml/hr and tolerating. Current tube feedings are providing patient with 1980 kcals/124 gms protein/1338 ml water. This is meeting 90% caloric needs and 83% protein needs. Protein Modular of Nimesh given BID for wound healing. Free water flush 30 ml q 4 hours. Plans for LTAC. Agree with diet orders. Following daily in ICU rounds. Will monitor in ICU rounds and reasses every Sunday and Sunday. .
[2022-05-01] MEDS: QUEtiapine FUMARATE 25 MG TABLET PO ×2 (11:53→20:41)
[2022-05-01] MEDS: FUROSEMIDE INJ 40 MG/4 ML VIAL IV PUSH (12:21)
[2022-05-01] MEDS: LORazepam INJ (*CRX) 2 MG/ML VIAL IV PUSH (13:58)
[2022-05-01 18:13] LABS: Glucose Point of Care 159 mg/dl (65-105)
[2022-05-01] MEDS: ACETAMINOPHEN ELIXIR 325 MG/10.15 ML UDC 650 MG FEED TUBE (20:41)
[2022-05-01] MEDS: clonazePAM (*CRX) 0.5 MG TABLET FEED TUBE (20:44)
[2022-05-01] MEDS: INSULIN GLARGINE (*BKC) 100 UNITS/ML 35 UNITS SUB-Q (20:59)
[2022-05-02] VITALS (12 sets, daily range): BP systolic 109–151; BP diastolic 67–85; PULSE 72–105; RESP 14–27; TEMP 36.9–37.6; O2SAT 92–96
[2022-05-02 00:41] LABS: Glucose Point of Care 144 mg/dl (65-105)
[2022-05-02] MEDS: HYDROmorphone HCL (*CRX) 2 MG TABLET FEED TUBE ×3 (00:44→08:11)
[2022-05-02] MEDS: fentaNYL CITRATE INJ (*CRX) 100 MCG/2 ML VIAL 50 MCG IV PUSH (02:38)
[2022-05-02] MEDS: AMPICILLIN SULB 3 GM/NS 100 ML 3 GM/100 ML VIAL IVPB ×2 (02:38→05:26)
[2022-05-02] MEDS: ALBUTEROL SULFATE NEB 2.5 MG/3 ML INH INHALATION ×2 (02:48→07:25)
[2022-05-02] MEDS: CENTRAL LINE FLUSH 10 ML IV PUSH (05:26)
[2022-05-02] MEDS: LANSOPRAZOLE ORAL SUSP 30 MG/10 ML ORAL.SUSP FEED TUBE (05:30)
[2022-05-02 05:52] LABS: Hemoglobin 8.2 g/dL (14.0-18.0); Mean Corpuscular HGB Conc 29.3 g/dl (32-36); Mean Corpuscular Hemoglobin 25.1 pg (26-34); Mean Corpuscular Volume 85.6 fl (80-100); Mean Platelet Volume 9.4 fl (7.4-10.4); Platelet Count Result 138 k/mm3 (150-375); Red Blood Count 3.27 M/mm3 (4.6-6.20); Red Cell Distribution Width 16.6 % (11.5-14.5); White Blood Count 11.8 K/mm3 (4.5-10.0)
[2022-05-02 06:34] LABS: Alanine Aminotransferase 10 U/L (6-50); Albumin Level 2.9 g/dL (3.5-5.1); Alkaline Phosphatase 224 U/L (38-126); Anion Gap 11 mmol/L (8-16); Aspartate Amino Transferase 21 U/L (17-59); Bilirubin,Total 0.3 mg/dL (0.2-1.3); Blood Urea Nitrogen 19 mg/dL (9-20); Calcium 8.2 mg/dL (8.4-10.2); Carbon Dioxide 31 mmol/L (22-30); Chloride 103 mmol/L (98-107); Estimated CRCL calculation 233 ml/min; Estimated Glomerular Filt Rate > 60; Glucose 140 mg/dL (65-110); Magnesium 1.9 mg/dL (1.6-2.3); Potassium 3.7 mmol/L (3.4-5.0); Sodium 145 mmol/L (137-145)
[2022-05-02 08:09] LABS: Glucose Point of Care 122 mg/dl (65-105)
[2022-05-02] MEDS: DULoxetine HCL 60 MG CAPSULE.DR PO (08:10)
[2022-05-02] MEDS: FERROUS SULFATE LIQUID 325 MG/7.4 ML ELIXIR FEED TUBE (08:10)
[2022-05-02] MEDS: QUEtiapine FUMARATE 25 MG TABLET PO (08:10)
[2022-05-02] MEDS: LORATADINE 10 MG TABLET FEED TUBE (08:10)
[2022-05-02] MEDS: SUCRALFATE SUSP 100 MG/ML 10 ML UDC 1000 MG FEED TUBE (08:10)
[2022-05-02] MEDS: DOCUSATE SODIUM LIQ 100 MG/10 ML UDC FEED TUBE (08:10)
[2022-05-02] MEDS: ENOXAPARIN 40 MG/0.4 ML SYRINGE SUB-Q (08:10)
[2022-05-02] MEDS: METOPROLOL TARTRATE 25 MG TABLET FEED TUBE (08:10)
[2022-05-02] MEDS: PARoxetine 20 MG TABLET 40 MG PO (08:10)
[2022-05-02] MEDS: SILVERGEL (ELTA) 45 ML 1 APPLIC TOPICAL (08:11)
[2022-05-02] MEDS: COLLAGENASE OINT 30 GM TUBE 1 APPLIC TOPICAL (08:11)
[2022-05-02] MEDS: clonazePAM (*CRX) 0.5 MG TABLET FEED TUBE (08:12)
[2022-05-02] MEDS: PREGABALIN (*CRX) 75 MG CAPSULE 300 MG PO (08:13)
[2022-05-02] MEDS: LORazepam INJ (*CRX) 2 MG/ML VIAL IV PUSH (08:17)
--- NOTE | 2022-05-02 08:31 | PM.DS ---
DS: Admitting Diagnosis Discharge Date 05/02/2022 Admitting Diagnosis Assessment and plan (1) Sepsis: ?Code(s): A41.9 - Sepsis, unspecified organism ?Status:?Acute ? ? ? (2) Multifocal pneumonia: ?Code(s): J18.9 - Pneumonia, unspecified organism ?Status:?Acute ? ? ? (3) Acute respiratory failure with hypoxia: ?Code(s): J96.01 - Acute respiratory failure with hypoxia ?Status:?Acute ? ? (4) Hypotension: ?Code(s): I95.9 - Hypotension, unspecified ?Status:?Acute ? (5) Decubitus ulcer of sacral area: ?Code(s): L89.159 - Pressure ulcer of sacral region, unspecified stage ?Status:?Acute ? ? . (6) Insulin dependent type 2 diabetes mellitus: ?Code(s): E11.9 - Type 2 diabetes mellitus without complications; Z79.4 - USP (current) use of insulin ?Status:?Acute ? ? ? (7) Chronic obstructive pulmonary disease: ?Code(s): J44.9 - Chronic obstructive pulmonary disease, unspecified ?Status:?Acute ? ? (8) Chronic anemia: ?Code(s): D64.9 - Anemia, unspecified ?Status:?Acute ? (9) Chronic back pain: ?Code(s): M54.9 - Dorsalgia, unspecified; G89.29 - Other chronic pain DS: Discharge Diagnosis Discharge Diagnosis (1) Fever: Code(s): R50.9 - Fever, unspecified Status: Acute Assessment and Plan: Notes from ICU note 04/14: Patient was febrile overnight with a T-max of 102.3?, blood cultures have been next, UA was positive for leukocyte esterase, trace bacteria, positive for budding yeast. Patient was status post 10 days of Zosyn, 8 days of azithromycin -04/15/2022: CT scan of the chest abdomen and pelvis Diffuse lung disease will mucus plugging in the lower lobes, cirrhosis of the liver with portal venous hypertension. 2 x 2 left adrenal mass, 7.9 x 2.4 x 7.1 cystic mass in the subcutaneous fat in the right anterior abdominal wall. Sacral decubitus ulcer with sacrococcygeal osteomyelitis -04/15/2022: Bilateral upper extremity venous Dopplers were negative for DVT -04/15/2022: Bilateral lower extremity venous Dopplers were negative for DVT -04/14/2022 : Urine culture grew Lenka glabrata 04/14 blood cultures: Preliminary report, no growth 2/2 bottles 04/14 decubitus ulcer culture: MRSA which is sensitive to vancomycin 04/14/2022 sputum culture growing Alcaligenes xylosoxidans which is sensitive to imipenem and beta-lactam, currently on Unasyn 04/23 fevers recurred. Bilateral upper extremity Dopplers were negative for DVT. His WBC is normal. I will check procalcitonin 04/23 repeat blood cultures negative x2 04/23 repeat sputum culture growing Acinetobacter baumannii sensitive to Unasyn, ceftazidime, gentamicin and tobramycin -patient completed 10 day course of vancomycin (04/15) and Diflucan (04/19) for Lenka glabrata in the urine -discontinued imipenem as the Acinetobacter is resistant to imipenem. Now on Unasyn (04/26) which will be continued (2) Acute respiratory failure with hypoxia: Code(s): J96.01 - Acute respiratory failure with hypoxia Status: Acute Assessment and Plan: Notes from ICU note Acute Respiratory failure secondary to pneumonia which to most likely aspiration, could be community-acquired.? Also there could be component of CHF since he had elevated BNP 04/05 Patient was urgently intubated this morning respiratory distress hypoxia and inability to tolerate NIPPV 04/06 patient self-extubated and was reintubated -04/18: ? PEG tube inserted -04/21 : tracheostomy performed, CXR shows good placement. He is now waiting a placement at LTAC Most recent Chest x-ray and ABGs reviewed Continue Bronchodilators Continue ASV mode COVID PCR was negative 04/15:? CT chest continues to show bilateral diffuse infiltrates, mucus plugging of bilateral lower lobes Patient has been started on Dilaudid per tube for pain control He has also been started on p.r.n. cl
--- NOTE | 2022-05-02 14:55 | P.PNINT_ITS ---
Progress Note: A&P Assessment and Plan (1) Fever: Code(s): R50.9 - Fever, unspecified Status: Acute Assessment and Plan: 04/14: Patient was febrile overnight with a T-max of 102.3?, blood cultures have been next, UA was positive for leukocyte esterase, trace bacteria, positive for budding yeast. Patient was status post 10 days of Zosyn, 8 days of azithromycin -04/15/2022: CT scan of the chest abdomen and pelvis Diffuse lung disease will mucus plugging in the lower lobes, cirrhosis of the liver with portal venous hypertension. 2 x 2 left adrenal mass, 7.9 x 2.4 x 7.1 cystic mass in the subcutaneous fat in the right anterior abdominal wall. Sacral decubitus ulcer with sacrococcygeal osteomyelitis -04/15/2022: Bilateral upper extremity venous Dopplers were negative for DVT -04/15/2022: Bilateral lower extremity venous Dopplers were negative for DVT -04/14/2022 : Urine culture grew Lenka glabrata 04/14 blood cultures: Preliminary report, no growth / bottles 04/14 decubitus ulcer culture: MRSA which is sensitive to vancomycin 04/14/2022 sputum culture growing Alcaligenes xylosoxidans which is sensitive to imipenem and beta-lactam, currently on Unasyn 04/23 fevers recurred. Bilateral upper extremity Dopplers were negative for DV T. His WBC is normal. I will check procalcitonin 04/23 repeat blood cultures negative x2 04/23 repeat sputum culture growing Acinetobacter baumannii sensitive to Unasyn, ceftazidime, gentamicin and tobramycin -patient completed 10 day course of vancomycin (04/15) and Diflucan (04/19) for Lenka glabrata in the urine -discontinued imipenem as the Acinetobacter is resistant to imipenem. Now on Unasyn (04/26) which will be continued (2) Acute respiratory failure with hypoxia: Code(s): J96.01 - Acute respiratory failure with hypoxia Status: Acute Assessment and Plan: Acute Respiratory failure secondary to pneumonia which to most likely aspiration, could be community-acquired.? Also there could be component of CHF since he had elevated BNP 04/05 Patient was urgently intubated this morning respiratory distress hypoxia and inability to tolerate NIPPV 04/06 patient self-extubated and was reintubated -04/18: ? PEG tube inserted -04/21 : tracheostomy performed, CXR shows good placement. He is now waiting a placement at LTAC Most recent Chest x-ray and ABGs reviewed Continue Bronchodilators Continue ASV mode COVID PCR was negative 04/15:? CT chest continues to show bilateral diffuse infiltrates, mucus plugging of bilateral lower lobes Patient has been started on Dilaudid per tube for pain control He has also been started on p.r.n. clonazepam, home Paxil and Cymbalta. Continue p.r.n. Seroquel He had an acceptable TSH on admission, no evidence of thyroid dysfunction.? He is oxygenating on 30% and is AC mode. Patient alert awake and anxious P.r.n. Ativan Chest x-ray reviewed and shows possible pulmonary edema Lasix 40 mg IV x1 again today (3) Sepsis: Code(s): A41.9 - Sepsis, unspecified organism Status: Acute Assessment and Plan: On presentation patient met criteria for sepsis likely secondary to pneumonia and UTI Urine Legionella is Negative pneumococcal antigen is negative Mycoplasma IgM is negative See above (4) Aspiration pneumonia: Code(s): J69.0 - Pneumonitis due to inhalation of food and vomit Status: Acute Assessment and Plan: See above (5) Multifocal pneumonia: Code(s): J18.9 - Pneumonia, unspecified organism Status: Acute Assessment and
== END 2022-05-02 08:42 | DRG 4 ==
LOC: ANHED 12:44 → ANHICU 16:38
PROVIDERS: Internal Medicine; Internal Medicine Critical Care Medicine; Internal Medicine Gastroenterology; Otolaryngology; Physician Assistant; Student in an Organized Health Care Education/Training Program; Admitting Provider Internal Medicine; Emergency Provider Emergency Medicine; PCP Family Medicine; Visit Provider Family Medicine
PROC: 0DH63UZ Insertion of Feeding Device into Stomach, Percutaneous Approach (ICD-10-PCS; CPT 43246; principal; 2022-04-18 11:30)
PROC: 0B110F4 Bypass Trachea to Cutaneous with Tracheostomy Device, Open Approach (ICD-10-PCS; principal; 2022-04-21 13:45)
DX: A41.9 Sepsis, unspecified organism (principal); J18.9 Pneumonia, unspecified organism; L89.154 Pressure ulcer of sacral region, stage 4; J96.01 Acute respiratory failure with hypoxia; J69.0 Pneumonitis due to inhalation of food and vomit; I50.33 Acute on chronic diastolic (congestive) heart failure; G82.20 Paraplegia, unspecified; K76.6 Portal hypertension; M46.28 Osteomyelitis of vertebra, sacral and sacrococcygeal region; J44.0 Chronic obstructive pulmonary disease with (acute) lower respiratory infection; B37.49 Other urogenital candidiasis; S24.109S Unspecified injury at unspecified level of thoracic spinal cord, sequela; B95.62 Methicillin resistant Staphylococcus aureus infection as the cause of diseases classified elsewhere; E11.69 Type 2 diabetes mellitus with other specified complication; K74.60 Unspecified cirrhosis of liver; D64.9 Anemia, unspecified; I95.9 Hypotension, unspecified; E87.6 Hypokalemia; M54.9 Dorsalgia, unspecified; G89.29 Other chronic pain; M96.1 Postlaminectomy syndrome, not elsewhere classified; F32.A Depression, unspecified; R68.89 Other general symptoms and signs; Z20.822 Contact with and (suspected) exposure to COVID-19; Z28.21 Immunization not carried out because of patient refusal; Z79.4 Long term (current) use of insulin; Z74.01 Bed confinement status; Z79.899 Other long term (current) drug therapy; Z93.3 Colostomy status; Z97.8 Presence of other specified devices
CPT/HCPCS: 31500; 36415; 36430; 36569; 36600; 43246; 70450; 71045; 71250; 71260; 74177; 80048; 80053; 80202; 81001; 82375; 82565; 82607; 82728; 82746; 82803; 82805; 82948; 83036; 83050; 83540; 83550; 83605; 83690; 83735; 83880; 84100; 84145; 84443; 84478; 84484; 85025; 85027; 85610; 85730; 86140; 86738; 86850; 86900; 86901; 86920; 86923; 87040; 87070; 87077; 87081; 87086; 87088; 87106; 87147; 87186; 87205; 87449; 87804; 87899; 93005; 93306; 93922; 93970; 94002; 94003; 94640; 94667; 96365; 96368; 99291; A4629; A9270; C1751; C9113; C9803; J0295; J0330; J0360; J0456; J0690; J0696; J0743; J1450; J1650; J1815; J1940; J2060; J2248; J2250; J2270; J2370; J2543; J2704; J2765; J2997; J3010; J3370; J3475; J3480; J7030; J7050; J7120; P9016; P9047; Q9967; U0003; U0005